=== PATIENT | male | born 1935 | race Caucasian/White ===

== ENCOUNTER 2022-11-27 19:45 | Emergency (ER) | payer OTHER ==
--- OUTSIDE RECORDS SUMMARY | 2022-11-27 20:04 | XMS REPORT | Continuity of Care Document ---
:1935 Author Organization [facility] t Address [address] [place] [address] Care Team Providers Name Role Phone Eduardo Hall Attending Clinician Unavailable Rosario Granados Attending Clinician Unavailable Julio Tejada Attending Clinician Unavailable JENISE Attending Clinician Unavailable Rhonda Leblanc Attending Clinician [phone] Jorge Alberto Ramires Attending Clinician Unavailable Jorge Alberto Ramires Attending Clinician Unavailable A_Madhu Attending Clinician Unavailable PURA Attending Clinician Unavailable Angelica Carlos Attending Clinician Unavailable MIRNA JNAE Attending Clinician Unavailable JHOAN CORNEJO Attending Clinician Unavailable Eduardo Hall Admitting Clinician Unavailable Julio Tejada Admitting Clinician Unavailable JENISE Admitting Clinician Unavailable Physician, No Primary or Family Admitting Clinician Unavailjose buitrago A_Madhu Admitting Clinician Unavailable PURA Admitting Clinician Unavailable Payers Payer Name Policy Type Policy Number Effective Date Expiration Date S melly [facility] - [id number] 2021 [employer] 00:00:00 (MEDICARE REPLACEMENT/ADVANTAG E - PPO) [facility] [id number] (PPO) [employer] - MEDICARE [id number] COMPLETE (MEDICARE REPLACEMENT HMO) Problems Condition Condition Condition Status Onset Resolution Last Treating Co mments Source Name Details Category Date Date Treatment Clinician Date Fall Fall Problem Active 2021-11 [place] 1-09 [facility] 00:[facility]: ty [facility] Acute Acute Problem Active [place] bronchitis Bronchitis 6-15 Co m[facility]i 00:00: ty 00 [facility] Screening Screening Problem Active Swe ramirez for for 3-15 [facility] malignant Malignant 00:00: ty neoplasm Neoplasm 00 [facility] prostate Prostate Clinic s Pain of Pain of Problem Active [facility] left knee Left Knee 3-15 Comm uni joint Joint 00:00: ty 00 [facility] Pain in Pain in Problem Active [place] right hip Right Hip 3-15 Comm uni joint Joint 00:00: ty 00 [facility] Pain in Pain in Problem Active [place] right Right 2-07 [facility] lower limb Lower Limb 00:00: ty 00 [facility] 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 8-24 [facility] i rhinitis Rhinitis 00:00: ty 00 [facility] Persistent Persistent Problem Active S [facility] insomnia Insomnia 6 Commun i 00:00: ty 00 [facility] Insomnia Insomnia Problem Active [facility] 04-03 [facility] 00:00: ty 00 [facility] Atrial Atrial Problem Active [facility] fibrillati Fibrillati 6 Co mmuni on on 00:00: ty 00 [facility] 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[facility]y n of colon n of Colon 6 Co mmuni 00:00: ty 00 [facility] Muscle Muscle Problem Active [facility] weakness Weakness 6 Commun i 00:00: ty 00 [facility] Poor Poor Problem Active [facility] short-term Short-term 6 Co m[facility]i memory Memory 00:00: ty 00 [facility] Diarrhea Diarrhea Problem Active [facility] 6 [facility] 00:00: ty 00 [facility] History of History of Problem Active S [facility] mitral Mitral 6 [facility] valve Valve 00:00: ty replacemen Replacemen 00 [facility] spita [facility] t l Clinics Anticoagul Anticoagul Problem Active S sandray ant ant 04-03 [facility] therapy Therapy 00:00: ty 00 [facility] Long-term Long-term Problem Active [facility] ramirez drug Drug 04-03 [facility] therapy Therapy 00:00: ty 00 [facility] Open heart Open Heart Problem Active S [facility] surgery Surgery 3-15 [facility]i 00:00: ty 00 [facility] Coronary Coronary Problem Active [facility] arterioscl Arterioscl 1-05 da erosis erosis 00:00: Medical 00 Group 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-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 Premature 00:00: Medi adán beats Beats 00 Group Coronary Coronary Problem Active 2019-11 [place] arterioscl Arterioscl 2-27 da erosis [facility] Pruritus Pruritus Problem Active [place] of skin of Skin 1-22 da 00:00: Medical 00 Group Unintentio Unintentio Problem Active [facility] nal weight nal Weight 1-22 da loss Loss 00:00: Medical 00 Group Allergic Allergic Problem Active [place] conjunctiv Conjunctiv - da itis of itis of 00:00: Medical right eye Right Eye 00 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 Disease 00:00: Medical 00 Group Adult Adult Problem Active [facility] C[facility]uan Group 1-10 da examinatio Examinatio 00:00: Me dical n n 00 Group Herpes Herpes Problem Active [place] zoster Zoster 07-30 da 00:00: Medical 00 Group Shoulder Shoulder Problem Active [place] joint pain Joint Pain 623 da 00:00: Medical 00 Group 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 [facility] Upper Upper Problem Active [place] respirator Respirator da y y Medical infection Infection Grou p Allergic Allergic Problem Active [place] [facility] rhinitis Rhinitis [facility] Constipati Constipati Problem Active [facility] on on [facility] 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 Me dical a a Group Cellulitis Cellulitis Problem Active M at[facility] of lower of Lower da limb [facility] Memory Memory Problem Active [facility] impairment Impairment [facility] Eruption Eruption Problem Active [facility] Persistent Persistent Problem Active [facility] cough Cough [facility] Nocturia Nocturia Problem Active [facility] Allergies, Adverse Reactions, Alerts Allergy Allergy Status Severity Reaction(s) Onset Inactive Treating Comm ents Source Name Type Date Date Clinician No Known DA Active U 2020-11 [facility] Allergie 1 Clear s 00:00: Figueredo 00 [facility] No Known DA Active U [facility] Allergie 3 Clear s 00:00: Figueredo 00 [facility] No Known DA Active U [facility] Allergie 3- Clear s 00:00: Figueredo 00 [facility] Social History Smoking Status Start Date Stop Date Source Never Smoker [facility] Medications Ordered Filled Start Stop Current Ordering Indication Dosage Frequency Signature Comments Components Source Medication Medication Date Date Medication? Clinician (SIG) Name Name Santos 40 Rojasalog 40 No Kenalog 40 [place] mg/mL mg/mL 6-15 mg/mL [facility]i suspension suspension 14:15: suspension ty for for 30 for Hospita injectionTa injectionTa injectionT l ke 2 mL by 2 mL by [facility] 2 mL [facility] injection injection by route. route. injection route. Kenalog 40 Kenalog 40 No Kenalog 40 [place] mg/mL mg/mL 1-05 mg/mL Communi suspension suspension 17:49: suspension ty for for 56 for Hospita injectionTa injectionTa injectionT l ke 2 mL by 2 mL by [facility] 2 mL [facility] injection injection by route. route. injection route. Kenalog 40 Kenalog 40 No Kenalog 40 [place] mg/mL mg/mL 1-05 mg/mL Communi suspension suspension 17:49: suspension ty for for 56 for Hospita injectionTa injectionTa injectionT l ke 2 mL by 2 mL by [facility] 2 mL [facility] injection injection by route. route. injection route. Kenalog 40 Kenalog 40 No Kenalog 40 [place] mg/mL mg/mL 1-05 mg/mL Communi suspension suspension 17:49: suspension ty for for 56 for Hospita injectionTa injectionTa injectionT l ke 2 mL by 2 mL by dannielle 2 mL [facility] injection injection by route. route. injection route. Kenalog 40 Kenalog 40 No Kenalog 40 [place] mg/mL mg/mL 1-05 mg/mL Communi suspension suspension 17:49: suspension ty for for 56 for Hospita injectionTa injectionTa injectionT l ke 2 mL by ke 2 mL by dannielle 2 mL [facility] injection injection by route. route. injection route. Kenalog 40 Kenalog 40 No Kenalog 40 [place] mg/mL mg/mL 1-05 mg/mL Communi suspension suspension 17:49: suspension ty for for 56 for Hospita injectionTa injectionTa injectionT l ke 2 mL by ke 2 mL by dannielle 2 mL [facility] injection injection by route. route. injection route. amiodarone amiodarone No amiodarone [place] 200 mg 200 mg 200 mg Communi tablet TAKE tablet TAKE tablet ty ONE TABLET ONE TABLET TAKE ONE Hospita BY MOUTH BY MOUTH TABLET BY l TWICE DAILY TWICE DAILY MOUTH Clinics TWICE DAILY Cerebrum Cerebrum No Cerebrum Swe ramirez Compositum Compositum Compositum Communi ty [facility] Eliquis 5 Eliquis 5 No Eliquis 5 [place] mg tablet mg tablet mg tablet Communi TAKE 1 TAKE 1 TAKE 1 ty TABLET BY TABLET BY TABLET BY Hospita MOUTH TWICE MOUTH TWICE MOUTH l DAILY DAILY TWICE Clinics DAILY FeroSul 325 FeroSul 325 No FeroSul [place] mg (65 mg mg (65 mg 325 mg (65 Communi iron) iron) mg iron) ty tablet TAKE tablet TAKE tablet Hospita 1 TABLET BY 1 TABLET BY TAKE 1 l MOUTH TWICE MOUTH TWICE TABLET BY Clinics DAILY DAILY MOUTH TWICE DAILY Arabic Arabic No Arabic [place] Ginseng Ginseng Ginseng Commun i ty [facility] Macular Macular No Macular [place] [employer] [facility] Communi Formula Formula Formula ty [facility] Men's 50 Men's 50 No Men's 50 Swe ramirez Plus Plus Plus Communi Multivitami Multivitami Multivitam ty n n in [facility] Metamucil Metamucil No Metamucil [place] (sugar) (sugar) (sugar) Commun i oral powder oral powder oral t y Take by Take by powder Hospita oral route. oral route. Take by l oral Clinics route. mirtazapine mirtazapine No mirtazapin [facility] 15 mg 15 mg e 15 mg Communi tablet TAKE tablet TAKE tablet ty 1 TABLET BY 1 TABLET BY TAKE 1 Hospita MOUTH AT MOUTH AT TABLET BY l BEDTIME BEDTIME MOUTH AT Clini cs BEDTIME [place] 3 [place] 3 No [place] 3 [place] Communi ty [facility] Probiotic Probiotic No Probiotic [place] Communi ty [facility] Super B Super B No Super B [place] Complex Complex Complex Commun i ty [facility] Vitamin C Vitamin C No Vitamin C [place] 500mg 500mg 500mg Communi ty [facility] amiodarone amiodarone No amiodarone [place] 200 mg 200 mg 200 mg Communi tablet TAKE tablet TAKE tablet ty ONE TABLET ONE TABLET TAKE ONE Hospita BY MOUTH BY MOUTH TABLET BY l TWICE DAILY TWICE DAILY MOUTH Clinics TWICE DAILY Cerebrum Cerebrum No Cerebrum Swe ramirez Compositum Compositum Compositum Communi ty [facility] donepezil 5 donepezil 5 No donepezil [place] mg tablet mg tablet 5 mg Commu ni TAKE 1 TAKE 1 tablet ty TABLET BY TABLET BY TAKE 1 Hos татьяна MOUTH EVERY MOUTH EVERY TABLET BY l MORNING MORNING MOUTH Clinics EVERY MORNING Eliquis 5 Eliquis 5 No Eliquis 5 [facility] mg tablet mg tablet mg tablet Communi TAKE 1 TAKE 1 TAKE 1 ty TABLET BY TABLET BY TABLET BY Hospita MOUTH TWICE MOUTH TWICE MOUTH l DAILY DAILY TWICE Clinics DAILY FeroSul 325 FeroSul 325 No FeroSul [place] mg (65 mg mg (65 mg 325 mg (65 Communi iron) iron) mg iron) ty tablet TAKE tablet TAKE tablet Hospita 1 TABLET BY 1 TABLET BY TAKE 1 l MOUTH TWICE MOUTH TWICE TABLET BY Clinics DAILY DAILY MOUTH TWICE DAILY Arabic Arabic No Arabic [place] Ginseng Ginseng Ginseng Commun i ty [facility] Clinics Macular Macular No Macular [facility] Communi Formula Formula Formula ty [facility] Clinics Men's 50 Men's 50 No Men's 50 Swe ramirez Plus Plus Plus Communi Multivitami Multivitami Multivitam ty n n in [facility] Clinics Metamucil Metamucil No Metamucil [place] (sugar) (sugar) (sugar) Commun i oral powder oral powder oral t y Take by Take by powder Hospita oral route. oral route. Take by l oral Clinics route. mirtazapine mirtazapine No mirtazapin [place] 15 mg 15 mg e 15 mg Communi tablet TAKE tablet TAKE tablet ty 1 TABLET BY 1 TABLET BY TAKE 1 Hospita MOUTH AT MOUTH AT TABLET BY l BEDTIME BEDTIME MOUTH AT Clini cs BEDTIME [place] 3 [place] 3 No [place] 3 [place] Communi ty [facility] Clinics Probiotic Probiotic No Probiotic [place] [facility]i [facility] Super B Super B No Super B [place] Complex Complex Complex Commun i ty [facility] Vitamin C Vitamin C No Vitamin C [place] 500mg 500mg 500mg Communi ty [facility] amiodarone amiodarone No amiodarone [place] 200 mg 200 mg 200 mg Communi tablet TAKE tablet TAKE tablet ty ONE TABLET ONE TABLET TAKE ONE Hospita BY MOUTH BY MOUTH TABLET BY l TWICE DAILY TWICE DAILY MOUTH Clinics TWICE DAILY Cerebrum Cerebrum No Cerebrum Swe ramirez Compositum Compositum Compositum Communi ty [facility] Clinics donepezil donepezil No donepezil [place] 10 mg 10 mg 10 mg Communi tablet TAKE tablet TAKE tablet ty 1 TABLET BY 1 TABLET BY TAKE 1 Hospita MOUTH EVERY MOUTH EVERY TABLET BY l DAY DAY MOUTH Clinics EVERY DAY donepezil 5 donepezil 5 No donepezil [place] mg tablet mg tablet 5 mg Commu ni TAKE 1 TAKE 1 tablet ty TABLET BY TABLET BY TAKE 1 Hos татьяна MOUTH EVERY MOUTH EVERY TABLET BY l MORNING MORNING MOUTH Clinics EVERY MORNING Eliquis 5 Eliquis 5 No Eliquis 5 [place] mg tablet mg tablet mg tablet Communi TAKE 1 TAKE 1 TAKE 1 ty TABLET BY TABLET BY TABLET BY Hospita MOUTH TWICE MOUTH TWICE MOUTH l DAILY DAILY TWICE Clinics DAILY FeroSul 325 FeroSul 325 No FeroSul [place] mg (65 mg mg (65 mg 325 mg (65 Communi iron) iron) mg iron) ty tablet TAKE tablet TAKE tablet Hospita 1 TABLET BY 1 TABLET BY TAKE 1 l MOUTH TWICE MOUTH TWICE TABLET BY Clinics DAILY DAILY MOUTH TWICE DAILY Arabic Arabic No Arabic [place] Ginseng Ginseng Ginseng Commun i [facility] Macular Macular No Macular [place] [employer] [facility] Communi Formula Formula Formula ty [facility]ics Men's 50 Men's 50 No Men's 50 Swe ramirez Plus Plus Plus Communi Multivitami Multivitami Multivitam ty n n in [facility] Metamucil Metamucil No Metamucil [place] (sugar) (sugar) (sugar) Commun i oral powder oral powder oral t y Take by Take by powder Hospita oral route. oral route. Take by l oral Clinics route. mirtazapine mirtazapine No mirtazapin [place] 15 mg 15 mg e 15 mg Communi tablet TAKE tablet TAKE tablet ty 1 TABLET BY 1 TABLET BY TAKE 1 Hospita MOUTH AT MOUTH AT TABLET BY l BEDTIME BEDTIME MOUTH AT Clini cs BEDTIME [place] 3 [place] 3 No [place] 3 [place] Communi ty [facility] Clinics Probiotic Probiotic No Probiotic [place] Communi ty [facility] Clinics Super B Super B No Super B [place] Complex Complex Complex Commun i ty [facility] Vitamin C Vitamin C No Vitamin C [place] 500mg 500mg 500mg Communi ty [facility] Clinics amiodarone amiodarone No amiodarone [place] 200 mg 200 mg 200 mg Communi tablet TAKE tablet TAKE tablet ty 1 TABLET BY 1 TABLET BY TAKE 1 Hospita MOUTH TWICE MOUTH TWICE TABLET BY l DAILY DAILY MOUTH Clinics TWICE DAILY Cerebrum Cerebrum No Cerebrum Swe ramirez Compositum Compositum Compositum Communi ty [facility] Clinics donepezil donepezil No donepezil [place] 10 mg 10 mg 10 mg Communi tablet TAKE tablet TAKE tablet ty 1 TABLET BY 1 TABLET BY TAKE 1 Hospita MOUTH EVERY MOUTH EVERY TABLET BY l DAY DAY MOUTH Clinics EVERY DAY FeroSul 325 FeroSul 325 No FeroSul [place] mg (65 mg mg (65 mg 325 mg (65 Communi iron) iron) mg iron) ty tablet TAKE tablet TAKE tablet Hospita 1 TABLET BY 1 TABLET BY TAKE 1 l MOUTH TWICE MOUTH TWICE TABLET BY Clinics DAILY DAILY MOUTH TWICE DAILY Kenalog 40 Kenalog 40 No 2mL Kenalog 40 [place] mg/mL mg/mL mg/mL Communi suspension suspension suspension ty for for for Hospita injection injection injection l Take 2 mL Take 2 mL Take 2 mL Clinics by by by injection injection injection route. route. route. Arabic Arabic No Arabic [place] Ginseng Ginseng Ginseng Commun i ty [facility] Clinics Macular Macular No Macular [place] [employer] [facility] Communi Formula Formula Formula ty [facility] Clinics Men's 50 Men's 50 No Men's 50 Swe ramirez Plus Plus Plus Communi Multivitami Multivitami [facility]iv[facility]am [facility] Metamucil Metamucil No Metamucil [place] (sugar) (sugar) (sugar) Commun i oral powder oral powder oral t y Take by Take by powder Hospita oral route. oral route. Take by l oral Clinics route. mirtazapine mirtazapine No mirtazapin [place] 15 mg 15 mg e 15 mg Communi tablet TAKE tablet TAKE tablet ty 1 TABLET BY 1 TABLET BY TAKE 1 Hospita MOUTH AT MOUTH AT TABLET BY l BEDTIME BEDTIME MOUTH AT Clini cs BEDTIME [place] 3 [place] 3 No [place] 3 [place] Communi ty [facility] Clinics Probiotic Probiotic No Probiotic [place] Communi ty [facility] Clinics Super B Super B No Super B [place] Complex Complex Complex Commun i ty [facility] Clinics Vitamin C Vitamin C No Vitamin C [place] 500mg 500mg 500mg Communi ty [facility] Clinics amiodarone amiodarone No amiodarone [place] 200 mg 200 mg 200 mg Communi tablet TAKE tablet TAKE tablet ty 1 TABLET BY 1 TABLET BY TAKE 1 Hospita MOUTH TWICE MOUTH TWICE TABLET BY l DAILY DAILY MOUTH Clinics TWICE DAILY Cerebrum Cerebrum No Cerebrum Swe ramirez Compositum Compositum Compositum Communi ty [facility] Clinics donepezil donepezil No donepezil [place] 10 mg 10 mg 10 mg Communi tablet TAKE tablet TAKE tablet ty 1 TABLET BY 1 TABLET BY TAKE 1 Hospita MOUTH EVERY MOUTH EVERY TABLET BY l DAY DAY MOUTH Clinics EVERY DAY FeroSul 325 FeroSul 325 No FeroSul [place] mg (65 mg mg (65 mg 325 mg (65 Communi iron) iron) mg iron) ty tablet TAKE tablet TAKE tablet Hospita 1 TABLET BY 1 TABLET BY TAKE 1 l MOUTH TWICE MOUTH TWICE TABLET BY Clinics DAILY DAILY MOUTH TWICE DAILY Kenalog 40 Kenalog 40 No 2mL Kenalog 40 [place] mg/mL mg/mL mg/mL Communi suspension suspension suspension ty for for for Hospita injection injection injection l Take 2 mL Take 2 mL Take 2 mL Clinics by by by injection injection injection route. route. route. Arabic Arabic No Arabic [place] Ginseng Ginseng Ginseng Commun i ty [facility] Clinics Macular Macular No Macular [place] [employer] [facility] Communi Formula Formula Formula ty [facility] Men's 50 Men's 50 No Men's 50 Swe ramirez Plus Plus Plus Communi Multivitami Multivitami Multivitam ty n n in [facility] Metamucil Metamucil No Metamucil [place] (sugar) (sugar) (sugar) Commun i oral powder oral powder oral t y Take by Take by powder Hospita oral route. oral route. Take by l oral Clinics route. mirtazapine mirtazapine No mirtazapin [place] 15 mg 15 mg e 15 mg Communi tablet TAKE tablet TAKE tablet ty 1 TABLET BY 1 TABLET BY TAKE 1 Hospita MOUTH AT MOUTH AT TABLET BY l BEDTIME BEDTIME MOUTH AT Clini cs BEDTIME [place] 3 [place] 3 No [place] 3 [place] Communi ty [facility] Clinics Probiotic Probiotic No Probiotic [place] Communi ty [facility] Clinics Super B Super B No Super B [place] Complex Complex Complex Commun i ty [facility] Clinics Vitamin C Vitamin C No Vitamin C [place] 500mg 500mg 500mg Communi ty [facility] Clinics amiodarone amiodarone No amiodarone [place] 200 mg 200 mg 200 mg Communi tablet TAKE tablet TAKE tablet ty 1 TABLET BY 1 TABLET BY TAKE 1 Hospita MOUTH TWICE MOUTH TWICE TABLET BY l DAILY DAILY MOUTH Clinics TWICE DAILY Cerebrum Cerebrum No Cerebrum Swe ramirez Compositum Compositum Compositum Communi ty [facility] Clinics donepezil donepezil No donepezil [place] 10 mg 10 mg 10 mg Communi tablet TAKE tablet TAKE tablet ty 1 TABLET BY 1 TABLET BY TAKE 1 Hospita MOUTH EVERY MOUTH EVERY TABLET BY l DAY DAY MOUTH Clinics EVERY DAY FeroSul 325 FeroSul 325 No FeroSul [place] mg (65 mg mg (65 mg 325 mg (65 Communi iron) iron) mg iron) ty tablet TAKE tablet TAKE tablet Hospita 1 TABLET BY 1 TABLET BY TAKE 1 l MOUTH TWICE MOUTH TWICE TABLET BY Clinics DAILY DAILY MOUTH TWICE DAILY Kenalog 40 Kenalog 40 No 2mL Kenalog 40 [place] mg/mL mg/mL mg/mL Communi suspension suspension suspension ty for for for Hospita injection injection injection l Take 2 mL Take 2 mL Take 2 mL Clinics by by by injection injection injection route. route. route. Arabic Arabic No Arabic [place] Ginseng Ginseng Ginseng Commun i ty [facility] Macular Macular No Macular [place] [employer] [facility] Communi Formula Formula Formula ty [facility] Men's 50 Men's 50 No Men's 50 Swe ramirez Plus Plus Plus Communi Multivitami Multivitami Multivitam ty n n in [facility] Metamucil Metamucil No Metamucil [place] (sugar) (sugar) (sugar) Commun i oral powder oral powder oral t y Take by Take by powder Hospita oral route. oral route. Take by l oral Clinics route. mirtazapine mirtazapine No mirtazapin [place] 15 mg 15 mg e 15 mg Communi tablet TAKE tablet TAKE tablet ty 1 TABLET BY 1 TABLET BY TAKE 1 Hospita MOUTH AT MOUTH AT TABLET BY l BEDTIME BEDTIME MOUTH AT Clini cs BEDTIME [place] 3 [place] 3 No [place] 3 [place] Communi ty [facility] Probiotic Probiotic No Probiotic [place] Communi ty [facility] Super B Super B No Super B [place] Complex Complex Complex Commun i ty [facility] Vitamin C Vitamin C No Vitamin C [place] 500mg 500mg 500mg Communi ty [facility] amiodarone amiodarone No amiodarone [place] 200 mg 200 mg 200 mg Communi tablet TAKE tablet TAKE tablet ty 1 TABLET BY 1 TABLET BY TAKE 1 Hospita MOUTH TWICE MOUTH TWICE TABLET BY l DAILY DAILY MOUTH Clinics TWICE DAILY Cerebrum Cerebrum No Cerebrum Swe ramirez Compositum Compositum Compositum Communi ty [facility] donepezil donepezil No donepezil [place] 10 mg 10 mg 10 mg Communi tablet TAKE tablet TAKE tablet ty 1 TABLET BY 1 TABLET BY TAKE 1 Hospita MOUTH EVERY MOUTH EVERY TABLET BY l DAY DAY MOUTH Clinics EVERY DAY FeroSul 325 FeroSul 325 No FeroSul [place] mg (65 mg mg (65 mg 325 mg (65 Communi iron) iron) mg iron) ty tablet TAKE tablet TAKE tablet Hospita 1 TABLET BY 1 TABLET BY TAKE 1 l MOUTH TWICE MOUTH TWICE TABLET BY Clinics DAILY DAILY MOUTH TWICE DAILY Kenalog 40 Kenalog 40 No 2mL Kenalog 40 [place] mg/mL mg/mL mg/mL Communi suspension suspension suspension ty for for for Hospita injection injection injection l Take 2 mL Take 2 mL Take 2 mL Clinics by by by injection injection injection route. route. route. Arabic Arabic No Arabic [place] Ginseng Ginseng Ginseng Commun i ty [facility] Macular Macular No [facility] Formula ty [facility] Men's 50 Men's 50 No Men's 50 Swe ramirez Plus Plus Plus Communi Multivitami Multivitami Multivitam ty n n in [facility] Metamucil Metamucil No Metamucil [place] (sugar) (sugar) (sugar) Commun i oral powder oral powder oral t y Take by Take [facility] oral [facility] oral route. Take by l oral Clinics route. mirtazapine mirtazapine No mirtazapin [place] 15 mg 15 mg e 15 mg Communi tablet TAKE tablet TAKE tablet ty 1 TABLET BY 1 TABLET BY TAKE 1 Hospita MOUTH AT MOUTH AT TABLET BY l BEDTIME BEDTIME MOUTH AT Clini cs BEDTIME [place] 3 [place] 3 No [place] 3 [place] Communi ty [facility] Probiotic Probiotic No Probiotic [place] [facility] Super B Super B No Super B [place] [facility] Commun i ty [facility] Vitamin C Vitamin C No Vitamin C [place] 500mg 500mg 500mg Communi ty [facility] amiodarone amiodarone No amiodarone [place] 200 mg 200 mg 200 mg Communi tablet TAKE tablet TAKE tablet ty 1 TABLET BY 1 TABLET BY TAKE 1 Hospita MOUTH TWICE MOUTH TWICE TABLET BY l DAILY DAILY MOUTH Clinics TWICE DAILY Cerebrum Cerebrum No Cerebrum Swe ramirez Compositum Compositum Compositum Communi ty [facility] donepezil donepezil No donepezil [place] 10 mg 10 mg 10 mg Communi tablet TAKE tablet TAKE tablet ty 1 TABLET BY 1 TABLET BY TAKE 1 Hospita MOUTH EVERY MOUTH EVERY TABLET BY l DAY DAY MOUTH Clinics EVERY DAY clobetasol clobetasol No clobetasol [place] 0.05 % 0.05 % 0.05 % da topical topical topical Episco p cream APR cream APR cream APR al BID UP TO 2 BID UP TO 2 BID UP TO Health WKS PER WKS PER 2 WKS PER Outr eac MONTH PRN MONTH PRN MONTH PRN h Program FeroSul 325 FeroSul 325 No FeroSul [place] mg (65 mg mg (65 mg 325 mg (65 Communi iron) iron) mg iron) ty tablet TAKE tablet TAKE tablet Hospita 1 TABLET BY 1 TABLET BY TAKE 1 l MOUTH TWICE MOUTH TWICE TABLET BY Clinics DAILY DAILY MOUTH TWICE DAILY Kenalog 40 Kenalog 40 No 2mL Kenalog 40 [place] mg/mL mg/mL mg/mL Communi suspension suspension suspension ty for for for Hospita injection injection injection l Take 2 mL Take 2 mL Take 2 mL Clinics by by by injection injection injection route. route. route. Arabic Arabic No Arabic [place] Ginseng Ginseng Ginseng Commun i ty [facility] Macular Macular No Macular [facility] Communi Formula Formula Formula ty [facility] Men's 50 Men's 50 No Men's 50 Swe ramirez Plus Plus Plus Communi Multivitami Multivitami Multivitam ty n n in [facility] Clinics Metamucil Metamucil No Metamucil [place] (sugar) (sugar) (sugar) Commun i oral powder oral powder oral t y Take by Take by powder Hospita oral route. oral route. Take by l oral Clinics route. mirtazapine mirtazapine No mirtazapin [place] 15 mg 15 mg e 15 mg Communi tablet TAKE tablet TAKE tablet ty 1 TABLET BY 1 TABLET BY TAKE 1 Hospita MOUTH AT MOUTH AT TABLET BY l BEDTIME BEDTIME MOUTH AT Clini cs BEDTIME [place] 3 No [place] 3 [place] Communi ty [facility] Probiotic Probiotic No Probiotic [place] Communi ty [facility] Super B Super B No Super B [place] [facility] Commun i ty [facility] Clinics Vitamin C Vitamin C No Vitamin C [place] 500mg 500mg 500mg Communi ty [facility] amiodarone amiodarone No amiodarone [place] 200 mg 200 mg 200 mg Communi tablet TAKE tablet TAKE tablet ty 1 TABLET BY 1 TABLET BY TAKE 1 Hospita MOUTH TWICE MOUTH TWICE TABLET BY l DAILY DAILY MOUTH Clinics TWICE DAILY Cerebrum Cerebrum No Cerebrum Swe ramirez Compositum Compositum Compositum Communi ty [facility] donepezil donepezil No donepezil [place] 10 mg 10 mg 10 mg Communi tablet TAKE tablet TAKE tablet ty 1 TABLET BY 1 TABLET BY TAKE 1 Hospita MOUTH EVERY MOUTH EVERY TABLET BY l DAY DAY MOUTH Clinics EVERY DAY FeroSul 325 FeroSul 325 No FeroSul [place] mg (65 mg mg (65 mg 325 mg (65 Communi iron) iron) mg iron) ty tablet TAKE tablet TAKE tablet Hospita 1 TABLET BY 1 TABLET BY TAKE 1 l MOUTH TWICE MOUTH TWICE TABLET BY Clinics DAILY DAILY MOUTH DIRECTED DIRECTED TWICE DAILY DIRECTED Arabic Arabic No Arabic [place] Ginseng Ginseng Ginseng [facility] Mac[facility] No [facility] Men's 50 Men's 50 No Men's 50 Swe ramirez Plus Plus Plus Communi Multivitami Multivitami Multivitam ty n n [facility] Clin[facility] Metamucil Metamucil No Metamucil [place] (sugar) (sugar) (sugar) Commun i oral powder oral powder oral t y Take by Take by powder Hospita oral route. oral route. Take by l oral Clinics route. mirtazapine mirtazapine No mirtazapin [place] 15 mg 15 mg e 15 mg Communi tablet TAKE tablet TAKE tablet ty 1 TABLET BY 1 TABLET BY TAKE 1 Hospita MOUTH AT MOUTH AT TABLET BY l BEDTIME BEDTIME MOUTH AT Clini cs BEDTIME [place] 3 [place] 3 No [place] 3 [place] Communi ty [facility] Probiotic Probiotic No Probiotic [place] Communi ty [facility] Super B Super B No Super B [place] Complex Complex Complex Commun i ty [facility] Vitamin C Vitamin C No Vitamin C [place] 500mg 500mg 500mg Communi ty [facility] amiodarone amiodarone No amiodarone [place] 200 mg 200 mg 200 mg Communi tablet TAKE tablet TAKE tablet ty 1 TABLET BY 1 TABLET BY TAKE 1 Hospita MOUTH TWICE MOUTH TWICE TABLET BY l DAILY DAILY MOUTH Clinics TWICE DAILY Cerebrum Cerebrum No Cerebrum Swe ramirez Compositum Compositum Compositum Communi ty [facility] donepezil donepezil No donepezil [place] 10 mg 10 mg 10 mg Communi tablet TAKE tablet TAKE tablet ty 1 TABLET BY 1 TABLET BY TAKE 1 Hospita MOUTH EVERY MOUTH EVERY TABLET BY l DAY DAY MOUTH Clinics EVERY DAY FeroSul 325 FeroSul 325 No FeroSul [place] mg (65 mg mg (65 mg 325 mg (65 Communi iron) iron) mg iron) ty tablet TAKE tablet TAKE tablet Hospita 1 TABLET BY 1 TABLET BY TAKE 1 l MOUTH TWICE MOUTH TWICE TABLET BY Clinics DAILY DAILY MOUTH DIRECTED DIRECTED TWICE DAILY DIRECTED Arabic Arabic No Arabic [place] Ginseng Ginseng Ginseng Commun i ty Hospita l Clinics Macular Macular No Macular [facility] Communi Formula Formula Formula ty [facility] Fluad Quad Fluad Quad No Fluad Quad [place] (6 [phone]( da 5yr up)(PF) 5yr up)(PF) 67yr E piscop 60 mcg (15 60 mcg (15 up)(PF) 60 al mcg x mcg x mcg (15 Health 4)/0.5mL IM 4)/0.5mL IM mcg x Outreac syringe ADM syringe ADM 4)/0.5mL h 0.5ML IM 0.5ML IM IM syringe P rogram UTD UTD ADM 0.5ML IM UTD Men's 50 Men's 50 No Men's 50 Swe ramirez Plus Plus Plus Communi Multivitami Multivitami [facility] Metamucil Metamucil No Metamucil [place] (sugar) (sugar) (sugar) Commun i oral powder oral powder oral t y Take by Take by powder Hospita oral route. oral route. Take by l oral Clinics route. mirtazapine mirtazapine No mirtazapin [place] 15 mg 15 mg e 15 mg Communi tablet TAKE tablet TAKE tablet ty 1 TABLET BY 1 TABLET BY TAKE 1 Hospita MOUTH AT MOUTH AT TABLET BY l BEDTIME BEDTIME MOUTH AT Clini cs BEDTIME [place] 3 [place] 3 No [place] 3 [place] Communi ty [facility] Probiotic Probiotic No Probiotic [place] Communi ty [facility] Super B Super B No Super B [place] [facility] Complex Commun i ty [facility] Vitamin C Vitamin C No Vitamin C [place] 500mg 500mg 500mg Communi ty [facility] amiodarone amiodarone No amiodarone [place] 200 mg 200 mg 200 mg Communi tablet TAKE tablet TAKE tablet ty 1 TABLET BY 1 TABLET BY TAKE 1 Hospita MOUTH TWICE MOUTH TWICE TABLET BY l DAILY DAILY MOUTH Clinics TWICE DAILY amoxicillin amoxicillin No 1 Q12H amoxicilli [place] [id number] 875 Communi mg-potassiu mg-potassiu mg-potassi ty m m [facility] clavulanate clavulanate clavulanat l 125 mg 125 mg e 125 mg Clinics tablet Take tablet Take tablet 1 tablet 1 tablet Take 1 every 12 every 12 tablet hours by hours by every 12 oral route oral route hours by for 10 for 10 oral route days. days. for 10 days. Cerebrum Cerebrum No Cerebrum Swe ramirez Compositum Compositum Compositum Communi ty [facility] donepezil donepezil No donepezil [place] 10 mg 10 mg 10 mg Communi tablet TAKE tablet TAKE tablet ty 1 TABLET BY 1 TABLET BY TAKE 1 Hospita MOUTH EVERY MOUTH EVERY TABLET BY l DAY DAY MOUTH Clinics EVERY DAY FeroSul 325 FeroSul 325 No FeroSul [place] mg (65 mg mg (65 mg 325 mg (65 Communi iron) iron) mg iron) ty tablet TAKE tablet TAKE tablet Hospita 1 TABLET BY 1 TABLET BY TAKE 1 l MOUTH TWICE MOUTH TWICE TABLET BY Clinics DAILY DAILY MOUTH DIRECTED DIRECTED TWICE DAILY DIRECTED Arabic Arabic No Arabic [place] Ginseng Ginseng Ginseng Commun i [facility] Macular Macular No Macular [facility] Communi Formula Formula Formula ty [facility] Men's 50 Men's 50 No Men's 50 Swe ramirez Plus Plus Plus Communi Multivitami Multivitami Multivitam ty n n in [facility] Metamucil Metamucil No Metamucil [place] (sugar) (sugar) (sugar) Commun i oral powder oral powder oral t y Take by Take by powder Hospita oral route. oral route. Take by l oral Clinics route. mirtazapine mirtazapine No mirtazapin [place] 15 mg 15 mg e 15 mg Communi tablet TAKE tablet TAKE tablet ty 1 TABLET BY 1 TABLET BY TAKE 1 Hospita MOUTH AT MOUTH AT TABLET BY l BEDTIME BEDTIME MOUTH AT Clini cs BEDTIME [place] 3 [place] 3 No [place] 3 [place] Communi ty [facility] Probiotic Probiotic No Probiotic [place] Communi ty [facility] Super B Super B No Super B [place] [facility] Commun i [facility] triamcinolo triamcinolo No triamcinol [place] ne ne one Communi acetonide acetonide acetonide ty 0.1 % 0.1 % 0.1 % [facility] topical topical topical l cream APPLY cream APPLY cream Clinics TO RASH ON TO RASH ON APPLY TO FOREARMS FOREARMS RASH ON TWICE DAILY TWICE DAILY FOREARMS DIRECTED DIRECTED TWICE DAILY DIRECTED Vitamin C Vitamin C No Vitamin C [place] 500mg 500mg 500mg Communi ty [facility] Clinics amiodarone amiodarone No amiodarone [place] 200 mg 200 mg 200 mg Communi tablet TAKE tablet TAKE tablet ty 1 TABLET BY 1 TABLET BY TAKE 1 Hospita MOUTH TWICE MOUTH TWICE TABLET BY l DAILY DAILY MOUTH Clinics TWICE DAILY amoxicillin amoxicillin No 1 Q12H amoxicilli [place] [id number] n 875 Communi mg-potassiu mg-potassiu mg-potassi ty m m um Hospita clavulanate clavulanate clavulanat l 125 mg 125 mg e 125 mg Clinics tablet Take tablet Take tablet 1 tablet 1 tablet Take 1 every 12 every 12 tablet hours by hours by every 12 oral route oral route hours by for 10 for 10 oral route days. days. for 10 days. Cerebrum Cerebrum No Cerebrum Swe ramirez Compositum Compositum Compositum Communi ty [facility] Clinics donepezil donepezil No donepezil [place] 10 mg 10 mg 10 mg Communi tablet TAKE tablet TAKE tablet ty 1 TABLET BY 1 TABLET BY TAKE 1 Hospita MOUTH EVERY MOUTH EVERY TABLET BY l DAY DAY MOUTH Clinics EVERY DAY FeroSul 325 FeroSul 325 No FeroSul [place] mg (65 mg mg (65 mg 325 mg (65 Communi iron) iron) mg iron) ty tablet TAKE tablet TAKE tablet Hospita 1 TABLET BY 1 TABLET BY TAKE 1 l MOUTH TWICE MOUTH TWICE TABLET BY Clinics DAILY DAILY MOUTH DIRECTED DIRECTED TWICE DAILY DIRECTED Kenalog 40 Kenalog 40 No 2mL Kenalog 40 [place] mg/mL mg/mL mg/mL Communi suspension suspension suspension ty for for for Hospita injection injection injection l Take 2 mL Take 2 mL Take 2 mL Clinics by by by injection injection injection route. route. route. Arabic Arabic No Arabic [place] Ginseng Ginseng Ginseng Commun i ty [facility] Macular Macular No Macular [facility] Formula Formula Formula [facility] olopatadine olopatadine No olopatadin [place] 0.2 % eye 0.2 % eye e 0.2 % da drops drops eye [facility] Men's 50 Men's 50 No Men's 50 Swe ramirez Plus Plus Plus Communi Multivitami Multivitami Multivitam ty n n in [facility] Metamucil Metamucil No Metamucil [place] (sugar) (sugar) (sugar) Commun i oral powder oral powder oral t y Take by Take by powder [facility] oral route. oral route. Take by l oral Clinics route. mirtazapine mirtazapine No mirtazapin [place] 15 mg 15 mg e 15 mg Communi tablet TAKE tablet TAKE tablet ty 1 TABLET BY [facility] MOUTH AT TABLET BY l BEDTIME BEDTIME MOUTH AT Clini cs BEDTIME [place] 3 [place] 3 No [place] 3 [place] Communi [facility] Probiotic Probiotic No Probiotic [place] Communi [facility] Super B Super B No Super B [place] [facility] Complex Commun i [facility] triamcinolo triamcinolo No triamcinol [place] ne ne one [facility] aceton[facility] acetonide acetonide ty 0.1 % 0.1 % 0.1 % [facility] topical topical topical l cream APPLY cream APPLY cream Clinics TO RASH ON TO RASH ON APPLY TO FOREARMS FOREARMS RASH ON TWICE DAILY TWICE DAILY FOREARMS DIRECTED DIRECTED TWICE DAILY DIRECTED Vitamin C Vitamin C No Vitamin C [place] 500mg 500mg 500mg [facility] amiodarone amiodarone No amiodarone [place] 200 mg 200 mg 200 mg Communi tablet TAKE tablet TAKE tablet ty 1 TABLET BY 1 TABLET BY TAKE 1 Hospita MOUTH TWICE MOUTH TWICE TABLET BY l DAILY DAILY MOUTH Clinics TWICE DAILY aspirin 81 aspirin 81 No 1 Q1D aspirin 81 [place] mg mg mg Commun tablet,roberto tablet,roberto tablet,del ty yed release yed release ayed H ospita Take 1 Take 1 release l tablet tablet Take 1 Clinics every day every day tablet by oral by oral every day route. route. by oral route. Cerebrum Cerebrum No Cerebrum Swe ramirez Compositum Compositum Compositum [facility] donepezil donepezil No donepezil [place] 10 mg 10 mg 10 mg Communi tablet TAKE tablet TAKE tablet ty 1 TABLET BY 1 TABLET BY [facility]KE [facility]TH EVERY MOUTH EVERY TABLET BY l DAY DAY MOUTH Clinics EVERY DAY FeroSul 325 FeroSul 325 No FeroSul [place] mg (65 mg mg (65 mg 325 mg (65 Communi iron) iron) mg iron) ty tablet TAKE tablet TAKE tablet Hospita 1 TABLET BY 1 TABLET BY TAKE 1 l MOUTH TWICE MOUTH TWICE TABLET BY Clinics DAILY DAILY MOUTH DIRECTED DIRECTED TWICE DAILY DIRECTED Arabic Arabic No Arabic [place] Ginseng Ginseng Ginseng Commun i ty [facility] Macular Macular No Macular [facility] Communi Formula Formula Formula ty [facility] Men's 50 Men's 50 No Men's 50 Swe ramirez Plus Plus Plus Communi Multivitami Multivitami Multivitam ty n n in [facility] Metamucil Metamucil No Metamucil [place] (sugar) (sugar) (sugar) Commun i oral powder oral powder oral t y Take by Take by powder Hospita oral route. oral route. Take by l oral Clinics route. mirtazapine mirtazapine No mirtazapin [place] 15 mg 15 mg e 15 mg Communi tablet TAKE tablet TAKE tablet ty 1 TABLET BY 1 TABLET BY TAKE 1 Hospita MOUTH AT MOUTH AT TABLET BY l BEDTIME BEDTIME MOUTH AT Clini cs BEDTIME montelukast montelukast No 1 Q1D montelukas [place] 10 mg 10 mg t 10 mg Communi tablet Take tablet Take tablet ty 1 tablet 1 tablet Take 1 Hospi ta every day every day tablet l by oral by oral every day Clin ics route. route. by oral route. [place] 3 [place] 3 No [place] 3 [place] Communi ty [facility] Probiotic Probiotic No Probiotic [place] Communi ty [facility] Super B Super B No Super B [place] Complex Complex Complex Commun i ty [facility] triamcinolo triamcinolo No triamcinol [place] ne ne one Communi acetonide acetonide acetonide ty 0.1 % 0.1 % 0.1 % [facility] topical topical topical l cream APPLY cream APPLY cream Clinics TO RASH ON TO RASH ON APPLY TO FOREARMS FOREARMS RASH ON TWICE DAILY TWICE DAILY FOREARMS DIRECTED DIRECTED TWICE DAILY DIRECTED Vitamin C Vitamin C No Vitamin C [place] 500mg 500mg 500mg Communi ty [facility] amiodarone amiodarone No amiodarone [place] 200 mg 200 mg 200 mg Communi tablet TAKE tablet TAKE tablet ty 1 TABLET BY 1 TABLET BY TAKE 1 Hospita MOUTH TWICE MOUTH TWICE TABLET BY l DAILY DAILY MOUTH Clinics TWICE DAILY aspirin 81 aspirin 81 No 1 Q1D aspirin 81 [place] mg mg mg Communi tablet,roberto tablet,roberto tablet,del ty yed release yed release ayed H ospita Take 1 Take 1 release l tablet tablet Take 1 Clinics every day every day tablet by oral by oral every day route. route. by oral route. Cerebrum Cerebrum No Cerebrum Swe ramirez Compositum Compositum Compositum Communi ty [facility] donepezil donepezil No donepezil [place] 10 mg 10 mg 10 mg Communi tablet TAKE tablet TAKE tablet ty 1 TABLET BY 1 TABLET BY TAKE 1 Hospita MOUTH EVERY MOUTH EVERY TABLET BY l DAY DAY MOUTH Clinics EVERY DAY Macular Macular No Macular [facility] Formula Formula Formula ty [facility] Men's 50 Men's 50 No Men's 50 Swe ramirez Plus Plus Plus Communi Multivitami Multivitami Multivitam ty n n in [facility] Metamucil Metamucil No Metamucil [place] (sugar) (sugar) (sugar) Commun i oral powder oral powder oral t y Take by Take by powder Hospita oral route. oral route. Take by l oral Clinics route. mirtazapine mirtazapine No mirtazapin [place] 15 mg 15 mg e 15 mg Communi tablet TAKE tablet TAKE tablet ty 1 TABLET BY 1 TABLET BY TAKE 1 Hospita MOUTH AT MOUTH AT TABLET BY l BEDTIME BEDTIME MOUTH AT Clini cs BEDTIME montelukast montelukast No montelukas [place] 10 mg 10 mg t 10 mg Communi tablet TAKE tablet TAKE tablet ty 1 TABLET BY 1 TABLET BY TAKE 1 Hospita MOUTH EVERY MOUTH EVERY TABLET BY l DAY DAY MOUTH Clinics EVERY DAY [place] 3 [place] 3 No [place] 3 [place] Communi ty [facility] Probiotic Probiotic No Probiotic [place] Communi ty [facility] Super B Super B No Super B [place] Complex Complex Complex Commun i [facility] Vitamin C Vitamin C No Vitamin C [place] 500mg 500mg 500mg Communi ty [facility] amiodarone amiodarone No amiodarone [place] 200 mg 200 mg 200 mg Communi tablet TAKE tablet TAKE tablet ty 1 TABLET BY 1 TABLET BY TAKE 1 Hospita MOUTH TWICE MOUTH TWICE TABLET BY l DAILY DAILY MOUTH Clinics TWICE DAILY aspirin 81 aspirin 81 No 1 Q1D aspirin 81 [place] mg mg mg Communi tablet,roberto tablet,roberto tablet,del ty yed release yed release ayed H ospita Take 1 Take 1 release l tablet tablet Take 1 Clinics every day every day tablet by oral by oral every day route. route. by oral route. Cerebrum Cerebrum No Cerebrum Swe ramirez Compositum Compositum Compositum Communi ty [facility] donepezil donepezil No donepezil [place] 10 mg 10 mg 10 mg Communi tablet TAKE tablet TAKE tablet ty 1 TABLET BY 1 TABLET BY TAKE 1 Hospita MOUTH EVERY MOUTH EVERY TABLET BY l DAY DAY MOUTH Clinics EVERY DAY Macular Macular No Macular [facility] Formula Formula Formula ty [facility] Men's 50 Men's 50 No Men's 50 Swe ramirez Plus Plus Plus Communi Multivitami Multivitami Multivitam ty n n in [facility] Metamucil Metamucil No Metamucil [place] (sugar) (sugar) (sugar) Commun i oral powder oral powder oral t y Take by Take by powder Hospita oral route. oral route. Take by l oral Clinics route. mirtazapine mirtazapine No mirtazapin [place] 15 mg 15 mg e 15 mg Communi tablet TAKE tablet TAKE tablet ty 1 TABLET BY 1 TABLET BY TAKE 1 Hospita MOUTH AT MOUTH AT TABLET BY l BEDTIME BEDTIME MOUTH AT Clini cs BEDTIME montelukast montelukast No montelukas [place] 10 mg 10 mg t 10 mg Communi tablet TAKE tablet TAKE tablet ty 1 TABLET BY 1 TABLET BY TAKE 1 Hospita MOUTH EVERY MOUTH EVERY TABLET BY l DAY DAY MOUTH Clinics EVERY DAY [place] 3 [place] 3 No [place] 3 [place] Communi ty [facility] Probiotic Probiotic No Probiotic [place] Communi [facility] Super B Super B No Super B [place] Complex Complex Complex Commun i [facility] Vitamin C Vitamin C No Vitamin C [place] 500mg 500mg 500mg Communi ty [facility] amiodarone amiodarone No amiodarone [place] 200 mg 200 mg 200 mg Communi tablet TAKE tablet TAKE tablet ty ONE TABLET ONE TABLET TAKE ONE Hospita BY MOUTH BY MOUTH TABLET BY l TWICE DAILY TWICE DAILY MOUTH Clinics TWICE DAILY Cerebrum Cerebrum No Cerebrum Swe ramirez Compositum Compositum Compositum Communi ty [facility] Eliquis 5 Eliquis 5 No Eliquis 5 [place] mg tablet mg tablet mg tablet Communi TAKE 1 TAKE 1 TAKE 1 ty TABLET BY [facility]T [facility]ICE MOUTH TWICE MOUTH l DAILY DAILY TWICE Clinics DAILY FeroSul 325 FeroSul 325 No FeroSul [place] mg (65 mg mg (65 mg 325 mg (65 Communi iron) iron) mg iron) ty tablet TAKE tablet TAKE tablet Hospita 1 TABLET BY 1 TABLET BY TAKE 1 l MOUTH TWICE MOUTH TWICE TABLET BY Clinics DAILY WITH DAILY WITH MOUTH MEALS MEALS TWICE DAILY WITH MEALS Arabic Arabic No Arabic [place] Ginseng Ginseng Ginseng Commun i ty [facility] Macular Macular No Macular [facility] Formula Formula Formula ty [facility] Men's 50 Men's 50 No Men's 50 Swe ramirez Plus Plus Plus Communi Multivitami Multivitami Multivitam ty n n in [facility] Metamucil Metamucil No Metamucil [place] (sugar) (sugar) (sugar) Commun i oral powder oral powder oral t y Take by Take by powder Hospita oral route. oral route. Take by l oral Clinics route. mirtazapine mirtazapine No mirtazapin [place] 15 mg 15 mg e 15 mg Communi tablet TAKE tablet TAKE tablet ty 1 TABLET BY 1 TABLET BY TAKE 1 Hospita MOUTH AT MOUTH AT TABLET BY l BEDTIME BEDTIME MOUTH AT Clini cs BEDTIME [place] 3 [place] 3 No [place] 3 [place] Communi ty [facility] Probiotic Probiotic No Probiotic [place] [facility] Super B Super B No Super B [place] Complex Complex Complex Commun i ty [facility] Vitamin C Vitamin C No Vitamin C [place] 500mg 500mg 500mg [facility] Immunizations Ordered Immunization Filled Immunization Date Status Commen ts Source Name Name influenza, influenza, 2022-09-11 Completed [facility] injectable, injectable, 17:09:04 [facility]ics quadrivalent, quadrivalent, preservative free preservative free COVID-19, mRNA, COVID-19, mRNA, 2021-10-29 Completed [facility] LNP-S, PF, 100 LNP-S, PF, 100 00:00:00 [facility] mcg/0.5 mL dose mcg/0.5 mL dose (Moderna) (Moderna) COVID-19, mRNA, COVID-19, mRNA, 2021-10-29 Completed [facility] LNP-S, PF, 100 LNP-S, PF, 100 00:00:00 [facility] Clin[facility] mcg/0.5 mL dose mcg/0.5 mL dose (Moderna) (Moderna) COVID-19, mRNA, COVID-19, mRNA, 2021-10-29 Completed [facility] LNP-S, PF, 100 LNP-S, PF, 100 00:00:00 Hospit [facility] Clinics mcg/0.5 mL dose mcg/0.5 mL dose (Moderna) (Moderna) COVID-19, mRNA, COVID-19, mRNA, 2021-10-29 Completed [facility] LNP-S, PF, 100 LNP-S, PF, 100 00:00:00 Hospit [facility] Clinics mcg/0.5 mL dose mcg/0.5 mL dose (Moderna) (Moderna) COVID-19, mRNA, COVID-19, mRNA, 2021-10-29 Completed [facility] LNP-S, PF, 100 LNP-S, PF, 100 00:00:00 Hospit [facility] Clinics mcg/0.5 mL dose mcg/0.5 mL dose (Moderna) (Moderna) COVID-19, mRNA, COVID-19, mRNA, 2021-10-29 Completed [facility] LNP-S, PF, 100 LNP-S, PF, 100 00:00:00 Hospit [facility] Clinics mcg/0.5 mL dose mcg/0.5 mL dose (Moderna) (Moderna) COVID-19, mRNA, COVID-19, mRNA, 2021-10-29 Completed [facility] LNP-S, PF, 100 LNP-S, PF, 100 00:00:00 Hospit [facility] Clinics mcg/0.5 mL dose mcg/0.5 mL dose (Moderna) (Moderna) COVID-19, mRNA, COVID-19, mRNA, 2021-10-29 Completed [facility] LNP-S, PF, 100 LNP-S, PF, 100 00:00:00 Hospit ia Clinics mcg/0.5 mL dose mcg/0.5 mL dose (Moderna) (Moderna) COVID-19, mRNA, COVID-19, mRNA, 2021-10-29 Completed [facility] LNP-S, PF, 100 LNP-S, PF, 100 00:00:[facility] mcg/0.5 mL dose mcg/0.5 mL dose (Moderna) (Moderna) COVID-19, mRNA, COVID-19, mRNA, 2021-10-29 Completed [facility] LNP-S, PF, 100 LNP-S, PF, 100 00:00:00 [facility] mcg/0.5 mL dose mcg/0.5 mL dose (Moderna) (Moderna) COVID-19, mRNA, COVID-19, mRNA, 2021-10-29 Completed [facility] LNP-S, PF, 100 LNP-S, PF, 100 00:00:00 [facility] mcg/0.5 mL dose mcg/0.5 mL dose (Moderna) (Moderna) COVID-19, mRNA, COVID-19, mRNA, 2021-10-29 Completed [facility] LNP-S, PF, 100 LNP-S, PF, 100 00:00:00 [facility] mcg/0.5 mL dose mcg/0.5 mL dose (Moderna) (Moderna) SARS-COV-2 SARS-COV-2 2021-04-14 Completed [facility] (COVID-19) vaccine, (COVID-19) vaccine, 00:00:00 [facility] Clin[facility] UNSPECIFIED UNSPECIFIED SARS-COV-2 SARS-COV-2 2021-04-14 Completed [facility] (COVID-19) vaccine, (COVID-19) vaccine, 00:00:00 [facility] UNSPECIFIED UNSPECIFIED SARS-COV-2 SARS-COV-2 2021-04-14 Completed [facility] (COVID-19) vaccine, (COVID-19) vaccine, 00:00:00 [facility] UNSPECIFIED UNSPECIFIED COVID-19 COVID-19 2021-04-14 Completed [facility] (SARS-COV-2) (SARS-COV-2) 00:00:00 [facility] vaccine, unspecified vaccine, unspecified COVID-19 COVID-19 2021-04-14 Completed [facility] (SARS-COV-2) (SARS-COV-2) 00:00:00 [facility] vaccine, unspecified vaccine, unspecified COVID-19 COVID-19 2021-04-14 Completed [facility] (SARS-COV-2) (SARS-COV-2) 00:00:00 [facility] vaccine, unspecified vaccine, unspecified COVID-19 COVID-19 2021-04-14 Completed [facility] (SARS-COV-2) (SARS-COV-2) 00:00:00 [facility] vaccine, unspecified vaccine, unspecified COVID-19 COVID-19 2021-04-14 Completed [facility] (SARS-COV-2) (SARS-COV-2) 00:00:00 [facility] vaccine, unspecified vaccine, unspecified COVID-19 COVID-19 2021-04-14 Completed [facility] (SARS-COV-2) (SARS-COV-2) 00:00:00 [facility] vaccine, unspecified vaccine, unspecified COVID-19 COVID-19 2021-04-14 Completed [facility] (SARS-COV-2) (SARS-COV-2) 00:00:00 [facility] vaccine, unspecified vaccine, unspecified COVID-19 COVID-19 2021-04-14 Completed [facility] (SARS-COV-2) (SARS-COV-2) 00:00:00 [facility] vaccine, unspecified vaccine, unspecified COVID-19 COVID-19 2021-04-14 Completed [facility] (SARS-COV-2) (SARS-COV-2) 00:00:00 [facility] vaccine, unspecified vaccine, unspecified COVID-19 COVID-19 2021-04-14 Completed [facility] (SARS-COV-2) (SARS-COV-2) 00:00:00 [facility] vaccine, unspecified vaccine, unspecified COVID-19 COVID-19 2021-04-14 Completed [facility] (SARS-COV-2) (SARS-COV-2) 00:00:00 [facility] vaccine, unspecified vaccine, unspecified COVID-19 COVID-19 2021-04-14 Completed [facility] (SARS-COV-2) (SARS-COV-2) 00:00:00 [facility] vaccine, unspecified vaccine, unspecified SARS-COV-2 SARS-COV-2 2021-03-17 Completed [facility] (COVID-19) vaccine, (COVID-19) vaccine, 00:00:00 Hospital Clin[facility] UNSPECIFIED UNSPECIFIED SARS-COV-2 SARS-COV-2 2021-03-17 Completed [facility] (COVID-19) vaccine, (COVID-19) vaccine, 00:00:00 [facility] UNSPECIFIED UNSPECIFIED SARS-COV-2 SARS-COV-2 2021-03-17 Completed [facility] (COVID-19) vaccine, (COVID-19) vaccine, 00:00:00 [facility] UNSPECIFIED UNSPECIFIED COVID-19 COVID-19 2021-03-17 Completed [facility] (SARS-COV-2) (SARS-COV-2) 00:00:00 [facility] vaccine, unspecified vaccine, unspecified COVID-19 COVID-19 2021-03-17 Completed [facility] (SARS-COV-2) (SARS-COV-2) 00:00:00 [facility] vaccine, unspecified vaccine, unspecified COVID-19 COVID-19 2021-03-17 Completed [facility] (SARS-COV-2) (SARS-COV-2) 00:00:00 [facility] vaccine, unspecified vaccine, unspecified COVID-19 COVID-19 2021-03-17 Completed [facility] (SARS-COV-2) (SARS-COV-2) 00:00:00 [facility] vaccine, unspecified vaccine, unspecified COVID-19 COVID-19 2021-03-17 Completed [facility] (SARS-COV-2) (SARS-COV-2) 00:00:00 [facility] vaccine, unspecified vaccine, unspecified COVID-19 COVID-19 2021-03-17 Completed [facility] (SARS-COV-2) (SARS-COV-2) 00:00:00 [facility] vaccine, unspecified vaccine, unspecified COVID-19 COVID-19 2021-03-17 Completed [facility] (SARS-COV-2) (SARS-COV-2) 00:00:00 [facility] vaccine, unspecified vaccine, unspecified COVID-19 COVID-19 2021-03-17 Completed [facility] (SARS-COV-2) (SARS-COV-2) 00:00:00 [facility] vaccine, unspecified vaccine, unspecified COVID-19 COVID-19 2021-03-17 Completed [facility] (SARS-COV-2) (SARS-COV-2) 00:00:00 [facility] vaccine, unspecified vaccine, unspecified COVID-19 COVID-19 2021-03-17 Completed [facility] (SARS-COV-2) (SARS-COV-2) 00:00:00 [facility] vaccine, unspecified vaccine, unspecified COVID-19 COVID-19 2021-03-17 Completed [facility] (SARS-COV-2) (SARS-COV-2) 00:00:00 [facility] vaccine, unspecified vaccine, unspecified COVID-19 COVID-19 2021-03-17 Completed [facility] (SARS-COV-2) (SARS-COV-2) 00:00:00 [facility] vaccine, unspecified vaccine, unspecified SARS-COV-2 SARS-COV-2 2021-03-17 Completed [facility] (COVID-19) vaccine, (COVID-19) vaccine, 00:00:00 [facility] UNSPECIFIED UNSPECIFIED Tdap Tdap 2017-12-25 Completed [place] 16:30:35 Medical Group influenza, high dose influenza, high 2015-08-03 Completed [place] seasonal dose seasonal 12:35:00 Medical Emiliano up Vital Signs Vital Name Observation Time Observation Value Comments Source BP Diastolic 2022-09-11 00:00:00 62 mm[Hg] [facility] BP Systolic 2022-09-11 00:00:00 110 mm[Hg] [facility] Body Weight 2022-09-11 00:00:00 3286.4 [oz_av] [facility] BP Diastolic 2022-05-20 00:00:00 80 mm[Hg] [facility] BP Systolic 2022-05-20 00:00:00 130 mm[Hg] [facility] Body Weight 2022-05-20 00:00:00 3488 [oz_av] [facility] BP Diastolic 2022-04-17 00:00:00 78 mm[Hg] [facility] BP Systolic 2022-04-17 00:00:00 114 mm[Hg] [facility] Body Weight 2022-04-17 00:00:00 3360 [oz_av] [facility] BP Diastolic 2022-01-15 00:00:00 80 mm[Hg] [facility] s BP Systolic 2022-01-15 00:00:00 128 mm[Hg] [facility] s Body Weight 2022-01-15 00:00:00 3568 [oz_av] [facility] BP Diastolic 2021-12-10 00:00:00 68 mm[Hg] [facility] BP Systolic 2021-12-10 00:00:00 116 mm[Hg] [facility] Body Weight 2021-12-10 00:00:00 3577.6 [oz_av] [facility] s BP Diastolic 2021-11-07 00:00:00 78 mm[Hg] [facility] BP Systolic 2021-11-07 00:00:00 142 mm[Hg] [facility] Body Weight 2021-11-07 00:00:00 3593.6 [oz_av] [facility] s BP Diastolic 2021-09-04 00:00:00 60 mm[Hg] [facility] BP Systolic 2021-09-04 00:00:00 110 mm[Hg] [facility] Body Weight 2021-09-04 00:00:00 3469.6 [oz_av] [facility] s BP Diastolic 2021-06-26 00:00:00 70 mm[Hg] [facility] BP Systolic 2021-06-26 00:00:00 98 mm[Hg] [facility] Body Weight 2021-06-26 00:00:00 3408 [oz_av] [facility] s BP Diastolic 2021-05-14 00:00:00 76 mm[Hg] [facility] BP Systolic 2021-05-14 00:00:00 136 mm[Hg] [facility] s Body Weight 2021-05-14 00:00:00 3424 [oz_av] [facility] BP Diastolic 2021-04-03 00:00:00 80 mm[Hg] [facility] s BP Systolic 2021-04-03 00:00:00 120 mm[Hg] [facility] Body Weight 2021-04-03 00:00:00 3350.4 [oz_av] [facility] s BP Diastolic 2020-11-07 00:00:00 80 mm[Hg] [facility] Height 2020-11-07 00:00:00 72 [in_i] [facility] BMI (Body Mass 2020-11-07 00:00:00 30.7 kg/m2 [facility] BP Systolic 2020-11-07 00:00:00 121 mm[Hg] [facility] Body Weight 2020-11-07 00:00:00 3616 [oz_av] [facility] BP Diastolic 2020-10-29 00:00:00 84 mm[Hg] [facility] Height 2020-10-29 00:00:00 72 [in_i] [facility] BMI (Body Mass 2020-10-29 00:00:00 30.8 kg/m2 [facility] BP Systolic 2020-10-29 00:00:00 142 mm[Hg] [facility] Body Weight 2020-10-29 00:00:00 3632 [oz_av] [facility] Height 2019-11-24 00:00:00 72 [in_i] [facility] BMI (Body Mass 2019-11-24 00:00:00 29.8 kg/m2 [facility] BP Systolic 2019-11-24 00:00:00 127 mm[Hg] [facility] Body Weight 2019-11-24 00:00:00 3520 [oz_av] [facility] BP Diastolic 2019-11-24 00:00:00 73 mm[Hg] [facility] BP Diastolic 2018-12-11 00:00:00 83 mm[Hg] [facility] Height 2018-12-11 00:00:00 72 [in_i] [facility] BMI (Body Mass 2018-12-11 00:00:00 30.8 kg/m2 [facility] BP Systolic 2018-12-11 00:00:00 138 mm[Hg] [facility] Body Weight 2018-12-11 00:00:00 3632 [oz_av] [facility] BP Diastolic 2018-11-25 00:00:00 78 mm[Hg] [facility] Height 2018-11-25 00:00:00 72 [in_i] [facility] BMI (Body Mass 2018-11-25 00:00:00 30.8 kg/m2 [facility] BP Systolic 2018-11-25 00:00:00 118 mm[Hg] [facility] Body Weight 2018-11-25 00:00:00 3632 [oz_av] [facility] BP Diastolic 2018-11-18 00:00:00 84 mm[Hg] [facility] Height 2018-11-18 00:00:00 72 [in_i] [facility] BMI (Body Mass 2018-11-18 00:00:00 30.4 kg/m2 [facility] Medical Index) Group BP Systolic 2018-11-18 00:00:00 131 mm[Hg] [facility] Body Weight 2018-11-18 00:00:00 3584 [oz_av] [facility] BP Diastolic 2018-11-12 00:00:00 80 mm[Hg] [facility] Height 2018-11-12 00:00:00 72 [in_i] [facility] BMI (Body Mass 2018-11-12 00:00:00 30.9 kg/m2 [facility] Medical Index) Group BP Systolic 2018-11-12 00:00:00 134 mm[Hg] [facility] Body Weight 2018-11-12 00:00:00 3648 [oz_av] [facility] Procedures Procedure Date / Time Performed Performing Clinician [facility] e XR, ribs, unilateral, 2022-09-11 00:00:00 [facility] XR, hip, unilateral, 2 2022-09-11 00:00:00 [facility] or 3 view Hospital Clinics XR, hip, unilateral, 2 2022-01-15 00:00:00 [facility] Clin[facility] XR, knee, 3 view 2022-01-15 00:00:00 [facility] [id number] 2021-02-19 00:00:00 PATMA.12 [facility] [id number] 2021-02-13 00:00:00 GIBJE.01 [facility] [id number] 2021-02-13 00:00:00 GIBJE.01 [facility] [id number] 2021-01-15 00:00:00 CHAAB.01 [facility] [id number] 2021-01-15 00:00:00 CHAAB.01 [facility] Open Heart Surgery 2021-01-15 00:00:00 [facility] Clinics Partial Repair of [facility] Rotator Cuff [facility] Tonsilectomy/adenoids [facility] Total Knee Replacement [facility] Plan of Care Planned Activity Planned Date Details Comments Source Diagnostic Test 2022-05-20 CBC w/ diff [code = [facility] Pending 00:00:00 CBC w/ diff] Hospital Clinic s Diagnostic Test 2022-05-20 iron panel, serum or [facility] Pending 00:00:00 plasma [code = iron Hospital Clinics panel, serum or plasma] Diagnostic Test 2020-10-29 COVID-19 RNA [place] Pending 00:00:00 (SARS-CoV-2), QL, [facility] 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 [facility] 00:00:00 [address], [address]; [facility] [address], [place] [address] Encounters Start End Encounter Admission Attending Care Care Encounter Source Date/Time Date/Time Type Type Clinicians Facility Department ID 2021-02-12 Inpatient UR Rafael, [facility] REHA [id number] [facility] 18:00:00 Eduardo 57 [facility] 2021-01-18 Inpatient Darwin, [facility] [id number] [facility] 09:52:16 Roderick 34 [facility] 2022-11-25 2022-11-27 [facility] [id number] [place] 12:59:00 18:54:00 Julio [id number] [facility] 2022-10-29 2022-10-29 Outpatient PAUL_A [facility] [id number] [facility] 00:00:00 00:00:00 [id number] [facility] 2022-09-11 2022-09-11 Outpatient PAUL_A [facility] [id number] [facility] 00:00:00 00:00:00 1109 [facility] 2022-09-11 2022-09-11 Rhonda Evans [facility] [place] [id number] [facility] 00:00:00 00:00:00 Torey Leblanc MD: [address] [facility] [address] [address], H[facility], [address] PAUL , Ph. 2022-05-20 2022-05-20 Outpatient PAUL_A [facility] 2021 [place] 01:11:00 01:11:00 0718 [facility] i ty H[facility] Clinics 2022-05-20 2022-05-20 Rhonda Evans [facility] [place] 718 [place] 00:00:00 00:00:00 Torey Leblanc MD: [address] [facility] SCOTT Mcmillan Hospit a [address], COMMUNITY [facility] [address], HOSP[facility], [address] PAUL , Ph. 2022-05-20 2022-05-20 Outpatient Rhonda Leblanc [facility] [id number] 00:00:00 00:00:00 Cristina [id number] 2022-04-18 2022-04-18 Outpatient PAUL_A [facility] 2021 [place] 08:31:00 08:31:00 0616 [facility] i ty [facility] Clinics 2022-04-17 2022-04-17 Outpatient PAUL_A [facility] 2021 [place] 03:47:00 03:47:00 0615 Commun i ty Hospita [facility] Clinics 2022-04-17 2022-04-17 Rhonda Evans [facility] [place] 615 [place] 00:00:00 00:00:00 Torey Leblanc MD: [address] [facility] [address], COMMUNITY l [address], [facility], [address] PAUL , Ph. 2022-04-17 2022-04-17 Outpatient Rhonda Leblanc [facility] [id number] 00:00:00 00:00:00 Cristina [id number] 2022-04-17 2022-04-17 Outpatient Rhonda Leblanc [facility] [id number] 00:00:00 00:00:00 Cristina [id number] 2022-03-22 2022-03-22 Outpatient KENNY Ramires [facility] [id number] [place] 13:10:00 13:10:00 Jorge Alberto -[id number] [facility] 2022-01-15 2022-01-15 Outpatient PAUL_Jose [facility] 2021 [place] 05:37:00 05:37:00 0315 Commun i ty Hospita [facility] 2022-01-15 2022-01-15 Rhonda Evans [facility] [place] 315 [place] 00:00:00 00:00:00 Torey Leblanc MD: [address] [facility] Hospit a [address], COMMUNITY l [address], HOSPITAL [place], [place] CLINIC, [address] PAUL , Ph. 2022-01-15 2022-01-15 Outpatient Paul Rhonda [facility] [id number] 00:00:00 00:00:00 Cristina [id number] 2021-12-10 2021-12-10 Outpatient PAUL_Jose [facility] 2021 [place] 05:57:00 05:57:00 0207 Commun i ty Hosp[facility] 2021-12-10 2021-12-10 Rhonda Evans [facility] [place] 207 [place] 00:00:00 00:00:00 Torey Leblanc MD: [address] [facility] Hospit a [address], COMMUNITY l [address], H[facility] [place], [place] CLINIC, [address] PAUL , Ph. 2021-12-10 2021-12-10 Outpatient Rhonda Leblanc [facility] [id number] 00:00:00 00:00:00 Cristina [id number] 2021-11-07 2021-11-07 Outpatient JENISE [facility] 2021 06:28:00 06:28:00 0105 [facility] 2021-11-07 2021-11-07 Rhonda Evans [facility] [place] 00:00:00 00:00:00 Torey Leblanc [facility] MD: [address] [facility] Hospit a [address], [facility] [address], [facility], [place] CLINIC, [address] PAUL , Ph. 2021-11-07 2021-11-07 Outpatient Rhonda Leblanc [facility] [id number] 00:00:00 00:00:00 Cristina [id number] 2021-11-07 2021-11-07 Outpatient Rhonda Leblanc [facility] [id number] 00:00:00 00:00:00 Cristina [id number] 2021-11-07 2021-11-07 Outpatient Rhonda Leblanc [facility] [id number] 00:00:00 00:00:00 Cristina [id number] 2021-11-07 2021-11-07 Outpatient Rhonda Leblanc [facility] [id number] 00:00:00 00:00:00 Cristina [id number] 2021-11-07 2021-11-07 Outpatient Rhonda Leblanc [facility] [id number] 00:00:00 00:00:00 Cristina [id number] 2021-09-11 2021-09-11 Inpatient DAVE Logan OUTD [id number] [facility] 05:17:00 05:17:00 Jorge Alberto 60 [facility] 2021-09-04 2021-09-04 Outpatient PAUL_A [facility] 2020 [place] 12:44:00 12:44:00 1102 Commun i ty Hospita l Clinics 2021-09-04 2021-09-04 Rhonda Evans [facility] [place] 102 [place] 00:00:00 00:00:00 Torey Leblanc MD: [address] [facility] Hospit a [address], COMMUNITY l [address], HOSPITAL [facility], [address] PAUL , Ph. 2021-09-04 2021-09-04 Outpatient Rhonda Leblanc [facility] [id number] 00:00:00 00:00:00 Cristina [id number] 2021-06-26 2021-06-26 Outpatient PAUL_A [facility] 2020 [place] 02:21:00 02:21:00 0824 Commun i ty Hospita [facility] 2021-06-26 2021-06-26 Rhonda Evans [facility] [place] [id number] [place] 00:00:00 00:00:00 Torey Leblanc MD: [address] [facility] Hospit a [address], COMMUNITY l [address], HOSPITAL [facility], [address] PAUL , Ph. 2021-06-26 2021-06-26 Outpatient Rhonda Leblanc [facility] [id number] 00:00:00 00:00:00 Cristina [id number] 2021-05-14 2021-05-14 Outpatient PAUL_A [facility] 2020 [place] 02:43:00 02:43:00 0712 Commun i ty Hospita [facility] Clinics 2021-05-14 2021-05-14 Outpatient Paul Rhonda [facility] [id number] 00:00:00 00:00:00 Cristina [id number] 2021-05-14 2021-05-14 Rhonda Lynchn [facility] [id number] [place] 00:00:00 00:00:00 Torey Leblanc MD: [address] [facility] a [address], [facility] l [address], H[facility], [address] PAUL , Ph. 2021-05-07 2021-05-07 Outpatient PAUL_Jose [facility] 2020 [place] 12:19:00 12:19:00 0705 Commun i ty Hospita [facility] Clinics 2021-04-03 2021-04-03 Outpatient PAUL_Jose [facility] 2020 [place] 11:36:00 11:36:00 0601 Commun i ty Hospita l Clinics 2021-04-03 2021-04-03 Outpatient Rhonda Leblanc [facility] [id number] 00:00:00 00:00:00 Cristina [id number] 2021-04-03 2021-04-03 Rhonda Evans [facility] [id number] [place] 00:00:00 00:00:00 Torey Leblanc MD: [address] [facility] Hospit a [address], [facility] l [address], [facility], [address] PAUL , Ph. 2021-03-19 2021-03-19 Outpatient PAUL_Jose [facility] 2020 [place] 02:01:00 02:01:00 0517 Commun i ty Hospita [facility] Clinics 2021-01-12 2021-01-12 Outpatient KENNY Ramires [facility] [id number] [place], [place] [id number] 08:52:00 08:52:00 Jorge Alberto -[id number] [facility] 2020-12-08 2020-12-08 Outpatient KENNY Ramires [facility] [id number] [place] 07:43:00 07:43:00 Jorge Alberto -[id number] [facility] 2020-11-27 2020-11-27 Outpatient KENNY Ramires [facility] [id number] [place] 08:13:00 08:13:00 Jorge Alberto -[id number] [facility] 2020-11-08 2020-11-08 Outpatient AManuel [facility] [id number] [place] 10:41:00 10:41:00 0106 [facility] 2020-11-07 2020-11-07 Angelica Solomon [facility] [place] - [id number] [place] 00:00:00 00:00:00 MD Madhu: [address] [facility] [address], [facility] [address] , Ph. 2020-10-30 2020-10-30 Outpatient AUGIE_DISHA CHERRY [facility] [id number] [place] 08:54:00 08:54:00 _ANN [id number] [facility] 2020-10-29 2020-10-29 Outpatient AUGIE_DISHA CHERRY [facility] [id number] [place] 01:23:00 01:23:00 _ANN [id number] [facility] 2020-10-29 2020-10-29 Disha Garcia [place] - [id number] [place] 00:00:00 00:00:00 Yumi Palacio da [employer] SPECIALIST: 17[address] [facility] [address], [facility] [address] h , Ph. Program 2020-09-01 2020-09-01 Outpatient Neha [facility] [id number] [place] 04:14:00 04:14:00 1030 Medical Group 2019-11-24 2019-11-24 Angelica Solomon [facility] [place] - [address] [place] 00:00:00 00:00:00 MD Madhu: [address] [place], [place] [address]rda - [address], [facility] [place] [address] , Ph. 2019-01-05 2019-01-05 [facility] [id number] [place] 12:13:00 12:13:00 0305 [facility] 2018-12-11 2018-12-11 Angelica Pisano [facility] [place] [place] - [address] [place] 00:00:00 00:00:00 MD Madhu: [address] [place] [address], [place] - [address], [facility] [address] , Ph. 2018-11-25 2018-11-25 [place] - [phone] [place] 00:00:00 00:00:00 Discovery Judd 0123 da [employer]: [address] [place] [address], [place] - [address], [facility], [place] [address] , Ph. 2018-11-18 2018-11-18 Angelica Pisano [facility] [place] - [phone] [place] 00:00:00 00:00:00 MD Madhu: [address] [place] [address], [place] - [address], [facility], [facility] [place] [address] , Ph. 2018-11-12 2018-11-12 Outpatient Angelica Thorne [facility] [id number] [place] 09:47:00 09:47:00 -[id number] [facility] 2018-11-12 2018-11-12 Angelica Pisano [facility] [place] [place] - [phone] [place] 00:00:00 00:00:00 MD Madhu: [address] [place] [address], [place] - [address], [facility], [place] [address] , Ph. 2016-08-22 2016-08-22 [facility] [id number] [place] 15:29:00 15:29:00 MIRNA -[id number] [facility] 2016-07-17 2016-07-17 Outpatient Angelica Thorne [facility] D000 [id number] [place] 10:06:00 10:06:00 -[id number] [facility] 2015-08-30 2015-08-30 Outpatient Angelica Thorne [facility] D000 [id number] [place] 11:19:00 11:19:00 -[id number] [facility] 2014-09-19 2014-09-19 Outpatient Angelica Thorne [facility] D000 [id number] [place] 11:34:00 11:34:00 -[id number] [facility] 2014-01-13 2014-01-13 Outpatient KENNY CORNEJO [facility] [id number] [place] 08:29:00 08:29:00 [id number] [facility] Results Test Description Test Time Test Comments Results Result Comments Source Novel Coronavirus 2018 Inhouse 2021-09-08 02:10:00 Test Item Value Reference Range Interpretation Comme nts Novel Coronavirus 2018 Negative Negative Posit shirley results are indicative of the Inhouse (test code = presenc e [id number] RNA, clinical COVNONPUI) correlation wit h patient historyand other diagnosti c information is necessary to de terminepatient infection status. Positiv e results do not rule outbacterial in fection or co-infection with other viru ses. Negative results do not preclude SA RS-CoV-2 infection andshould not b e used as the sole basis for patient man agementdecisions. Negative result s must be combined with otherclinical o bservations, patient history, and ep idemiologicalinformation. Detection of SA RS-CoV-2 RNA may be affected bysamp le collection methods, storage conditi ons, and/or stageof infection. Racheal l RNA mutations, vaccinations, a ntiviraltherapeutics, antibiotics, ch emotherapeutic orimmunosuppres rose drugs have not been evaluated for e ffectson detection. Results are for the identification of SARS-CoV-2 RNA usingthe [employer] System under th e FDA Emergency UseAuthorizatio n. The testing is performed by savanah marierained in the procedures for the [employer] SARS-CoV-2 assay in vitro. BASIC METABOLIC [id number] 12:32:00 Test Item Value Reference Range Interpretation Comments SODIUM (test code = NA) 143 mEq/L 134-147 N POTASSIUM (test code = 5.3 mEq/L 3.4-5.0 H K) CHLORIDE (test code = 109 mEq/L 100-108 H CL) CARBON DIOXIDE (test 28 mEq/l 21-33 N code = CO2) ANION GAP (test code = 11 0-20 N GAP) GLUCOSE (test code = 92 mg/dL 70-110 N GLU) BLOOD UREA NITROGEN 27 mg/dL 7-18 H (test code = BUN) GLOMERULAR FILTRATION 38.6 70-80 L Units of measure = RATE (test code = GFR) ml/mi n/1.73 m2 CREATININE (test code = 1.7 mg/dL 0.6-1.3 H CREAT) CALCIUM (test code = 9.4 mg/dL 8.0-10.5 N CA) [id number] 12:32:00 Test Item Value Reference Range Interpretation Comments PREALBUMIN (test code = PREALB) 26.9 mg/dL 16.0-40.0 N PROTHROMBIN [id number] 12:17:00 Test Item Value Reference Range Interpretation Comments PROTHROMBIN TIME 15.4 SECONDS 9.3-12.9 H PATIENT (test code = PTP) INTERNATIONAL NORMAL 1.4 0.8-1.2 H TARGE T INR BY RATIO (test code = INDICATIO N Indication INR) INR1. 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 Mec hanical prosthetic valv es (high risk), 2. 5 - 3.5 Presence of Lup us Anticoagulant o r Antiphospholipi d Antibodies, Pre vention of systemic emb olism - Acute Myocardia l Infarction (to prevent recurrent infar ct). CBC W/AUTO [id number] 12:09:00 Test Item Value Reference Range Interpretation Comments WHITE BLOOD CELL (test code = 7.6 x10 3/uL 4.5-11.0 N WBC) RED BLOOD CELL (test code = 4.38 x10 6/uL 4.00-5.60 N RBC) HEMOGLOBIN (test code = HGB) 14.0 g/dL 12.5-16.9 N HEMATOCRIT (test code = HCT) 42.7 % 37.5-50.7 N MEAN CELL VOLUME (test code = 97.5 fL 81.0-99.0 N MCV) MEAN CELL HGB (test code = MCH) 32.0 pg 27.0-33.0 N MEAN CELL HGB CONCETRATION 32.8 g/dL 33.0-37.0 L (test code = MCHC) RED CELL DISTRIBUTION WIDTH CV 13.9 % 11.5-14.5 N (test code = RDW) RED CELL DISTRIBUTION WIDTH SD 50.0 fL 37.0-54.0 N (test code = RDW-SD) PLATELET COUNT (test code = 214 x10 3/uL 150-400 N PLT) MEAN PLATELET VOLUME (test code 10.0 fL 7.0-9.0 H = MPV) NEUTROPHIL % (test code = NT%) 51.6 % 56.0-77.0 L IMMATURE GRANULOCYTE % (test 0.4 % 0.0-2.0 N code = IG%) LYMPHOCYTE % (test code = LY%) 37.3 % 14.0-32.0 H MONOCYTE % (test code = MO%) 8.4 % 4.8-9.0 N EOSINOPHIL % (test code = EO%) 1.8 % 0.3-3.7 N BASOPHIL % (test code = BA%) 0.5 % 0.0-2.0 N NUCLEATED RBC % (test code = 0.0 % 0-0 N NRBC%) NEUTROPHIL # (test code = NT#) 3.92 x10 3/uL 2.0-7.6 N IMMATURE GRANULOCYTE # (test 0.03 x10 3/uL 0.00-0.03 N code = IG#) LYMPHOCYTE # (test code = LY#) 2.84 x10 3/uL 1.0-3.8 N MONOCYTE # (test code = MO#) 0.64 x10 3/uL 0.1-0.8 N EOSINOPHIL # (test code = EO#) 0.14 x10 3/uL 0.0-0.2 N BASOPHIL # (test code = BA#) 0.04 x10 3/uL 0.0-0.2 N NUCLEATED RBC # (test code = 0.00 x10 3/uL 0.0-0.1 N NRBC#) MANUAL DIFF REQUIRED (test code NO = MDIFF) - XR CHEST 2 [id number] 00:00:00 [facility] 1935 Sex: M FAX: Jorge Alberto Jim MD [phone] [place]: St: PRE Name: COREYBERTIN [facility] : 1935 Age/S: 86/M [address] [place] [address] Unit #: [id number] Loc: [place]JELICA [place] [address] Phys: Jorge Alberto Ramires MD Acct: [id number] Dis Date: Status: PRE SDC PHONE #: [phone] Exam Date: 09/07/2021 1246 FAX #: [phone] Reason: PREOP EXAMS: CPT CODE: [id number] XR CHEST 2 V 34778 PROCEDURE INFORMATION: Exam: XR Chest Exam date and time: 09/07/2021 12:42 PM Age: 86 years old Clinical indication: Pre-operative exam; Cardiovascular screening and respiratory screening exam; Additional info: Preop TECHNIQUE: Imaging protocol: XR of the chest. Views: 2 views. PA and Lateral COMPARISON: DX XR CHEST 1V 02/19/2021 12:20 PM FINDINGS: Lungs: There are normal lung volumes without consolidation or interstitial oppacities. Pleural spaces: Unremarkable. No pleural effusion. No pneumothorax. Heart/Mediastinum: The heart size is normal. The pulmonary vasculature is normal. The mediastinal contour is normal. The trachea is midline. 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 Suture anchor in the left humeral head IMPRESSION: No acute cardiopulmonary abnormality, as detailed above. at 1324 Reported and signed by: Clement Katz M.D. 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 Granados on 02/26/2021 4:08 PM. at 1608 Reported and signed by: Bon Gomez D.O. Report EXAM: US BILATERAL LOWER EXTREMITY VENOUS DOPPLER : 1935; Age: 85 years y/o Male INDICATION: Bilateral lower extremity edema, r/o dvt COMPARISON: None. TECHNIQUE: Multiplanar grayscale, color Doppler and spectral Doppler ultrasound of the bilateral lower extremity veins. FINDINGS: Right lower extremity: The common femoral vein, femoral vein, popliteal vein and visualized ankle veins are patent. Thrombus is seen involving the right calf posterior tibial vein. Left lower extremity: The common femoral vein, superficial femoral vein, popliteal vein and visualized posterior tibial/calf veins are patent. There is no echogenic debris to suggest deep venous thrombosis. IMPRESSION: Thrombus involving the right calf posterior tibial vein. 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 CC: Dagoberto LEE; Eduardo Hall Technologist: Haylie Navarro RDMS(AB)(OB) Trnscb Date/Time: 02/26/2021 (8463) [email or web address] Orig Print D/T: S: 02/26/2021 (0717) Probe: PAGE 2 Signed Report- DUP VEIN DERRICK 2021-02-26 16:04:00 [facility] 1935 Sex: M Name: BERTIN NICOLE [facility] : 1935 Age/S: 85 / M [address] [place] [address] Unit #: [id number] Loc: [place] [address] Phys: Harrison Jones NP Acct: [id number] Dis Date: Status: ADM IN PHONE #: [phone] Exam Date: 02/26/2021 [facility] FAX #: [phone] Reason: r/o dvt EXAMS: CPT CODE: [id number] DUP VEIN DERRICK [id number] EXAM: US BILATERAL LOWER EXTREMITY VENOUS DOPPLER : 1935; Age: 85 years y/o Male INDICATION: Bilateral lower extremity edema, r/o dvt COMPARISON: None. TECHNIQUE: Multiplanar grayscale, color Doppler and spectral Doppler ultrasound of the bilateral lower extremity veins. FINDINGS: Right lower extremity: The common femoral vein, femoral vein, popliteal vein and visualized ankle veins are patent. Thrombus is seen involving the right calf posterior tibial vein. Left lower extremity: The common femoral vein, superficial femoral vein, popliteal vein and visualized posterior tibial/calf veins are patent. There is no echogenic debris to suggest deep venous thrombosis. IMPRESSION:Thrombus involving the right calf posterior tibial vein. at 1604 Reported and signed by: Bon Gomez D.O. 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 [facility] CBC W/AUTO [id number] 07:23:00 Test Item Value Reference Range Interpretation Comments WHITE BLOOD CELL (test code = 6.4 x10 3/uL 4.5-11.0 N WBC) RED BLOOD CELL (test code = 3.19 x10 6/uL 4.00-5.60 L RBC) HEMOGLOBIN (test code = HGB) 9.1 g/dL 12.5-16.9 L HEMATOCRIT (test code = HCT) 30.5 % 37.5-50.7 L MEAN CELL VOLUME (test code = 95.6 fL 81.0-99.0 N MCV) MEAN CELL HGB (test code = MCH) 28.5 pg 27.0-33.0 N MEAN CELL HGB CONCETRATION 29.8 g/dL 33.0-37.0 L (test code = MCHC) RED CELL DISTRIBUTION WIDTH CV 15.6 % 11.5-14.5 H (test code = RDW) RED CELL DISTRIBUTION WIDTH SD 54.5 fL 37.0-54.0 H (test code = RDW-SD) PLATELET COUNT (test code = 263 x10 3/uL 150-400 N PLT) MEAN PLATELET VOLUME (test code 9.6 fL 7.0-9.0 H = MPV) NEUTROPHIL % (test code = NT%) 42.1 % 56.0-77.0 L IMMATURE GRANULOCYTE % (test 0.6 % 0.0-2.0 N code = IG%) LYMPHOCYTE % (test code = LY%) 44.2 % 14.0-32.0 H MONOCYTE % (test code = MO%) 10.1 % 4.8-9.0 H EOSINOPHIL % (test code = EO%) 2.5 % 0.3-3.7 N BASOPHIL % (test code = BA%) 0.5 % 0.0-2.0 N NUCLEATED RBC % (test code = 0.0 % 0-0 N NRBC%) NEUTROPHIL # (test code = NT#) 2.70 x10 3/uL 2.0-7.6 N IMMATURE GRANULOCYTE # (test 0.04 x10 3/uL 0.00-0.03 H code = IG#) LYMPHOCYTE # (test code = LY#) 2.84 x10 3/uL 1.0-3.8 N MONOCYTE # (test code = MO#) 0.65 x10 3/uL 0.1-0.8 N EOSINOPHIL # (test code = EO#) 0.16 x10 3/uL 0.0-0.2 N BASOPHIL # (test code = BA#) 0.03 x10 3/uL 0.0-0.2 N NUCLEATED RBC # (test code = 0.00 x10 3/uL 0.0-0.1 N NRBC#) MANUAL DIFF REQUIRED (test code NO = MDIFF) BASIC METABOLIC [id number] 06:38:00 Test Item Value Reference Range Interpretation Comments SODIUM (test code = NA) 139 mEq/L 134-147 N POTASSIUM (test code = 4.0 mEq/L 3.4-5.0 N K) CHLORIDE (test code = 109 mEq/L 100-108 H CL) CARBON DIOXIDE (test 23 mEq/l 21-33 N code = CO2) ANION GAP (test code = 11 0-20 N GAP) GLUCOSE (test code = 93 mg/dL 70-110 N GLU) BLOOD UREA NITROGEN 14 mg/dL 7-18 N (test code = BUN) GLOMERULAR FILTRATION 71.4 70-80 N Units of measure = RATE (test code = GFR) ml/mi n/1.73 m2 CREATININE (test code = 1.0 mg/dL 0.6-1.3 N CREAT) CALCIUM (test code = 8.2 mg/dL 8.0-10.5 N CA) [id number] 06:38:00 Test Item Value Reference Range Interpretation Comments ALBUMIN (test code = ALB) 2.60 g/dL 3.4-5.0 L [id number] 06:38:00 Test Item Value Reference Range Interpretation Comments MAGNESIUM (test code = MAG) 1.82 mg/dL 1.80-2.40 N [id number] 06:38:00 Test Item Value Reference Range Interpretation Comments PREALBUMIN (test code = PREALB) 12.6 mg/dL 16.0-40.0 L BASIC METABOLIC [id number] 08:12:00 Test Item Value Reference Range Interpretation Comments SODIUM (test code = NA) 139 mEq/L 134-147 N POTASSIUM (test code = 4.3 mEq/L 3.4-5.0 N K) CHLORIDE (test code = 108 mEq/L 100-108 N CL) CARBON DIOXIDE (test 24 mEq/l 21-33 N code = CO2) ANION GAP (test code = 11 0-20 N GAP) GLUCOSE (test code = 88 mg/dL 70-110 N GLU) BLOOD UREA NITROGEN 14 mg/dL 7-18 N (test code = BUN) GLOMERULAR FILTRATION 71.4 70-80 N Units of measure = RATE (test code = GFR) ml/mi n/1.73 m2 CREATININE (test code = 1.0 mg/dL 0.6-1.3 N CREAT) CALCIUM (test code = 8.5 mg/dL 8.0-10.5 N CA) CBC W/AUTO [id number] 07:53:00 Test Item Value Reference Range Interpretation Comments WHITE BLOOD CELL (test code = 6.0 x10 3/uL 4.5-11.0 N WBC) RED BLOOD CELL (test code = 3.06 x10 6/uL 4.00-5.60 L RBC) HEMOGLOBIN (test code = HGB) 8.8 g/dL 12.5-16.9 L HEMATOCRIT (test code = HCT) 29.0 % 37.5-50.7 L MEAN CELL VOLUME (test code = 94.8 fL 81.0-99.0 N MCV) MEAN CELL HGB (test code = MCH) 28.8 pg 27.0-33.0 N MEAN CELL HGB CONCETRATION 30.3 g/dL 33.0-37.0 L (test code = MCHC) RED CELL DISTRIBUTION WIDTH CV 15.5 % 11.5-14.5 H (test code = RDW) RED CELL DISTRIBUTION WIDTH SD 53.6 fL 37.0-54.0 N (test code = RDW-SD) PLATELET COUNT (test code = 255 x10 3/uL 150-400 N PLT) MEAN PLATELET VOLUME (test code 9.7 fL 7.0-9.0 H = MPV) NEUTROPHIL % (test code = NT%) 44.1 % 56.0-77.0 L IMMATURE GRANULOCYTE % (test 0.7 % 0.0-2.0 N code = IG%) LYMPHOCYTE % (test code = LY%) 42.6 % 14.0-32.0 H MONOCYTE % (test code = MO%) 9.1 % 4.8-9.0 H EOSINOPHIL % (test code = EO%) 3.0 % 0.3-3.7 N BASOPHIL % (test code = BA%) 0.5 % 0.0-2.0 N NUCLEATED RBC % (test code = 0.0 % 0-0 N NRBC%) NEUTROPHIL # (test code = NT#) 2.63 x10 3/uL 2.0-7.6 N IMMATURE GRANULOCYTE # (test 0.04 x10 3/uL 0.00-0.03 H code = IG#) LYMPHOCYTE # (test code = LY#) 2.54 x10 3/uL 1.0-3.8 N MONOCYTE # (test code = MO#) 0.54 x10 3/uL 0.1-0.8 N EOSINOPHIL # (test code = EO#) 0.18 x10 3/uL 0.0-0.2 N BASOPHIL # (test code = BA#) 0.03 x10 3/uL 0.0-0.2 N NUCLEATED RBC # (test code = 0.00 x10 3/uL 0.0-0.1 N NRBC#) MANUAL DIFF REQUIRED (test code NO = MDIFF) COMPREHENSIVE METABOLIC [id number] 08:19:00 Test Item Value Reference Range Interpretation Comments SODIUM (test code = NA) 140 mEq/L 134-147 N POTASSIUM (test code = 3.9 mEq/L 3.4-5.0 N K) CHLORIDE (test code = 107 mEq/L 100-108 N CL) CARBON DIOXIDE (test 27 mEq/l 21-33 N code = CO2) ANION GAP (test code = 10 0-20 N GAP) GLUCOSE (test code = 92 mg/dL 70-110 N GLU) BLOOD UREA NITROGEN 17 mg/dL 7-18 N (test code = BUN) GLOMERULAR FILTRATION 71.4 70-80 N Units of measure = RATE (test code = GFR) ml/mi n/1.73 m2 CREATININE (test code = 1.0 mg/dL 0.6-1.3 N CREAT) TOTAL PROTEIN (test 5.7 g/dL 6.4-8.2 L code = PROT) ALBUMIN (test code = 2.50 g/dL 3.4-5.0 L ALB) CALCIUM (test code = 8.1 mg/dL 8.0-10.5 N CA) BILIRUBIN TOTAL (test 0.50 mg/dL 0.0-1.0 N code = BILT) SGOT/AST (test code = 23 IUnit/L 15-37 N AST) SGPT/ALT (test code = 22 IUnit/L 30-65 L ALT) ALKALINE PHOSPHATASE 72 IUnit/L 20-125 N TOTAL (test code = ALKP) [id number] 08:19:00 Test Item Value Reference Range Interpretation Comments MAGNESIUM (test code = MAG) 1.93 mg/dL 1.80-2.40 N CBC W/AUTO [id number] 07:01:00 Test Item Value Reference Range Interpretation Comments WHITE BLOOD CELL (test code = 6.3 x10 3/uL 4.5-11.0 N WBC) RED BLOOD CELL (test code = 3.11 x10 6/uL 4.00-5.60 L RBC) HEMOGLOBIN (test code = HGB) 8.8 g/dL 12.5-16.9 L HEMATOCRIT (test code = HCT) 29.4 % 37.5-50.7 L MEAN CELL VOLUME (test code = 94.5 fL 81.0-99.0 N MCV) MEAN CELL HGB (test code = MCH) 28.3 pg 27.0-33.0 N MEAN CELL HGB CONCETRATION 29.9 g/dL 33.0-37.0 L (test code = MCHC) RED CELL DISTRIBUTION WIDTH CV 15.5 % 11.5-14.5 H (test code = RDW) RED CELL DISTRIBUTION WIDTH SD 53.2 fL 37.0-54.0 N (test code = RDW-SD) PLATELET COUNT (test code = 254 x10 3/uL 150-400 N PLT) MEAN PLATELET VOLUME (test code 9.6 fL 7.0-9.0 H = MPV) NEUTROPHIL % (test code = NT%) 46.6 % 56.0-77.0 L IMMATURE GRANULOCYTE % (test 0.8 % 0.0-2.0 N code = IG%) LYMPHOCYTE % (test code = LY%) 38.9 % 14.0-32.0 H MONOCYTE % (test code = MO%) 9.6 % 4.8-9.0 H EOSINOPHIL % (test code = EO%) 3.5 % 0.3-3.7 N BASOPHIL % (test code = BA%) 0.6 % 0.0-2.0 N NUCLEATED RBC % (test code = 0.0 % 0-0 N NRBC%) NEUTROPHIL # (test code = NT#) 2.91 x10 3/uL 2.0-7.6 N IMMATURE GRANULOCYTE # (test 0.05 x10 3/uL 0.00-0.03 H code = IG#) LYMPHOCYTE # (test code = LY#) 2.43 x10 3/uL 1.0-3.8 N MONOCYTE # (test code = MO#) 0.60 x10 3/uL 0.1-0.8 N EOSINOPHIL # (test code = EO#) 0.22 x10 3/uL 0.0-0.2 H BASOPHIL # (test code = BA#) 0.04 x10 3/uL 0.0-0.2 N NUCLEATED RBC # (test code = 0.00 x10 3/uL 0.0-0.1 N NRBC#) MANUAL DIFF REQUIRED (test code NO = MDIFF) CBC W/AUTO [id number] 06:52:00 Test Item Value Reference Range Interpretation Comments WHITE BLOOD CELL (test code = x10 3/uL 4.5-11.0 WBC) RED BLOOD CELL (test code = RBC) x10 6/uL 4.00-5.60 HEMOGLOBIN (test code = HGB) g/dL 12.5-16.9 HEMATOCRIT (test code = HCT) % 37.5-50.7 MEAN CELL VOLUME (test code = fL 81.0-99.0 MCV) MEAN CELL HGB (test code = MCH) pg 27.0-33.0 MEAN CELL HGB CONCETRATION (test g/dL 33.0-37.0 code = MCHC) RED CELL DISTRIBUTION WIDTH CV % 11.5-14.5 (test code = RDW) PLATELET COUNT (test code = PLT) 254 x10 3/uL 150-400 N NEUTROPHIL % (test code = NT%) % 56.0-77.0 LYMPHOCYTE % (test code = LY%) % 14.0-32.0 NEUTROPHIL # (test code = NT#) x10 3/uL 2.0-7.6 LYMPHOCYTE # (test code = LY#) x10 3/uL 1.0-3.8 MANUAL DIFF REQUIRED (test code = MDIFF) CBC W/AUTO [id number] 07:57:00 Test Item Value Reference Range Interpretation Comments WHITE BLOOD CELL (test code = 6.5 x10 3/uL 4.5-11.0 N WBC) RED BLOOD CELL (test code = 3.08 x10 6/uL 4.00-5.60 L RBC) HEMOGLOBIN (test code = HGB) 8.9 g/dL 12.5-16.9 L HEMATOCRIT (test code = HCT) 29.7 % 37.5-50.7 L MEAN CELL VOLUME (test code = 96.4 fL 81.0-99.0 N MCV) MEAN CELL HGB (test code = MCH) 28.9 pg 27.0-33.0 N MEAN CELL HGB CONCETRATION 30.0 g/dL 33.0-37.0 L (test code = MCHC) RED CELL DISTRIBUTION WIDTH CV 15.1 % 11.5-14.5 H (test code = RDW) RED CELL DISTRIBUTION WIDTH SD 51.8 fL 37.0-54.0 N (test code = RDW-SD) PLATELET COUNT (test code = 265 x10 3/uL 150-400 N PLT) MEAN PLATELET VOLUME (test code 9.8 fL 7.0-9.0 H = MPV) NEUTROPHIL % (test code = NT%) 46.9 % 56.0-77.0 L IMMATURE GRANULOCYTE % (test 0.8 % 0.0-2.0 N code = IG%) LYMPHOCYTE % (test code = LY%) 39.3 % 14.0-32.0 H MONOCYTE % (test code = MO%) 10.0 % 4.8-9.0 H EOSINOPHIL % (test code = EO%) 2.2 % 0.3-3.7 N BASOPHIL % (test code = BA%) 0.8 % 0.0-2.0 N NUCLEATED RBC % (test code = 0.0 % 0-0 N NRBC%) NEUTROPHIL # (test code = NT#) 3.06 x10 3/uL 2.0-7.6 N IMMATURE GRANULOCYTE # (test 0.05 x10 3/uL 0.00-0.03 H code = IG#) LYMPHOCYTE # (test code = LY#) 2.56 x10 3/uL 1.0-3.8 N MONOCYTE # (test code = MO#) 0.65 x10 3/uL 0.1-0.8 N EOSINOPHIL # (test code = EO#) 0.14 x10 3/uL 0.0-0.2 N BASOPHIL # (test code = BA#) 0.05 x10 3/uL 0.0-0.2 N NUCLEATED RBC # (test code = 0.00 x10 3/uL 0.0-0.1 N NRBC#) MANUAL DIFF REQUIRED (test code NO = MDIFF) BASIC METABOLIC [id number] 07:44:00 Test Item Value Reference Range Interpretation Comments SODIUM (test code = NA) 139 mEq/L 134-147 N POTASSIUM (test code = 4.1 mEq/L 3.4-5.0 N K) CHLORIDE (test code = 107 mEq/L 100-108 N CL) CARBON DIOXIDE (test 24 mEq/l 21-33 N code = CO2) ANION GAP (test code = 12 0-20 N GAP) GLUCOSE (test code = 91 mg/dL 70-110 N GLU) BLOOD UREA NITROGEN 14 mg/dL 7-18 N (test code = BUN) GLOMERULAR FILTRATION 71.4 70-80 N Units of measure = RATE (test code = GFR) ml/mi n/1.73 m2 CREATININE (test code = 1.0 mg/dL 0.6-1.3 N CREAT) CALCIUM (test code = 8.1 mg/dL 8.0-10.5 N CA) CBC W/AUTO [id number] 07:35:00 Test Item Value Reference Range Interpretation Comments WHITE BLOOD CELL (test code = x10 3/uL 4.5-11.0 WBC) RED BLOOD CELL (test code = RBC) x10 6/uL 4.00-5.60 HEMOGLOBIN (test code = HGB) g/dL 12.5-16.9 HEMATOCRIT (test code = HCT) % 37.5-50.7 MEAN CELL VOLUME (test code = fL 81.0-99.0 MCV) MEAN CELL HGB (test code = MCH) pg 27.0-33.0 MEAN CELL HGB CONCETRATION (test g/dL 33.0-37.0 code = MCHC) RED CELL DISTRIBUTION WIDTH CV % 11.5-14.5 (test code = RDW) PLATELET COUNT (test code = PLT) 265 x10 3/uL 150-400 N NEUTROPHIL % (test code = NT%) % 56.0-77.0 LYMPHOCYTE % (test code = LY%) % 14.0-32.0 NEUTROPHIL # (test code = NT#) x10 3/uL 2.0-7.6 LYMPHOCYTE # (test code = LY#) x10 3/uL 1.0-3.8 MANUAL DIFF REQUIRED (test code = MDIFF) SURGICAL PATH [id number] 14:47:00 Test Item Value Reference Range Interpretation Comments SURGICAL PATH SPECIMENS (test code = SURG) RUN DATE: 02/21/21 [place] - LAB PAGE 1 RUN TIME: 1448 Specimen Inquiry RUN USER: INTERFACE SAMANTHA ENT: BERTIN NICOLE LOC: [facility] U #: [id number] AGE/SX: 85/M ROOM: [facility] [place] RE02/12/21REG DR: Eduardo Hall MD : 37 BED: 1 DIS: STATUS: ADM IN TLOC: SPEC #: [id number] RECD: 02/19/21 STATUS: AUNDREA REQ #: [id number] ART: 02/19/[address]: Eduardo Hall MD ENTERED: 02/20/21 SP TYPE: SURG SPEC OTHR DR: No Primary or Family Physician Self Referred Davide Berumen MD, James Allen PA-C Chaugle, Abdul Hannan MD Khan, Junaid Ahmad MD Rungta, Manish MDORDERED: GROSS AND MICRO CODES: [id number] - PLEURAL FLUID COPIES TO: No Primary or Family Physician Self Referred Davide Berumen MD [address] [phone] Jonas Vital PA-C [address] [facility] [address] [place] [address] Rosario Granados MD [address] [place] [address]. [address] [place] [address] Eduardo Hall MD [address] [place] [address] Marquez Rodriguez MD [address] [place] [address] CONTINUED ON NEXT PAGE RUN DATE: 02/21/21 [place] - LAB PAGE 2 RUN TIME: 1448 Specimen Inquiry RUN USER: INTERFACE SPEC #: [id number] PATIENT: BERTIN NICOLE #[id number] (Continued) ------- COPIES TO: (Continued) Michael Stallings MD [address] [place] [address] [id number] [place] [address] PROCEDURES: GROSS AND MICRO (Incomplete) TISSUES: 1. PLEURAL FLUID, NOS - Pleural fluid, right, cytology FINAL DIAGNOSIS Pleural fluid, right, cytology: No malignant cells identified. GROSS AND MICROSCOPIC GROSS DESCRIPTION: Received are 40 cc of reddish orange right pleural fluid, processed for cytospin and cell block, for cytologic evaluation. MICROSCOPIC EXAMINATION: A microscopic examination was performed to arrive at the diagnostic conclusion reported. 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 [facility] [id number] 11:44:00 Test Item Value Reference Range Interpretation Comments GLUBED (test code = 97 MG/DL 70-110 N Performe d by certified GLUBED) 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 [facility] [id number] 08:11:00 Test Item Value Reference Range Interpretation Comments GLUBED (test code = 103 MG/DL 70-110 N Performe d by certified GLUBED) 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 [facility] [id number] 05:49:00 Test Item Value Reference Range Interpretation Comments GLUBED (test code = 98 MG/DL 70-110 N Performe d by certified GLUBED) 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 [facility] [id number] 20:24:00 Test Item Value Reference Range Interpretation Comments GLUBED (test code = 132 MG/DL 70-110 H Performe d by certified GLUBED) 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 [facility] [id number] 16:57:00 Test Item Value Reference Range Interpretation Comments GLUBED (test code = 99 MG/DL 70-110 N Performe d by certified GLUBED) 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 INDICATION: Right pleural effusion. COMPARISON: None. TECHNIQUE: The procedure, risks, benefits and alternatives were discussed. Informed consent was obtained. Timeout was performed prior to the procedure. Ultrasoundwas used to evaluate potential access sites. Preliminary ultrasound demonstrates moderate right effus ion. The posterior lower chest was sterilely prepped and draped. 1% lidocaine was used for local anesthesia. Using ultrasound guidance, 5-Albanian sheath needle was advanced into the pleural space using trocar technique. Pleural fluid was aspirated after removal of the needle. The sheath was removed, and pressure was applied at the puncture site with adequate hemostasis. Sterile dressing was applied. There were no evident complications and the patient tolerated procedure well. Performed by: COREEN Zamora Supervised and Electronically signed by: Bon Gomez DO Findings: Total volume of 1.5 L of clear rigo pleural fluid was removed. IMPRESSION: 1. Technically successful ultrasound-guided tho racentesis. at 1255 Reportedand signed by: Bon Gomez D.O. CC: Harrison Jones NP; Eduardo Hall Technologist: Racquel Farah Trnscb Date/Time: 02/19/2021 (1307) [id number] Orig Print D/T: S: 02/19/2021 (5700) Probe: PAGE 1Signed Report- XR CHEST 1 [id number] 12:42:00 [facility] 1935 Sex: M FAX: Eduardo Malik [phone] [place]: St: ADM FAX: Dayne Mendoza PA-C [phone] [facility] 1935 Age/S: 85/M [address] [place], [place] [address] Unit #: [id number] Loc: [address] [address] Phys: Dayne Mendoza PA-C Acct: [id number] Dis Date: Status: ADM IN PHONE #: [phone] Exam Date:02/19/2021 1239 FAX #: [phone] Reason: S/P RT THORA EXAMS: CPT CODE: [id number] XR CHEST 1 V 59308 Clinical Indication: Right pleural effusion post thoracentesis. Comparison: 02/19/2021. Impression: Chest, single view. Reduction in volume of right pleural fluid, now moderate. No pneumothorax. Remainder of chest is unchanged from prior. SL: [id number] at 1242 Reported and signed by: Bhargavi Meier M.D. 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 Comparison: 02/17/2021. Impression: Chest, single view. Prior median sternotomy and cardiac valve replacement. Cardiomegaly with perihilar edema and large right pleural effusion. No pneumothorax. No acute osseous abnormality. SL: [id number] at 1006 Reported and signed by: Bhargavi Meier M.D. CC: Eduardo Hall Technologist: RT Dennise(Naomi) Trnreuben Date/Time/By: 02/19/2021 (1006) : By: [email or web address] Orig Print D/T: S: 02/19/2021 (3107) PAGE 1 Signed [id number] 09:19:00 Test Item Value Reference Range Interpretation Comments TROPONIN-I 0.012 ng/mL 0.000-0.045 N Negative: <= 0. 045 Positive: (test code = >= 0.046 Correl ation with TROPI) serial results, other cardiac markers andclin ical findings is necessary to determine the clinicalsignifi cance of this result. Results using different metho dologies should not be c omparedto one another as carmen titative results may kelvin y by method. CBC W/AUTO [id number] 07:17:00 Test Item Value Reference Range Interpretation Comments WHITE BLOOD CELL (test code = 6.2 x10 3/uL 4.5-11.0 N WBC) RED BLOOD CELL (test code = 3.16 x10 6/uL 4.00-5.60 L RBC) HEMOGLOBIN (test code = HGB) 9.0 g/dL 12.5-16.9 L HEMATOCRIT (test code = HCT) 30.6 % 37.5-50.7 L MEAN CELL VOLUME (test code = 96.8 fL 81.0-99.0 N MCV) MEAN CELL HGB (test code = MCH) 28.5 pg 27.0-33.0 N MEAN CELL HGB CONCETRATION 29.4 g/dL 33.0-37.0 L (test code = MCHC) RED CELL DISTRIBUTION WIDTH CV 14.5 % 11.5-14.5 N (test code = RDW) RED CELL DISTRIBUTION WIDTH SD 51.1 fL 37.0-54.0 N (test code = RDW-SD) PLATELET COUNT (test code = 295 x10 3/uL 150-400 N PLT) MEAN PLATELET VOLUME (test code 9.5 fL 7.0-9.0 H = MPV) NEUTROPHIL % (test code = NT%) 50.5 % 56.0-77.0 L IMMATURE GRANULOCYTE % (test 0.8 % 0.0-2.0 N code = IG%) LYMPHOCYTE % (test code = LY%) 35.7 % 14.0-32.0 H MONOCYTE % (test code = MO%) 10.6 % 4.8-9.0 H EOSINOPHIL % (test code = EO%) 1.6 % 0.3-3.7 N BASOPHIL % (test code = BA%) 0.8 % 0.0-2.0 N NUCLEATED RBC % (test code = 0.0 % 0-0 N NRBC%) NEUTROPHIL # (test code = NT#) 3.14 x10 3/uL 2.0-7.6 N IMMATURE GRANULOCYTE # (test 0.05 x10 3/uL 0.00-0.03 H code = IG#) LYMPHOCYTE # (test code = LY#) 2.22 x10 3/uL 1.0-3.8 N MONOCYTE # (test code = MO#) 0.66 x10 3/uL 0.1-0.8 N EOSINOPHIL # (test code = EO#) 0.10 x10 3/uL 0.0-0.2 N BASOPHIL # (test code = BA#) 0.05 x10 3/uL 0.0-0.2 N NUCLEATED RBC # (test code = 0.00 x10 3/uL 0.0-0.1 N NRBC#) MANUAL DIFF REQUIRED (test code NO = MDIFF) CBC W/AUTO [id number] 07:06:00 Test Item Value Reference Range Interpretation Comments WHITE BLOOD CELL (test code = x10 3/uL 4.5-11.0 WBC) RED BLOOD CELL (test code = RBC) x10 6/uL 4.00-5.60 HEMOGLOBIN (test code = HGB) g/dL 12.5-16.9 HEMATOCRIT (test code = HCT) % 37.5-50.7 MEAN CELL VOLUME (test code = fL 81.0-99.0 MCV) MEAN CELL HGB (test code = MCH) pg 27.0-33.0 MEAN CELL HGB CONCETRATION (test g/dL 33.0-37.0 code = MCHC) RED CELL DISTRIBUTION WIDTH CV % 11.5-14.5 (test code = RDW) PLATELET COUNT (test code = PLT) 295 x10 3/uL 150-400 N NEUTROPHIL % (test code = NT%) % 56.0-77.0 LYMPHOCYTE % (test code = LY%) % 14.0-32.0 NEUTROPHIL # (test code = NT#) x10 3/uL 2.0-7.6 LYMPHOCYTE # (test code = LY#) x10 3/uL 1.0-3.8 MANUAL DIFF REQUIRED (test code = MDIFF) BASIC METABOLIC [id number] 06:49:00 Test Item Value Reference Range Interpretation Comments SODIUM (test code = NA) 138 mEq/L 134-147 N POTASSIUM (test code = 3.9 mEq/L 3.4-5.0 N K) CHLORIDE (test code = 106 mEq/L 100-108 N CL) CARBON DIOXIDE (test 28 mEq/l 21-33 N code = CO2) ANION GAP (test code = 8 0-20 N GAP) GLUCOSE (test code = 100 mg/dL 70-110 N GLU) BLOOD UREA NITROGEN 13 mg/dL 7-18 N (test code = BUN) GLOMERULAR FILTRATION 71.4 70-80 N Units of measure = RATE (test code = GFR) ml/mi n/1.73 m2 CREATININE (test code = 1.0 mg/dL 0.6-1.3 N CREAT) CALCIUM (test code = 7.8 mg/dL 8.0-10.5 L CA) HEPATIC FUNCTION [id number] 06:49:00 Test Item Value Reference Range Interpretation Comments TOTAL PROTEIN (test code = PROT) 5.7 g/dL 6.4-8.2 L ALBUMIN (test code = ALB) 2.50 g/dL 3.4-5.0 L BILIRUBIN TOTAL (test code = BILT) 0.50 mg/dL 0.0-1.0 N BILIRUBIN DIRECT (test code = 0.30 MG/DL 0.0-0.30 N BILD) BILIRUBIN INDIRECT (test code = 0.20 MG/DL BILIND) SGOT/AST (test code = AST) 28 IUnit/L 15-37 N SGPT/ALT (test code = ALT) 32 IUnit/L 30-65 N ALKALINE PHOSPHATASE TOTAL (test 75 IUnit/L 20-125 N code = ALKP) [id number] 06:49:00 Test Item Value Reference Range Interpretation Comments PREALBUMIN (test code = PREALB) 8.2 mg/dL 16.0-40.0 L [id number] 06:31:00 Test Item Value Reference Range Interpretation Comments GLUBED (test code = 98 MG/DL 70-110 N Performe d by certified GLUBED) 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 [facility] [id number] 23:13:00 Test Item Value Reference Range Interpretation Comments GLUBED (test code = 132 MG/DL 70-110 H Performe d by certified GLUBED) 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4-8.2 L ALBUMIN (test code = ALB) 2.40 g/dL 3.4-5.0 L BILIRUBIN TOTAL (test code = BILT) 0.50 mg/dL 0.0-1.0 N BILIRUBIN DIRECT (test code = 0.30 MG/DL 0.0-0.30 N BILD) BILIRUBIN INDIRECT (test code = 0.20 MG/DL BILIND) SGOT/AST (test code = AST) 31 IUnit/L 15-37 N SGPT/ALT (test code = ALT) 36 IUnit/L 30-65 N ALKALINE PHOSPHATASE TOTAL (test 70 IUnit/L 20-125 N code = ALKP) PROTHROMBIN [id number] 06:55:00 Test Item Value Reference Range Interpretation Comments PROTHROMBIN TIME 17.1 SECONDS 9.3-12.9 H PATIENT (test code = PTP) INTERNATIONAL NORMAL 1.6 0.8-1.2 H TARGE T INR BY RATIO (test code = INDICATIO N Indication INR) INR1. 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 Mec hanical prosthetic valv es (high risk), 2. 5 - 3.5 Presence of Lup us Anticoagulant o r Antiphospholipi d Antibodies, Pre vention of systemic emb olism - Acute Myocardia l Infarction (to prevent recurrent infar ct). [id number] 05:55:00 Test Item Value Reference Range Interpretation Comments GLUBED (test code = 102 MG/DL 70-110 N Performe d by certified GLUBED) 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 [facility] [id number] 20:17:00 Test Item Value Reference Range Interpretation Comments GLUBED (test code = 118 MG/DL 70-110 H Performe d by certified GLUBED) 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 [facility] [id number] 16:06:00 Test Item Value Reference Range Interpretation Comments GLUBED (test code = 123 MG/DL 70-110 H Performe d by certified GLUBED) 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 [facility] - XR CHEST 2 [id number] 14:20:00 [facility] 1935 Sex: M FAX: Jonas Ly [phone] [place]: St: ADM FAX: Eduardo Malik [phone] --------- Name: BERTIN NICOLE [facility] : 1935 Age/S: 85/M [address] [place] [address] Unit #: [id number] Loc: [address] [address] Phys: Jonas Vital PA-C Acct: [id number] Dis Date: Status: ADM IN PHONE #: [phone] Exam Date: 02/17/20211416 FAX #: [phone] Reason: pleural effusion and SOB EXAMS: CPT CODE: [id number] XR CHEST 2 V 64155 PROCEDURE: Chest Radiograph. Clinical Indication: Pleural effusion, shortness of breath, myopathy. Comparison: Chest radiograph 02/15/2021. FINDINGS: The chest shows opacity at the right lung base. There is a small right pleural effusion, slightly decreased. The cardiac silhou ette is enlarged. Previous midline sternotomy and cardiac valve replacement. IMPRESSION: 1. Cardiomegaly with opacity at the right lung base and a small right pleural effusion. SL: OCO-H at 1420 Reported and signed by: Mervin Nascimento M.D. CC: Jonas Vital; Eduardo Hall Technologist: RT Henri(Naomi) Trnscrd Date/Time/By: 02/17/2021 (9872) : By: Smita Orig Print D/T: S: 02/17/2021 (7258) PAGE 1 Signed [id number] 11:40:00 Test Item Value Reference Range Interpretation Comments GLUBED (test code = 113 MG/DL 70-110 H Performe d by certified GLUBED) 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 [facility] [id number] 08:29:00 Test Item Value Reference Range Interpretation Comments GLUBED (test code = 99 MG/DL 70-110 N Performe d by certified GLUBED) 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 [facility] HEPATIC FUNCTION [id number] 07:17:00 Test Item Value Reference Range Interpretation Comments TOTAL PROTEIN (test code = PROT) 5.9 g/dL 6.4-8.2 L ALBUMIN (test code = ALB) 2.50 g/dL 3.4-5.0 L BILIRUBIN TOTAL (test code = BILT) 0.60 mg/dL 0.0-1.0 N BILIRUBIN DIRECT (test code = 0.30 MG/DL 0.0-0.30 N BILD) BILIRUBIN INDIRECT (test code = 0.30 MG/DL BILIND) SGOT/AST (test code = AST) 27 IUnit/L 15-37 N SGPT/ALT (test code = ALT) 41 IUnit/L 30-65 N ALKALINE PHOSPHATASE TOTAL (test 79 IUnit/L 20-125 N code = ALKP) PROTHROMBIN [id number] 07:00:00 Test Item Value Reference Range Interpretation Comments PROTHROMBIN TIME 20.9 SECONDS 9.3-12.9 H PATIENT (test code = PTP) INTERNATIONAL NORMAL 1.9 0.8-1.2 H TARGET INR BY RATIO (test code = INDICATIO N Indication INR) INR1. 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 Mec hanical prosthetic valv es (high risk), 2. 5 - 3.5 Presence of Lup us Anticoagulant o r Antiphospholipi d Antibodies, Pre vention of systemic emb olism - Acute Myocardia l Infarction (to prevent recurrent infar ct). [id number] 21:12:00 Test Item Value Reference Range Interpretation Comments GLUBED (test code = 146 MG/DL 70-110 H Performe d by certified GLUBED) 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 [facility] [id number] 16:33:00 Test Item Value Reference Range Interpretation Comments GLUBED (test code = 93 MG/DL 70-110 N Performe d by certified GLUBED) 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 [facility] - US SOFT TISSUE [id number] 13:26:00 [facility] 1935 Sex: M Name: BERTIN NICOLE [facility] : 1935 Age/S: 85 / M [address] [place] [address] Unit #: [id number] Loc: [place] [address] Phys: Dayne Mendoza PA-C Acct: [id number] Dis Date: Status: ADM IN PHONE #: [phone] Exam Date: 02/16/20211226 FAX #: [phone] Reason: Right pleural effusion EXAMS: CPT CODE: [id number] US SOFT TISSUE TORSO [address]84[address] Clinical Indication: Right pleural effusion; Comparison: None : 1935; Age: 85 years y/o Male TECHNIQUE: Sonographic evaluation of the bilateral posterior thorax is performed IMPRESSION: Moderate to large right and minimal left pleural effusions is seen. at 1326 Reported and signed by: Bon Gomez D.O. CC: Eduardo Hall; Dayne Mendoza Technologist: Racquel Farah Trnnhb Date/Time: 02/16/2021 (1326) t.[email or web address] Orig Print D/T: S: 02/16/2021 (3679) Probe: PAGE 1 Signed [id number] 12:26:00 Test Item Value Reference Range Interpretation Comments GLUBED (test code = 129 MG/DL 70-110 H Performe d by certified GLUBED) 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 [facility] CBC W/AUTO [id number] 07:23:00 Test Item Value Reference Range Interpretation Comments WHITE BLOOD CELL (test code = 5.7 x10 3/uL 4.5-11.0 N WBC) RED BLOOD CELL (test code = 3.09 x10 6/uL 4.00-5.60 L RBC) HEMOGLOBIN (test code = HGB) 9.0 g/dL 12.5-16.9 L HEMATOCRIT (test code = HCT) 29.8 % 37.5-50.7 L MEAN CELL VOLUME (test code = 96.4 fL 81.0-99.0 N MCV) MEAN CELL HGB (test code = MCH) 29.1 pg 27.0-33.0 N MEAN CELL HGB CONCETRATION 30.2 g/dL 33.0-37.0 L (test code = MCHC) RED CELL DISTRIBUTION WIDTH CV 14.3 % 11.5-14.5 N (test code = RDW) RED CELL DISTRIBUTION WIDTH SD 50.4 fL 37.0-54.0 N (test code = RDW-SD) PLATELET COUNT (test code = 315 x10 3/uL 150-400 N PLT) MEAN PLATELET VOLUME (test code 9.5 fL 7.0-9.0 H = MPV) NEUTROPHIL % (test code = NT%) 52.9 % 56.0-77.0 L IMMATURE GRANULOCYTE % (test 1.2 % 0.0-2.0 N code = IG%) LYMPHOCYTE % (test code = LY%) 32.7 % 14.0-32.0 H MONOCYTE % (test code = MO%) 10.9 % 4.8-9.0 H EOSINOPHIL % (test code = EO%) 1.4 % 0.3-3.7 N BASOPHIL % (test code = BA%) 0.9 % 0.0-2.0 N NUCLEATED RBC % (test code = 0.0 % 0-0 N NRBC%) NEUTROPHIL # (test code = NT#) 3.02 x10 3/uL 2.0-7.6 N IMMATURE GRANULOCYTE # (test 0.07 x10 3/uL 0.00-0.03 H code = IG#) LYMPHOCYTE # (test code = LY#) 1.87 x10 3/uL 1.0-3.8 N MONOCYTE # (test code = MO#) 0.62 x10 3/uL 0.1-0.8 N EOSINOPHIL # (test code = EO#) 0.08 x10 3/uL 0.0-0.2 N BASOPHIL # (test code = BA#) 0.05 x10 3/uL 0.0-0.2 N NUCLEATED RBC # (test code = 0.00 x10 3/uL 0.0-0.1 N NRBC#) MANUAL DIFF REQUIRED (test code NO = MDIFF) [id number] 06:49:00 Test Item Value Reference Range Interpretation Comments GLUBED (test code = 94 MG/DL 70-110 N Performe d by certified GLUBED) 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 [facility] CBC W/AUTO [id number] 06:48:00 Test Item Value Reference Range Interpretation Comments WHITE BLOOD CELL (test code = x10 3/uL 4.5-11.0 WBC) RED BLOOD CELL (test code = RBC) x10 6/uL 4.00-5.60 HEMOGLOBIN (test code = HGB) g/dL 12.5-16.9 HEMATOCRIT (test code = HCT) % 37.5-50.7 MEAN CELL VOLUME (test code = fL 81.0-99.0 MCV) MEAN CELL HGB (test code = MCH) pg 27.0-33.0 MEAN CELL HGB CONCETRATION (test g/dL 33.0-37.0 code = MCHC) RED CELL DISTRIBUTION WIDTH CV % 11.5-14.5 (test code = RDW) PLATELET COUNT (test code = PLT) 315 x10 3/uL 150-400 N NEUTROPHIL % (test code = NT%) % 56.0-77.0 LYMPHOCYTE % (test code = LY%) % 14.0-32.0 NEUTROPHIL # (test code = NT#) x10 3/uL 2.0-7.6 LYMPHOCYTE # (test code = LY#) x10 3/uL 1.0-3.8 MANUAL DIFF REQUIRED (test code = MDIFF) BASIC METABOLIC [id number] 06:21:00 Test Item Value Reference Range Interpretation Comments SODIUM (test code = NA) 137 mEq/L 134-147 N POTASSIUM (test code = 3.3 mEq/L 3.4-5.0 L K) CHLORIDE (test code = 105 mEq/L 100-108 N CL) CARBON DIOXIDE (test 27 mEq/l 21-33 N code = CO2) ANION GAP (test code = 8 0-20 N GAP) GLUCOSE (test code = 108 mg/dL 70-110 N GLU) BLOOD UREA NITROGEN 16 mg/dL 7-18 N (test code = BUN) GLOMERULAR FILTRATION 71.4 70-80 N Units of measure = RATE (test code = GFR) ml/mi n/1.73 m2 CREATININE (test code = 1.0 mg/dL 0.6-1.3 N CREAT) CALCIUM (test code = 8.2 mg/dL 8.0-10.5 N CA) HEPATIC FUNCTION [id number] 06:21:00 Test Item Value Reference Range Interpretation Comments TOTAL PROTEIN (test code = PROT) 5.8 g/dL 6.4-8.2 L ALBUMIN (test code = ALB) 2.30 g/dL 3.4-5.0 L BILIRUBIN TOTAL (test code = BILT) 0.60 mg/dL 0.0-1.0 N BILIRUBIN DIRECT (test code = 0.30 MG/DL 0.0-0.30 N BILD) BILIRUBIN INDIRECT (test code = 0.30 MG/DL BILIND) SGOT/AST (test code = AST) 35 IUnit/L 15-37 N SGPT/ALT (test code = ALT) 51 IUnit/L 30-65 N ALKALINE PHOSPHATASE TOTAL (test 78 IUnit/L 20-125 N code = ALKP) [id number] 06:21:00 Test Item Value Reference Range Interpretation Comments MAGNESIUM (test code = MAG) 1.76 mg/dL 1.80-2.40 L PROTHROMBIN [id number] 06:13:00 Test Item Value Reference Range Interpretation Comments PROTHROMBIN TIME 25.6 SECONDS 9.3-12.9 H PATIENT (test code = PTP) INTERNATIONAL NORMAL 2.3 0.8-1.2 H TARGET INR BY RATIO (test code = INDICATIO N Indication INR) INR1. 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 Mec hanical prosthetic valv es (high risk), 2. 5 - 3.5 Presence of Lup us Anticoagulant o r Antiphospholipi d Antibodies, Pre vention of systemic emb olism - Acute Myocardia l Infarction (to prevent recurrent infar ct). [id number] 21:07:00 Test Item Value Reference Range Interpretation Comments GLUBED (test code = 124 MG/DL 70-110 H Performe d by certified GLUBED) 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 [facility] - XR CHEST 1 [id number] 17:23:00 [facility] 1935 Sex: M FAX: Eduardo Malik [phone] [place]: St: ADM FAX: Lawanda Grimes NP [phone] Name: BERTIN INCOLE [facility] [place] : 1935 Age/S: 85/M [address] [place] [address] Unit #: [id number] Loc: [address] [address] Phys: Lawanda Grimes NP Acct: [id number] Dis Date: Status: ADM IN PHONE #: [phone] Exam Date: 02/15/20211710 FAX #: [phone] Reason: shortness of breath with therapy EXAMS: CPT CODE: [id number] XR CHEST 1 V 07436 Clinical Indication: Shortness of breath with therapy. Comparison: 02/04/2021. Impression: Chest, single view. Prior median sternotomy and cardiac valve replacement. Cardiomegaly. Moderate right pleural effusion with perihilar atelectasis or edema. No pneumothorax. No acute osseous abnormal ity. SL: [id number] at 1723 Reported and signed by: Bhargavi Meier M.D. CC: Eduardo Hall; Lawanda Grimes NP Technologist: Stephany Martínez RT(R) Trnscrd Date/Time/By: 02/15/2021 ([id number]) : By: [email or web address] Orig Print D/T: S: 02/15/2021 ([id number]) PAGE 1 Signed [id number] 16:46:00 Test Item Value Reference Range Interpretation Comments GLUBED (test code = 126 MG/DL 70-110 H Performe d by certified GLUBED) 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 [facility] [id number] 11:46:00 Test Item Value Reference Range Interpretation Comments GLUBED (test code = 105 MG/DL 70-110 N Performe d by certified GLUBED) 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 [facility] COMPREHENSIVE METABOLIC [id number] 06:49:00 Test Item Value Reference Range Interpretation Comments SODIUM (test code = NA) 138 mEq/L 134-147 N POTASSIUM (test code = 3.7 mEq/L 3.4-5.0 N K) CHLORIDE (test code = 107 mEq/L 100-108 N CL) CARBON DIOXIDE (test 26 mEq/l 21-33 N code = CO2) ANION GAP (test code = 9 0-20 N GAP) GLUCOSE (test code = 101 mg/dL 70-110 N GLU) BLOOD UREA NITROGEN 15 mg/dL 7-18 N (test code = BUN) GLOMERULAR FILTRATION 71.4 70-80 N Units of measure = RATE (test code = GFR) ml/mi n/1.73 m2 CREATININE (test code = 1.0 mg/dL 0.6-1.3 N CREAT) TOTAL PROTEIN (test 5.8 g/dL 6.4-8.2 L code = PROT) ALBUMIN (test code = 2.40 g/dL 3.4-5.0 L ALB) CALCIUM (test code = 7.9 mg/dL 8.0-10.5 L CA) BILIRUBIN TOTAL (test 0.50 mg/dL 0.0-1.0 N code = BILT) SGOT/AST (test code = 49 IUnit/L 15-37 H AST) SGPT/ALT (test code = 62 IUnit/L 30-65 N ALT) ALKALINE PHOSPHATASE 79 IUnit/L 20-125 N TOTAL (test code = ALKP) BILIRUBIN [id number] 06:49:00 Test Item Value Reference Range Interpretation Comments BILIRUBIN DIRECT (test code = 0.30 MG/DL 0.0-0.30 BILD) [id number] 06:49:00 Test Item Value Reference Range Interpretation Comments MAGNESIUM (test code = MAG) 1.91 mg/dL 1.80-2.40 N CBC W/AUTO [id number] 06:35:00 Test Item Value Reference Range Interpretation Comments WHITE BLOOD CELL (test code = 5.6 x10 3/uL 4.5-11.0 N WBC) RED BLOOD CELL (test code = 3.11 x10 6/uL 4.00-5.60 L RBC) HEMOGLOBIN (test code = HGB) 9.0 g/dL 12.5-16.9 L HEMATOCRIT (test code = HCT) 30.1 % 37.5-50.7 L MEAN CELL VOLUME (test code = 96.8 fL 81.0-99.0 N MCV) MEAN CELL HGB (test code = MCH) 28.9 pg 27.0-33.0 N MEAN CELL HGB CONCETRATION 29.9 g/dL 33.0-37.0 L (test code = MCHC) RED CELL DISTRIBUTION WIDTH CV 14.3 % 11.5-14.5 N (test code = RDW) RED CELL DISTRIBUTION WIDTH SD 50.5 fL 37.0-54.0 N (test code = RDW-SD) PLATELET COUNT (test code = 318 x10 3/uL 150-400 N PLT) MEAN PLATELET VOLUME (test code 9.3 fL 7.0-9.0 H = MPV) NEUTROPHIL % (test code = NT%) 55.2 % 56.0-77.0 L IMMATURE GRANULOCYTE % (test 1.3 % 0.0-2.0 N code = IG%) LYMPHOCYTE % (test code = LY%) 29.3 % 14.0-32.0 N MONOCYTE % (test code = MO%) 11.7 % 4.8-9.0 H EOSINOPHIL % (test code = EO%) 1.6 % 0.3-3.7 N BASOPHIL % (test code = BA%) 0.9 % 0.0-2.0 N NUCLEATED RBC % (test code = 0.0 % 0-0 N NRBC%) NEUTROPHIL # (test code = NT#) 3.07 x10 3/uL 2.0-7.6 N IMMATURE GRANULOCYTE # (test 0.07 x10 3/uL 0.00-0.03 H code = IG#) LYMPHOCYTE # (test code = LY#) 1.63 x10 3/uL 1.0-3.8 N MONOCYTE # (test code = MO#) 0.65 x10 3/uL 0.1-0.8 N EOSINOPHIL # (test code = EO#) 0.09 x10 3/uL 0.0-0.2 N BASOPHIL # (test code = BA#) 0.05 x10 3/uL 0.0-0.2 N NUCLEATED RBC # (test code = 0.00 x10 3/uL 0.0-0.1 N NRBC#) MANUAL DIFF REQUIRED (test code NO = MDIFF) PROTHROMBIN [id number] 06:34:00 Test Item Value Reference Range Interpretation Comments PROTHROMBIN TIME 22.3 SECONDS 9.3-12.9 H PATIENT (test code = PTP) INTERNATIONAL NORMAL 2.0 0.8-1.2 H TARGE T INR BY RATIO (test code = INDICATIO N Indication INR) INR1. 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 Mec hanical prosthetic valv es (high risk), 2. 5 - 3.5 Presence of Lup us Anticoagulant o r Antiphospholipi d Antibodies, Pre vention of systemic emb olism - Acute Myocardia l Infarction (to prevent recurrent infar ct). CBC W/AUTO [id number] 06:29:00 Test Item Value Reference Range Interpretation Comments WHITE BLOOD CELL (test code = x10 3/uL 4.5-11.0 WBC) RED BLOOD CELL (test code = RBC) x10 6/uL 4.00-5.60 HEMOGLOBIN (test code = HGB) g/dL 12.5-16.9 HEMATOCRIT (test code = HCT) % 37.5-50.7 MEAN CELL VOLUME (test code = fL 81.0-99.0 MCV) MEAN CELL HGB (test code = MCH) pg 27.0-33.0 MEAN CELL HGB CONCETRATION (test g/dL 33.0-37.0 code = MCHC) RED CELL DISTRIBUTION WIDTH CV % 11.5-14.5 (test code = RDW) PLATELET COUNT (test code = PLT) 318 x10 3/uL 150-400 N NEUTROPHIL % (test code = NT%) % 56.0-77.0 LYMPHOCYTE % (test code = LY%) % 14.0-32.0 NEUTROPHIL # (test code = NT#) x10 3/uL 2.0-7.6 LYMPHOCYTE # (test code = LY#) x10 3/uL 1.0-3.8 MANUAL DIFF REQUIRED (test code = MDIFF) [id number] 06:00:00 Test Item Value Reference Range Interpretation Comments GLUBED (test code = 105 MG/DL 70-110 N Performe d by certified GLUBED) 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 [facility] [id number] 21:28:00 Test Item Value Reference Range Interpretation Comments GLUBED (test code = 113 MG/DL 70-110 H Performe d by certified GLUBED) 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 [facility] [id number] 11:13:00 Test Item Value Reference Range Interpretation Comments GLUBED (test code = 103 MG/DL 70-110 N Performe d by certified GLUBED) 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 [facility] [id number] 06:36:00 Test Item Value Reference Range Interpretation Comments GLUBED (test code = 98 MG/DL 70-110 N Performe d by certified GLUBED) 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 [facility] PROTHROMBIN [id number] 04:12:00 Test Item Value Reference Range Interpretation Comments PROTHROMBIN TIME 24.0 SECONDS 9.3-12.9 H PATIENT (test code = PTP) INTERNATIONAL NORMAL 2.2 0.8-1.2 H TARGET INR BY RATIO (test code = INDICATIO N Indication INR) INR1. 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 Mec hanical prosthetic valv es (high risk), 2. 5 - 3.5 Presence of Lup us Anticoagulant o r Antiphospholipi d Antibodies, Pre vention of systemic emb olism - Acute Myocardia l Infarction (to prevent recurrent infar ct). [id number] 19:49:00 Test Item Value Reference Range Interpretation Comments GLUBED (test code = 116 MG/DL 70-110 H Performe d by certified GLUBED) 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 [facility] [id number] 16:16:00 Test Item Value Reference Range Interpretation Comments GLUBED (test code = 104 MG/DL 70-110 N Performe d by certified GLUBED) 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 [facility] [id number] 11:55:00 Test Item Value Reference Range Interpretation Comments GLUBED (test code = 112 MG/DL 70-110 H Performe d by certified GLUBED) 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 [facility] COMPREHENSIVE METABOLIC [id number] 05:01:00 Test Item Value Reference Range Interpretation Comments SODIUM (test code = NA) 134 mEq/L 134-147 N POTASSIUM (test code = 4.0 mEq/L 3.4-5.0 K) CHLORIDE (test code = 108 mEq/L 100-108 N CL) CARBON DIOXIDE (test 25 mEq/l 21-33 N code = CO2) ANION GAP (test code = 5 0-20 N GAP) GLUCOSE (test code = 106 mg/dL 70-110 N GLU) BLOOD UREA NITROGEN 16 mg/dL 7-18 N (test code = BUN) GLOMERULAR FILTRATION 71.4 70-80 N Units of measure = RATE (test code = GFR) ml/mi n/1.73 m2 CREATININE (test code = 1.0 mg/dL 0.6-1.3 N CREAT) TOTAL PROTEIN (test 6.0 g/dL 6.4-8.2 L code = PROT) ALBUMIN (test code = 2.40 g/dL 3.4-5.0 L ALB) CALCIUM (test code = 8.3 mg/dL 8.0-10.5 N CA) BILIRUBIN TOTAL (test 0.60 mg/dL 0.0-1.0 N code = BILT) SGOT/AST (test code = 56 IUnit/L 15-37 H AST) SGPT/ALT (test code = 81 IUnit/L 30-65 H ALT) ALKALINE PHOSPHATASE 83 IUnit/L 20-125 N TOTAL (test code = ALKP) [id number] 05:01:00 Test Item Value Reference Range Interpretation Comments MAGNESIUM (test code = MAG) 2.08 mg/dL 1.80-2.40 N [id number] 05:01:00 Test Item Value Reference Range Interpretation Comments PREALBUMIN (test code = PREALB) 5.4 mg/dL 16.0-40.0 L CBC W/AUTO [id number] 04:49:00 Test Item Value Reference Range Interpretation Comments WHITE BLOOD CELL (test code = 6.3 x10 3/uL 4.5-11.0 N WBC) RED BLOOD CELL (test code = 3.11 x10 6/uL 4.00-5.60 L RBC) HEMOGLOBIN (test code = HGB) 9.3 g/dL 12.5-16.9 L HEMATOCRIT (test code = HCT) 29.2 % 37.5-50.7 L MEAN CELL VOLUME (test code = 93.9 fL 81.0-99.0 N MCV) MEAN CELL HGB (test code = MCH) 29.9 pg 27.0-33.0 N MEAN CELL HGB CONCETRATION 31.8 g/dL 33.0-37.0 L (test code = MCHC) RED CELL DISTRIBUTION WIDTH CV 14.2 % 11.5-14.5 N (test code = RDW) RED CELL DISTRIBUTION WIDTH SD 48.6 fL 37.0-54.0 N (test code = RDW-SD) PLATELET COUNT (test code = 324 x10 3/uL 150-400 N PLT) MEAN PLATELET VOLUME (test code 9.0 fL 7.0-9.0 N = MPV) NEUTROPHIL % (test code = NT%) 59.7 % 56.0-77.0 N IMMATURE GRANULOCYTE % (test 1.4 % 0.0-2.0 N code = IG%) LYMPHOCYTE % (test code = LY%) 24.2 % 14.0-32.0 N MONOCYTE % (test code = MO%) 12.8 % 4.8-9.0 H EOSINOPHIL % (test code = EO%) 1.4 % 0.3-3.7 N BASOPHIL % (test code = BA%) 0.5 % 0.0-2.0 N NUCLEATED RBC % (test code = 0.0 % 0-0 N NRBC%) NEUTROPHIL # (test code = NT#) 3.78 x10 3/uL 2.0-7.6 N IMMATURE GRANULOCYTE # (test 0.09 x10 3/uL 0.00-0.03 H code = IG#) LYMPHOCYTE # (test code = LY#) 1.53 x10 3/uL 1.0-3.8 N MONOCYTE # (test code = MO#) 0.81 x10 3/uL 0.1-0.8 H EOSINOPHIL # (test code = EO#) 0.09 x10 3/uL 0.0-0.2 N BASOPHIL # (test code = BA#) 0.03 x10 3/uL 0.0-0.2 N NUCLEATED RBC # (test code = 0.00 x10 3/uL 0.0-0.1 N NRBC#) MANUAL DIFF REQUIRED (test code NO = MDIFF) COVID 19 Asymptomatic IH [id number] 14:14:00 Test Item Value Reference Range Interpretation Comments COVID 19 Asymptomatic Negative Negative A nega tive result is IH AG (test code = presumpti ve and should COVNONPUIAG) be confirmedwit h an FDA authorized mole cular assay, if neces jessee forpatient kvng gement.A positive result does not rule out co-inf ections withother patho gens.This test detects kimberly th viable (live) and non-viable,SARS -CoV, and SARS-CoV-2. Juan t performance dep ends on theamount of vi odalis (antigen) in th e sample.This juan t has not been FDA cleare d or approved; the t est hasbeen authori zed by FDA under an Em ergency Use Authorizati on(EUA) for use by labo ratories certified under the CLIA thatmeet the requirements to perform moderate, high or waivedcomplexit y tests. 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 [facility] COMPREHENSIVE METABOLIC [id number] 04:04:00 Test Item Value Reference Range Interpretation Comments SODIUM (test code = NA) 135 mEq/L 134-147 N POTASSIUM (test code = 3.0 mEq/L 3.4-5.0 L K) CHLORIDE (test code = 106 mEq/L 100-108 N CL) CARBON DIOXIDE (test 24 mEq/l 21-33 N code = CO2) ANION GAP (test code = 8 0-20 N GAP) GLUCOSE (test code = 124 mg/dL 70-110 H GLU) BLOOD UREA NITROGEN 15 mg/dL 7-18 N (test code = BUN) GLOMERULAR FILTRATION 71.4 70-80 N Units of measure = RATE (test code = GFR) ml/mi n/1.73 m2 CREATININE (test code = 1.0 mg/dL 0.6-1.3 N CREAT) TOTAL PROTEIN (test 5.7 g/dL 6.4-8.2 L code = PROT) ALBUMIN (test code = 2.30 g/dL 3.4-5.0 L ALB) CALCIUM (test code = 8.0 mg/dL 8.0-10.5 N CA) BILIRUBIN TOTAL (test 0.60 mg/dL 0.0-1.0 N code = BILT) SGOT/AST (test code = 60 IUnit/L 15-37 H AST) SGPT/ALT (test code = 82 IUnit/L 30-65 H ALT) ALKALINE PHOSPHATASE 80 IUnit/L 20-125 N TOTAL (test code = ALKP) [id number] 04:04:00 Test Item Value Reference Range Interpretation Comments PHOSPHOROUS (test code = PHOS) 3.7 MG/DL 2.5-4.9 N [id number] 04:04:00 Test Item Value Reference Range Interpretation Comments TRIGLYCERIDES (test code = TRIG) 41 mg/dL 40-150 N [id number] 04:04:00 Test Item Value Reference Range Interpretation Comments MAGNESIUM (test code = MAG) 1.98 mg/dL 1.80-2.40 N [id number] 04:04:00 Test Item Value Reference Range Interpretation Comments PREALBUMIN (test code = PREALB) < 5.0 mg/dL 16.0-40.0 L PROTHROMBIN [id number] 03:56:00 Test Item Value Reference Range Interpretation Comments PROTHROMBIN TIME 23.1 SECONDS 9.3-12.9 H PATIENT (test code = PTP) INTERNATIONAL NORMAL 2.1 0.8-1.2 H TARGET INR BY RATIO (test code = INDICATIO N Indication INR) INR1. 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 Mec hanical prosthetic valv es (high risk), 2. 5 - 3.5 Presence of Lup us Anticoagulant o r Antiphospholipi d Antibodies, Pre vention of systemic emb olism - Acute Myocardia l Infarction (to prevent recurrent infar ct). THROMBOPLASTIN TIME [id number] 03:56:00 Test Item Value Reference Range Interpretation Comments THROMBOPLASTIN TIME 36.9 Seconds 25.0-39.5 N Therape utic Range: PARTIAL (test code = 50.4 - 88.3 Seconds PTT) Effective 02/16/2019 CBC W/AUTO [id number] 03:47:00 Test Item Value Reference Range Interpretation Comments WHITE BLOOD CELL (test code = 6.7 x10 3/uL 4.5-11.0 N WBC) RED BLOOD CELL (test code = 2.76 x10 6/uL 4.00-5.60 L RBC) HEMOGLOBIN (test code = HGB) 8.1 g/dL 12.5-16.9 L HEMATOCRIT (test code = HCT) 26.7 % 37.5-50.7 L MEAN CELL VOLUME (test code = 96.7 fL 81.0-99.0 N MCV) MEAN CELL HGB (test code = MCH) 29.3 pg 27.0-33.0 N MEAN CELL HGB CONCETRATION 30.3 g/dL 33.0-37.0 L (test code = MCHC) RED CELL DISTRIBUTION WIDTH CV 14.3 % 11.5-14.5 N (test code = RDW) RED CELL DISTRIBUTION WIDTH SD 50.5 fL 37.0-54.0 N (test code = RDW-SD) PLATELET COUNT (test code = 323 x10 3/uL 150-400 N PLT) MEAN PLATELET VOLUME (test code 9.0 fL 7.0-9.0 N = MPV) NEUTROPHIL % (test code = NT%) 64.6 % 56.0-77.0 N IMMATURE GRANULOCYTE % (test 1.0 % 0.0-2.0 N code = IG%) LYMPHOCYTE % (test code = LY%) 19.7 % 14.0-32.0 N MONOCYTE % (test code = MO%) 12.8 % 4.8-9.0 H EOSINOPHIL % (test code = EO%) 1.2 % 0.3-3.7 N BASOPHIL % (test code = BA%) 0.7 % 0.0-2.0 N NUCLEATED RBC % (test code = 0.0 % 0-0 N NRBC%) NEUTROPHIL # (test code = NT#) 4.35 x10 3/uL 2.0-7.6 N IMMATURE GRANULOCYTE # (test 0.07 x10 3/uL 0.00-0.03 H code = IG#) LYMPHOCYTE # (test code = LY#) 1.33 x10 3/uL 1.0-3.8 N MONOCYTE # (test code = MO#) 0.86 x10 3/uL 0.1-0.8 H EOSINOPHIL # (test code = EO#) 0.08 x10 3/uL 0.0-0.2 N BASOPHIL # (test code = BA#) 0.05 x10 3/uL 0.0-0.2 N NUCLEATED RBC # (test code = 0.00 x10 3/uL 0.0-0.1 N NRBC#) MANUAL DIFF REQUIRED (test code NO = MDIFF) CBC W/AUTO [id number] 03:46:00 Test Item Value Reference Range Interpretation Comments WHITE BLOOD CELL (test code = x10 3/uL 4.5-11.0 WBC) RED BLOOD CELL (test code = RBC) x10 6/uL 4.00-5.60 HEMOGLOBIN (test code = HGB) g/dL 12.5-16.9 HEMATOCRIT (test code = HCT) % 37.5-50.7 MEAN CELL VOLUME (test code = fL 81.0-99.0 MCV) MEAN CELL HGB (test code = MCH) pg 27.0-33.0 MEAN CELL HGB CONCETRATION (test g/dL 33.0-37.0 code = MCHC) RED CELL DISTRIBUTION WIDTH CV % 11.5-14.5 (test code = RDW) PLATELET COUNT (test code = PLT) 323 x10 3/uL 150-400 N NEUTROPHIL % (test code = NT%) % 56.0-77.0 LYMPHOCYTE % (test code = LY%) % 14.0-32.0 NEUTROPHIL # (test code = NT#) x10 3/uL 2.0-7.6 LYMPHOCYTE # (test code = LY#) x10 3/uL 1.0-3.8 MANUAL DIFF REQUIRED (test code = MDIFF) [id number] 00:53:00 Test Item Value Reference Range Interpretation Comments GLUBED (test code = 104 MG/DL 70-110 N Performe d by certified GLUBED) 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 [facility] [id number] 18:21:00 Test Item Value Reference Range Interpretation Comments GLUBED (test code = 120 MG/DL 70-110 H Performe d by certified GLUBED) 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 [facility] [id number] 12:34:00 Test Item Value Reference Range Interpretation Comments GLUBED (test code = 146 MG/DL 70-110 H Performe d by certified GLUBED) 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 [facility] [id number] 08:29:00 Test Item Value Reference Range Interpretation Comments MAGNESIUM (test code = MAG) 2.03 mg/dL 1.80-2.40 N [id number] 05:30:00 Test Item Value Reference Range Interpretation Comments GLUBED (test code = 114 MG/DL 70-110 H Performe d by certified GLUBED) 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 [facility] BASIC METABOLIC [id number] 05:15:00 Test Item Value Reference Range Interpretation Comments SODIUM (test code = NA) 134 mEq/L 134-147 N POTASSIUM (test code = 3.0 mEq/L 3.4-5.0 L K) CHLORIDE (test code = 104 mEq/L 100-108 N CL) CARBON DIOXIDE (test 25 mEq/l 21-33 N code = CO2) ANION GAP (test code = 8 0-20 N GAP) GLUCOSE (test code = 108 mg/dL 70-110 N GLU) BLOOD UREA NITROGEN 17 mg/dL 7-18 N (test code = BUN) GLOMERULAR FILTRATION 71.4 70-80 N Units of measure = RATE (test code = GFR) ml/mi n/1.73 m2 CREATININE (test code = 1.0 mg/dL 0.6-1.3 N CREAT) CALCIUM (test code = 7.7 mg/dL 8.0-10.5 L CA) THROMBOPLASTIN TIME [id number] 05:11:00 Test Item Value Reference Range Interpretation Comments THROMBOPLASTIN TIME 35.9 Seconds 25.0-39.5 N Therape utic Range: PARTIAL (test code = 50.4 - 88.3 Seconds PTT) Effective 02/16/2019 CBC W/AUTO [id number] 05:07:00 Test Item Value Reference Range Interpretation Comments WHITE BLOOD CELL (test code = 8.2 x10 3/uL 4.5-11.0 N WBC) RED BLOOD CELL (test code = 2.85 x10 6/uL 4.00-5.60 L RBC) HEMOGLOBIN (test code = HGB) 8.5 g/dL 12.5-16.9 L HEMATOCRIT (test code = HCT) 26.9 % 37.5-50.7 L MEAN CELL VOLUME (test code = 94.4 fL 81.0-99.0 N MCV) MEAN CELL HGB (test code = MCH) 29.8 pg 27.0-33.0 N MEAN CELL HGB CONCETRATION 31.6 g/dL 33.0-37.0 L (test code = MCHC) RED CELL DISTRIBUTION WIDTH CV 14.2 % 11.5-14.5 N (test code = RDW) RED CELL DISTRIBUTION WIDTH SD 48.6 fL 37.0-54.0 N (test code = RDW-SD) PLATELET COUNT (test code = 359 x10 3/uL 150-400 N PLT) MEAN PLATELET VOLUME (test code 9.8 fL 7.0-9.0 H = MPV) NEUTROPHIL % (test code = NT%) 60.3 % 56.0-77.0 N IMMATURE GRANULOCYTE % (test 1.1 % 0.0-2.0 N code = IG%) LYMPHOCYTE % (test code = LY%) 22.2 % 14.0-32.0 N MONOCYTE % (test code = MO%) 14.4 % 4.8-9.0 H EOSINOPHIL % (test code = EO%) 1.5 % 0.3-3.7 N BASOPHIL % (test code = BA%) 0.5 % 0.0-2.0 N NUCLEATED RBC % (test code = 0.0 % 0-0 N NRBC%) NEUTROPHIL # (test code = NT#) 4.96 x10 3/uL 2.0-7.6 N IMMATURE GRANULOCYTE # (test 0.09 x10 3/uL 0.00-0.03 H code = IG#) LYMPHOCYTE # (test code = LY#) 1.82 x10 3/uL 1.0-3.8 N MONOCYTE # (test code = MO#) 1.18 x10 3/uL 0.1-0.8 H EOSINOPHIL # (test code = EO#) 0.12 x10 3/uL 0.0-0.2 N BASOPHIL # (test code = BA#) 0.04 x10 3/uL 0.0-0.2 N NUCLEATED RBC # (test code = 0.00 x10 3/uL 0.0-0.1 N NRBC#) MANUAL DIFF REQUIRED (test code NO = MDIFF) CBC W/AUTO [id number] 05:05:00 Test Item Value Reference Range Interpretation Comments WHITE BLOOD CELL (test code = x10 3/uL 4.5-11.0 WBC) RED BLOOD CELL (test code = RBC) x10 6/uL 4.00-5.60 HEMOGLOBIN (test code = HGB) g/dL 12.5-16.9 HEMATOCRIT (test code = HCT) % 37.5-50.7 MEAN CELL VOLUME (test code = fL 81.0-99.0 MCV) MEAN CELL HGB (test code = MCH) pg 27.0-33.0 MEAN CELL HGB CONCETRATION (test g/dL 33.0-37.0 code = MCHC) RED CELL DISTRIBUTION WIDTH CV % 11.5-14.5 (test code = RDW) PLATELET COUNT (test code = PLT) 359 x10 3/uL 150-400 N NEUTROPHIL % (test code = NT%) % 56.0-77.0 LYMPHOCYTE % (test code = LY%) % 14.0-32.0 NEUTROPHIL # (test code = NT#) x10 3/uL 2.0-7.6 LYMPHOCYTE # (test code = LY#) x10 3/uL 1.0-3.8 MANUAL DIFF REQUIRED (test code = MDIFF) [id number] 00:28:00 Test Item Value Reference Range Interpretation Comments GLUBED (test code = 124 MG/DL 70-110 H Performe d by certified GLUBED) 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 [facility] [id number] 18:06:00 Test Item Value Reference Range Interpretation Comments GLUBED (test code = 116 MG/DL 70-110 H Performe d by certified GLUBED) 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 [facility] [id number] 12:13:00 Test Item Value Reference Range Interpretation Comments GLUBED (test code = 145 MG/DL 70-110 H Performe d by certified GLUBED) 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 [facility] [id number] 11:29:00 Test Item Value Reference Range Interpretation Comments GLUBED (test code = 112 MG/DL 70-110 H Performe d by certified GLUBED) 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 [facility] - XR ABDOMEN 1V (KUB)2021-02-10 07:41:00 [facility] [place]: BERTIN NICOLE : 1935 Sex: M FAX: Rosario Silva [phone] [place]: St: ADM FAX: Harrison Jones [employer] Name: BERTIN NICOLE [facility] [place] : 1935 Age/S: 85/M [address] [place] [address] Unit #: [id number] Loc: [id number] [place] [address] Phys: Harrison Jones NP Acct: [id number] Dis Date: Status: ADM IN PHONE #: [phone] Exam Date: 02/10/2021 0737 FAX #: [phone] Reason: ileus EXAMS: CPT CODE: [id number] XR ABDOMEN 1V (KUB) [id number] ABDOMEN RADIOGRAPH ONE VIEW 02/10/2021 AT 0638 HOURS. CLINICAL HISTORY: Ileus. COMPARISON STUDIES: Abdomen one view 02/09/[address] 02/05/2021. FINDINGS: An AP view of the abdomen was obtained. Persistent diffuse air distention of the colon and small bowel loops to maximum estimated transverse small bowel diameter of approximately 7.7 cm (previously 7.5 cm). No pneumatosis or portal venous air. Maximum estimated transverse cecal diameter is approximately 7.8 cm (previously 8 cm). Limited study for free air in a supine film. A moderate right subpulmonic and inferolateral pleural effusion is noted with compressive atelectasis. Enlarged cardiac silhouette with prior median sternotomy. 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 IMPRESSION: 1. Persistent adynamic ileus with grossly stable bowel caliber. 2. Right pleural effusion. SL: [id number] at 0741 Reported and signed by: Adalid Figueroa M.D. CC: Rosario Granados MD; Harrison Jones NP Technologist: Aida Hernandez, RT(R); Ana Bright RT(R) Trnscrd Date/Time/By: 02/10/2021 (0741) : By: [email or web address] [facility]icsPrint [facility]/T: S: 02/10/2021 (0745) PAGE 1 Signed [id number] 05:42:00 Test Item Value Reference Range Interpretation Comments MAGNESIUM (test code = MAG) 1.79 mg/dL 1.80-2.40 L BASIC METABOLIC [id number] 05:16:00 Test Item Value Reference Range Interpretation Comments SODIUM (test code = NA) 133 mEq/L 134-147 L POTASSIUM (test code = 3.0 mEq/L 3.4-5.0 L K) CHLORIDE (test code = 102 mEq/L 100-108 N CL) CARBON DIOXIDE (test 24 mEq/l 21-33 N code = CO2) ANION GAP (test code = 10 0-20 N GAP) GLUCOSE (test code = 119 mg/dL 70-110 H GLU) BLOOD UREA NITROGEN 14 mg/dL 7-18 (test code = BUN) GLOMERULAR FILTRATION 71.4 70-80 N Units of measure = RATE (test code = GFR) ml/mi n/1.73 m2 CREATININE (test code = 1.0 mg/dL 0.6-1.3 N CREAT) CALCIUM (test code = 7.9 mg/dL 8.0-10.5 L CA) [id number] 02:22:00 Test Item Value Reference Range Interpretation Comments GLUBED (test code = 104 MG/DL 70-110 N Performe d by certified GLUBED) 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 [facility] [id number] 17:59:00 Test Item Value Reference Range Interpretation Comments GLUBED (test code = 108 MG/DL 70-110 N Performe d by certified GLUBED) 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 [facility] [id number] 16:50:00 Test Item Value Reference Range Interpretation Comments GLUBED (test code = 114 MG/DL 70-110 H Performe d by certified GLUBED) 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 [facility] - XR ABDOMEN 1V (KUB)2021-02-09 10:39:00 [facility] 1935 Sex: M FAX: Rosario Silva [phone] [place]: St: ADM FAX: Harrison Jones NP Name: BERTIN NICOLE [facility] : 1935 Age/S: 85/M [address] [place] [address] Unit #: [id number] Loc: [id number] [place] [address] Phys: Harrison Jones NP Acct: [id number] Dis Date: Status: ADM IN PHONE #: [phone] Exam Date: 02/09/2021 0550 FAX #: [phone] Reason: ileus EXAMS: CPT CODE: [id number] XR ABDOMEN 1V (KUB) [id number] Clinical Indication: Ileus. Comparison: 02/08/2021. Impression: Abdomen, single view submitted on 2 images. Persistent gaseous dilation of small bowel and colon loops, similar to prior. Degenerative changes of the lumbosacral spine. Prior median sternotomy. Partially imaged right pleural effusion. SL: [id number] at 1039 Reported and signed by: Bhargavi Meier M.D. CC: Rosario Granados MD; Harrison Jones NP Technologist: Vicente Wilcox, RT(R); Ilene Cowan RT(R) Trnscrd Date/Time/By: 02/09/2021 (1039) : By: [email or web address] Orig Print D/T: S:02/09/2021 (8072) PAGE 1 Signed ReportGLUBED 2021-02-09 06:15:00 Test Item Value Reference Range Interpretation Comments GLUBED (test code = 104 MG/DL 70-110 N Performe d by certified GLUBED) 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 [facility] BASIC METABOLIC [id number] 03:55:00 Test Item Value Reference Range Interpretation Comments SODIUM (test code = NA) 133 mEq/L 134-147 L POTASSIUM (test code = 3.2 mEq/L 3.4-5.0 L K) CHLORIDE (test code = 102 mEq/L 100-108 N CL) CARBON DIOXIDE (test 24 mEq/l 21-33 N code = CO2) ANION GAP (test code = 10 0-20 N GAP) GLUCOSE (test code = 112 mg/dL 70-110 H GLU) BLOOD UREA NITROGEN 22 mg/dL 7-18 H (test code = BUN) GLOMERULAR FILTRATION 63.9 70-80 L Units of measure = RATE (test code = GFR) ml/mi n/1.73 m2 CREATININE (test code = 1.1 mg/dL 0.6-1.3 N CREAT) CALCIUM (test code = 7.7 mg/dL 8.0-10.5 L CA) THROMBOPLASTIN TIME [id number] 03:51:00 Test Item Value Reference Range Interpretation Comments THROMBOPLASTIN TIME 69.4 Seconds 25.0-39.5 H Therape utic Range: PARTIAL (test code = 50.4 - 88.3 Seconds PTT) Effective 02/16/2019 CBC W/AUTO [id number] 03:38:00 Test Item Value Reference Range Interpretation Comments WHITE BLOOD CELL (test code = 9.2 x10 3/uL 4.5-11.0 N WBC) RED BLOOD CELL (test code = 2.73 x10 6/uL 4.00-5.60 L RBC) HEMOGLOBIN (test code = HGB) 8.2 g/dL 12.5-16.9 L HEMATOCRIT (test code = HCT) 26.1 % 37.5-50.7 L MEAN CELL VOLUME (test code = 95.6 fL 81.0-99.0 N MCV) MEAN CELL HGB (test code = MCH) 30.0 pg 27.0-33.0 N MEAN CELL HGB CONCETRATION 31.4 g/dL 33.0-37.0 L (test code = MCHC) RED CELL DISTRIBUTION WIDTH CV 14.3 % 11.5-14.5 N (test code = RDW) RED CELL DISTRIBUTION WIDTH SD 49.7 fL 37.0-54.0 N (test code = RDW-SD) PLATELET COUNT (test code = 339 x10 3/uL 150-400 N PLT) MEAN PLATELET VOLUME (test code 9.3 fL 7.0-9.0 H = MPV) NEUTROPHIL % (test code = NT%) 60.9 % 56.0-77.0 N IMMATURE GRANULOCYTE % (test 1.2 % 0.0-2.0 N code = IG%) LYMPHOCYTE % (test code = LY%) 21.7 % 14.0-32.0 N MONOCYTE % (test code = MO%) 15.5 % 4.8-9.0 H EOSINOPHIL % (test code = EO%) 0.4 % 0.3-3.7 N BASOPHIL % (test code = BA%) 0.3 % 0.0-2.0 N NUCLEATED RBC % (test code = 0.0 % 0-0 N NRBC%) NEUTROPHIL # (test code = NT#) 5.59 x10 3/uL 2.0-7.6 N IMMATURE GRANULOCYTE # (test 0.11 x10 3/uL 0.00-0.03 H code = IG#) LYMPHOCYTE # (test code = LY#) 2.00 x10 3/uL 1.0-3.8 N MONOCYTE # (test code = MO#) 1.43 x10 3/uL 0.1-0.8 H EOSINOPHIL # (test code = EO#) 0.04 x10 3/uL 0.0-0.2 N BASOPHIL # (test code = BA#) 0.03 x10 3/uL 0.0-0.2 N NUCLEATED RBC # (test code = 0.00 x10 3/uL 0.0-0.1 N NRBC#) MANUAL DIFF REQUIRED (test code NO = MDIFF) [id number] 01:53:00 Test Item Value Reference Range Interpretation Comments GLUBED (test code = 114 MG/DL 70-110 H Performe d by certified GLUBED) 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 [facility] [id number] 18:46:00 Test Item Value Reference Range Interpretation Comments GLUBED (test code = 179 MG/DL 70-110 H Performe d by certified GLUBED) 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 [facility] [id number] 18:46:00 Test Item Value Reference Range Interpretation Comments GLUBED (test code = 139 MG/DL 70-110 H Performe d by certified GLUBED) 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 [facility] [id number] 16:21:00 Test Item Value Reference Range Interpretation Comments GLUBED (test code = 158 MG/DL 70-110 H Performe d by certified GLUBED) 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 [facility] [id number] 11:53:00 Test Item Value Reference Range Interpretation Comments GLUBED (test code = 141 MG/DL 70-110 H Performe d by certified GLUBED) 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 [facility] [id number] 07:28:00 Test Item Value Reference Range Interpretation Comments GLUBED (test code = 108 MG/DL 70-110 N Performe d by certified GLUBED) 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 [facility] - XR ABDOMEN 1V (KUB)2021-02-08 06:03:00 [facility] 1935 Sex: M FAX: Rosario Silva [phone] [place]: St: ADM 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 MVR. Comparison: 02/07/2021, 0508 hours. FINDINGS: The AP supine view of the abdomen shows gaseous distention of the bowel loops, not significantly changed since prior study. There is no pneumatosis or mass effect. There are no radiopaquedensities noted. Degenerative changes in thoracolumbar spine. If indicated, follow-up radiograph or CT scan can be obtained for complete assessment. IMPRESSION: 1. Gaseous distention of the bowel loops, similar to the prior study. No free air seen. SL: JSYED-H at 0603 Reported and signed by: Riley Vincent M.D. CC: Rosario Granados MD; Harrison Jones NP Technologist: Em Pruett, RT(R)(M); Vicente Wilcox RT(R) Trnscrd Date/Time/By: 02/08/2021 (602) : By: [email or web address] Orig Print D/T: S: 02/08/2021 (06) PAGE 1 Signed ReportBASIC METABOLIC [id number] 04:25:00 Test Item Value Reference Range Interpretation Comments SODIUM (test code = NA) 129 mEq/L 134-147 L POTASSIUM (test code = 3.7 mEq/L 3.4-5.0 N K) CHLORIDE (test code = 97 mEq/L 100-108 L CL) CARBON DIOXIDE (test 24 mEq/l 21-33 N code = CO2) ANION GAP (test code = 12 0-20 N GAP) GLUCOSE (test code = 245 mg/dL 70-110 H GLU) BLOOD UREA NITROGEN 19 mg/dL 7-18 H (test code = BUN) GLOMERULAR FILTRATION 71.4 70-80 N Units of measure = RATE (test code = GFR) ml/mi n/1.73 m2 CREATININE (test code = 1.0 mg/dL 0.6-1.3 N CREAT) CALCIUM (test code = 7.7 mg/dL 8.0-10.5 L CA) [id number] 04:25:00 Test Item Value Reference Range Interpretation Comments PHOSPHOROUS (test code = PHOS) 4.2 MG/DL 2.5-4.9 N [id number] 04:25:00 Test Item Value Reference Range Interpretation Comments MAGNESIUM (test code = MAG) 1.94 mg/dL 1.80-2.40 N THROMBOPLASTIN TIME [id number] 04:17:00 Test Item Value Reference Range Interpretation Comments THROMBOPLASTIN TIME 66.6 Seconds 25.0-39.5 H Therape utic Range: PARTIAL (test code = 50.4 - 88.3 Seconds PTT) Effective 02/16/2019 CBC W/AUTO [id number] 04:08:00 Test Item Value Reference Range Interpretation Comments WHITE BLOOD CELL (test code = 9.4 x10 3/uL 4.5-11.0 N WBC) RED BLOOD CELL (test code = 2.83 x10 6/uL 4.00-5.60 L RBC) HEMOGLOBIN (test code = HGB) 9.1 g/dL 12.5-16.9 L HEMATOCRIT (test code = HCT) 27.3 % 37.5-50.7 L MEAN CELL VOLUME (test code = 96.5 fL 81.0-99.0 MCV) MEAN CELL HGB (test code = MCH) 32.2 pg 27.0-33.0 N MEAN CELL HGB CONCETRATION 33.3 g/dL 33.0-37.0 N (test code = MCHC) RED CELL DISTRIBUTION WIDTH CV 14.2 % 11.5-14.5 N (test code = RDW) RED CELL DISTRIBUTION WIDTH SD 50.0 fL 37.0-54.0 N (test code = RDW-SD) PLATELET COUNT (test code = 350 x10 3/uL 150-400 N PLT) MEAN PLATELET VOLUME (test code 9.7 fL 7.0-9.0 H = MPV) NEUTROPHIL % (test code = NT%) 60.2 % 56.0-77.0 N IMMATURE GRANULOCYTE % (test 1.8 % 0.0-2.0 N code = IG%) LYMPHOCYTE % (test code = LY%) 19.9 % 14.0-32.0 N MONOCYTE % (test code = MO%) 16.4 % 4.8-9.0 H EOSINOPHIL % (test code = EO%) 1.2 % 0.3-3.7 N BASOPHIL % (test code = BA%) 0.5 % 0.0-2.0 N NUCLEATED RBC % (test code = 0.0 % 0-0 N NRBC%) NEUTROPHIL # (test code = NT#) 5.64 x10 3/uL 2.0-7.6 N IMMATURE GRANULOCYTE # (test 0.17 x10 3/uL 0.00-0.03 H code = IG#) LYMPHOCYTE # (test code = LY#) 1.87 x10 3/uL 1.0-3.8 N MONOCYTE # (test code = MO#) 1.54 x10 3/uL 0.1-0.8 H EOSINOPHIL # (test code = EO#) 0.11 x10 3/uL 0.0-0.2 N BASOPHIL # (test code = BA#) 0.05 x10 3/uL 0.0-0.2 N NUCLEATED RBC # (test code = 0.00 x10 3/uL 0.0-0.1 N NRBC#) MANUAL DIFF REQUIRED (test code NO = MDIFF) [id number] 23:36:00 Test Item Value Reference Range Interpretation Comments GLUBED (test code = 143 MG/DL 70-110 H Performe d by certified GLUBED) 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 [facility] THROMBOPLASTIN TIME [id number] 21:50:00 Test Item Value Reference Range Interpretation Comments THROMBOPLASTIN TIME 67.2 Seconds 25.0-39.5 H Therape utic Range: PARTIAL (test code = 50.4 - 88.3 Seconds PTT) Effective 02/16/2019 [id number] 17:54:00 Test Item Value Reference Range Interpretation Comments GLUBED (test code = 132 MG/DL 70-110 H Performe d by certified GLUBED) 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 [facility] THROMBOPLASTIN TIME [id number] 16:08:00 Test Item Value Reference Range Interpretation Comments THROMBOPLASTIN TIME 62.9 Seconds 25.0-39.5 H Therape utic Range: PARTIAL (test code = 50.4 - 88.3 Seconds PTT) Effective 02/16/2019 - XR ABDOMEN 1V (KUB)2021-02-07 14:16:00 [facility] : 1935 Sex: M FAX: Rosario Silva [phone] [place]: St: ADM FAX: Harrison Jones NP Name: BERTIN NICOLE [facility] : 1935 Age/S: 85/M [address] [place] [address] Blvd Unit #: [id number] Loc: G.3355 [place] [address] Phys: Harrison Jones NP Acct: [id number] Dis Date: Status: ADM IN PHONE #: [phone] Exam Date: 02/07/2021630 FAX #: [phone] Reason: ileus EXAMS: CPT CODE: [id number] XR ABDOMEN 1V (KUB) [id number] PROCEDURE: ABDOMEN SINGLE VIEW INDICATION: 85-year-old male with ileus COMPARISON: Abdominal radiograph 02/06/2021 FINDINGS: Persistent diffuse air distention of the small and large bowel loops is again noted, not s ignificantly changed compared to prior exam. No definite free air. Pelvic phleboliths. Degenerative changes in the spine. No acute osseous abnormality. Old healed rib fractures. IMPRESSION: 1. Stable gaseous distention of large and small bowel loops suggestive of ileus. SL: [id number] at 1416 Reported and signed by: Mahin Alford M.D. 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 [facility] THROMBOPLASTIN TIME [id number] 08:33:00 Test Item Value Reference Range Interpretation Comments THROMBOPLASTIN TIME 94.2 Seconds 25.0-39.5 H Therape utic Range: PARTIAL (test code = 50.4 - 88.3 Seconds PTT) Effective 02/16/2019 [id number] 06:26:00 Test Item Value Reference Range Interpretation Comments GLUBED (test code = 129 MG/DL 70-110 H Performe d by certified GLUBED) 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 [facility] BASIC METABOLIC [id number] 04:44:00 Test Item Value Reference Range Interpretation Comments SODIUM (test code = NA) 133 mEq/L 134-147 L POTASSIUM (test code = 3.8 mEq/L 3.4-5.0 N K) CHLORIDE (test code = 104 mEq/L 100-108 N CL) CARBON DIOXIDE (test 21 mEq/l 21-33 N code = CO2) ANION GAP (test code = 12 0-20 N GAP) GLUCOSE (test code = 135 mg/dL 70-110 H GLU) BLOOD UREA NITROGEN 11 mg/dL 7-18 N (test code = BUN) GLOMERULAR FILTRATION 80.6 70-80 H Units of measure = RATE (test code = GFR) ml/mi n/1.73 m2 CREATININE (test code = 0.9 mg/dL 0.6-1.3 N CREAT) CALCIUM (test code = 8.1 mg/dL 8.0-10.5 N CA) [id number] 04:44:00 Test Item Value Reference Range Interpretation Comments PHOSPHOROUS (test code = PHOS) 3.9 MG/DL 2.5-4.9 N [id number] 04:44:00 Test Item Value Reference Range Interpretation Comments MAGNESIUM (test code = MAG) 1.88 mg/dL 1.80-2.40 N CBC W/AUTO [id number] 04:17:00 Test Item Value Reference Range Interpretation Comments WHITE BLOOD CELL (test code = 8.2 x10 3/uL 4.5-11.0 N WBC) RED BLOOD CELL (test code = 2.87 x10 6/uL 4.00-5.60 L RBC) HEMOGLOBIN (test code = HGB) 8.6 g/dL 12.5-16.9 L HEMATOCRIT (test code = HCT) 28.7 % 37.5-50.7 L MEAN CELL VOLUME (test code = 100.0 fL 81.0-99.0 H MCV) MEAN CELL HGB (test code = MCH) 30.0 pg 27.0-33.0 N MEAN CELL HGB CONCETRATION 30.0 g/dL 33.0-37.0 L (test code = MCHC) RED CELL DISTRIBUTION WIDTH CV 14.3 % 11.5-14.5 N (test code = RDW) RED CELL DISTRIBUTION WIDTH SD 51.8 fL 37.0-54.0 N (test code = RDW-SD) PLATELET COUNT (test code = 296 x10 3/uL 150-400 N PLT) MEAN PLATELET VOLUME (test code 10.0 fL 7.0-9.0 H = MPV) NEUTROPHIL % (test code = NT%) 61.4 % 56.0-77.0 N IMMATURE GRANULOCYTE % (test 1.2 % 0.0-2.0 N code = IG%) LYMPHOCYTE % (test code = LY%) 19.6 % 14.0-32.0 N MONOCYTE % (test code = MO%) 15.7 % 4.8-9.0 H EOSINOPHIL % (test code = EO%) 1.6 % 0.3-3.7 N BASOPHIL % (test code = BA%) 0.5 % 0.0-2.0 N NUCLEATED RBC % (test code = 0.0 % 0-0 N NRBC%) NEUTROPHIL # (test code = NT#) 5.00 x10 3/uL 2.0-7.6 N IMMATURE GRANULOCYTE # (test 0.10 x10 3/uL 0.00-0.03 H code = IG#) LYMPHOCYTE # (test code = LY#) 1.60 x10 3/uL 1.0-3.8 N MONOCYTE # (test code = MO#) 1.28 x10 3/uL 0.1-0.8 H EOSINOPHIL # (test code = EO#) 0.13 x10 3/uL 0.0-0.2 N BASOPHIL # (test code = BA#) 0.04 x10 3/uL 0.0-0.2 N NUCLEATED RBC # (test code = 0.00 x10 3/uL 0.0-0.1 N NRBC#) MANUAL DIFF REQUIRED (test code NO = MDIFF) CBC W/AUTO [id number] 04:16:00 Test Item Value Reference Range Interpretation Comments WHITE BLOOD CELL (test code = x10 3/uL 4.5-11.0 WBC) RED BLOOD CELL (test code = RBC) x10 6/uL 4.00-5.60 HEMOGLOBIN (test code = HGB) g/dL 12.5-16.9 HEMATOCRIT (test code = HCT) % 37.5-50.7 MEAN CELL VOLUME (test code = fL 81.0-99.0 MCV) MEAN CELL HGB (test code = MCH) pg 27.0-33.0 MEAN CELL HGB CONCETRATION (test g/dL 33.0-37.0 code = MCHC) RED CELL DISTRIBUTION WIDTH CV % 11.5-14.5 (test code = RDW) PLATELET COUNT (test code = PLT) 296 x10 3/uL 150-400 N NEUTROPHIL % (test code = NT%) % 56.0-77.0 LYMPHOCYTE % (test code = LY%) % 14.0-32.0 NEUTROPHIL # (test code = NT#) x10 3/uL 2.0-7.6 LYMPHOCYTE # (test code = LY#) x10 3/uL 1.0-3.8 MANUAL DIFF REQUIRED (test code = MDIFF) THROMBOPLASTIN TIME [id number] 01:25:00 Test Item Value Reference Range Interpretation Comments THROMBOPLASTIN TIME 50.3 Seconds 25.0-39.5 H Therape utic Range: PARTIAL (test code = 50.4 - 88.3 Seconds PTT) Effective 02/16/2019 [id number] 23:50:00 Test Item Value Reference Range Interpretation Comments GLUBED (test code = 127 MG/DL 70-110 H Performe d by certified GLUBED) 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 [facility] [id number] 18:13:00 Test Item Value Reference Range Interpretation Comments GLUBED (test code = 142 MG/DL 70-110 H Performe d by certified GLUBED) 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 [facility] THROMBOPLASTIN TIME [id number] 17:19:00 Test Item Value Reference Range Interpretation Comments THROMBOPLASTIN TIME 122.5 Seconds 25.0-39.5 H Critica l result PARTIAL (test code = called to ROMERO PTT) Chuy AWAD [id number] at 171 6 02/06/21Nronit manning back result and tech confirmed it's correct? Y Therapeutic Ran ge: 50.4 - 88.3 Seconds Effective 02/16/2019 [id number] 13:14:00 Test Item Value Reference Range Interpretation Comments GLUBED (test code = 137 MG/DL 70-110 H Performe d by certified GLUBED) 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 [facility] THROMBOPLASTIN TIME [id number] 08:50:00 Test Item Value Reference Range Interpretation Comments THROMBOPLASTIN TIME 55.9 Seconds 25.0-39.5 H Therape utic Range: PARTIAL (test code = 50.4 - 88.3 Seconds PTT) Effective 02/16/2019 - XR ABDOMEN 1V (KUAsha)2021-02-06 08:43:00 [facility] : 1935 Sex: M FAX: Rosario Silva [phone] [place]: [place] [address]: ADM FAX: Harrison Jones NP Name: BERTIN NICOLE [facility] : 1935 Age/S: 85/M [address] [place] [address] Unit #: [id number] Loc: [id number] [place] [address] Phys: Harrison Jones NP Acct: [id number] Dis Date: Status: ADM IN PHONE #: [phone] Exam Date: 02/06/2021 0547 FAX #: [phone] Reason: ileus EXAMS: CPT CODE: [id number] XR ABDOMEN 1V (KUB) 93622 ABDOMEN RADIOGRAPH ONE VIEW 02/06/2021 AT 0458 HOURS. CLINICAL HISTORY: Ileus. COMPARISON STUDIES: Abdomen CT and abdomen one view, both dated 02/05/2021. FINDINGS: An AP view of the abdomen was obtained. Persistentdiffuse air distention of the colon and small bowel loops with improved air distention of the colon.Current estimated transverse cecal diameter is approximately 7.4 cm versus 11 cm in the previous study. No pneumatosis or portal venous air. Limited study for free air in a supine film. Severe lumbosacr al spondylosis without destructive bone lesions. IMPRESSION: 1. Resolving ileus. 2. Right pleural effusion. SL: [id number] at 0843 Reported and signed by: Adalid Figueroa M.D. CC: Rosario Granados MD; Harrison Jones NP Technologist: Vicente Wilcox RT(R); RT Fransisca(R) Trnscrd Date/Time/By: 02/06/2021 (43) : By: [email or web address] Orig Print D/T: S: 02/06/2021 (3547) PAGE 1 Signed [id number] 07:44:00 Test Item Value Reference Range Interpretation Comments GLUBED (test code = 132 MG/DL 70-110 H Performe d by certified GLUBED) 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 [facility] BASIC METABOLIC [id number] 04:53:00 Test Item Value Reference Range Interpretation Comments SODIUM (test code = NA) 135 mEq/L 134-147 N POTASSIUM (test code = 4.0 mEq/L 3.4-5.0 N K) CHLORIDE (test code = 104 mEq/L 100-108 N CL) CARBON DIOXIDE (test 26 mEq/l 21-33 N code = CO2) ANION GAP (test code = 9 0-20 N GAP) GLUCOSE (test code = 133 mg/dL 70-110 H GLU) BLOOD UREA NITROGEN 11 mg/dL 7-18 N (test code = BUN) GLOMERULAR FILTRATION 80.6 70-80 H Units of measure = RATE (test code = GFR) ml/mi n/1.73 m2 CREATININE (test code = 0.9 mg/dL 0.6-1.3 N CREAT) CALCIUM (test code = 8.4 mg/dL 8.0-10.5 N CA) [id number] 04:53:00 Test Item Value Reference Range Interpretation Comments PHOSPHOROUS (test code = PHOS) 4.2 MG/DL 2.5-4.9 N [id number] 04:53:00 Test Item Value Reference Range Interpretation Comments MAGNESIUM (test code = MAG) 1.94 mg/dL 1.80-2.40 N CBC W/AUTO [id number] 04:40:00 Test Item Value Reference Range Interpretation Comments WHITE BLOOD CELL (test code = 7.3 x10 3/uL 4.5-11.0 N WBC) RED BLOOD CELL (test code = 2.92 x10 6/uL 4.00-5.60 L RBC) HEMOGLOBIN (test code = HGB) 8.8 g/dL 12.5-16.9 L HEMATOCRIT (test code = HCT) 28.5 % 37.5-50.7 L MEAN CELL VOLUME (test code = 97.6 fL 81.0-99.0 N MCV) MEAN CELL HGB (test code = MCH) 30.1 pg 27.0-33.0 N MEAN CELL HGB CONCETRATION 30.9 g/dL 33.0-37.0 L (test code = MCHC) RED CELL DISTRIBUTION WIDTH CV 14.0 % 11.5-14.5 N (test code = RDW) RED CELL DISTRIBUTION WIDTH SD 49.8 fL 37.0-54.0 N (test code = RDW-SD) PLATELET COUNT (test code = 275 x10 3/uL 150-400 N PLT) MEAN PLATELET VOLUME (test code 10.2 fL 7.0-9.0 H = MPV) NEUTROPHIL % (test code = NT%) 61.0 % 56.0-77.0 N IMMATURE GRANULOCYTE % (test 1.2 % 0.0-2.0 N code = IG%) LYMPHOCYTE % (test code = LY%) 18.6 % 14.0-32.0 N MONOCYTE % (test code = MO%) 16.9 % 4.8-9.0 H EOSINOPHIL % (test code = EO%) 1.7 % 0.3-3.7 N BASOPHIL % (test code = BA%) 0.6 % 0.0-2.0 N NUCLEATED RBC % (test code = 0.0 % 0-0 N NRBC%) NEUTROPHIL # (test code = NT#) 4.43 x10 3/uL 2.0-7.6 N IMMATURE GRANULOCYTE # (test 0.09 x10 3/uL 0.00-0.03 H code = IG#) LYMPHOCYTE # (test code = LY#) 1.35 x10 3/uL 1.0-3.8 N MONOCYTE # (test code = MO#) 1.23 x10 3/uL 0.1-0.8 H EOSINOPHIL # (test code = EO#) 0.12 x10 3/uL 0.0-0.2 N BASOPHIL # (test code = BA#) 0.04 x10 3/uL 0.0-0.2 N NUCLEATED RBC # (test code = 0.00 x10 3/uL 0.0-0.1 N NRBC#) MANUAL DIFF REQUIRED (test code NO = MDIFF) COMMENTS: Daily while on HeparinCBC W/AUTO [id number] 04:37:00 Test Item Value Reference Range Interpretation Comments WHITE BLOOD CELL (test code = x10 3/uL 4.5-11.0 WBC) RED BLOOD CELL (test code = RBC) x10 6/uL 4.00-5.60 HEMOGLOBIN (test code = HGB) g/dL 12.5-16.9 HEMATOCRIT (test code = HCT) % 37.5-50.7 MEAN CELL VOLUME (test code = fL 81.0-99.0 MCV) MEAN CELL HGB (test code = MCH) pg 27.0-33.0 MEAN CELL HGB CONCETRATION (test g/dL 33.0-37.0 code = MCHC) RED CELL DISTRIBUTION WIDTH CV % 11.5-14.5 (test code = RDW) PLATELET COUNT (test code = PLT) 275 x10 3/uL 150-400 N NEUTROPHIL % (test code = NT%) % 56.0-77.0 LYMPHOCYTE % (test code = LY%) % 14.0-32.0 NEUTROPHIL # (test code = NT#) x10 3/uL 2.0-7.6 LYMPHOCYTE # (test code = LY#) x10 3/uL 1.0-3.8 MANUAL DIFF REQUIRED (test code = MDIFF) COMMENTS: Daily while on [id number] 01:47:00 Test Item Value Reference Range Interpretation Comments GLUBED (test code = 133 MG/DL 70-110 H Performe d by certified GLUBED) 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 [facility] THROMBOPLASTIN TIME [id number] 01:07:00 Test Item Value Reference Range Interpretation Comments THROMBOPLASTIN TIME 60.9 Seconds 25.0-39.5 H Therape utic Range: PARTIAL (test code = 50.4 - 88.3 Seconds PTT) Effective 02/16/2019 [id number] 19:43:00 Test Item Value Reference Range Interpretation Comments GLUBED (test code = 133 MG/DL 70-110 H Performe d by certified GLUBED) 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 [facility] THROMBOPLASTIN TIME [id number] 19:13:00 Test Item Value Reference Range Interpretation Comments THROMBOPLASTIN TIME 65.7 Seconds 25.0-39.5 H Therape utic Range: PARTIAL (test code = 50.4 - 88.3 Seconds PTT) Effective 02/16/2019 - CT ABD PELVIS W/O [id number] 14:48:00 [facility] 1935 Sex: M Name: BERTIN NICOLE : 1935 Age/S: 85 / M [address] [place] [address] Unit #: [id number] Loc: [facility]J[place] [place] [address] Phys: Harrison Jones [employer] SPECIALIST Acct: [id number] Dis Date: Status: ADM IN PHONE #: [phone] Exam Date: 02/05/2021 1359 FAX #: [phone] Reason: ileus EXAMS: CPT CODE: [id number] CTABD PELVIS W/O CONT 22266 CT ABDOMEN AND PELVIS WITHOUT CONTRAST Clinical Indication: ileus. Comparison: X-ray of abdomen on 02/04/2021. TECHNIQUE: Helical imaging was performed diaphragm through the symphysis with multiplanar reconstructions. Images reviewed in 3 planes. IV CONTRAST: None. GI CONTRAST:None. DLP: 964 mGy- cm FINDINGS: This examination is limited for the evaluation of solid organs and vascular structures due to lack of intravenous contrast. LOWER CHEST: Moderate right and small left pleural effusions with bibasilar compression atelectasis. 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 LIVER: Unremarkable. GALLBLADDER, BILIARY: Unremarkable (non calcified stones may not be visible on CT). SPLEEN: Unremarkable. PANCREAS: Unremarkable. ADRENALS: Unremarkable. KIDNEYS: Normal right kidney. Multiple cysts in the left kidney measuring up to 3 cm. No renal calculi. No difference. BOWEL, MESENTERY:There is air-fluid level in the rectum. There is a presacral stranding. The small bowel loops are unremarkable. There is gaseous distention of the large bowel. APPENDIX: Unremarkable. PERITONEUM: Unremarkable. RETROPERITONEUM: Unremarkable. VASCULAR: Mild atheromatous calcification. No aneurysm. PAGE 1 Signed Report (CONTINUED) Name: BERTIN NICOLE : 1935 Age/S: 85 / M [address] [place] [address] Unit #: [id number] Loc: [place] [address] Phys: Harrison Jones [employer] SPECIALIST Acct: [id number] Dis Date: Status: ADM IN PHONE #: [phone] Exam Date: 02/05/2021 1356 FAX #: [phone] Reason: ileus EXAMS: CPT CODE: [id number] CT ABD PELVIS W/O CONT 08764 (Continued) LYMPH NODES: No adenopathy. ABDOMINAL WALL: No significant abnormality. PELVIS: The prostate is enlarged. There is presacral stranding, nonspecific. MUSCULOSKELETAL: Other than degenerative changes, the bones are intact. IMPRESSION: Moderate gaseous distention of the colon. No bowel obstruction. Air-fluid level in the rectum, likely due to diarrhea. Moderate right and small left pleural effusions with bibasilar compression atelectasis. Multiple left renal cysts. Prostatomegaly. at 1448 Reported and signed by: Alon Davenport M.D. CC: Rosario Granados MD; Harrison Jones NP Technologist:Nehemiah Kerr, RT(R)(CT) CTDI: DLP: Trnscb Date/Time: 02/05/2021 (1448) [email or web address] Orig Print D/T: S: 02/05/2021 (0064) PAGE 2 Signed Report [id number] 12:48:00 Test Item Value Reference Range Interpretation Comments GLUBED (test code = 150 MG/DL 70-110 H Performe d by certified GLUBED) 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 [facility] - XR ABDOMEN 1V (KUB)2021-02-05 11:03:00 [facility] : 1935 Sex: M FAX: Rosario Martinez [phone] [place]: St: [facility] FAX: Harrison Jones NP Name: BERTIN NICOLE [facility] [place] : 1935 Age/S: 85/M [address] [place] [address] Unit #: [id number] Loc: G.[facility] [place] [address] Phys: Harrison Jones NP Acct: [id number] Dis Date: Status: ADM IN PHONE #: [phone] Exam Date: 02/05/2021 1047 FAX #: [phone] Reason: ileus EXAMS: CPT CODE: [id number] XR ABDOMEN 1V (KUB) 37777 CLINICAL HISTORY: Ileus. COMPARISON: February 04, 2021. Supine portable examination of the abdomen is available in 2 images. Monitor leads are present. There are several mildly dilated loops of small and large bowelare identified compatible with clinically suspected ileus. Distention of large bowel loops is slightly greater compared to previous examination. No evidence of obstruction is seen. Degenerative changesare present in lumbar spine with osteophytes present. IMPRESSION: Radiographic findings of ileus without evidence of obstruction. at 1103 Reported and signed by: Domingo Cha M.D. CC: Rosario Granados MD; Harrison Jones NP Technologist: RT Taisha(Naomi) Trnreuben Date/Time/By: 02/05/2021 (1103) : By: Jarde Orig Print D/T: S: 02/05/2021 (8294) PAGE 1 Signed ReportTHROMBOPLASTIN TIME [id number] 09:50:00 Test Item Value Reference Range Interpretation Comments THROMBOPLASTIN TIME 94.3 Seconds 25.0-39.5 H Therape utic Range: PARTIAL (test code = 50.4 - 88.3 Seconds PTT) Effective 02/16/2019 CBC W/AUTO [id number] 07:52:00 Test Item Value Reference Range Interpretation Comments WHITE BLOOD CELL (test code = 7.3 x10 3/uL 4.5-11.0 N WBC) RED BLOOD CELL (test code = 2.79 x10 6/uL 4.00-5.60 L RBC) HEMOGLOBIN (test code = HGB) 8.5 g/dL 12.5-16.9 L HEMATOCRIT (test code = HCT) 27.4 % 37.5-50.7 L MEAN CELL VOLUME (test code = 98.2 fL 81.0-99.0 N MCV) MEAN CELL HGB (test code = MCH) 30.5 pg 27.0-33.0 N MEAN CELL HGB CONCETRATION 31.0 g/dL 33.0-37.0 L (test code = MCHC) RED CELL DISTRIBUTION WIDTH CV 13.8 % 11.5-14.5 N (test code = RDW) RED CELL DISTRIBUTION WIDTH SD 49.7 fL 37.0-54.0 N (test code = RDW-SD) PLATELET COUNT (test code = 270 x10 3/uL 150-400 N PLT) MEAN PLATELET VOLUME (test code 10.3 fL 7.0-9.0 H = MPV) NEUTROPHIL % (test code = NT%) 60.7 % 56.0-77.0 N IMMATURE GRANULOCYTE % (test 1.2 % 0.0-2.0 N code = IG%) LYMPHOCYTE % (test code = LY%) 20.1 % 14.0-32.0 N MONOCYTE % (test code = MO%) 16.0 % 4.8-9.0 H EOSINOPHIL % (test code = EO%) 1.5 % 0.3-3.7 N BASOPHIL % (test code = BA%) 0.5 % 0.0-2.0 N NUCLEATED RBC % (test code = 0.0 % 0-0 N NRBC%) NEUTROPHIL # (test code = NT#) 4.43 x10 3/uL 2.0-7.6 N IMMATURE GRANULOCYTE # (test 0.09 x10 3/uL 0.00-0.03 H code = IG#) LYMPHOCYTE # (test code = LY#) 1.47 x10 3/uL 1.0-3.8 N MONOCYTE # (test code = MO#) 1.17 x10 3/uL 0.1-0.8 H EOSINOPHIL # (test code = EO#) 0.11 x10 3/uL 0.0-0.2 N BASOPHIL # (test code = BA#) 0.04 x10 3/uL 0.0-0.2 N NUCLEATED RBC # (test code = 0.00 x10 3/uL 0.0-0.1 N NRBC#) MANUAL DIFF REQUIRED (test code NO = MDIFF) COMPREHENSIVE METABOLIC [id number] 07:49:00 Test Item Value Reference Range Interpretation Comments SODIUM (test code = NA) 138 mEq/L 134-147 N POTASSIUM (test code = 3.5 mEq/L 3.4-5.0 N K) CHLORIDE (test code = 105 mEq/L 100-108 N CL) CARBON DIOXIDE (test 27 mEq/l 21-33 N code = CO2) ANION GAP (test code = 10 0-20 N GAP) GLUCOSE (test code = 131 mg/dL 70-110 H GLU) BLOOD UREA NITROGEN 13 mg/dL 7-18 N (test code = BUN) GLOMERULAR FILTRATION 80.6 70-80 H Units of measure = RATE (test code = GFR) ml/mi n/1.73 m2 CREATININE (test code = 0.9 mg/dL 0.6-1.3 N CREAT) TOTAL PROTEIN (test 5.6 g/dL 6.4-8.2 L code = PROT) ALBUMIN (test code = 2.50 g/dL 3.4-5.0 L ALB) CALCIUM (test code = 8.2 mg/dL 8.0-10.5 N CA) BILIRUBIN TOTAL (test 0.60 mg/dL 0.0-1.0 N code = BILT) SGOT/AST (test code = 53 IUnit/L 15-37 H AST) SGPT/ALT (test code = 52 IUnit/L 30-65 N ALT) ALKALINE PHOSPHATASE 69 IUnit/L 20-125 N TOTAL (test code = ALKP) [id number] 07:49:00 Test Item Value Reference Range Interpretation Comments PHOSPHOROUS (test code = PHOS) 3.7 MG/DL 2.5-4.9 N [id number] 07:49:00 Test Item Value Reference Range Interpretation Comments TRIGLYCERIDES (test code = TRIG) 63 mg/dL 40-150 N [id number] 07:49:00 Test Item Value Reference Range Interpretation Comments MAGNESIUM (test code = MAG) 1.97 mg/dL 1.80-2.40 N [id number] 07:49:00 Test Item Value Reference Range Interpretation Comments PREALBUMIN (test code = PREALB) 6.2 mg/dL 16.0-40.0 L CBC W/AUTO [id number] 07:20:00 Test Item Value Reference Range Interpretation Comments WHITE BLOOD CELL (test code = x10 3/uL 4.5-11.0 WBC) RED BLOOD CELL (test code = RBC) x10 6/uL 4.00-5.60 HEMOGLOBIN (test code = HGB) g/dL 12.5-16.9 HEMATOCRIT (test code = HCT) % 37.5-50.7 MEAN CELL VOLUME (test code = fL 81.0-99.0 MCV) MEAN CELL HGB (test code = MCH) pg 27.0-33.0 MEAN CELL HGB CONCETRATION (test g/dL 33.0-37.0 code = MCHC) RED CELL DISTRIBUTION WIDTH CV % 11.5-14.5 (test code = RDW) PLATELET COUNT (test code = PLT) 270 x10 3/uL 150-400 N NEUTROPHIL % (test code = NT%) % 56.0-77.0 LYMPHOCYTE % (test code = LY%) % 14.0-32.0 NEUTROPHIL # (test code = NT#) x10 3/uL 2.0-7.6 LYMPHOCYTE # (test code = LY#) x10 3/uL 1.0-3.8 MANUAL DIFF REQUIRED (test code = MDIFF) PROTHROMBIN [id number] 07:15:00 Test Item Value Reference Range Interpretation Comments PROTHROMBIN TIME 14.4 SECONDS 9.3-12.9 H PATIENT (test code = PTP) INTERNATIONAL NORMAL 1.3 0.8-1.2 H TARGET INR BY RATIO (test code = INDICATIO N Indication INR) INR1. 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 Mec hanical prosthetic valv es (high risk), 2. 5 - 3.5 Presence of Lup us Anticoagulant o r Antiphospholipi d Antibodies, Pre vention of systemic emb olism - Acute Myocardia l Infarction (to prevent recurrent infar ct). THROMBOPLASTIN TIME [id number] 07:15:00 Test Item Value Reference Range Interpretation Comments THROMBOPLASTIN TIME 124.8 Seconds 25.0-39.5 H Therap eutic PARTIAL (test code = Range: 50.4 - 88.3 PTT) Seconds Effective 02/16/2019 [id number] 07:08:00 Test Item Value Reference Range Interpretation Comments GLUBED (test code = 140 MG/DL 70-110 H Performe d by certified GLUBED) 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 [facility] [id number] 06:09:00 Test Item Value Reference Range Interpretation Comments GLUBED (test code = 137 MG/DL 70-110 H Performe d by certified GLUBED) 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 [facility] THROMBOPLASTIN TIME [id number] 02:46:00 Test Item Value Reference Range Interpretation Comments THROMBOPLASTIN TIME 54.4 Seconds 25.0-39.5 H Therape utic Range: PARTIAL (test code = 50.4 - 88.3 Seconds PTT) Effective 02/16/2019 THROMBOPLASTIN TIME [id number] 20:29:00 Test Item Value Reference Range Interpretation Comments THROMBOPLASTIN TIME 75.3 Seconds 25.0-39.5 H Therape utic Range: PARTIAL (test code = 50.4 - 88.3 Seconds PTT) Effective 02/16/2019 - XR CHEST 1 [id number] 19:29:00 [facility] 1935 Sex: M FAX: Rosario Silva [phone] [place]: St: ADM Name: BERTIN NICOLE [facility] [place] : 1935 Age/S: 85/M [address] [place] [address] Blvd Unit #: [id number] Loc: G.[address] [place] [address] Phys: Rosario Granados MD Acct:[id number] Dis Date: Status: ADM IN PHONE #: [phone] Exam Date: 02/04/20211907 FAX #: [phone] Reason: TACHYPNEA EXAMS: CPT CODE: [id number] XR CHEST 1 V 23695 Portable single view AP chest INDICATION: Tachypnea. Mitral valve regurg. Comparison: 01/24/2021 chest x- ray FINDINGS: The cardiomediastinal silhouette is enlarged. Cardiac valve replacement is seen. Pulmonary vascular congestion is seen with probable edema. Moderate right and mild left mid lower lung hazy attenuation with obscured costophrenic angles seen. Left arm PICC tip projects over the proximal third of superior vena cava shadow. Sternotomy wires are seen. IMPRESSION: Findings suggesting congestive heart failure with small right and probable minimal left pleural effusions. SL: SHI at 1929 Reported and signed by: Mirna Sutherland M.D. CC: Rosario Granados MD Technologist: Yas Mendoza, RT(R); Aida Hernandez RT(R) Trnscrd Date/Time/By: 02/04/2021 (1928) : By: [email or web address] Orig Print D/T: S: 02/04/2021 (1931) PAGE 1 Signed [id number] 17:58:00 Test Item Value Reference Range Interpretation Comments GLUBED (test code = 110 MG/DL 70-110 N Performe d by certified GLUBED) 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 [facility] [id number] 16:04:00 Test Item Value Reference Range Interpretation Comments GLUBED (test code = 151 MG/DL 70-110 H Performe d by certified GLUBED) 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 [facility] THROMBOPLASTIN TIME [id number] 13:12:00 Test Item Value Reference Range Interpretation Comments THROMBOPLASTIN TIME 93.6 Seconds 25.0-39.5 H Therape utic Range: PARTIAL (test code = 50.4 - 88.3 Seconds PTT) Effective 02/16/2019 - XR ABDOMEN 1V (KUB)2021-02-04 08:37:00 [facility] : 1935 Sex: M FAX: Rosario Silva [phone] [place]: St: ADM FAX: Harrison Jones AUTO CLUTCH SPECIALIST Name: BERTIN NICOLE [facility] : 1935 Age/S: 85/M [address] [place] [address] Unit #: [id number] [facility] [place] [address] Phys: Harrison Jones AUT[employer] CLUT[employer] SPECIALIST Acct: [id number] Dis Date: Status: ADM IN PHONE #: [phone] Exam Date: 02/04/2021721 FAX #: [phone] Reason: ileus EXAMS: CPT CODE: [id number] XR ABDOMEN 1V (KUB) 91483 Abdomen single view 02/04/2021 HISTORY: Ileus Comparison is made to 02/03/2021 FINDINGS: The amount of large bowel gas and small bowel gas is decreased from prior study. There are degenerative changes throughout the lumbar spine. Vascular calcifications are present. IMPRESSION: Decreasing small bowel and large bowel gas. SL: [id number] at 0837 Reported and signed by: Gm Mann M.D. 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 [facility] BASIC METABOLIC [id number] 07:42:00 Test Item Value Reference Range Interpretation Comments SODIUM (test code = NA) 139 mEq/L 134-147 N POTASSIUM (test code = 3.4 mEq/L 3.4-5.0 N K) CHLORIDE (test code = 107 mEq/L 100-108 N CL) CARBON DIOXIDE (test 28 mEq/l 21-33 N code = CO2) ANION GAP (test code = 8 0-20 N GAP) GLUCOSE (test code = 121 mg/dL 70-110 H GLU) BLOOD UREA NITROGEN 13 mg/dL 7-18 N (test code = BUN) GLOMERULAR FILTRATION 92.3 70-80 H Units of measure = RATE (test code = GFR) ml/mi n/1.73 m2 CREATININE (test code = 0.8 mg/dL 0.6-1.3 N CREAT) CALCIUM (test code = 8.1 mg/dL 8.0-10.5 N CA) [id number] 07:42:00 Test Item Value Reference Range Interpretation Comments PHOSPHOROUS (test code = PHOS) 3.6 MG/DL 2.5-4.9 N [id number] 07:42:00 Test Item Value Reference Range Interpretation Comments MAGNESIUM (test code = MAG) 2.04 mg/dL 1.80-2.40 N CBC W/AUTO [id number] 07:03:00 Test Item Value Reference Range Interpretation Comments WHITE BLOOD CELL (test code = 6.2 x10 3/uL 4.5-11.0 N WBC) RED BLOOD CELL (test code = 2.68 x10 6/uL 4.00-5.60 L RBC) HEMOGLOBIN (test code = HGB) 8.1 g/dL 12.5-16.9 L HEMATOCRIT (test code = HCT) 26.0 % 37.5-50.7 L MEAN CELL VOLUME (test code = 97.0 fL 81.0-99.0 N MCV) MEAN CELL HGB (test code = MCH) 30.2 pg 27.0-33.0 N MEAN CELL HGB CONCETRATION 31.2 g/dL 33.0-37.0 L (test code = MCHC) RED CELL DISTRIBUTION WIDTH CV 13.9 % 11.5-14.5 N (test code = RDW) RED CELL DISTRIBUTION WIDTH SD 49.1 fL 37.0-54.0 N (test code = RDW-SD) PLATELET COUNT (test code = 230 x10 3/uL 150-400 N PLT) MEAN PLATELET VOLUME (test code 10.2 fL 7.0-9.0 H = MPV) NEUTROPHIL % (test code = NT%) 61.9 % 56.0-77.0 N IMMATURE GRANULOCYTE % (test 1.0 % 0.0-2.0 N code = IG%) LYMPHOCYTE % (test code = LY%) 19.5 % 14.0-32.0 N MONOCYTE % (test code = MO%) 15.0 % 4.8-9.0 H EOSINOPHIL % (test code = EO%) 2.1 % 0.3-3.7 N BASOPHIL % (test code = BA%) 0.5 % 0.0-2.0 N NUCLEATED RBC % (test code = 0.0 % 0-0 N NRBC%) NEUTROPHIL # (test code = NT#) 3.83 x10 3/uL 2.0-7.6 N IMMATURE GRANULOCYTE # (test 0.06 x10 3/uL 0.00-0.03 H code = IG#) LYMPHOCYTE # (test code = LY#) 1.21 x10 3/uL 1.0-3.8 N MONOCYTE # (test code = MO#) 0.93 x10 3/uL 0.1-0.8 H EOSINOPHIL # (test code = EO#) 0.13 x10 3/uL 0.0-0.2 N BASOPHIL # (test code = BA#) 0.03 x10 3/uL 0.0-0.2 N NUCLEATED RBC # (test code = 0.00 x10 3/uL 0.0-0.1 N NRBC#) MANUAL DIFF REQUIRED (test code NO = MDIFF) COMMENTS: Daily while on HeparinCBC W/AUTO [id number] 06:57:00 Test Item Value Reference Range Interpretation Comments WHITE BLOOD CELL (test code = x10 3/uL 4.5-11.0 WBC) RED BLOOD CELL (test code = RBC) x10 6/uL 4.00-5.60 HEMOGLOBIN (test code = HGB) g/dL 12.5-16.9 HEMATOCRIT (test code = HCT) % 37.5-50.7 MEAN CELL VOLUME (test code = fL 81.0-99.0 MCV) MEAN CELL HGB (test code = MCH) pg 27.0-33.0 MEAN CELL HGB CONCETRATION (test g/dL 33.0-37.0 code = MCHC) RED CELL DISTRIBUTION WIDTH CV % 11.5-14.5 (test code = RDW) PLATELET COUNT (test code = PLT) 230 x10 3/uL 150-400 N NEUTROPHIL % (test code = NT%) % 56.0-77.0 LYMPHOCYTE % (test code = LY%) % 14.0-32.0 NEUTROPHIL # (test code = NT#) x10 3/uL 2.0-7.6 LYMPHOCYTE # (test code = LY#) x10 3/uL 1.0-3.8 MANUAL DIFF REQUIRED (test code = MDIFF) COMMENTS: Daily while on HeparinTHROMBOPLASTIN TIME [id number] 05:15:00 Test Item Value Reference Range Interpretation Comments THROMBOPLASTIN TIME 50.0 Seconds 25.0-39.5 H Therape utic Range: PARTIAL (test code = 50.4 - 88.3 Seconds PTT) Effective 02/16/2019 [id number] 01:08:00 Test Item Value Reference Range Interpretation Comments GLUBED (test code = 129 MG/DL 70-110 H Performe d by certified GLUBED) 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 [facility] [id number] 21:16:00 Test Item Value Reference Range Interpretation Comments GLUBED (test code = 138 MG/DL 70-110 H Performe d by certified GLUBED) 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 [facility] [id number] 16:26:00 Test Item Value Reference Range Interpretation Comments GLUBED (test code = 133 MG/DL 70-110 H Performe d by certified GLUBED) 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 [facility] [id number] 09:14:00 Test Item Value Reference Range Interpretation Comments GLUBED (test code = 135 MG/DL 70-110 H Performe d by certified GLUBED) 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 [facility] - XR ABDOMEN 1V (KUB)2021-02-03 08:50:00 [facility] 1935 Sex: M FAX: Rosario Silva [phone] [place]: St: ADM FAX: Harrison Jones [employer] SPECIALIST Name: BERTIN NICOLE [facility] : 1935 Age/S: 85/M [address] [place] [address] Unit #: [id number] Loc: G.[address] [place] [address] Phys: Harrison Jones NP Acct: [id number] Dis Date: Status: ADM IN PHONE #: [phone] Exam Date: 02/03/2021814 FAX #: [phone] Reason: ileus EXAMS: CPT CODE: [id number] XR ABDOMEN 1V (KUB) 13686 Abdomen single view 02/03/2021 HISTORY: Ileus Comparison is made to 02/02/2021 FINDINGS: Dilated loops of small bowel and large bowel have decreased from prior study. There are degenerative changes in the spine. No ac bryant bony abnormality is present. IMPRESSION: Decreased small bowel and large bowel gas. SL: [id number] at 0850 Reported and signed by: Gm Mann M.D. CC: Rosario Granados MD; Harrison Jones NP Technologist: Aida Hernandez, RT(R); Betty Kilgore RT(R) [facility] Date/Time/By: 02/03/2021 (0850) : By: [email or web address] Orig Print D/T: S: 02/03/2021 (6470) PAGE 1 Signed ReportBASIC METABOLIC [id number] 04:53:00 Test Item Value Reference Range Interpretation Comments SODIUM (test code = NA) 138 mEq/L 134-147 N POTASSIUM (test code = 3.4 mEq/L 3.4-5.0 N K) CHLORIDE (test code = 106 mEq/L 100-108 N CL) CARBON DIOXIDE (test 26 mEq/l 21-33 N code = CO2) ANION GAP (test code = 9 0-20 N GAP) GLUCOSE (test code = 113 mg/dL 70-110 H GLU) BLOOD UREA NITROGEN 11 mg/dL 7-18 (test code = BUN) GLOMERULAR FILTRATION 92.3 70-80 H Units of measure = RATE (test code = GFR) ml/mi n/1.73 m2 CREATININE (test code = 0.8 mg/dL 0.6-1.3 N CREAT) CALCIUM (test code = 7.9 mg/dL 8.0-10.5 L CA) [id number] 04:53:00 Test Item Value Reference Range Interpretation Comments PHOSPHOROUS (test code = PHOS) 3.6 MG/DL 2.5-4.9 N [id number] 04:53:00 Test Item Value Reference Range Interpretation Comments MAGNESIUM (test code = MAG) 2.01 mg/dL 1.80-2.40 THROMBOPLASTIN TIME [id number] 04:52:00 Test Item Value Reference Range Interpretation Comments THROMBOPLASTIN TIME 62.4 Seconds 25.0-39.5 H Therape utic Range: PARTIAL (test code = 50.4 - 88.3 Seconds PTT) Effective 02/16/2019 CBC W/AUTO [id number] 04:39:00 Test Item Value Reference Range Interpretation Comments WHITE BLOOD CELL (test code = x10 3/uL 4.5-11.0 WBC) RED BLOOD CELL (test code = RBC) x10 6/uL 4.00-5.60 HEMOGLOBIN (test code = HGB) g/dL 12.5-16.9 HEMATOCRIT (test code = HCT) % 37.5-50.7 MEAN CELL VOLUME (test code = fL 81.0-99.0 MCV) MEAN CELL HGB (test code = MCH) pg 27.0-33.0 MEAN CELL HGB CONCETRATION (test g/dL 33.0-37.0 code = MCHC) RED CELL DISTRIBUTION WIDTH CV % 11.5-14.5 (test code = RDW) PLATELET COUNT (test code = PLT) 208 x10 3/uL 150-400 N NEUTROPHIL % (test code = NT%) % 56.0-77.0 LYMPHOCYTE % (test code = LY%) % 14.0-32.0 NEUTROPHIL # (test code = NT#) x10 3/uL 2.0-7.6 LYMPHOCYTE # (test code = LY#) x10 3/uL 1.0-3.8 MANUAL DIFF REQUIRED (test code = MDIFF) COMMENTS: Daily while on HeparinCBC W/AUTO [id number] 04:39:00 Test Item Value Reference Range Interpretation Comments WHITE BLOOD CELL (test code = 6.0 x10 3/uL 4.5-11.0 N WBC) RED BLOOD CELL (test code = 2.74 x10 6/uL 4.00-5.60 L RBC) HEMOGLOBIN (test code = HGB) 8.4 g/dL 12.5-16.9 L HEMATOCRIT (test code = HCT) 26.2 % 37.5-50.7 L MEAN CELL VOLUME (test code = 95.6 fL 81.0-99.0 N MCV) MEAN CELL HGB (test code = MCH) 30.7 pg 27.0-33.0 N MEAN CELL HGB CONCETRATION 32.1 g/dL 33.0-37.0 L (test code = MCHC) RED CELL DISTRIBUTION WIDTH CV 13.8 % 11.5-14.5 N (test code = RDW) RED CELL DISTRIBUTION WIDTH SD 47.9 fL 37.0-54.0 N (test code = RDW-SD) PLATELET COUNT (test code = 208 x10 3/uL 150-400 N PLT) MEAN PLATELET VOLUME (test code 9.8 fL 7.0-9.0 H = MPV) NEUTROPHIL % (test code = NT%) 64.3 % 56.0-77.0 N IMMATURE GRANULOCYTE % (test 0.8 % 0.0-2.0 N code = IG%) LYMPHOCYTE % (test code = LY%) 21.4 % 14.0-32.0 N MONOCYTE % (test code = MO%) 11.4 % 4.8-9.0 H EOSINOPHIL % (test code = EO%) 1.8 % 0.3-3.7 N BASOPHIL % (test code = BA%) 0.3 % 0.0-2.0 N NUCLEATED RBC % (test code = 0.0 % 0-0 N NRBC%) NEUTROPHIL # (test code = NT#) 3.84 x10 3/uL 2.0-7.6 N IMMATURE GRANULOCYTE # (test 0.05 x10 3/uL 0.00-0.03 H code = IG#) LYMPHOCYTE # (test code = LY#) 1.28 x10 3/uL 1.0-3.8 N MONOCYTE # (test code = MO#) 0.68 x10 3/uL 0.1-0.8 N EOSINOPHIL # (test code = EO#) 0.11 x10 3/uL 0.0-0.2 N BASOPHIL # (test code = BA#) 0.02 x10 3/uL 0.0-0.2 N NUCLEATED RBC # (test code = 0.00 x10 3/uL 0.0-0.1 N NRBC#) MANUAL DIFF REQUIRED (test code NO = MDIFF) COMMENTS: Daily while on [id number] 00:51:00 Test Item Value Reference Range Interpretation Comments GLUBED (test code = 125 MG/DL 70-110 H Performe d by certified GLUBED) 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 [facility] [id number] 18:15:00 Test Item Value Reference Range Interpretation Comments GLUBED (test code = 127 MG/DL 70-110 H Performe d by certified GLUBED) 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 [facility] [id number] 18:00:00 Test Item Value Reference Range Interpretation Comments GLUBED (test code = 137 MG/DL 70-110 H Performe d by certified GLUBED) 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 [facility] [id number] 12:17:00 Test Item Value Reference Range Interpretation Comments GLUBED (test code = 131 MG/DL 70-110 H Performe d by certified GLUBED) 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 [facility] THROMBOPLASTIN TIME [id number] 08:54:00 Test Item Value Reference Range Interpretation Comments THROMBOPLASTIN TIME 68.6 Seconds 25.0-39.5 H Therape utic Range: PARTIAL (test code = 50.4 - 88.3 Seconds PTT) Effective 02/16/2019 - XR ABDOMEN 1V (KUB)2021-02-02 08:23:00 [facility] 1935 Sex: M FAX: Rosario Martinez [phone] [place]: St: ADM FAX: Harrison Jones NP Name: BERTIN NICOLE [facility] : 1935 Age/S: 85/M [address] [place] [address] Bl Unit #: [id number] Loc: G.3355 [place] [address] Phys: Harrison Jones NP Acct: [id number] Dis Date: Status: ADM IN PHONE #: [phone] Exam Date: 02/02/202152 FAX #: [phone] Reason: ileus EXAMS: CPT CODE: [id number] XR ABDOMEN 1V (KUB) [id number] PROCEDURE: ABDOMEN SINGLE VIEW INDICATION: ileus; MVR COMPARISON: Multiple priors, most recent 02/01/2021 TECHNIQUE: Supine view(s) of the abdomen and pelvis. FINDINGS: Examination is suboptimal secondary to technique and slight motion. Portions of the upper and lateral abdomen are beyond the [id number]. Gas within normal caliber small and large bowel. No pneumatosis or gross free intraperitoneal air. Central positioning of bowel within limitations noted. No gross soft tissue masses. Degenerative changes of the spine. IMPRESSION: 1. Technically suboptimal exam demonstrating gas within normal caliber small and large bowel in a nonobstructive pattern. 2. Central positioning of bowel suggestive of ascites. Further imaging options include ultrasound and CT. SL: [id number] at 0823 Reported and signed by: Clarke Joshi M.D. CC: Rosario Granados MD; Harrison Jones NP Technologist: Vicente Wilcox, RT(R); Ilene Cowan RT(R) TrnscrdDate/Time/By: 02/02/2021 (822) : By: Tyson Orig Print D/T: S: 02/02/2021 (0876) PAGE 1 Signed ReportGLUBED 2021-02-02 06:32:00 Test Item Value Reference Range Interpretation Comments GLUBED (test code = 132 MG/DL 70-110 H Performe d by certified GLUBED) 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 [facility] [id number] 06:32:00 Test Item Value Reference Range Interpretation Comments GLUBED (test code = 112 MG/DL 70-110 H Performe d by certified GLUBED) 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 [facility] THROMBOPLASTIN TIME [id number] 03:06:00 Test Item Value Reference Range Interpretation Comments THROMBOPLASTIN TIME 60.1 Seconds 25.0-39.5 H Therape utic Range: PARTIAL (test code = 50.4 - 88.3 Seconds PTT) Effective 02/16/2019 BASIC METABOLIC [id number] 03:05:00 Test Item Value Reference Range Interpretation Comments SODIUM (test code = NA) 138 mEq/L 134-147 N POTASSIUM (test code = 3.2 mEq/L 3.4-5.0 L K) CHLORIDE (test code = 107 mEq/L 100-108 N CL) CARBON DIOXIDE (test 26 mEq/l 21-33 N code = CO2) ANION GAP (test code = 8 0-20 N GAP) GLUCOSE (test code = 131 mg/dL 70-110 H GLU) BLOOD UREA NITROGEN 15 mg/dL 7-18 N (test code = BUN) GLOMERULAR FILTRATION 92.3 70-80 H Units of measure = RATE (test code = GFR) ml/mi n/1.73 m2 CREATININE (test code = 0.8 mg/dL 0.6-1.3 N CREAT) CALCIUM (test code = 7.7 mg/dL 8.0-10.5 L CA) [id number] 03:05:00 Test Item Value Reference Range Interpretation Comments PHOSPHOROUS (test code = PHOS) 3.3 MG/DL 2.5-4.9 N [id number] 03:05:00 Test Item Value Reference Range Interpretation Comments MAGNESIUM (test code = MAG) 1.72 mg/dL 1.80-2.40 L CBC W/AUTO [id number] 02:54:00 Test Item Value Reference Range Interpretation Comments WHITE BLOOD CELL (test code = 6.6 x10 3/uL 4.5-11.0 N WBC) RED BLOOD CELL (test code = 2.64 x10 6/uL 4.00-5.60 L RBC) HEMOGLOBIN (test code = HGB) 8.2 g/dL 12.5-16.9 L HEMATOCRIT (test code = HCT) 25.6 % 37.5-50.7 L MEAN CELL VOLUME (test code = 97.0 fL 81.0-99.0 N MCV) MEAN CELL HGB (test code = MCH) 31.1 pg 27.0-33.0 N MEAN CELL HGB CONCETRATION 32.0 g/dL 33.0-37.0 L (test code = MCHC) RED CELL DISTRIBUTION WIDTH CV 13.6 % 11.5-14.5 N (test code = RDW) RED CELL DISTRIBUTION WIDTH SD 48.1 fL 37.0-54.0 N (test code = RDW-SD) PLATELET COUNT (test code = 199 x10 3/uL 150-400 N PLT) MEAN PLATELET VOLUME (test code 10.0 fL 7.0-9.0 H = MPV) NEUTROPHIL % (test code = NT%) 64.8 % 56.0-77.0 N IMMATURE GRANULOCYTE % (test 0.9 % 0.0-2.0 N code = IG%) LYMPHOCYTE % (test code = LY%) 21.4 % 14.0-32.0 N MONOCYTE % (test code = MO%) 10.6 % 4.8-9.0 H EOSINOPHIL % (test code = EO%) 1.8 % 0.3-3.7 N BASOPHIL % (test code = BA%) 0.5 % 0.0-2.0 N NUCLEATED RBC % (test code = 0.0 % 0-0 N NRBC%) NEUTROPHIL # (test code = NT#) 4.30 x10 3/uL 2.0-7.6 N IMMATURE GRANULOCYTE # (test 0.06 x10 3/uL 0.00-0.03 H code = IG#) LYMPHOCYTE # (test code = LY#) 1.42 x10 3/uL 1.0-3.8 N MONOCYTE # (test code = MO#) 0.70 x10 3/uL 0.1-0.8 N EOSINOPHIL # (test code = EO#) 0.12 x10 3/uL 0.0-0.2 N BASOPHIL # (test code = BA#) 0.03 x10 3/uL 0.0-0.2 N NUCLEATED RBC # (test code = 0.00 x10 3/uL 0.0-0.1 N NRBC#) MANUAL DIFF REQUIRED (test code NO = MDIFF) COMMENTS: Daily while on HeparinCBC W/AUTO [id number] 02:52:00 Test Item Value Reference Range Interpretation Comments WHITE BLOOD CELL (test code = x10 3/uL 4.5-11.0 WBC) RED BLOOD CELL (test code = RBC) x10 6/uL 4.00-5.60 HEMOGLOBIN (test code = HGB) g/dL 12.5-16.9 HEMATOCRIT (test code = HCT) % 37.5-50.7 MEAN CELL VOLUME (test code = fL 81.0-99.0 MCV) MEAN CELL HGB (test code = MCH) pg 27.0-33.0 MEAN CELL HGB CONCETRATION (test g/dL 33.0-37.0 code = MCHC) RED CELL DISTRIBUTION WIDTH CV % 11.5-14.5 (test code = RDW) PLATELET COUNT (test code = PLT) 199 x10 3/uL 150-400 N NEUTROPHIL % (test code = NT%) % 56.0-77.0 LYMPHOCYTE % (test code = LY%) % 14.0-32.0 NEUTROPHIL # (test code = NT#) x10 3/uL 2.0-7.6 LYMPHOCYTE # (test code = LY#) x10 3/uL 1.0-3.8 MANUAL DIFF REQUIRED (test code = MDIFF) COMMENTS: Daily while on HeparinTHROMBOPLASTIN TIME [id number] 19:23:00 Test Item Value Reference Range Interpretation Comments THROMBOPLASTIN TIME 105.9 Seconds 25.0-39.5 H Critica l result PARTIAL (test code = called to PARBAT PTT) Chuy JACKMAN [id number] at 192 0 02/01/21Nurse r ead back result and tech confirmed it's correct? Y Therapeutic Ran ge: 50.4 - 88.3 Seconds Effective 02/16/2019 [id number] 18:08:00 Test Item Value Reference Range Interpretation Comments GLUBED (test code = 121 MG/DL 70-110 H Performe d by certified GLUBED) 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 [facility] [id number] 12:22:00 Test Item Value Reference Range Interpretation Comments GLUBED (test code = 136 MG/DL 70-110 H Performe d by certified GLUBED) 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 [facility] THROMBOPLASTIN TIME [id number] 10:28:00 Test Item Value Reference Range Interpretation Comments THROMBOPLASTIN TIME 53.9 Seconds 25.0-39.5 H Therape utic Range: PARTIAL (test code = 50.4 - 88.3 Seconds PTT) Effective 02/16/2019 - XR ABDOMEN 1V ([facility])2021-02-01 08:56:00 [facility] 1935 Sex: M FAX: Rosario Silva [phone] [place]: St: ADM FAX: Harrison Jones [employer] CLUT[employer] SPECIALIST Name: BERTIN NICOLE [facility] : 1935 Age/S: 85/M [address] [place] [address] Unit #: [id number] Loc: G.[address] [place] [address] Phys: Harrison Jones NP Acct: [id number] Dis Date: Status: ADM IN PHONE #: [phone] Exam Date: 02/01/2021 0551 FAX #: [phone] Reason: ileus EXAMS: CPT CODE: [id number] XR ABDOMEN 1V (KUB) 06781 PROCEDURE: ABDOMEN SINGLE VIEW INDICATION: ileus; MVR COMPARISON: Multiple priors, most recent 01/31/2021 TECHNIQUE: Supine view(s) of the abdomen and pelvis. FINDINGS: Gas throughout mildly dilated colon, decreased in caliber at one-day interval. Gas within a few scattered nondilated small bowel loops. Lower pelvis beyond the [id number]-dt-ifxz. No pneumatosis or gross free air. No soft tissue masses. Multilevel degenerative changes of the spine. Small right pleural effusion. The visualized cardiac silhouette is grossly stable. Mitral valve prosthesis appears stable. IMPRESSION: 1. Decreased colonic dilatation. 2.Small right pleural effusion. SL: [id number] at 0856 Reported and signed by: Clarke Joshi M.D. CC: Rosario Granados MD;Harrison Jones NP Technologist: Vicente Wilcox, RT(R); Ilene Cowan RT(R) Trnscrd Date/Time/By: 02/01/2021 (0856) : By: Tyson Orig Print D/T: S: 02/01/2021 (8095) PAGE 1 Signed [id number] 05:58:00 Test Item Value Reference Range Interpretation Comments GLUBED (test code = 128 MG/DL 70-110 H Performe d by certified GLUBED) 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 [facility] BASIC METABOLIC [id number] 04:57:00 Test Item Value Reference Range Interpretation Comments SODIUM (test code = NA) 141 mEq/L 134-147 N POTASSIUM (test code = 3.1 mEq/L 3.4-5.0 L K) CHLORIDE (test code = 110 mEq/L 100-108 H CL) CARBON DIOXIDE (test 25 mEq/l 21-33 N code = CO2) ANION GAP (test code = 9 0-20 N GAP) GLUCOSE (test code = 141 mg/dL 70-110 H GLU) BLOOD UREA NITROGEN 17 mg/dL 7-18 N (test code = BUN) GLOMERULAR FILTRATION 80.6 70-80 H Units of measure = RATE (test code = GFR) ml/mi n/1.73 m2 CREATININE (test code = 0.9 mg/dL 0.6-1.3 N CREAT) CALCIUM (test code = 7.6 mg/dL 8.0-10.5 L CA) [id number] 04:57:00 Test Item Value Reference Range Interpretation Comments PHOSPHOROUS (test code = PHOS) 3.1 MG/DL 2.5-4.9 N [id number] 04:57:00 Test Item Value Reference Range Interpretation Comments MAGNESIUM (test code = MAG) 1.87 mg/dL 1.80-2.40 N CBC W/AUTO [id number] 04:41:00 Test Item Value Reference Range Interpretation Comments WHITE BLOOD CELL (test code = 7.1 x10 3/uL 4.5-11.0 N WBC) RED BLOOD CELL (test code = 2.77 x10 6/uL 4.00-5.60 L RBC) HEMOGLOBIN (test code = HGB) 8.4 g/dL 12.5-16.9 L HEMATOCRIT (test code = HCT) 26.7 % 37.5-50.7 L MEAN CELL VOLUME (test code = 96.4 fL 81.0-99.0 N MCV) MEAN CELL HGB (test code = MCH) 30.3 pg 27.0-33.0 N MEAN CELL HGB CONCETRATION 31.5 g/dL 33.0-37.0 L (test code = MCHC) RED CELL DISTRIBUTION WIDTH CV 13.9 % 11.5-14.5 N (test code = RDW) RED CELL DISTRIBUTION WIDTH SD 49.0 fL 37.0-54.0 N (test code = RDW-SD) PLATELET COUNT (test code = 194 x10 3/uL 150-400 N PLT) MEAN PLATELET VOLUME (test code 10.0 fL 7.0-9.0 H = MPV) NEUTROPHIL % (test code = NT%) 68.6 % 56.0-77.0 N IMMATURE GRANULOCYTE % (test 1.0 % 0.0-2.0 N code = IG%) LYMPHOCYTE % (test code = LY%) 17.8 % 14.0-32.0 N MONOCYTE % (test code = MO%) 10.8 % 4.8-9.0 H EOSINOPHIL % (test code = EO%) 1.4 % 0.3-3.7 N BASOPHIL % (test code = BA%) 0.4 % 0.0-2.0 N NUCLEATED RBC % (test code = 0.0 % 0-0 N NRBC%) NEUTROPHIL # (test code = NT#) 4.89 x10 3/uL 2.0-7.6 N IMMATURE GRANULOCYTE # (test 0.07 x10 3/uL 0.00-0.03 H code = IG#) LYMPHOCYTE # (test code = LY#) 1.27 x10 3/uL 1.0-3.8 N MONOCYTE # (test code = MO#) 0.77 x10 3/uL 0.1-0.8 N EOSINOPHIL # (test code = EO#) 0.10 x10 3/uL 0.0-0.2 N BASOPHIL # (test code = BA#) 0.03 x10 3/uL 0.0-0.2 N NUCLEATED RBC # (test code = 0.00 x10 3/uL 0.0-0.1 N NRBC#) MANUAL DIFF REQUIRED (test code NO = MDIFF) COMMENTS: Daily while on HeparinCBC W/AUTO [id number] 04:39:00 Test Item Value Reference Range Interpretation Comments WHITE BLOOD CELL (test code = x10 3/uL 4.5-11.0 WBC) RED BLOOD CELL (test code = RBC) x10 6/uL 4.00-5.60 HEMOGLOBIN (test code = HGB) g/dL 12.5-16.9 HEMATOCRIT (test code = HCT) % 37.5-50.7 MEAN CELL VOLUME (test code = fL 81.0-99.0 MCV) MEAN CELL HGB (test code = MCH) pg 27.0-33.0 MEAN CELL HGB CONCETRATION (test g/dL 33.0-37.0 code = MCHC) RED CELL DISTRIBUTION WIDTH CV % 11.5-14.5 (test code = RDW) PLATELET COUNT (test code = PLT) 194 x10 3/uL 150-400 N NEUTROPHIL % (test code = NT%) % 56.0-77.0 LYMPHOCYTE % (test code = LY%) % 14.0-32.0 NEUTROPHIL # (test code = NT#) x10 3/uL 2.0-7.6 LYMPHOCYTE # (test code = LY#) x10 3/uL 1.0-3.8 MANUAL DIFF REQUIRED (test code = MDIFF) COMMENTS: Daily while on [id number] 04:13:00 Test Item Value Reference Range Interpretation Comments GLUBED (test code = 130 MG/DL 70-110 H Performe d by certified GLUBED) 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 [facility] THROMBOPLASTIN TIME [id number] 01:05:00 Test Item Value Reference Range Interpretation Comments THROMBOPLASTIN TIME 108.5 Seconds 25.0-39.5 H Therap eutic PARTIAL (test code = Range: 50.4 - 88.3 PTT) Seconds Effective 02/16/2019 BASIC METABOLIC [id number] 18:14:00 Test Item Value Reference Range Interpretation Comments SODIUM (test code = NA) 141 mEq/L 134-147 N POTASSIUM (test code = 3.1 mEq/L 3.4-5.0 L K) CHLORIDE (test code = 110 mEq/L 100-108 H CL) CARBON DIOXIDE (test 25 mEq/l 21-33 N code = CO2) ANION GAP (test code = 9 0-20 N GAP) GLUCOSE (test code = 128 mg/dL 70-110 H GLU) BLOOD UREA NITROGEN 18 mg/dL 7-18 N (test code = BUN) GLOMERULAR FILTRATION 80.6 70-80 H Units of measure = RATE (test code = GFR) ml/mi n/1.73 m2 CREATININE (test code = 0.9 mg/dL 0.6-1.3 N CREAT) CALCIUM (test code = 7.7 mg/dL 8.0-10.5 L CA) THROMBOPLASTIN TIME [id number] 18:08:00 Test Item Value Reference Range Interpretation Comments THROMBOPLASTIN TIME 70.7 Seconds 25.0-39.5 H Therape utic Range: PARTIAL (test code = 50.4 - 88.3 Seconds PTT) Effective 02/16/2019 CBC W/AUTO [id number] 18:03:00 Test Item Value Reference Range Interpretation Comments WHITE BLOOD CELL (test code = 8.4 x10 3/uL 4.5-11.0 N WBC) RED BLOOD CELL (test code = 2.81 x10 6/uL 4.00-5.60 L RBC) HEMOGLOBIN (test code = HGB) 8.6 g/dL 12.5-16.9 L HEMATOCRIT (test code = HCT) 26.9 % 37.5-50.7 L MEAN CELL VOLUME (test code = 95.7 fL 81.0-99.0 MCV) MEAN CELL HGB (test code = MCH) 30.6 pg 27.0-33.0 N MEAN CELL HGB CONCETRATION 32.0 g/dL 33.0-37.0 L (test code = MCHC) RED CELL DISTRIBUTION WIDTH CV 14.0 % 11.5-14.5 N (test code = RDW) RED CELL DISTRIBUTION WIDTH SD 49.0 fL 37.0-54.0 N (test code = RDW-SD) PLATELET COUNT (test code = 197 x10 3/uL 150-400 N PLT) MEAN PLATELET VOLUME (test code 9.8 fL 7.0-9.0 H = MPV) NEUTROPHIL % (test code = NT%) 70.6 % 56.0-77.0 N IMMATURE GRANULOCYTE % (test 1.2 % 0.0-2.0 N code = IG%) LYMPHOCYTE % (test code = LY%) 17.6 % 14.0-32.0 N MONOCYTE % (test code = MO%) 9.3 % 4.8-9.0 H EOSINOPHIL % (test code = EO%) 1.1 % 0.3-3.7 N BASOPHIL % (test code = BA%) 0.2 % 0.0-2.0 N NUCLEATED RBC % (test code = 0.0 % 0-0 N NRBC%) NEUTROPHIL # (test code = NT#) 5.91 x10 3/uL 2.0-7.6 N IMMATURE GRANULOCYTE # (test 0.10 x10 3/uL 0.00-0.03 H code = IG#) LYMPHOCYTE # (test code = LY#) 1.47 x10 3/uL 1.0-3.8 N MONOCYTE # (test code = MO#) 0.78 x10 3/uL 0.1-0.8 N EOSINOPHIL # (test code = EO#) 0.09 x10 3/uL 0.0-0.2 N BASOPHIL # (test code = BA#) 0.02 x10 3/uL 0.0-0.2 N NUCLEATED RBC # (test code = 0.00 x10 3/uL 0.0-0.1 N NRBC#) MANUAL DIFF REQUIRED (test code NO = MDIFF) [id number] 17:25:00 Test Item Value Reference Range Interpretation Comments GLUBED (test code = 142 MG/DL 70-110 H Performe d by certified GLUBED) 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5 H Therape utic Range: PARTIAL (test code = 50.4 - 88.3 Seconds PTT) Effective 02/16/2019 BASIC METABOLIC [id number] 07:46:00 Test Item Value Reference Range Interpretation Comments SODIUM (test code = NA) 142 mEq/L 134-147 N POTASSIUM (test code = 2.9 mEq/L 3.4-5.0 LL Criti adán result K) called to Chuy [facility] at 07 45 01/31/21Nurse naomi manning back resut and tech confirmed it's correct? Y CHLORIDE (test code = 110 mEq/L 100-108 H CL) CARBON DIOXIDE (test 24 mEq/l 21-33 N code = CO2) ANION GAP (test code = 11 0-20 N GAP) GLUCOSE (test code = 139 mg/dL 70-110 H GLU) BLOOD UREA NITROGEN 17 mg/dL 7-18 (test code = BUN) GLOMERULAR FILTRATION 80.6 70-80 H Units of measure = RATE (test code = GFR) ml/mi n/1.73 m2 CREATININE (test code = 0.9 mg/dL 0.6-1.3 N CREAT) CALCIUM (test code = 7.8 mg/dL 8.0-10.5 L CA) [id number] 07:46:00 Test Item Value Reference Range Interpretation Comments PHOSPHOROUS (test code = PHOS) 3.1 MG/DL 2.5-4.9 N [id number] 07:46:00 Test Item Value Reference Range Interpretation Comments MAGNESIUM (test code = MAG) 1.92 mg/dL 1.80-2.40 N - XR ABDOMEN 1V (KUB)2021-01-31 06:46:00 [facility] : 1935 Sex: M FAX: Leela Dorian Granadosnan [phone] [place]: St: ADM FAX: Harrison Jones [employer] SPECIALIST Name: BERTIN NICOLE [facility] : 1935 Age/S: 85/M [address] [place] [address] Unit #: [id number] Loc: G.[address] [place] [address] Phys: Harrison Jones NP Acct: [id number] Dis Date: Status: ADM IN PHONE #: [phone] Exam Date: 01/31/2021 0545 FAX #: [phone] Reason: ileus EXAMS: CPT CODE: [id number] XR ABDOMEN 1V (KUB) 96419 STUDY: - XR ABDOMEN 1V (KUB) 01/31/2021 4:00 AM Ordering Physician: Harrison Jones NP Patient Name: BERTIN NICOLE MR: [id number] : 1935; Age: 85 years y/o Male Clinical Indication: Follow-up ileus Comparison:Abdominal radiograph 01/30/2021 Bowel gas: Stable numerous tortuous and dilated gas-filled colon again suspicious for colonic ileus. Scattered mild small bowel gas is seen centrally in the abdomen. General: No organomegaly, mass lesions, or suspicious abnormal calcifications. Lung bases: Mild cardiomegaly status post median sternotomy associated with mild central pulmonary vascular congestion. Osseous structures: No fracture, dislocation, or suspicious focal osseous lesion. Stable mild to moderate lumbar spondylosis and facet arthrosis. IMPRESSION: Stable colonic ileus as above-described. Clinical correlation and follow-up are recommended. Mild cardiomegaly status post median sternotomy associatedwith mild central pulmonary vascular congestion. SL: TPAINTER-H PAGE 1 Signed Report (CONTINUED) FAX: Rosario Martinez [phone] [place]: St: ADM FAX: Harrison Jones [employer] CLUT[employer] SPECIALIST Name: BERTIN NICOLE [facility] : 1935 Age/S: 85/M [address] [place] [address] Unit #: [id number] Loc: [address] [address] Phys: Harrison Jones NP Acct: [id number] Dis Date: Status: ADM IN PHONE #: [phone] Exam Date: FAX #: [phone] Reason: ileus EXAMS: CPT CODE: [id number] XR ABDOMEN 1V (KUB) 84522 (Continued) at 0646 Reported and signed by: Elias Eduardo M.D. 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 [facility] CBC W/AUTO [id number] 04:33:00 Test Item Value Reference Range Interpretation Comments WHITE BLOOD CELL (test code = 8.0 x10 3/uL 4.5-11.0 N WBC) RED BLOOD CELL (test code = 2.51 x10 6/uL 4.00-5.60 L RBC) HEMOGLOBIN (test code = HGB) 7.8 g/dL 12.5-16.9 L HEMATOCRIT (test code = HCT) 27.3 % 37.5-50.7 L MEAN CELL VOLUME (test code = 108.8 fL 81.0-99.0 H MCV) MEAN CELL HGB (test code = MCH) 31.1 pg 27.0-33.0 N MEAN CELL HGB CONCETRATION 28.6 g/dL 33.0-37.0 L (test code = MCHC) RED CELL DISTRIBUTION WIDTH CV 14.5 % 11.5-14.5 N (test code = RDW) RED CELL DISTRIBUTION WIDTH SD 56.8 fL 37.0-54.0 H (test code = RDW-SD) PLATELET COUNT (test code = 170 x10 3/uL 150-400 N PLT) MEAN PLATELET VOLUME (test code 10.1 fL 7.0-9.0 H = MPV) NEUTROPHIL % (test code = NT%) 75.5 % 56.0-77.0 N IMMATURE GRANULOCYTE % (test 1.1 % 0.0-2.0 N code = IG%) LYMPHOCYTE % (test code = LY%) 13.6 % 14.0-32.0 L MONOCYTE % (test code = MO%) 9.0 % 4.8-9.0 N EOSINOPHIL % (test code = EO%) 0.4 % 0.3-3.7 N BASOPHIL % (test code = BA%) 0.4 % 0.0-2.0 N NUCLEATED RBC % (test code = 0.0 % 0-0 N NRBC%) NEUTROPHIL # (test code = NT#) 6.06 x10 3/uL 2.0-7.6 N IMMATURE GRANULOCYTE # (test 0.09 x10 3/uL 0.00-0.03 H code = IG#) LYMPHOCYTE # (test code = LY#) 1.09 x10 3/uL 1.0-3.8 N MONOCYTE # (test code = MO#) 0.72 x10 3/uL 0.1-0.8 N EOSINOPHIL # (test code = EO#) 0.03 x10 3/uL 0.0-0.2 N BASOPHIL # (test code = BA#) 0.03 x10 3/uL 0.0-0.2 N NUCLEATED RBC # (test code = 0.00 x10 3/uL 0.0-0.1 N NRBC#) MANUAL DIFF REQUIRED (test code NO = MDIFF) COMMENTS: Daily while on [id number] 00:35:00 Test Item Value Reference Range Interpretation Comments GLUBED (test code = 109 MG/DL 70-110 N Performe d by certified GLUBED) 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 [facility] THROMBOPLASTIN TIME [id number] 22:57:00 Test Item Value Reference Range Interpretation Comments THROMBOPLASTIN TIME 78.0 Seconds 25.0-39.5 H Therape utic Range: PARTIAL (test code = 50.4 - 88.3 Seconds PTT) Effective 02/16/2019 COMMENTS: DRAW PTT 6 HOURS AFTER INITIATION OF HEPARINBASIC METABOLIC PANEL 2021-01-30 19:23:00 Test Item Value Reference Range Interpretation Comments SODIUM (test code = NA) 140 mEq/L 134-147 N POTASSIUM (test code = 3.1 mEq/L 3.4-5.0 L K) CHLORIDE (test code = 110 mEq/L 100-108 H CL) CARBON DIOXIDE (test 25 mEq/l 21-33 N code = CO2) ANION GAP (test code = 9 0-20 N GAP) GLUCOSE (test code = 119 mg/dL 70-110 H GLU) BLOOD UREA NITROGEN 12 mg/dL 7-18 N (test code = BUN) GLOMERULAR FILTRATION 92.3 70-80 H Units of measure = RATE (test code = GFR) ml/mi n/1.73 m2 CREATININE (test code = 0.8 mg/dL 0.6-1.3 N CREAT) CALCIUM (test code = 8.1 mg/dL 8.0-10.5 N CA) PROTHROMBIN [id number] 19:13:00 Test Item Value Reference Range Interpretation Comments PROTHROMBIN TIME 14.0 SECONDS 9.3-12.9 H PATIENT (test code = PTP) INTERNATIONAL NORMAL 1.3 0.8-1.2 H TARGET INR BY RATIO (test code = INDICATIO N Indication INR) INR1. 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 Mec hanical prosthetic valv es (high risk), 2. 5 - 3.5 Presence of Lup us Anticoagulant o r Antiphospholipi d Antibodies, Pre vention of systemic emb olism - Acute Myocardia l Infarction (to prevent recurrent infar ct). COMMENTS: IF NOT ALREADY DONE WITHIN THE LAST 24 HOURSTHROMBOPLASTIN TIME [id number] 19:13:00 Test Item Value Reference Range Interpretation Comments THROMBOPLASTIN TIME 29.7 Seconds 25.0-39.5 N Therape utic Range: PARTIAL (test code = 50.4 - 88.3 Seconds PTT) Effective 02/16/2019 COMMENTS: IF NOT ALREADY DONE WITHIN THE LAST 24 HOURSCBC W/AUTO [id number] 19:02:00 Test Item Value Reference Range Interpretation Comments WHITE BLOOD CELL (test code = 11.0 x10 3/uL 4.5-11.0 N WBC) RED BLOOD CELL (test code = 3.16 x10 6/uL 4.00-5.60 L RBC) HEMOGLOBIN (test code = HGB) 9.6 g/dL 12.5-16.9 L HEMATOCRIT (test code = HCT) 30.1 % 37.5-50.7 L MEAN CELL VOLUME (test code = 95.3 fL 81.0-99.0 N MCV) MEAN CELL HGB (test code = MCH) 30.4 pg 27.0-33.0 N MEAN CELL HGB CONCETRATION 31.9 g/dL 33.0-37.0 L (test code = MCHC) RED CELL DISTRIBUTION WIDTH CV 13.6 % 11.5-14.5 N (test code = RDW) RED CELL DISTRIBUTION WIDTH SD 47.7 fL 37.0-54.0 N (test code = RDW-SD) PLATELET COUNT (test code = 195 x10 3/uL 150-400 N PLT) MEAN PLATELET VOLUME (test code 9.8 fL 7.0-9.0 H = MPV) NEUTROPHIL % (test code = NT%) 77.2 % 56.0-77.0 H IMMATURE GRANULOCYTE % (test 1.5 % 0.0-2.0 N code = IG%) LYMPHOCYTE % (test code = LY%) 12.5 % 14.0-32.0 L MONOCYTE % (test code = MO%) 8.2 % 4.8-9.0 N EOSINOPHIL % (test code = EO%) 0.3 % 0.3-3.7 N BASOPHIL % (test code = BA%) 0.3 % 0.0-2.0 N NUCLEATED RBC % (test code = 0.0 % 0-0 N NRBC%) NEUTROPHIL # (test code = NT#) 8.50 x10 3/uL 2.0-7.6 H IMMATURE GRANULOCYTE # (test 0.16 x10 3/uL 0.00-0.03 H code = IG#) LYMPHOCYTE # (test code = LY#) 1.37 x10 3/uL 1.0-3.8 N MONOCYTE # (test code = MO#) 0.90 x10 3/uL 0.1-0.8 H EOSINOPHIL # (test code = EO#) 0.03 x10 3/uL 0.0-0.2 N BASOPHIL # (test code = BA#) 0.03 x10 3/uL 0.0-0.2 N NUCLEATED RBC # (test code = 0.00 x10 3/uL 0.0-0.1 N NRBC#) MANUAL DIFF REQUIRED (test code NO = MDIFF) COMMENTS: IF NOT ALREADY D[facility] [id number] 19:00:00 Test Item Value Reference Range Interpretation Comments WHITE BLOOD CELL (test code = x10 3/uL 4.5-11.0 WBC) RED BLOOD CELL (test code = RBC) x10 6/uL 4.00-5.60 HEMOGLOBIN (test code = HGB) g/dL 12.5-16.9 HEMATOCRIT (test code = HCT) % 37.5-50.7 MEAN CELL VOLUME (test code = fL 81.0-99.0 MCV) MEAN CELL HGB (test code = MCH) pg 27.0-33.0 MEAN CELL HGB CONCETRATION (test g/dL 33.0-37.0 code = MCHC) RED CELL DISTRIBUTION WIDTH CV % 11.5-14.5 (test code = RDW) PLATELET COUNT (test code = PLT) 195 x10 3/uL 150-400 N NEUTROPHIL % (test code = NT%) % 56.0-77.0 LYMPHOCYTE % (test code = LY%) % 14.0-32.0 NEUTROPHIL # (test code = NT#) x10 3/uL 2.0-7.6 LYMPHOCYTE # (test code = LY#) x10 3/uL 1.0-3.8 MANUAL DIFF REQUIRED (test code = MDIFF) COMMENTS: IF NOT ALREADY DONE WITHIN THE LAST 24 [id number] 17:21:00 Test Item Value Reference Range Interpretation Comments GLUBED (test code = 107 MG/DL 70-110 N Performe d by certified GLUBED) 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 [facility] - DUP VEIN [id number] 14:42:00 [facility] 1935 Sex: M Name: BERTIN NICOLE [facility] : 1935 Age/S: 85 / M [address] [facility] Unit #: [id number] Loc: [place] [address] Phys: Lawanda Grimes [employer] SPECIALIST Acct: [id number] Dis Date: Status: ADM IN PHONE #: [phone] Exam Date: 01/30/2021 1400 FAX #: [phone] Reason: R/O DVT TO LOWER EXTREMITIES, CLOTS IN UPPER EX EXAMS: CPT CODE: [id number] DUP VEIN DERRICK [id number] PROCEDURE: BILATERAL LOWER EXTREMITY VENOUS ULTRASOUND INDICATION: R/O DVT TO LOWER EXTREMITIES, CLOTS IN UPPER EXTREMITIES; recent MVR. COMPARISON: There are no previous relevant studies available for correlation. TECHNIQUE: Sonographic evaluation of the bilateral lower extremity veins was performed using high resolution B-mode, pulse and color Doppler imaging. FINDINGS: RIGHT: The common femoral and femoral veins are patent. Normal venous waveforms. The popliteal vein is patent centrally, thrombosed peripherally and noncompressible. Smallfocus of trace peripheral flow. The paired posterior tibial veins are partially thrombosed at the level of the calf with trace venous flow demonstrated. The saphenofemoral junction is unremarkable. LEFT: The common femoral, femoral, popliteal and visualized calf veins are patent. Normal venous waveforms. The saphenofemoral junction is unremarkable. IMPRESSION: 1. Right lower extremity deep venous thrombosis involving right posterior tibial veins and peripheral popliteal vein. 2. Patent left lower extremity deep venous system. A verbal report was called to Lawanda Grimes NP on 01/30/2021 2:41 PM. FOR INTERNAL CODING PURPOSES ONLY RESULT CODE: [facility] SL: [id number] at [id number] Reported and signed by: Clarke Joshi M.D. PAGE 1 Signed Report (CONTINUED) Name: BERTIN NICOLE [facility] : 1935 Age/S: 85 / M [address] [place] [address] Unit #: [id number] Loc: [place] [address] Phys: Lawanda Grimes NP Acct: [id number] Dis Date: Status: ADM IN PHONE #: [phone] Exam Date: 01/30/2021 1400 FAX#: [phone] Reason: R/O DVT TO LOWER EXTREMITIES, CLOTS IN UPPER EX EXAMS: CPT CODE: [id number] DUP VEIN DERRICK 76520 (Continued) CC: Rosario Granados MD; Lawanda Grimes NP Technologist: Adrianna Jerez RDMS(AB)(RCT) Trnscb Date/Time: 01/30/2021 (0829) Tyson Orig Print D/T: S: 01/30/2021 (9376)Probe: PAGE 2 Signed [id number] 12:04:00 Test Item Value Reference Range Interpretation Comments GLUBED (test code = 110 MG/DL 70-110 N Performe d by certified GLUBED) 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 [facility] - XR SHOULDER 1 V [id number] 11:03:00 [facility] 1935 Sex: M FAX: Rosario Silva [phone] [place]: St: ADM FAX: Lawanda Grimes NP [phone] Name: BERTIN NICOLE [facility] : 1935 Age/S: 85/M [address] [place] [address] Unit #: [id number] Loc: G.[address] [place] [address] Phys: Lawanda Grimes NP Acct: [id number] Dis Date: Status: ADM IN PHONE #: [phone] Exam Date: 01/30/2021 1042 FAX #: [phone] Reason: PICC PLACEMENT EXAMS: CPT CODE: [id number] XR SHOULDER 1 [place] [address] PROCEDURE: Left shoulder single view INDICATION: PICC PLACEMENT; MVR COMPARISON: CXR 01/24/2021,CT chest 01/11/2021 FINDINGS: Left upper extremity PICC visualized through the brachiocephalic SVC junction, tip obscured by cardiac motion. EKG and epicardial pacer leads overlie the chest. Sternotomy wires are intact. Mitral valve prosthesis redemonstrated. Mild prominence of the cardiac silhouette is stable. Bilateral pulmonary opacities are redemonstrated. Increased opacification in the right mid and lower lung zone may be accentuated by technique. There is no pneumothorax. There are chronic degenerative changes of the left shoulder with narrowed humeral acromial distance compatible with chronicrotator cuff pathology. Evidence for previous rotator cuff surgery and distal clavicular resection. COMMENTS: If there is further concern, follow-up radiographs, CT or MRI may be obtained for complete assessment. IMPRESSION: 1. Left PICC visualized the brachiocephalic SVC junction, tip blurred by cardiac motion. 2. Bilateral pleural-parenchymal disease with possible progression of disease on the right. SL: [id number] at 1103 Reported and signed by: Clarke Joshi M.D. CC: Rosario Granados MD; Lawanda Grimes NP Technologist: RT Taisha(Naomi) Trnscrd Date/Time/By: 01/30/2021 (1103) : By: Tyson Orig Print D/T: S: 01/30/2021 (4096) PAGE 1 Signed Report- XR ABDOMEN 1V (KUB)2021-01-30 08:18:00 [facility] : 1935 Sex: M FAX: Rosario Silva [phone] [place]: St: ADM FAX: Harrison Jones NP Name: BERTIN NICOLE [facility] : 1935 Age/S: 85/M [address] [place] [address] Unit #: [id number] Loc: G.[address] [place] [address] Phys: Harrison Jones NP Acct: [id number] Dis Date: Status: ADM IN PHONE #: [phone] Exam Date: 01/30/2021 0548 FAX #: [phone] Reason: ileus EXAMS: CPT CODE: [id number] XR ABDOMEN 1V (KUB) [id number] PROCEDURE: ABDOMEN SINGLE VIEW INDICATION: ileus; MVR. COMPARISON: Multiple priors, most recent 01/29/2021 TECHNIQUE: Supine view(s) of the abdomen and pelvis. FINDINGS: EKG and epicardial pacer leads overlie the u pper abdomen. Portions of the upper abdomen are beyond the fdgkc-rx-qhhw. Gas within scattered normal caliber small bowel and throughout moderately dilated colon. Redundant sigmoid colon. No pneumatosis or gross free air. No soft tissue masses. Calcified plaque iliac vessels. Multilevel degenerative changes of the spine. IMPRESSION: Stable colonic dilatation. SL: [id number] Electronically Signedby Ramesh Joshi on 01/30/2021 at 0818 Reported and signed by: Clarke Joshi M.D. CC: Rosario Granados MD; Harrison Jones NP Technologist: Vicente Wilcox RT(R); Ilene Cowan RT(R) Trnscrd Date/Time/By: 01/30/2021 (817) : By: CathyKWL Orig Print D/T: S: 01/30/2021 (820) PAGE 1 Signed ReportBASIC METABOLIC [id number] 04:41:00 Test Item Value Reference Range Interpretation Comments SODIUM (test code = NA) 144 mEq/L 134-147 N POTASSIUM (test code = 2.9 mEq/L 3.4-5.0 LL Criti adán result K) called to Chuy CASTANEDA G.LAB .KM1 at 0441 1Nurse read back resut and tech confirmed it's correct? YES CHLORIDE (test code = 112 mEq/L 100-108 H CL) CARBON DIOXIDE (test 24 mEq/l 21-33 N code = CO2) ANION GAP (test code = 11 0-20 N GAP) GLUCOSE (test code = 121 mg/dL 70-110 H GLU) BLOOD UREA NITROGEN 13 mg/dL 7-18 N (test code = BUN) GLOMERULAR FILTRATION 92.3 70-80 H Units of measure = RATE (test code = GFR) ml/mi n/1.73 m2 CREATININE (test code = 0.8 mg/dL 0.6-1.3 N CREAT) CALCIUM (test code = 7.7 mg/dL 8.0-10.5 L CA) [id number] 04:41:00 Test Item Value Reference Range Interpretation Comments PHOSPHOROUS (test code = PHOS) 3.1 MG/DL 2.5-4.9 N [id number] 04:41:00 Test Item Value Reference Range Interpretation Comments MAGNESIUM (test code = MAG) 1.94 mg/dL 1.80-2.40 N THROMBOPLASTIN TIME [id number] 04:17:00 Test Item Value Reference Range Interpretation Comments THROMBOPLASTIN TIME 32.4 Seconds 25.0-39.5 N Therape utic Range: PARTIAL (test code = 50.4 - 88.3 Seconds PTT) Effective 02/16/2019 CBC W/AUTO [id number] 04:12:00 Test Item Value Reference Range Interpretation Comments WHITE BLOOD CELL (test code = 9.4 x10 3/uL 4.5-11.0 N WBC) RED BLOOD CELL (test code = 3.18 x10 6/uL 4.00-5.60 L RBC) HEMOGLOBIN (test code = HGB) 9.8 g/dL 12.5-16.9 L HEMATOCRIT (test code = HCT) 30.1 % 37.5-50.7 L MEAN CELL VOLUME (test code = 94.7 fL 81.0-99.0 N MCV) MEAN CELL HGB (test code = MCH) 30.8 pg 27.0-33.0 N MEAN CELL HGB CONCETRATION 32.6 g/dL 33.0-37.0 L (test code = MCHC) RED CELL DISTRIBUTION WIDTH CV 13.6 % 11.5-14.5 N (test code = RDW) RED CELL DISTRIBUTION WIDTH SD 46.7 fL 37.0-54.0 N (test code = RDW-SD) PLATELET COUNT (test code = 178 x10 3/uL 150-400 N PLT) MEAN PLATELET VOLUME (test code 10.2 fL 7.0-9.0 H = MPV) NEUTROPHIL % (test code = NT%) 75.3 % 56.0-77.0 N IMMATURE GRANULOCYTE % (test 1.8 % 0.0-2.0 N code = IG%) LYMPHOCYTE % (test code = LY%) 12.5 % 14.0-32.0 L MONOCYTE % (test code = MO%) 9.4 % 4.8-9.0 H EOSINOPHIL % (test code = EO%) 0.7 % 0.3-3.7 N BASOPHIL % (test code = BA%) 0.3 % 0.0-2.0 N NUCLEATED RBC % (test code = 0.0 % 0-0 N NRBC%) NEUTROPHIL # (test code = NT#) 7.09 x10 3/uL 2.0-7.6 N IMMATURE GRANULOCYTE # (test 0.17 x10 3/uL 0.00-0.03 H code = IG#) LYMPHOCYTE # (test code = LY#) 1.18 x10 3/uL 1.0-3.8 N MONOCYTE # (test code = MO#) 0.89 x10 3/uL 0.1-0.8 H EOSINOPHIL # (test code = EO#) 0.07 x10 3/uL 0.0-0.2 N BASOPHIL # (test code = BA#) 0.03 x10 3/uL 0.0-0.2 N NUCLEATED RBC # (test code = 0.00 x10 3/uL 0.0-0.1 N NRBC#) MANUAL DIFF REQUIRED (test code NO = MDIFF) CBC W/AUTO [id number] 04:08:00 Test Item Value Reference Range Interpretation Comments WHITE BLOOD CELL (test code = x10 3/uL 4.5-11.0 WBC) RED BLOOD CELL (test code = RBC) x10 6/uL 4.00-5.60 HEMOGLOBIN (test code = HGB) g/dL 12.5-16.9 HEMATOCRIT (test code = HCT) % 37.5-50.7 MEAN CELL VOLUME (test code = fL 81.0-99.0 MCV) MEAN CELL HGB (test code = MCH) pg 27.0-33.0 MEAN CELL HGB CONCETRATION (test g/dL 33.0-37.0 code = MCHC) RED CELL DISTRIBUTION WIDTH CV % 11.5-14.5 (test code = RDW) PLATELET COUNT (test code = PLT) 178 x10 3/uL 150-400 N NEUTROPHIL % (test code = NT%) % 56.0-77.0 LYMPHOCYTE % (test code = LY%) % 14.0-32.0 NEUTROPHIL # (test code = NT#) x10 3/uL 2.0-7.6 LYMPHOCYTE # (test code = LY#) x10 3/uL 1.0-3.8 MANUAL DIFF REQUIRED (test code = MDIFF) [id number] 23:56:00 Test Item Value Reference Range Interpretation Comments GLUBED (test code = 120 MG/DL 70-110 H Performe d by certified GLUBED) 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 [facility] [id number] 17:24:00 Test Item Value Reference Range Interpretation Comments GLUBED (test code = 108 MG/DL 70-110 N Performe d by certified GLUBED) 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 [facility] [id number] 12:34:00 Test Item Value Reference Range Interpretation Comments GLUBED (test code = 113 MG/DL 70-110 H Performe d by certified GLUBED) 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 [facility] COMPREHENSIVE METABOLIC [id number] 11:39:00 Test Item Value Reference Range Interpretation Comments SODIUM (test code = NA) 141 mEq/L 134-147 N POTASSIUM (test code = 3.2 mEq/L 3.4-5.0 L K) CHLORIDE (test code = 111 mEq/L 100-108 H CL) CARBON DIOXIDE (test 23 mEq/l 21-33 N code = CO2) ANION GAP (test code = 10 0-20 N GAP) GLUCOSE (test code = 140 mg/dL 70-110 H GLU) BLOOD UREA NITROGEN 11 mg/dL 7-18 N (test code = BUN) GLOMERULAR FILTRATION 80.6 70-80 H Units of measure = RATE (test code = GFR) ml/mi n/1.73 m2 CREATININE (test code = 0.9 mg/dL 0.6-1.3 N CREAT) TOTAL PROTEIN (test 5.5 g/dL 6.4-8.2 L code = PROT) ALBUMIN (test code = 2.50 g/dL 3.4-5.0 L ALB) CALCIUM (test code = 8.2 mg/dL 8.0-10.5 N CA) BILIRUBIN TOTAL (test 1.10 mg/dL 0.0-1.0 H code = BILT) SGOT/AST (test code = 42 IUnit/L 15-37 H AST) SGPT/ALT (test code = 44 IUnit/L 30-65 N ALT) ALKALINE PHOSPHATASE 55 IUnit/L 20-125 N TOTAL (test code = ALKP) [id number] 11:39:00 Test Item Value Reference Range Interpretation Comments PHOSPHOROUS (test code = PHOS) 3.0 MG/DL 2.5-4.9 N [id number] 11:39:00 Test Item Value Reference Range Interpretation Comments TRIGLYCERIDES (test code = TRIG) 77 mg/dL 40-150 N [id number] 11:39:00 Test Item Value Reference Range Interpretation Comments MAGNESIUM (test code = MAG) 1.92 mg/dL 1.80-2.40 N [id number] 11:39:00 Test Item Value Reference Range Interpretation Comments PREALBUMIN (test code = PREALB) < 5.0 mg/dL 16.0-40.0 L CBC W/AUTO [id number] 10:25:00 Test Item Value Reference Range Interpretation Comments WHITE BLOOD CELL (test code = 12.8 x10 3/uL 4.5-11.0 H WBC) RED BLOOD CELL (test code = 2.95 x10 6/uL 4.00-5.60 L RBC) HEMOGLOBIN (test code = HGB) 9.1 g/dL 12.5-16.9 L HEMATOCRIT (test code = HCT) 27.8 % 37.5-50.7 L MEAN CELL VOLUME (test code = 94.2 fL 81.0-99.0 MCV) MEAN CELL HGB (test code = 30.8 pg 27.0-33.0 N MCH) MEAN CELL HGB CONCETRATION 32.7 g/dL 33.0-37.0 L (test code = MCHC) RED CELL DISTRIBUTION WIDTH CV 13.8 % 11.5-14.5 N (test code = RDW) RED CELL DISTRIBUTION WIDTH SD 46.6 fL 37.0-54.0 N (test code = RDW-SD) PLATELET COUNT (test code = 150 x10 3/uL 150-400 N PLT) MEAN PLATELET VOLUME (test 11.0 fL 7.0-9.0 H code = MPV) NEUTROPHIL % (test code = NT%) 78.3 % 56.0-77.0 H IMMATURE GRANULOCYTE % (test 1.9 % 0.0-2.0 N code = IG%) LYMPHOCYTE % (test code = LY%) 10.8 % 14.0-32.0 L MONOCYTE % (test code = MO%) 8.6 % 4.8-9.0 N EOSINOPHIL % (test code = EO%) 0.2 % 0.3-3.7 L BASOPHIL % (test code = BA%) 0.2 % 0.0-2.0 N NUCLEATED RBC % (test code = 0.0 % 0-0 N NRBC%) NEUTROPHIL # (test code = NT#) 10.04 x10 3/uL 2.0-7.6 H IMMATURE GRANULOCYTE # (test 0.25 x10 3/uL 0.00-0.03 H code = IG#) LYMPHOCYTE # (test code = LY#) 1.39 x10 3/uL 1.0-3.8 N MONOCYTE # (test code = MO#) 1.10 x10 3/uL 0.1-0.8 H EOSINOPHIL # (test code = EO#) 0.03 x10 3/uL 0.0-0.2 N BASOPHIL # (test code = BA#) 0.03 x10 3/uL 0.0-0.2 N NUCLEATED RBC # (test code = 0.00 x10 3/uL 0.0-0.1 N NRBC#) MANUAL DIFF REQUIRED (test NO code = MDIFF) RBC [id number] 10:25:00 Test Item Value Reference Range Interpretation Comments POIKILOCYTOSIS (test code = POIK) SLIGHT ANISOCYTOSIS (test code = ANISO) 1+ - XR ABDOMEN 1V (KUB)2021-01-29 09:44:00 [facility] 1935 Sex: M FAX: Rosario Silva [phone] [place]: St: ADM FAX: Harrison Jones NP Name: BERTIN NICOLE [facility] : 1935 Age/S: 85/M [address] [place] [address] Unit #: [id number] Loc: G.[facility] [place] [address] Phys: Harrison Jones NP Acct: [id number] Dis Date: Status: ADM IN PHONE #: [phone] Exam Date: 01/29/2021 0905FAX #: [phone] Reason: ILEUS EXAMS: CPT CODE: [id number] XR ABDOMEN 1V (KUB) [id number] PROCEDURE: ABDOMEN SINGLE VIEW INDICATION: ILEUS; . COMPARISON: Multiple priors, most recent 01/28/2021 TECHNIQUE:Supine view(s) of the abdomen and pelvis. FINDINGS: Upper abdomen is beyond the bmugr-gb-vafj. Gas within scattered normal caliber small bowel and mildly dilated colon. Redundant sigmoid colon. No pneumatosis or gross free intraperitoneal air. No soft tissue masses or pathologic calcifications. Degenerative changes of the spine. IMPRESSION: Stable mild colonic dilatation. 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 [facility] CBC W/AUTO [id number] 06:58:00 Test Item Value Reference Range Interpretation Comments WHITE BLOOD CELL (test code = 12.8 x10 3/uL 4.5-11.0 H WBC) RED BLOOD CELL (test code = 2.95 x10 6/uL 4.00-5.60 L RBC) HEMOGLOBIN (test code = HGB) 9.1 g/dL 12.5-16.9 L HEMATOCRIT (test code = HCT) 27.8 % 37.5-50.7 L MEAN CELL VOLUME (test code = 94.2 fL 81.0-99.0 MCV) MEAN CELL HGB (test code = 30.8 pg 27.0-33.0 N MCH) MEAN CELL HGB CONCETRATION 32.7 g/dL 33.0-37.0 L (test code = MCHC) RED CELL DISTRIBUTION WIDTH CV 13.8 % 11.5-14.5 N (test code = RDW) RED CELL DISTRIBUTION WIDTH SD 46.6 fL 37.0-54.0 N (test code = RDW-SD) PLATELET COUNT (test code = 150 x10 3/uL 150-400 N PLT) MEAN PLATELET VOLUME (test 11.0 fL 7.0-9.0 H code = MPV) NEUTROPHIL % (test code = NT%) 78.3 % 56.0-77.0 H IMMATURE GRANULOCYTE % (test 1.9 % 0.0-2.0 N code = IG%) LYMPHOCYTE % (test code = LY%) 10.8 % 14.0-32.0 L MONOCYTE % (test code = MO%) 8.6 % 4.8-9.0 N EOSINOPHIL % (test code = EO%) 0.2 % 0.3-3.7 L BASOPHIL % (test code = BA%) 0.2 % 0.0-2.0 N NUCLEATED RBC % (test code = 0.0 % 0-0 N NRBC%) NEUTROPHIL # (test code = NT#) 10.04 x10 3/uL 2.0-7.6 H IMMATURE GRANULOCYTE # (test 0.25 x10 3/uL 0.00-0.03 H code = IG#) LYMPHOCYTE # (test code = LY#) 1.39 x10 3/uL 1.0-3.8 N MONOCYTE # (test code = MO#) 1.10 x10 3/uL 0.1-0.8 H EOSINOPHIL # (test code = EO#) 0.03 x10 3/uL 0.0-0.2 N BASOPHIL # (test code = BA#) 0.03 x10 3/uL 0.0-0.2 N NUCLEATED RBC # (test code = 0.00 x10 3/uL 0.0-0.1 N NRBC#) MANUAL DIFF REQUIRED (test NO code = MDIFF) RBC [id number] 06:58:00 Test Item Value Reference Range Interpretation Comments ANISOCYTOSIS (test code = ANISO) CBC W/AUTO [id number] 06:58:00 Test Item Value Reference Range Interpretation Comments WHITE BLOOD CELL (test code = 12.8 x10 3/uL 4.5-11.0 H WBC) RED BLOOD CELL (test code = 2.95 x10 6/uL 4.00-5.60 L RBC) HEMOGLOBIN (test code = HGB) 9.1 g/dL 12.5-16.9 L HEMATOCRIT (test code = HCT) 27.8 % 37.5-50.7 L MEAN CELL VOLUME (test code = 94.2 fL 81.0-99.0 MCV) MEAN CELL HGB (test code = 30.8 pg 27.0-33.0 N MCH) MEAN CELL HGB CONCETRATION 32.7 g/dL 33.0-37.0 L (test code = MCHC) RED CELL DISTRIBUTION WIDTH CV 13.8 % 11.5-14.5 N (test code = RDW) RED CELL DISTRIBUTION WIDTH SD 46.6 fL 37.0-54.0 N (test code = RDW-SD) PLATELET COUNT (test code = 150 x10 3/uL 150-400 N PLT) MEAN PLATELET VOLUME (test 11.0 fL 7.0-9.0 H code = MPV) NEUTROPHIL % (test code = NT%) 78.3 % 56.0-77.0 H IMMATURE GRANULOCYTE % (test 1.9 % 0.0-2.0 N code = IG%) LYMPHOCYTE % (test code = LY%) 10.8 % 14.0-32.0 L MONOCYTE % (test code = MO%) 8.6 % 4.8-9.0 N EOSINOPHIL % (test code = EO%) 0.2 % 0.3-3.7 L BASOPHIL % (test code = BA%) 0.2 % 0.0-2.0 N NUCLEATED RBC % (test code = 0.0 % 0-0 N NRBC%) NEUTROPHIL # (test code = NT#) 10.04 x10 3/uL 2.0-7.6 H IMMATURE GRANULOCYTE # (test 0.25 x10 3/uL 0.00-0.03 H code = IG#) LYMPHOCYTE # (test code = LY#) 1.39 x10 3/uL 1.0-3.8 N MONOCYTE # (test code = MO#) 1.10 x10 3/uL 0.1-0.8 H EOSINOPHIL # (test code = EO#) 0.03 x10 3/uL 0.0-0.2 N BASOPHIL # (test code = BA#) 0.03 x10 3/uL 0.0-0.2 N NUCLEATED RBC # (test code = 0.00 x10 3/uL 0.0-0.1 N NRBC#) MANUAL DIFF REQUIRED (test NO code = MDIFF) RBC [id number] 06:58:00 Test Item Value Reference Range Interpretation Comments ANISOCYTOSIS (test code = ANISO) PROTHROMBIN [id number] 05:39:00 Test Item Value Reference Range Interpretation Comments PROTHROMBIN TIME 15.7 SECONDS 9.3-12.9 H PATIENT (test code = PTP) INTERNATIONAL NORMAL 1.4 0.8-1.2 H [employer] INR BY RATIO (test code = INDICATIO N Indication INR) INR1. 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 Mec hanical prosthetic valv es (high risk), 2. 5 - 3.5 Presence of Lup us Anticoagulant o r Antiphospholipi d Antibodies, Pre vention of systemic emb olism - Acute Myocardia l Infarction (to prevent recurrent infar ct). 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 [facility] [id number] 18:56:00 Test Item Value Reference Range Interpretation Comments GLUBED (test code = 105 MG/DL 70-110 N Performe d by certified GLUBED) 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 [facility] [id number] 15:39:00 Test Item Value Reference Range Interpretation Comments GLUBED (test code = 99 MG/DL 70-110 N Performe d by certified GLUBED) 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 [facility] [id number] 14:12:00 Test Item Value Reference Range Interpretation Comments PHOSPHOROUS (test code = PHOS) 3.2 MG/DL 2.5-4.9 N COMMENTS: Day of initiation if not already [id number] 14:12:00 Test Item Value Reference Range Interpretation Comments MAGNESIUM (test code = MAG) 1.97 mg/dL 1.80-2.40 N COMMENTS: Day of initiation if not already drawn- XR ABDOMEN 1V (KUB)2021-01-28 09:49:00[facility] 1935 Sex: M FAX: Rosario Silva [phone] [place]: St: [facility] FAX: Bunny Licea [phone] -------- Name: BERTIN NICOLE [facility] : 1935 Age/S: 85/M [address] [place] [address] Unit #: [id number] Loc: Erika.[address] [place] [address] Phys: Bunny Chong MD Acct: [id number] Dis Date: Status: ADM IN PHONE #: [phone] Exam Date: 01/28/2021 0842 FAX #: [phone] Reason: ILEUS EXAMS: CPT CODE: [id number] XR ABDOMEN 1V (KUB) [id number] Procedure: Abdominal Radiograph. Clinical Indication: Ileus. Comparison: Abdominal radiographs 01/26/2021. FINDINGS: A supine radiograph of the abdomen in 2 views demonstrates gaseous distention of the colon. No free intraperitoneal air or pathologic calcifications. Degenerative changeinvolves the thoracolumbar spine. IMPRESSION: 1. Findings which may indicate colonic ileus. SL: [id number]-H at 0992 Reported and signed by: Mervin Mendoza M.D. CC: Rosario Granados MD; Bunny Chong MD Technologist:Aida Hernandez, RT(R); Betty Kilgore RT(R) Trnscrd Date/Time/By: 01/28/2021 (0949) : By: Smita Orig Print D/T: S: 01/28/2021 (0907) PAGE 1 Signed ReportCBC W/AUTO [id number] 08:24:00 Test Item Value Reference Range Interpretation Comments WHITE BLOOD CELL (test code = 13.5 x10 3/uL 4.5-11.0 H WBC) RED BLOOD CELL (test code = 3.04 x10 6/uL 4.00-5.60 L RBC) HEMOGLOBIN (test code = HGB) 9.4 g/dL 12.5-16.9 L HEMATOCRIT (test code = HCT) 30.4 % 37.5-50.7 L MEAN CELL VOLUME (test code = 100.0 fL 81.0-99.0 H MCV) MEAN CELL HGB (test code = 30.9 pg 27.0-33.0 N MCH) MEAN CELL HGB CONCETRATION 30.9 g/dL 33.0-37.0 L (test code = MCHC) RED CELL DISTRIBUTION WIDTH CV 13.7 % 11.5-14.5 N (test code = RDW) RED CELL DISTRIBUTION WIDTH SD 49.8 fL 37.0-54.0 N (test code = RDW-SD) PLATELET COUNT (test code = 140 x10 3/uL 150-400 L PLT) MEAN PLATELET VOLUME (test 10.2 fL 7.0-9.0 H code = MPV) NEUTROPHIL % (test code = NT%) 79.9 % 56.0-77.0 H IMMATURE GRANULOCYTE % (test 2.6 % 0.0-2.0 H code = IG%) LYMPHOCYTE % (test code = LY%) 9.9 % 14.0-32.0 L MONOCYTE % (test code = MO%) 7.2 % 4.8-9.0 N EOSINOPHIL % (test code = EO%) 0.1 % 0.3-3.7 L BASOPHIL % (test code = BA%) 0.3 % 0.0-2.0 N NUCLEATED RBC % (test code = 0.0 % 0-0 N NRBC%) NEUTROPHIL # (test code = NT#) 10.80 x10 3/uL 2.0-7.6 H IMMATURE GRANULOCYTE # (test 0.35 x10 3/uL 0.00-0.03 H code = IG#) LYMPHOCYTE # (test code = LY#) 1.34 x10 3/uL 1.0-3.8 N MONOCYTE # (test code = MO#) 0.98 x10 3/uL 0.1-0.8 H EOSINOPHIL # (test code = EO#) 0.02 x10 3/uL 0.0-0.2 N BASOPHIL # (test code = BA#) 0.04 x10 3/uL 0.0-0.2 N NUCLEATED RBC # (test code = 0.00 x10 3/uL 0.0-0.1 N NRBC#) MANUAL DIFF REQUIRED (test NO code = MDIFF) BASIC METABOLIC [id number] 08:15:00 Test Item Value Reference Range Interpretation Comments SODIUM (test code = NA) 144 mEq/L 134-147 N POTASSIUM (test code = 3.5 mEq/L 3.4-5.0 N K) CHLORIDE (test code = 113 mEq/L 100-108 H CL) CARBON DIOXIDE (test 19 mEq/l 21-33 L code = CO2) ANION GAP (test code = 16 0-20 N GAP) GLUCOSE (test code = 80 mg/dL 70-110 N GLU) BLOOD UREA NITROGEN 13 mg/dL 7-18 (test code = BUN) GLOMERULAR FILTRATION 71.4 70-80 N Units of measure = RATE (test code = GFR) ml/mi n/1.73 m2 CREATININE (test code = 1.0 mg/dL 0.6-1.3 N CREAT) CALCIUM (test code = 8.2 mg/dL 8.0-10.5 N CA) THROMBOPLASTIN TIME [id number] 06:07:00 Test Item Value Reference Range Interpretation Comments THROMBOPLASTIN TIME 28.8 Seconds 25.0-39.5 N Therape utic Range: PARTIAL (test code = 50.4 - 88.3 Seconds PTT) Effective 02/16/2019 [id number] 18:04:00 Test Item Value Reference Range Interpretation Comments GLUBED (test code = 81 MG/DL 70-110 N Performe d by certified GLUBED) 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 [facility] CBC W/AUTO [id number] 09:50:00 Test Item Value Reference Range Interpretation Comments WHITE BLOOD CELL (test code = 12.9 x10 3/uL 4.5-11.0 H WBC) RED BLOOD CELL (test code = 3.40 x10 6/uL 4.00-5.60 L RBC) HEMOGLOBIN (test code = HGB) 10.4 g/dL 12.5-16.9 L HEMATOCRIT (test code = HCT) 33.9 % 37.5-50.7 L MEAN CELL VOLUME (test code = 99.7 fL 81.0-99.0 H MCV) MEAN CELL HGB (test code = MCH) 30.6 pg 27.0-33.0 N MEAN CELL HGB CONCETRATION 30.7 g/dL 33.0-37.0 L (test code = MCHC) RED CELL DISTRIBUTION WIDTH CV 13.7 % 11.5-14.5 N (test code = RDW) RED CELL DISTRIBUTION WIDTH SD 50.0 fL 37.0-54.0 N (test code = RDW-SD) PLATELET COUNT (test code = 146 x10 3/uL 150-400 L PLT) MEAN PLATELET VOLUME (test code 10.5 fL 7.0-9.0 H = MPV) MANUAL DIFF REQUIRED (test code YES = MDIFF) WBC [id number] 09:50:00 Test Item Value Reference Range Interpretation Comments SEGMENTED NEUTROPHILS (test 89.9 % 37-69 H code = SEG) BAND NEUTROPHIL (test code = 0.0 % 0.0-10.0 N BAND) LYMPHOCYTE (test code = 3.7 % 23-55 L LYMPH) MONOCYTE (test code = MON) 3.7 % 0-10 N METAMYELOCYTE (test code = 0.9 % 0.0-0.0 H META) MYELOCYTE (test code = 0.9 % 0.0-0.0 H MYELO) PROMYELOCYTE (test code = 0.9 % 0-0 H PROM) POLYCHROMASIA (test code = 2+ POLC) POIKILOCYTOSIS (test code = 2+ POIK) CRENATED CELLS (test code = 2+ CREN) ACANTHOCYTES (test code = 1+ NONE ACAN) OVALOCYTES (test code = 1+ OVAL) PLATELET ESTIMATE (test code 120-150 THOUSAND ADEQUATE = PLTEST) PLATELET MORPHOLOGY (test LARGE PLATELETS code = PLTMORPH) CBC W/AUTO [id number] 09:43:00 Test Item Value Reference Range Interpretation Comments WHITE BLOOD CELL (test code = 12.9 x10 3/uL 4.5-11.0 H WBC) RED BLOOD CELL (test code = 3.40 x10 6/uL 4.00-5.60 L RBC) HEMOGLOBIN (test code = HGB) 10.4 g/dL 12.5-16.9 L HEMATOCRIT (test code = HCT) 33.9 % 37.5-50.7 L MEAN CELL VOLUME (test code = 99.7 fL 81.0-99.0 H MCV) MEAN CELL HGB (test code = MCH) 30.6 pg 27.0-33.0 N MEAN CELL HGB CONCETRATION 30.7 g/dL 33.0-37.0 L (test code = MCHC) RED CELL DISTRIBUTION WIDTH CV 13.7 % 11.5-14.5 N (test code = RDW) RED CELL DISTRIBUTION WIDTH SD 50.0 fL 37.0-54.0 N (test code = RDW-SD) PLATELET COUNT (test code = 146 x10 3/uL 150-400 L PLT) MEAN PLATELET VOLUME (test code 10.5 fL 7.0-9.0 H = MPV) MANUAL DIFF REQUIRED (test code YES = MDIFF) WBC [id number] 09:43:00 Test Item Value Reference Range Interpretation Comments BAND NEUTROPHIL (test code = BAND) % 0.0-10.0 ANISOCYTOSIS (test code = ANISO) PLATELET ESTIMATE (test code = THOUSAND ADEQUATE PLTEST) CBC W/AUTO [id number] 09:43:00 Test Item Value Reference Range Interpretation Comments WHITE BLOOD CELL (test code = 12.9 x10 3/uL 4.5-11.0 H WBC) RED BLOOD CELL (test code = 3.40 x10 6/uL 4.00-5.60 L RBC) HEMOGLOBIN (test code = HGB) 10.4 g/dL 12.5-16.9 L HEMATOCRIT (test code = HCT) 33.9 % 37.5-50.7 L MEAN CELL VOLUME (test code = 99.7 fL 81.0-99.0 H MCV) MEAN CELL HGB (test code = MCH) 30.6 pg 27.0-33.0 N MEAN CELL HGB CONCETRATION 30.7 g/dL 33.0-37.0 L (test code = MCHC) RED CELL DISTRIBUTION WIDTH CV 13.7 % 11.5-14.5 N (test code = RDW) RED CELL DISTRIBUTION WIDTH SD 50.0 fL 37.0-54.0 N (test code = RDW-SD) PLATELET COUNT (test code = 146 x10 3/uL 150-400 L PLT) MEAN PLATELET VOLUME (test code 10.5 fL 7.0-9.0 H = MPV) MANUAL DIFF REQUIRED (test code YES = MDIFF) WBC [id number] 09:43:00 Test Item Value Reference Range Interpretation Comments BAND NEUTROPHIL (test code = BAND) % 0.0-10.0 ANISOCYTOSIS (test code = ANISO) PLATELET ESTIMATE (test code = THOUSAND ADEQUATE PLTEST) BASIC METABOLIC [id number] 07:57:00 Test Item Value Reference Range Interpretation Comments SODIUM (test code = NA) 144 mEq/L 134-147 N POTASSIUM (test code = 3.8 mEq/L 3.4-5.0 N K) CHLORIDE (test code = 111 mEq/L 100-108 H CL) CARBON DIOXIDE (test 21 mEq/l 21-33 N code = CO2) ANION GAP (test code = 16 0-20 N GAP) GLUCOSE (test code = 75 mg/dL 70-110 N GLU) BLOOD UREA NITROGEN 21 mg/dL 7-18 H (test code = BUN) GLOMERULAR FILTRATION 63.9 70-80 L Units of measure = RATE (test code = GFR) ml/mi n/1.73 m2 CREATININE (test code = 1.1 mg/dL 0.6-1.3 N CREAT) CALCIUM (test code = 8.5 mg/dL 8.0-10.5 N CA) [id number] 07:57:00 Test Item Value Reference Range Interpretation Comments MAGNESIUM (test code = MAG) 1.95 mg/dL 1.80-2.40 N TOTAL IRON BINDING [id number] 07:57:00 Test Item Value Reference Range Interpretation Comments SERUM IRON (test code = IRON) 15 mcg/dL 35-150 L TOTAL IRON BINDING CAPACITY (test 159 mcg/dL 260-445 L code = TIBC) UIBC (test code = UIBC) 144 mcg/dL IRON SATURATION (test code = 9.4 % 14-34 L FESAT) VITAMIN [id number] 07:57:00 Test Item Value Reference Range Interpretation Comments VITAMIN B12 (test code = VITB12) 1113 pg/mL 193-986 H [id number] 07:57:00 Test Item Value Reference Range Interpretation Comments FERRITIN (test code = ROXANA) 620.4 ng/mL 23.9-336.2 H - XR ABDOMEN 1V (KUB)2021-01-27 07:55:00 [facility] : 1935 Sex: M FAX: Rosario Silva [phone] [place]: St: ADM FAX: Pratik Crain MD [phone] --------- Name: BERTIN NICOLE [facility] : 1935 Age/S: 85/M [address] [place] [address] Unit #: [id number] Loc: G.[address] [place] [address] Phys: Pratik Addison MD Acct: [id number] Dis Date: Status: ADM IN PHONE #: [phone] ExamDate: 01/27/2021 0743 FAX #: [phone] Reason: ILEUS EXAMS: CPT CODE: [id number] XR ABDOMEN 1V (KUB) 33718 STUDY: - XR ABDOMEN 1V (KUB) 01/27/2021 5:00 AM Ordering Physician: Pratik Addison MD Patient Name: BERTIN NICOLE MR: [id number] : 1935; Age: 85 years y/o Male Clinical Indication: ILEUSComparison: January 26, 2021 x- ray Bowel gas: Multiple dilated large and small bowel loops consistent with ileus. General: No organomegaly, mass lesions, or suspicious abnormal calcifications. Lung bases: No significant abnormality.. 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 Osseous structures: Mild spinal degenerative change without fracture, dislocation, or focal osseous lesion. IMPRESSION: Multiple dilated large and small bowel loops consistent with ileus. SL: [id number] PAGE 1 SignedReport (CONTINUED) FAX: Rosario Martinez [phone] [place]: St: ADM FAX: Pratik Crain MD [phone] Name: BERTIN NICOLE [facility] [place] : 1935 Age/S: 85/M [address] [place] [address] Unit #: [id number]: ErikaOscar3355 [place] [address] Phys: Pratik Addison MD Acct: [id number] Dis Date: Status: ADM INPHONE #: [phone] Exam Date: 01/27/2021 0743 FAX #: [phone] Reason: ILEUS EXAMS: CPT CODE:[id number] XR ABDOMEN 1V (KUB) 19048 (Continued) at 0755 Reported and signed by: Clement Katz M.D. CC: Rosario Granados MD; Pratik Addison MD Technologist: Marcy Hendrix, RT(R); Aida Hernandez RT(R) [facility] Date/Time/By: 01/27/2021 (0755) : By: [email or web address] Orig Print D/T: S: 01/27/2021 (0758) PAGE 2 Signed ReportCBC W/AUTO DIFF 2021-01-27 06:40:00 Test Item Value Reference Range Interpretation Comments WHITE BLOOD CELL (test code = 12.9 x10 3/uL 4.5-11.0 H WBC) RED BLOOD CELL (test code = 3.40 x10 6/uL 4.00-5.60 L RBC) HEMOGLOBIN (test code = HGB) 10.4 g/dL 12.5-16.9 L HEMATOCRIT (test code = HCT) 33.9 % 37.5-50.7 L MEAN CELL VOLUME (test code = 99.7 fL 81.0-99.0 H MCV) MEAN CELL HGB (test code = MCH) 30.6 pg 27.0-33.0 N MEAN CELL HGB CONCETRATION 30.7 g/dL 33.0-37.0 L (test code = MCHC) RED CELL DISTRIBUTION WIDTH CV 13.7 % 11.5-14.5 N (test code = RDW) RED CELL DISTRIBUTION WIDTH SD 50.0 fL 37.0-54.0 N (test code = RDW-SD) PLATELET COUNT (test code = 146 x10 3/uL 150-400 L PLT) MEAN PLATELET VOLUME (test code 10.5 fL 7.0-9.0 H = MPV) NEUTROPHIL % (test code = NT%) % 56.0-77.0 LYMPHOCYTE % (test code = LY%) % 14.0-32.0 NEUTROPHIL # (test code = NT#) x10 3/uL 2.0-7.6 LYMPHOCYTE # (test code = LY#) x10 3/uL 1.0-3.8 MANUAL DIFF REQUIRED (test code = MDIFF) THROMBOPLASTIN TIME [id number] 05:09:00 Test Item Value Reference Range Interpretation Comments THROMBOPLASTIN TIME 29.7 Seconds 25.0-39.5 N Therape utic Range: PARTIAL (test code = 50.4 - 88.3 Seconds PTT) Effective 02/16/2019 - XR ABDOMEN 1V (KUB)2021-01-26 08:41:00 [facility] : 1935 Sex: M FAX: Rosario Silva [phone] [place]: St: ADM FAX: Pratik Crain MD [phone] --------- Name: BERTIN NICOLE [facility] [place] : 1935 Age/S: 85/M [address] [place] [address] Unit #: [id number] Loc: [address] [address] Phys: Pratik Addison MD Acct: [id number] Dis Date: Status: ADM IN PHONE #: [phone] Exam Date: 01/26/2021 0600 FAX #: [phone] Reason: ABD DISTENTION EXAMS: CPT CODE: [id number] XR ABDOMEN 1V (KUB) 57603 CLINICAL HISTORY: Abdominal distention. COMPARISON: January 25, 2021 epidural catheter. Examination of the abdomen is available in 3 images. Several small and large bowel loops are present in nonspecific manner. Findings are compatible with those of ileus. There have not changed significantly since previous examination performed on January 25, 2021. IMPRESSION: Distended small or large bowel loops compatible with ileus, unchanged since previous examination. at 0841 Reported and signed by: Domingo Cha M.D. CC: Rosario Granados MD; Pratik Addison MD Technologist: Em Pruett, RT(R)(M); Ilene Cowan RT(R) [facility] Date/Time/By: 01/26/2021 (0841) : By: Jared Orig Print D/T: S: 01/26/2021 (0857) PAGE 1 Signed ReportBASIC METABOLIC [id number] 05:05:00 Test Item Value Reference Range Interpretation Comments SODIUM (test code = NA) 141 mEq/L 134-147 N POTASSIUM (test code = 3.9 mEq/L 3.4-5.0 N K) CHLORIDE (test code = 111 mEq/L 100-108 H CL) CARBON DIOXIDE (test 22 mEq/l 21-33 N code = CO2) ANION GAP (test code = 12 0-20 N GAP) GLUCOSE (test code = 99 mg/dL 70-110 N GLU) BLOOD UREA NITROGEN 17 mg/dL 7-18 N (test code = BUN) GLOMERULAR FILTRATION 71.4 70-80 N Units of measure = RATE (test code = GFR) ml/mi n/1.73 m2 CREATININE (test code = 1.0 mg/dL 0.6-1.3 N CREAT) CALCIUM (test code = 8.1 mg/dL 8.0-10.5 N CA) [id number] 05:05:00 Test Item Value Reference Range Interpretation Comments MAGNESIUM (test code = MAG) 1.76 mg/dL 1.80-2.40 L THROMBOPLASTIN TIME [id number] 05:00:00 Test Item Value Reference Range Interpretation Comments THROMBOPLASTIN TIME 32.1 Seconds 25.0-39.5 N Therape utic Range: PARTIAL (test code = 50.4 - 88.3 Seconds PTT) Effective 02/16/2019 CBC W/AUTO [id number] 04:53:00 Test Item Value Reference Range Interpretation Comments WHITE BLOOD CELL (test code = 9.9 x10 3/uL 4.5-11.0 N WBC) RED BLOOD CELL (test code = 3.01 x10 6/uL 4.00-5.60 L RBC) HEMOGLOBIN (test code = HGB) 9.3 g/dL 12.5-16.9 L HEMATOCRIT (test code = HCT) 29.2 % 37.5-50.7 L MEAN CELL VOLUME (test code = 97.0 fL 81.0-99.0 N MCV) MEAN CELL HGB (test code = MCH) 30.9 pg 27.0-33.0 N MEAN CELL HGB CONCETRATION 31.8 g/dL 33.0-37.0 L (test code = MCHC) RED CELL DISTRIBUTION WIDTH CV 13.6 % 11.5-14.5 N (test code = RDW) RED CELL DISTRIBUTION WIDTH SD 48.7 fL 37.0-54.0 N (test code = RDW-SD) PLATELET COUNT (test code = 140 x10 3/uL 150-400 L PLT) MEAN PLATELET VOLUME (test code 10.1 fL 7.0-9.0 H = MPV) NEUTROPHIL % (test code = NT%) 71.1 % 56.0-77.0 N IMMATURE GRANULOCYTE % (test 4.6 % 0.0-2.0 H code = IG%) LYMPHOCYTE % (test code = LY%) 14.0 % 14.0-32.0 N MONOCYTE % (test code = MO%) 9.5 % 4.8-9.0 H EOSINOPHIL % (test code = EO%) 0.5 % 0.3-3.7 N BASOPHIL % (test code = BA%) 0.3 % 0.0-2.0 N NUCLEATED RBC % (test code = 0.0 % 0-0 N NRBC%) NEUTROPHIL # (test code = NT#) 7.03 x10 3/uL 2.0-7.6 N IMMATURE GRANULOCYTE # (test 0.46 x10 3/uL 0.00-0.03 H code = IG#) LYMPHOCYTE # (test code = LY#) 1.39 x10 3/uL 1.0-3.8 N MONOCYTE # (test code = MO#) 0.94 x10 3/uL 0.1-0.8 H EOSINOPHIL # (test code = EO#) 0.05 x10 3/uL 0.0-0.2 N BASOPHIL # (test code = BA#) 0.03 x10 3/uL 0.0-0.2 N NUCLEATED RBC # (test code = 0.00 x10 3/uL 0.0-0.1 N NRBC#) MANUAL DIFF REQUIRED (test code NO = MDIFF) THROMBOPLASTIN TIME [id number] 13:39:00 Test Item Value Reference Range Interpretation Comments THROMBOPLASTIN TIME 30.3 Seconds 25.0-39.5 N Therape utic Range: PARTIAL (test code = 50.4 - 88.3 Seconds PTT) Effective 02/16/2019 - XR ABDOMEN 1V ([place])2021-01-25 10:11:00 [facility] : 1935 Sex: M FAX: Rosario Martinez [phone] [place]: St: ADM FAX: Pratik Crain MD [phone] -------- Name: BERTIN NICOLE [facility] Frederic Figueredo : 1935 Age/S: 85/M [address] [place] [address] Unit #: [id number] Loc: G.[facility] [place] [address] Phys: Pratik Addison MD Acct: [id number] Dis Date: Status: ADM IN PHONE #: [phone] ExamDate: 01/25/2021 0617 FAX #: [phone] Reason: ILEUS EXAMS: CPT CODE: [id number] XR ABDOMEN 1V (KUB) 81052 EXAMINATION: Portable AP abdomen. Exam Date: 01/25/2021 0500 hours CLINICAL HISTORY: ILEUS COMPARISON: January 24, 2021 1355 hours Diffuse dilatation of both small and large bowel is noted. There does appear to be air in the descending colon. The stomach is no longer dilated. No free air is visualized. No significant bowel wall thickening is noted. No abnormal intra-abdominal calcifications are identified. Imaged osseous structures are unchanged. IMPRESSION: Dilated large and small bowel mostconsistent with ileus. at 1011 Reported and signed by: Addie Weldon M.D. CC: Rosario Granados MD; Pratik Addison MDTechnologist: Ilene Cowan, RT(R); Maryam Pate, RT(R) Trnscrd Date/Time/By: 01/25/2021 (101) :By: Jennifer Orig Print D/T: S: 01/25/2021 (1014) PAGE 1 Signed ReportCOMPREHENSIVE METABOLIC [id number] 04:42:00 Test Item Value Reference Range Interpretation Comments SODIUM (test code = NA) 139 mEq/L 134-147 N POTASSIUM (test code = 3.9 mEq/L 3.4-5.0 N K) CHLORIDE (test code = 110 mEq/L 100-108 H CL) CARBON DIOXIDE (test 20 mEq/l 21-33 L code = CO2) ANION GAP (test code = 13 0-20 N GAP) GLUCOSE (test code = 125 mg/dL 70-110 H GLU) BLOOD UREA NITROGEN 15 mg/dL 7-18 N (test code = BUN) GLOMERULAR FILTRATION 71.4 70-80 N Units of measure = RATE (test code = GFR) ml/mi n/1.73 m2 CREATININE (test code = 1.0 mg/dL 0.6-1.3 N CREAT) TOTAL PROTEIN (test 5.2 g/dL 6.4-8.2 L code = PROT) ALBUMIN (test code = 2.70 g/dL 3.4-5.0 L ALB) CALCIUM (test code = 8.1 mg/dL 8.0-10.5 N CA) BILIRUBIN TOTAL (test 1.20 mg/dL 0.0-1.0 H code = BILT) SGOT/AST (test code = 44 IUnit/L 15-37 H AST) SGPT/ALT (test code = 52 IUnit/L 30-65 N ALT) ALKALINE PHOSPHATASE 54 IUnit/L 20-125 N TOTAL (test code = ALKP) CBC W/AUTO [id number] 04:27:00 Test Item Value Reference Range Interpretation Comments WHITE BLOOD CELL (test code = 12.6 x10 3/uL 4.5-11.0 H WBC) RED BLOOD CELL (test code = 3.11 x10 6/uL 4.00-5.60 L RBC) HEMOGLOBIN (test code = HGB) 9.6 g/dL 12.5-16.9 L HEMATOCRIT (test code = HCT) 30.0 % 37.5-50.7 L MEAN CELL VOLUME (test code = 96.5 fL 81.0-99.0 N MCV) MEAN CELL HGB (test code = MCH) 30.9 pg 27.0-33.0 N MEAN CELL HGB CONCETRATION 32.0 g/dL 33.0-37.0 L (test code = MCHC) RED CELL DISTRIBUTION WIDTH CV 13.6 % 11.5-14.5 N (test code = RDW) RED CELL DISTRIBUTION WIDTH SD 47.8 fL 37.0-54.0 N (test code = RDW-SD) PLATELET COUNT (test code = 178 x10 3/uL 150-400 N PLT) MEAN PLATELET VOLUME (test code 9.8 fL 7.0-9.0 H = MPV) NEUTROPHIL % (test code = NT%) 73.1 % 56.0-77.0 N IMMATURE GRANULOCYTE % (test 4.0 % 0.0-2.0 H code = IG%) LYMPHOCYTE % (test code = LY%) 14.1 % 14.0-32.0 N MONOCYTE % (test code = MO%) 8.3 % 4.8-9.0 N EOSINOPHIL % (test code = EO%) 0.3 % 0.3-3.7 N BASOPHIL % (test code = BA%) 0.2 % 0.0-2.0 N NUCLEATED RBC % (test code = 0.0 % 0-0 N NRBC%) NEUTROPHIL # (test code = NT#) 9.24 x10 3/uL 2.0-7.6 H IMMATURE GRANULOCYTE # (test 0.50 x10 3/uL 0.00-0.03 H code = IG#) LYMPHOCYTE # (test code = LY#) 1.78 x10 3/uL 1.0-3.8 N MONOCYTE # (test code = MO#) 1.05 x10 3/uL 0.1-0.8 H EOSINOPHIL # (test code = EO#) 0.04 x10 3/uL 0.0-0.2 N BASOPHIL # (test code = BA#) 0.03 x10 3/uL 0.0-0.2 N NUCLEATED RBC # (test code = 0.00 x10 3/uL 0.0-0.1 N NRBC#) MANUAL DIFF REQUIRED (test code NO = MDIFF) CBC W/AUTO [id number] 04:26:00 Test Item Value Reference Range Interpretation Comments WHITE BLOOD CELL (test code = x10 3/uL 4.5-11.0 WBC) RED BLOOD CELL (test code = RBC) x10 6/uL 4.00-5.60 HEMOGLOBIN (test code = HGB) g/dL 12.5-16.9 HEMATOCRIT (test code = HCT) % 37.5-50.7 MEAN CELL VOLUME (test code = fL 81.0-99.0 MCV) MEAN CELL HGB (test code = MCH) pg 27.0-33.0 MEAN CELL HGB CONCETRATION (test g/dL 33.0-37.0 code = MCHC) RED CELL DISTRIBUTION WIDTH CV % 11.5-14.5 (test code = RDW) PLATELET COUNT (test code = PLT) 178 x10 3/uL 150-400 N NEUTROPHIL % (test code = NT%) % 56.0-77.0 LYMPHOCYTE % (test code = LY%) % 14.0-32.0 NEUTROPHIL # (test code = NT#) x10 3/uL 2.0-7.6 LYMPHOCYTE # (test code = LY#) x10 3/uL 1.0-3.8 MANUAL DIFF REQUIRED (test code = MDIFF) - DUP VEIN UNI/[id number] 23:57:00 [facility] 1935 Sex: M Name: BERTIN NICOLE [facility] : 1935 Age/S: 85 / M [address] [place] [address] Unit #: [id number] Loc: [place] [address] Phys: Danica Vital Acct: [id number] Dis Date: Status: ADM IN PHONE #: [phone] Exam Date: 01/24/20211918 FAX #: [phone] Reason: swelling/redness RUE EXAMS: CPT CODE: [id number] DUP VEIN UNI/LTD 77963 UNILATERAL UPPER EXTREMITY VENOUS ULTRASOUND DATED 01/24/2021 INDICATION: Right upper extremity swelling and redness. COMPARISON: None. TECHNIQUE: Sonographicevaluation of the right upper extremity veins was performed using high resolution B-mode imaging, pulse and color Doppler imaging. FINDINGS: The right internal jugular, subclavian, axillary, brachial and basilic veins are widely patent without evidence of intraluminal thrombus. The cephalic vein in the forearm is enlarged, noncompressible, contains echogenic intraluminal material and demonstrates dimi nished flow on color Doppler compatible with venous thrombosis. Normal compressibility of the radialand ulnar veins is demonstrated in the proximal forearm. IMPRESSION: 1. Sonographic findings compatible with venous thrombosis of the cephalic vein in the right forearm. The venous structures of the right upper extremity above the elbow are widely patent without evidence of intraluminal thrombus. Report called to patient's nurse on 01/24/2021 at 11:55 PM. SL: 131 at 2422 Reported and signed by: Amish Perry M.D. CC: Danica Vital; Rosario Granados MD Technologist: Tammie Aldana RDMS(AB) Trnscb Date/Time: 01/24/2021 (728) Aubrie Orig Print D/T: S: 01/25/2021 (0001) Probe: PAGE 1 Signed Report- XR FLUOROSCOPY 0-60 [id number] 18:59:00[facility] : 1935 Sex: M FAX: Rosario Silva [phone] [place]: St: [facility] FAX: Mary Brooks [phone] Name: BERTIN NICOLE [facility] [place] : 1935 Age/S: 85/M [address] [place] [address] Unit #: [id number] Loc: G.[address] [place] [address] Phys: Vickie Brooks NP Acct: [id number] Dis Date: Status: ADM IN PHONE #: [phone] Date: 01/24/20211835 FAX #: [phone] Reason: ILEUS, NG TUBE PLACEMENT EXAMS: CPT CODE: [id number] XR FLUOROSCOPY 0-60 MIN 81336 Unsuccessful NG tube placement under fluoroscopy guidance HISTORY: Ileus. PROCEDURE: Multiple unsuccessful attempts were made under fluoroscopy guidance to pass the NG tube. 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 No tube was placed. TECHNICAL: Fluoroscopic time was 4.7 minutes. Reference Air Kerma Dose 41.9 mGy. IMPRESSION: 1. Unsuccessful NG tube placement as described above. 2. No complications. at 1859 Reported and signed by: Bon Gomez D.O. CC: Rosario Granados MD; Vickie Brooks NP Technologist: Susy Figueroa RT(R)(M); Ty Ferguson, RT(R); ... Trnscrd Date/Time/By: 01/24/2021 (1858) : By: [email or web address] Orig Print D/T: S: 01/24/2021 (1902) PAGE 1 Signed Report- XR ABDOMEN 1V (KUB)2021-01-24 14:59:00 [facility] 1935 Sex: M FAX: Rosario Silva [phone] [place]: St: ADM FAX: Pratik Crain MD [phone] -------- Name: BERTIN NICOLE [facility] : 1935 Age/S: 85/M [address] [place] [address] Unit #: [id number] Loc: G.[address] [place] [address] Phys: Pratik Addison MD Acct: [id number] Dis Date: Status: ADM IN PHONE #: [phone] Exam Date: 01/24/2021 1434 FAX #: [phone] Reason: ABD DISTENTION EXAMS: CPT CODE: [id number] XR ABDOMEN 1V (KUB) 56513 PROCEDURE: ABDOMEN SINGLE VIEW INDICATION: ABD DISTENTION; . COMPARISON: Multiplepriors, most recent 01/24/2021 at 0457 hours TECHNIQUE: Supine view(s) of the abdomen and pelvis. FINDINGS: The stomach is mildly distended with gas. Mild diffuse dilatation of small and large bowel, similar to earlier the same day. No pneumatosis or gross free intraperitoneal air. No gross soft tissue masses. Multilevel degenerative change of the spine. IMPRESSION: Findings compatible with ileus. Degree of bowel dilatation stable from earlier today. SL: [id number] at 4209 Reported and signed by: Clarke Joshi M.D. CC: Rosario Granados MD; Pratik Addison MD Technologist: RT Gonsalo(R) Trnscrd Date/Time/By: 01/24/2021 (0638) : By: Tyson Orig Print D/T: S: 01/24/2021 (9478) PAGE 1 Signed ReportUA RFLX MICR CULT IF [id number] 12:22:00 Test Item Value Reference Range Interpretation Comments UA COLOR (test code = COLU) RIGO YEL/STRAW A UA APPEARANCE (test code = CLOUDY CLEAR A APPU) UA GLUCOSE DIPSTICK (test code NEGATIVE NEGATIVE = DGLUU) UA BILIRUBIN DIPSTICK (test NEGATIVE NEGATIVE code = BILU) UA KETONE DIPSTICK (test code = NEGATIVE NEGATIVE KETU) UA SPECIFIC GRAVITY (test code 1.026 1.005-1.030 N = SGU) UA BLOOD DIPSTICK (test code = 2+ NEGATIVE A REID) UA PH DIPSTICK (test code = 5.0 5.0-7.0 N BEN) UA PROTEIN DIPSTICK (test code 1+ NEGATIVE A = PROU) UA UROBILINIOGEN DIPSTICK (test 4.0 mg/dL 0.2-1.0 A code = URO) UA NITRITE DIPSTICK (test code NEGATIVE NEGATIVE = EDUARD) UA LEUKOCYTE ESTERASE DIPSTICK NEGATIVE NEGATIVE (test code = LEUU) UA WBC (test code = WBCU) 4-9 WBC/HPF 0-3 A UA RBC (test code = RBCU) 11-20 RBC/HPF 0-3 UA WBC NO REFLEX (test code = 4-9 WBC/HPF 0-3 A WBCUCL) UA BACTERIA (test code = BACU) 1+ /HPF NONE SEEN A UA SQUAMOUS CELLS (test code = 0-5 /HPF NONE SEEN SQU) UA HYALINE CAST (test code = 6-10 /LPF NONE SEEN HYALU) UA MUCUS (test code = MUCU) 4+ /LPF NONE SEEN A UA AMORPHOUS SEDIMENT (test TRACE /HPF NONE code = AMORU) Cath type: Temporary/indwellingIN date: 01/19/21IN time: 1245DC date: 01/22/21DC time: 0Elapse time: 63 Hrs 15 MinsIndication for culture: RiskForSepsis-no oth srcSpecimen Description: CLEAN CATCH- XR ABDOMEN 1V (KUB)2021-01-24 09:52:00 [facility] 1935 Sex: M FAX: Rosario Martinez [phone] [place]: St: [facility] FAX: Pratik Crain MD [phone] -------- Name: BERTIN NICOLE [facility] : 1935 Age/S: 85/M [address] [place] [address] Unit #: [id number] Loc: [id number] [place] [address] Phys: Pratik Addison MD Acct: [id number] Dis Date: Status: ADM IN PHONE #: [phone] ExamDate: 01/24/2021535 FAX #: [phone] Reason: ILEUS EXAMS: CPT CODE: [id number] XR ABDOMEN 1V (KUB) 12915 EXAMINATION: AP abdomen x-ray in 2 images Exam Date: 01/24/2021 0457 hours CLINICAL HISTORY:ILEUS COMPARISON: January 23, 2021 0432 hours Mildly dilated loops of bowel are again identified. Bowel loops measure approximately 3.7 to 4.1 cm. There does appear to be air in the transverse colon. No air is identified in the rectal region at this time. No free air is identified. Degenerative changes are identified in the lumbar spine. IMPRESSION: Dilated loops of small bowel with air in the colon issuggestive of ileus. The findings appears slightly more prominent than on the prior exam. at 0952 Reported and signed by: Addie Weldon M.D. CC: Rosario Granados MD; Pratik Addison MD Technologist: Ilene Cowan, RT(R); Maryam Pate RT(R) Trnscrd Date/Time/By: 01/24/2021 (0952) : By: CathyCER Orig Print D/T: S: 01/24/2021 (0955) PAGE 1 Signed Report- XR CHEST 1 [id number] 08:19:00 [facility] : 1935 Sex: M FAX: Rosario Silva [phone] [place]: St: ADM FAX: Lawanda Grimes NP [phone] Name: BERTIN NICOLE [facility] : 1935 Age/S: 85/M [address] [place] [address] Unit #: [id number] Loc: [id number] [place] [address] Phys: Lawanda Grimes NP Acct: [id number] Dis Date: Status: ADM IN PHONE #: [phone] Exam Date: 2020 FAX #: [phone] Reason: follow up s/p MVR EXAMS: CPT CODE: [id number] XR CHEST 1 V 60008 Clinical Indication: Mitral valve regurgitation. Comparison: 01/22/2021. Impression: Chest, single view. Prior median sternotomy and mitral valve replacement. Cardiomegaly and bilateral pleural effusions with overlying atelectasis or infiltrate, similar to prior. No pneumothorax. Osseous structures are unchanged. SL: [id number] at 0819 Reported and signed by: Bhargavi Meier M.D. CC: Rosario Granados MD; Lawanda Grimes NP Technologist: Ilene Cowan, RT(R); Maryam Pate RT(R) [facility] Date/Time/By: 01/24/2021 (818) : By: [email or web address] Orig Print D/T: S: 01/24/2021 (4248) PAGE 1 Signed ReportCBC W/AUTO [id number] 05:27:00 Test Item Value Reference Range Interpretation Comments WHITE BLOOD CELL 13.2 x10 3/uL 4.5-11.0 H (test code = WBC) RED BLOOD CELL (test 3.14 x10 6/uL 4.00-5.60 L code = RBC) HEMOGLOBIN (test code 9.8 g/dL 12.5-16.9 L = HGB) HEMATOCRIT (test code 29.5 % 37.5-50.7 L = HCT) MEAN CELL VOLUME 93.9 fL 81.0-99.0 N (test code = MCV) MEAN CELL HGB (test 31.2 pg 27.0-33.0 N code = MCH) MEAN CELL HGB 33.2 g/dL 33.0-37.0 N CONCETRATION (test code = MCHC) RED CELL DISTRIBUTION 13.7 % 11.5-14.5 N WIDTH CV (test code = RDW) RED CELL DISTRIBUTION 47.1 fL 37.0-54.0 N WIDTH SD (test code = RDW-SD) PLATELET COUNT (test 225 x10 3/uL 150-400 N code = PLT) MEAN PLATELET VOLUME 9.8 fL 7.0-9.0 H (test code = MPV) NEUTROPHIL % (test 74.2 % 56.0-77.0 N code = NT%) IMMATURE GRANULOCYTE 4.0 % 0.0-2.0 H % (test code = IG%) LYMPHOCYTE % (test 12.4 % 14.0-32.0 L code = LY%) MONOCYTE % (test code 8.6 % 4.8-9.0 N = MO%) EOSINOPHIL % (test 0.6 % 0.3-3.7 N code = EO%) BASOPHIL % (test code 0.2 % 0.0-2.0 N = BA%) NUCLEATED RBC % (test 0.0 % 0-0 N code = NRBC%) NEUTROPHIL # (test 9.77 x10 3/uL 2.0-7.6 H code = NT#) IMMATURE GRANULOCYTE 0.53 x10 3/uL 0.00-0.03 H # (test code = IG#) LYMPHOCYTE # (test 1.64 x10 3/uL 1.0-3.8 N code = LY#) MONOCYTE # (test code 1.14 x10 3/uL 0.1-0.8 H = MO#) EOSINOPHIL # (test 0.08 x10 3/uL 0.0-0.2 N code = EO#) BASOPHIL # (test code 0.03 x10 3/uL 0.0-0.2 N = BA#) NUCLEATED RBC # (test 0.00 x10 3/uL 0.0-0.1 N code = NRBC#) MANUAL DIFF REQUIRED NO SLIDE R EVJORGEWED, (test code = MDIFF) CONSISTE NT WITH AUTO DIFF. BASIC METABOLIC [id number] 04:23:00 Test Item Value Reference Range Interpretation Comments SODIUM (test code = NA) 136 mEq/L 134-147 N POTASSIUM (test code = 3.4 mEq/L 3.4-5.0 N K) CHLORIDE (test code = 110 mEq/L 100-108 H CL) CARBON DIOXIDE (test 20 mEq/l 21-33 L code = CO2) ANION GAP (test code = 10 0-20 N GAP) GLUCOSE (test code = 133 mg/dL 70-110 H GLU) BLOOD UREA NITROGEN 14 mg/dL 7-18 (test code = BUN) GLOMERULAR FILTRATION 71.4 70-80 N Units of measure = RATE (test code = GFR) ml/mi n/1.73 m2 CREATININE (test code = 1.0 mg/dL 0.6-1.3 N CREAT) CALCIUM (test code = 8.1 mg/dL 8.0-10.5 N CA) [id number] 04:23:00 Test Item Value Reference Range Interpretation Comments MAGNESIUM (test code = MAG) 2.04 mg/dL 1.80-2.40 N CBC W/AUTO [id number] 04:13:00 Test Item Value Reference Range Interpretation Comments WHITE BLOOD CELL (test code = 13.2 x10 3/uL 4.5-11.0 H WBC) RED BLOOD CELL (test code = 3.14 x10 6/uL 4.00-5.60 L RBC) HEMOGLOBIN (test code = HGB) 9.8 g/dL 12.5-16.9 L HEMATOCRIT (test code = HCT) 29.5 % 37.5-50.7 L MEAN CELL VOLUME (test code = 93.9 fL 81.0-99.0 N MCV) MEAN CELL HGB (test code = MCH) 31.2 pg 27.0-33.0 N MEAN CELL HGB CONCETRATION 33.2 g/dL 33.0-37.0 N (test code = MCHC) RED CELL DISTRIBUTION WIDTH CV 13.7 % 11.5-14.5 N (test code = RDW) RED CELL DISTRIBUTION WIDTH SD 47.1 fL 37.0-54.0 N (test code = RDW-SD) PLATELET COUNT (test code = 225 x10 3/uL 150-400 N PLT) MEAN PLATELET VOLUME (test code 9.8 fL 7.0-9.0 H = MPV) NEUTROPHIL % (test code = NT%) % 56.0-77.0 LYMPHOCYTE % (test code = LY%) % 14.0-32.0 NEUTROPHIL # (test code = NT#) x10 3/uL 2.0-7.6 LYMPHOCYTE # (test code = LY#) x10 3/uL 1.0-3.8 MANUAL DIFF REQUIRED (test code = MDIFF) CBC W/AUTO [id number] 04:11:00 Test Item Value Reference Range Interpretation Comments WHITE BLOOD CELL (test code = x10 3/uL 4.5-11.0 WBC) RED BLOOD CELL (test code = RBC) x10 6/uL 4.00-5.60 HEMOGLOBIN (test code = HGB) g/dL 12.5-16.9 HEMATOCRIT (test code = HCT) % 37.5-50.7 MEAN CELL VOLUME (test code = fL 81.0-99.0 MCV) MEAN CELL HGB (test code = MCH) pg 27.0-33.0 MEAN CELL HGB CONCETRATION (test g/dL 33.0-37.0 code = MCHC) RED CELL DISTRIBUTION WIDTH CV % 11.5-14.5 (test code = RDW) PLATELET COUNT (test code = PLT) 225 x10 3/uL 150-400 N NEUTROPHIL % (test code = NT%) % 56.0-77.0 LYMPHOCYTE % (test code = LY%) % 14.0-32.0 NEUTROPHIL # (test code = NT#) x10 3/uL 2.0-7.6 LYMPHOCYTE # (test code = LY#) x10 3/uL 1.0-3.8 MANUAL DIFF REQUIRED (test code = MDIFF) - XR ABDOMEN 1V (KUB)2021-01-23 07:39:00 [facility] : 1935 Sex: M FAX: Rosario Silva [phone] [place]: St: ADM FAX: Pratik Crain MD [phone] --------- Name: BERTIN NICOLE [facility] [place] : 1935 Age/S: 85/M [address] [place] [address] Unit #: [id number] Loc: G.2208 [place] [address] Phys: Pratik Addison MD Acct: [id number] Dis Date: Status: ADM IN PHONE #: [phone] Exam Date: 01/23/202138 FAX #: [phone] Reason: ILEUS EXAMS: CPT CODE: [id number] XR ABDOMEN 1V (KUB) 46478 STUDY: - XR ABDOMEN 1V (KUB) 01/23/2021 5:00 AM Ordering Physician: Pratik Addison MD Patient Name: BERTIN NICOLE MR: [id number] : 1935; Age: 85 years y/o Male Clinical Indication: ILEUS Comparison: January 22, 2021 x-ray Bowel gas: Mildly dilated small bowel loops with air-filled large bowel loops. General: No organomegaly, mass lesions, or suspicious abnormal calcifications. Lung bases: No significant abnormality. Osseous structures: Mild spinal degenerative change without fracture, dislocation, or focal osseous lesion. IMPRESSION: Mildly dilated large and small bowel loops, which may represent ileus. SL: [id number] PAGE 1 Signed Report (CONTINUED) FAX: Rosario Martinez [phone] [place]: St: ADM FAX: Pratik Crain MD [phone] Name: BERTIN NICOLE [facility] : 1935 Age/S: 85/M [address] [place] [address] Unit #: [id number] Loc: [address] [address] Phys: Pratik Addison MD Acct: [id number] Dis Date: Status: ADM IN PHONE #: [phone] Exam Date: 01/23/2021537 FAX #: [phone] Reason: ILEUS EXAMS: CPT CODE: [id number] XR ABDOMEN 1V (KUB) 91399 (Continued) at 0739 Reported and signed by: Clement Katz M.D. CC: Rosario Granados MD; Pratik Addison MD Technologist: Em Pruett, RT(R)(M); Ilene Cowan RT(R) Trnnhrd Date/Time/By: 01/23/2021 (0739) : By: [email or web address] Orig Print D/T:S: 01/23/2021 (0743) PAGE 2 Signed ReportBASIC METABOLIC [id number] 03:50:00 Test Item Value Reference Range Interpretation Comments SODIUM (test code = NA) 142 mEq/L 134-147 N POTASSIUM (test code = 3.9 mEq/L 3.4-5.0 N K) CHLORIDE (test code = 115 mEq/L 100-108 H CL) CARBON DIOXIDE (test 19 mEq/l 21-33 L code = CO2) ANION GAP (test code = 12 0-20 N GAP) GLUCOSE (test code = 108 mg/dL 70-110 N GLU) BLOOD UREA NITROGEN 21 mg/dL 7-18 H (test code = BUN) GLOMERULAR FILTRATION 71.4 70-80 N Units of measure = RATE (test code = GFR) ml/mi n/1.73 m2 CREATININE (test code = 1.0 mg/dL 0.6-1.3 N CREAT) CALCIUM (test code = 7.6 mg/dL 8.0-10.5 L CA) [id number] 03:50:00 Test Item Value Reference Range Interpretation Comments MAGNESIUM (test code = MAG) 2.05 mg/dL 1.80-2.40 N CBC W/AUTO [id number] 03:36:00 Test Item Value Reference Range Interpretation Comments WHITE BLOOD CELL (test code = 12.1 x10 3/uL 4.5-11.0 H WBC) RED BLOOD CELL (test code = 2.88 x10 6/uL 4.00-5.60 L RBC) HEMOGLOBIN (test code = HGB) 9.1 g/dL 12.5-16.9 L HEMATOCRIT (test code = HCT) 27.8 % 37.5-50.7 L MEAN CELL VOLUME (test code = 96.5 fL 81.0-99.0 N MCV) MEAN CELL HGB (test code = MCH) 31.6 pg 27.0-33.0 N MEAN CELL HGB CONCETRATION 32.7 g/dL 33.0-37.0 L (test code = MCHC) RED CELL DISTRIBUTION WIDTH CV 13.7 % 11.5-14.5 N (test code = RDW) RED CELL DISTRIBUTION WIDTH SD 48.8 fL 37.0-54.0 N (test code = RDW-SD) PLATELET COUNT (test code = 216 x10 3/uL 150-400 N PLT) MEAN PLATELET VOLUME (test code 9.3 fL 7.0-9.0 H = MPV) NEUTROPHIL % (test code = NT%) 69.7 % 56.0-77.0 N IMMATURE GRANULOCYTE % (test 2.8 % 0.0-2.0 H code = IG%) LYMPHOCYTE % (test code = LY%) 16.5 % 14.0-32.0 N MONOCYTE % (test code = MO%) 10.3 % 4.8-9.0 H EOSINOPHIL % (test code = EO%) 0.4 % 0.3-3.7 N BASOPHIL % (test code = BA%) 0.3 % 0.0-2.0 N NUCLEATED RBC % (test code = 0.0 % 0-0 N NRBC%) NEUTROPHIL # (test code = NT#) 8.42 x10 3/uL 2.0-7.6 H IMMATURE GRANULOCYTE # (test 0.34 x10 3/uL 0.00-0.03 H code = IG#) LYMPHOCYTE # (test code = LY#) 1.99 x10 3/uL 1.0-3.8 N MONOCYTE # (test code = MO#) 1.24 x10 3/uL 0.1-0.8 H EOSINOPHIL # (test code = EO#) 0.05 x10 3/uL 0.0-0.2 N BASOPHIL # (test code = BA#) 0.04 x10 3/uL 0.0-0.2 N NUCLEATED RBC # (test code = 0.00 x10 3/uL 0.0-0.1 N NRBC#) MANUAL DIFF REQUIRED (test code NO = MDIFF) - XR ABDOMEN 1V (KU)2021-01-22 10:34:00 [facility] : 1935 Sex: M FAX: Rosario Silva [phone] [place]: St: ADM FAX: Y Pratik Addison MD [phone] --------- Name: BERTIN NICOLE [facility] [place] : 1935 Age/S: 85/M [address] [place] [address] Blvd Unit #: [id number] Loc: Rosa2208 [place] [address] Phys: Pratik Addison MD Acct: [id number] Dis Date: Status: ADM IN PHONE #: [phone] Exam Date: 01/22/2021 1020 FAX #: [phone] Reason: ILEUS EXAMS: CPT CODE: [id number] XR ABDOMEN 1V (KUB) 96332 Abdomen single view 01/22/2021 HISTORY: Ileus Comparison is made to 01/21/2021 FINDINGS: Increased colonic gas is noted. Decreased small bowel gas is noted. No dilated small bowel loops are currently identified. There are degenerative changes in the lumbar spine. IMPRESSION: Resolution of small b owel dilatation. SL: [id number] at 1034 Reported and signed by: Gm Mann M.D. CC: Rosario Granados MD; Sandra MEJIA Technologist: Renuka Mcdaniel, RT(R) Trnscrd Date/Time/By: 01/22/2021 (1034) : By: [email or web address] Orig Print D/T: S: 01/22/2021 (1037) PAGE 1 Signed Report- XR CHEST 1 [id number] 08:07:00[facility] 1935 Sex: M FAX: Miky Fregoso MD [place]: St: [facility] FAX: Rosario Martinez [phone] Name: BERTIN NICOLE [facility] : 1935 Age/S: 85/M [address] [place] [address] Blvd Unit #: [id number] Loc: G.2208 [place] [address] Phys: Miky Mitchell MD Acct: [id number] Dis Date: Status: ADM IN PHONE #: [phone] Exam Date: 01/22/2021525 FAX #: [phone] Reason: EVALUATE LUNGS FOR ATELECTASIS EXAMS: CPT CODE: [id number] XR CHEST 1 V 22425 EXAM: XR CHEST 1 VIEW DATE: 01/22/2021 5:00 AM : 1935; Age: 85 years y/o Male INDICATION: EVALUATE LUNGS FOR ATELECTASIS COMPARISON: Radiograph from prior day TECHNIQUE: AP chest. IMPRESSION: Lines, tubes and hardware: Stable. Heart, mediastinum and lungs: Unchanged cardiomegaly is seen. Atherosclerotic changes are seen involving the aorta. Persistent mild bibasilar atelectasis or infiltrates. Probable trace left pleural effusion. SL: [id number] at 0807 Reported and signed by: Bon Gomez D.O. CC: Miky Mitchell MD; Rosario Granados MD Technologist: Em Pruett, RT(R)(M); Maryam Pate RT(R) Trnscrd Date/Time/By: 01/22/2021 (0807) : By: [email or web address] Orig Print D/T: S: 01/22/2021 (5462) PAGE 1 Signed Re portCBC W/AUTO [id number] 04:14:00 Test Item Value Reference Range Interpretation Comments WHITE BLOOD CELL (test code = 10.8 x10 3/uL 4.5-11.0 WBC) RED BLOOD CELL (test code = 3.29 x10 6/uL 4.00-5.60 L RBC) HEMOGLOBIN (test code = HGB) 10.4 g/dL 12.5-16.9 L HEMATOCRIT (test code = HCT) 32.5 % 37.5-50.7 L MEAN CELL VOLUME (test code = 98.8 fL 81.0-99.0 N MCV) MEAN CELL HGB (test code = MCH) 31.6 pg 27.0-33.0 N MEAN CELL HGB CONCETRATION 32.0 g/dL 33.0-37.0 L (test code = MCHC) RED CELL DISTRIBUTION WIDTH CV 13.5 % 11.5-14.5 N (test code = RDW) RED CELL DISTRIBUTION WIDTH SD 49.3 fL 37.0-54.0 N (test code = RDW-SD) PLATELET COUNT (test code = 222 x10 3/uL 150-400 N PLT) MEAN PLATELET VOLUME (test code 9.9 fL 7.0-9.0 H = MPV) NEUTROPHIL % (test code = NT%) 71.4 % 56.0-77.0 N IMMATURE GRANULOCYTE % (test 1.8 % 0.0-2.0 N code = IG%) LYMPHOCYTE % (test code = LY%) 13.8 % 14.0-32.0 L MONOCYTE % (test code = MO%) 12.2 % 4.8-9.0 H EOSINOPHIL % (test code = EO%) 0.4 % 0.3-3.7 N BASOPHIL % (test code = BA%) 0.4 % 0.0-2.0 N NUCLEATED RBC % (test code = 0.0 % 0-0 N NRBC%) NEUTROPHIL # (test code = NT#) 7.74 x10 3/uL 2.0-7.6 H IMMATURE GRANULOCYTE # (test 0.20 x10 3/uL 0.00-0.03 H code = IG#) LYMPHOCYTE # (test code = LY#) 1.49 x10 3/uL 1.0-3.8 N MONOCYTE # (test code = MO#) 1.32 x10 3/uL 0.1-0.8 H EOSINOPHIL # (test code = EO#) 0.04 x10 3/uL 0.0-0.2 N BASOPHIL # (test code = BA#) 0.04 x10 3/uL 0.0-0.2 N NUCLEATED RBC # (test code = 0.00 x10 3/uL 0.0-0.1 N NRBC#) MANUAL DIFF REQUIRED (test code NO = MDIFF) BASIC METABOLIC [id number] 04:06:00 Test Item Value Reference Range Interpretation Comments SODIUM (test code = NA) 142 mEq/L 134-147 N POTASSIUM (test code = 3.9 mEq/L 3.4-5.0 N K) CHLORIDE (test code = 114 mEq/L 100-108 H CL) CARBON DIOXIDE (test 18 mEq/l 21-33 L code = CO2) ANION GAP (test code = 13 0-20 N GAP) GLUCOSE (test code = 98 mg/dL 70-110 N GLU) BLOOD UREA NITROGEN 18 mg/dL 7-18 (test code = BUN) GLOMERULAR FILTRATION 71.4 70-80 N Units of measure = RATE (test code = GFR) ml/mi n/1.73 m2 CREATININE (test code = 1.0 mg/dL 0.6-1.3 N CREAT) CALCIUM (test code = 8.3 mg/dL 8.0-10.5 N CA) [id number] 04:06:00 Test Item Value Reference Range Interpretation Comments MAGNESIUM (test code = MAG) 2.08 mg/dL 1.80-2.40 - XR CHEST 1 [id number] 08:03:00 [facility] 1935 Sex: M FAX: Rosario Silva [phone] [place]: St: ADM FAX: Harrison Jones NP Name: BERTIN NICOLE [facility] [place] : 1935 Age/S: 85/M [address] [place] [address] Blvd Unit #: [id number] Loc: G.2208 [place] [address] Phys: Harrison Jones NP Acct: [id number] Dis Date: Status: ADM IN PHONE #: [phone] Exam Date: 01/21/2021 0735FAX #: [phone] Reason: Cardiac Surgery Post Op EXAMS: CPT CODE: [id number] XR CHEST 1 V 70943 Chest single view 01/21/2021 HISTORY: Postoperative cardiac surgery Comparison is made to 01/20/2021 FINDINGS: Cardiomegaly is stable. Tortuous aorta is noted. Right base atelectasis/infiltrate has resolved. Left base atelectasis/infiltrate is decreased. No interstitial edema is noted. Midline sternotomy wires and pacemaker are stable. IMPRESSION: 1. Resolution of right base atelectasis/infiltrate. 2. Decreased left base atelectasis/infiltrate. SL: [id number] at 0803 Reported and signed by: Gm Mann M.D. CC: Rosario Granados MD; Harrison Jones NP Technologist: Aida Hernandez, RT(R); Jennifer Gordon RT(R) TrnscrdDate/Time/By: 01/21/2021 (802) : By: [email or web address] Orig Print D/T: S: 01/21/2021 (805) PAGE 1 Signed Report- XR ABDOMEN 1V (KUB) 2021-01-21 08:01:00 [facility] : 1935 Sex: M FAX: Miky Fregoso MD [place]: St: ADM FAX: Rosario Martinez [phone] Name: COREYBERTIN [facility] : 1935 Age/S: 85/M [address] [place] [address] Blvd Unit #: [id number] [facility] [place] [address] Phys: Miky Mitchell MD Acct: [id number] Dis Date: Status: ADM IN PHONE #: [phone] Exam Date: 01/21/2021 07 FAX #: [phone] Reason: Ileus EXAMS: CPT CODE: [id number] XR ABDOMEN 1V (KUB) 81733 Abdomen single view 01/21/2021 HISTORY: Ileus. Comparison is made to 01/20/2021 FINDINGS: The number of dilated small bowel loops has increased. They previously measured up to 4.3 cm and currently measure 4.8 cm. There are degenerative changes throughout the lumbar spine. Gastric tube tip is coiled in the stomach. IMPRESSION: Increased dilated small bowel loops compatible with ileus or obstruction. SL: [id number] at 0801 Reported and signed by: Gm Mann M.D. CC: Miky Mitchell MD; Rosario Granados MD Technologist: iAda Hernandez RT(R); RT Moira(R) Trnscrd Date/Time/By: 01/21/2021 (800) : By: [email or web address] Orig Print D/T: S: 01/21/2021 (04) PAGE 1 Signed ReportBASIC METABOLIC [id number] 04:11:00 Test Item Value Reference Range Interpretation Comments SODIUM (test code = NA) 142 mEq/L 134-147 N POTASSIUM (test code = 3.6 mEq/L 3.4-5.0 N K) CHLORIDE (test code = 112 mEq/L 100-108 H CL) CARBON DIOXIDE (test 22 mEq/l 21-33 N code = CO2) ANION GAP (test code = 12 0-20 N GAP) GLUCOSE (test code = 97 mg/dL 70-110 N GLU) BLOOD UREA NITROGEN 28 mg/dL 7-18 H (test code = BUN) GLOMERULAR FILTRATION 63.9 70-80 L Units of measure = RATE (test code = GFR) ml/mi n/1.73 m2 CREATININE (test code = 1.1 mg/dL 0.6-1.3 N CREAT) CALCIUM (test code = 8.4 mg/dL 8.0-10.5 N CA) HEPATIC FUNCTION [id number] 04:11:00 Test Item Value Reference Range Interpretation Comments TOTAL PROTEIN (test code = PROT) 5.5 g/dL 6.4-8.2 L ALBUMIN (test code = ALB) 3.30 g/dL 3.4-5.0 L BILIRUBIN TOTAL (test code = BILT) 1.10 mg/dL 0.0-1.0 H BILIRUBIN DIRECT (test code = 0.60 MG/DL 0.0-0.30 H BILD) BILIRUBIN INDIRECT (test code = 0.50 MG/DL BILIND) SGOT/AST (test code = AST) 47 IUnit/L 15-37 H SGPT/ALT (test code = ALT) 37 IUnit/L 30-65 ALKALINE PHOSPHATASE TOTAL (test 48 IUnit/L 20-125 N code = ALKP) [id number] 04:11:00 Test Item Value Reference Range Interpretation Comments MAGNESIUM (test code = MAG) 2.65 mg/dL 1.80-2.40 H CALCIUM [id number] 04:01:00 Test Item Value Reference Range Interpretation Comments CALCIUM IONIZED (test code = MARY JANE) 1.12 MMOL/L 1.12-1.32 N CBC W/AUTO [id number] 04:00:00 Test Item Value Reference Range Interpretation Comments WHITE BLOOD CELL (test code = 7.7 x10 3/uL 4.5-11.0 N WBC) RED BLOOD CELL (test code = 3.37 x10 6/uL 4.00-5.60 L RBC) HEMOGLOBIN (test code = HGB) 10.4 g/dL 12.5-16.9 L HEMATOCRIT (test code = HCT) 32.8 % 37.5-50.7 L MEAN CELL VOLUME (test code = 97.3 fL 81.0-99.0 MCV) MEAN CELL HGB (test code = MCH) 30.9 pg 27.0-33.0 N MEAN CELL HGB CONCETRATION 31.7 g/dL 33.0-37.0 L (test code = MCHC) RED CELL DISTRIBUTION WIDTH CV 13.7 % 11.5-14.5 N (test code = RDW) RED CELL DISTRIBUTION WIDTH SD 48.7 fL 37.0-54.0 N (test code = RDW-SD) PLATELET COUNT (test code = 182 x10 3/uL 150-400 N PLT) MEAN PLATELET VOLUME (test code 10.3 fL 7.0-9.0 H = MPV) NEUTROPHIL % (test code = NT%) 65.6 % 56.0-77.0 N IMMATURE GRANULOCYTE % (test 0.9 % 0.0-2.0 N code = IG%) LYMPHOCYTE % (test code = LY%) 16.3 % 14.0-32.0 N MONOCYTE % (test code = MO%) 15.2 % 4.8-9.0 H EOSINOPHIL % (test code = EO%) 1.6 % 0.3-3.7 N BASOPHIL % (test code = BA%) 0.4 % 0.0-2.0 N NUCLEATED RBC % (test code = 0.0 % 0-0 N NRBC%) NEUTROPHIL # (test code = NT#) 5.06 x10 3/uL 2.0-7.6 N IMMATURE GRANULOCYTE # (test 0.07 x10 3/uL 0.00-0.03 H code = IG#) LYMPHOCYTE # (test code = LY#) 1.26 x10 3/uL 1.0-3.8 N MONOCYTE # (test code = MO#) 1.17 x10 3/uL 0.1-0.8 H EOSINOPHIL # (test code = EO#) 0.12 x10 3/uL 0.0-0.2 N BASOPHIL # (test code = BA#) 0.03 x10 3/uL 0.0-0.2 N NUCLEATED RBC # (test code = 0.00 x10 3/uL 0.0-0.1 N NRBC#) MANUAL DIFF REQUIRED (test code NO = MDIFF) RENAL FUNCTION [id number] 14:42:00 Test Item Value Reference Range Interpretation Comments SODIUM (test code = NA) 141 mEq/L 134-147 N POTASSIUM (test code = 3.9 mEq/L 3.4-5.0 N K) CHLORIDE (test code = 111 mEq/L 100-108 H CL) CARBON DIOXIDE (test 22 mEq/l 21-33 N code = CO2) ANION GAP (test code = 12 0-20 N GAP) GLUCOSE (test code = 106 mg/dL 70-110 N GLU) BLOOD UREA NITROGEN 36 mg/dL 7-18 H (test code = BUN) GLOMERULAR FILTRATION 52.7 70-80 L Units of measure = RATE (test code = GFR) ml/mi n/1.73 m2 CREATININE (test code = 1.3 mg/dL 0.6-1.3 N CREAT) ALBUMIN (test code = 3.60 g/dL 3.4-5.0 N ALB) CALCIUM (test code = CA) 8.6 mg/dL 8.0-10.5 N PHOSPHOROUS (test code = 2.5 MG/DL 2.5-4.9 N PHOS) - XR CHEST 1 [id number] 08:21:00 [facility] 1935 Sex: M FAX: Rosario Silva [phone] [place]: St: ADM FAX: Harrison Jones NP Name: BERTIN NICOLE [facility] : 1935 Age/S: 85/M [address] [place] [address] Unit #: [id number] Loc: G.2208 [place] [address] Phys: Harrison Jones NP Acct: [id number] Dis Date: Status: ADM IN PHONE #: [phone] Exam Date: 01/20/2021 0737 FAX #: [phone] Reason: Cardiac Surgery Post Op EXAMS: CPT CODE: [id number] XR CHEST 1 V [id number] PROCEDURE: Chest Radiograph. Clinical Indication: Cardiac surgery postoperative assessment, mitral valve replacement. Comparison: Chest radiograph 01/19/2021. FINDINGS: The chest shows bibasilar pulmonary opacities, left greater than right. An NG tube tip is coiled in the body the stomach. The cardiac silhouette is enlarged. Status post midline sternotomy and mitral valve replacement. Degenerative change involves the thoracic spine. IMPRESSION: 1. Cardiomegaly with bibasilar pulmonary opacities. SL: K58-H at 0821 Reported and signed by: Mervin Mendoza M.D. CC: Rosario Granados MD; Harrison Jones NP Technologist: Aida Hernandez, RT(R); Dolores Ramsay RT(R) Trnscrd Date/Time/By: 01/20/2021 (820) : By: CathyTDO Orig PrintD/T: S: 01/20/2021 (823) PAGE 1 Signed Report- XR ABDOMEN 1V (KUB)2021-01-20 08:18:00 [facility] 1935 Sex: M FAX: Rosario Martinez [phone] [place]: St: [facility] FAX: Pratik Crain MD [phone] -------- Name: BERTIN NICOLE [facility] : 1935 Age/S: 85/M [address] [place] [address] Bl Unit #: [id number] Loc: G.2208 [place] [address] Phys: Pratik Addison MD Acct: [id number] Dis Date: Status: ADM IN PHONE #: [phone] ExamDate: 01/20/2021 0737 FAX #: [phone] Reason: ILEUS EXAMS: CPT CODE: [id number] XR ABDOMEN 1V (KUB) [id number] Procedure: Abdominal Radiograph. Clinical Indication: Ileus, mitral valve replacement. Comparison: Abdominal radiograph 01/19/2021. FINDINGS: A supine radiograph of the abdomen in 2 views demonstrates a few loops of minimally dilated small bowel in the left midabdomen, intervally decreased comp ared to the prior study. There is scattered air in the colon. No free intraperitoneal air. An NG tube tip projects in the expected location of the proximal stomach. Degenerative change involves the thoracolumbar spine. IMPRESSION: 1. Findings suggesting improving ileus. SL: K58-H at 0818 Reported and signed by: Mervin Mendoza M.D. CC: Rosario Granados MD; Pratik Addison MD Technologist: Aida Hernandez, RT(R); Dolores Ramsay RT(R) Trnscrd Date/Time/By: 01/20/2021 (0818) : By: CathyTDO Orig Print D/T: S: 01/20/2021 (0 821) PAGE 1 Signed ReportBASIC METABOLIC [id number] 04:20:00 Test Item Value Reference Range Interpretation Comments SODIUM (test code = NA) 138 mEq/L 134-147 N POTASSIUM (test code = 3.4 mEq/L 3.4-5.0 N K) CHLORIDE (test code = 110 mEq/L 100-108 H CL) CARBON DIOXIDE (test 21 mEq/l 21-33 N code = CO2) ANION GAP (test code = 11 0-20 N GAP) GLUCOSE (test code = 114 mg/dL 70-110 H GLU) BLOOD UREA NITROGEN 34 mg/dL 7-18 H (test code = BUN) GLOMERULAR FILTRATION 48.4 70-80 L Units of measure = RATE (test code = GFR) ml/mi n/1.73 m2 CREATININE (test code = 1.4 mg/dL 0.6-1.3 H CREAT) CALCIUM (test code = 8.4 mg/dL 8.0-10.5 N CA) HEPATIC FUNCTION [id number] 04:20:00 Test Item Value Reference Range Interpretation Comments TOTAL PROTEIN (test code = PROT) 5.5 g/dL 6.4-8.2 L ALBUMIN (test code = ALB) 3.50 g/dL 3.4-5.0 N BILIRUBIN TOTAL (test code = BILT) 1.20 mg/dL 0.0-1.0 H BILIRUBIN DIRECT (test code = 0.70 MG/DL 0.0-0.30 H BILD) BILIRUBIN INDIRECT (test code = 0.50 MG/DL BILIND) SGOT/AST (test code = AST) 28 IUnit/L 15-37 N SGPT/ALT (test code = ALT) 24 IUnit/L 30-65 L ALKALINE PHOSPHATASE TOTAL (test 41 IUnit/L 20-125 N code = ALKP) [id number] 04:20:00 Test Item Value Reference Range Interpretation Comments MAGNESIUM (test code = MAG) 2.45 mg/dL 1.80-2.40 H CALCIUM [id number] 04:08:00 Test Item Value Reference Range Interpretation Comments CALCIUM IONIZED (test code = MARY JANE) 1.08 MMOL/L 1.12-1.32 L CBC W/AUTO [id number] 04:00:00 Test Item Value Reference Range Interpretation Comments WHITE BLOOD CELL (test code = 6.5 x10 3/uL 4.5-11.0 N WBC) RED BLOOD CELL (test code = 3.03 x10 6/uL 4.00-5.60 L RBC) HEMOGLOBIN (test code = HGB) 9.7 g/dL 12.5-16.9 L HEMATOCRIT (test code = HCT) 28.5 % 37.5-50.7 L MEAN CELL VOLUME (test code = 94.1 fL 81.0-99.0 N MCV) MEAN CELL HGB (test code = MCH) 32.0 pg 27.0-33.0 N MEAN CELL HGB CONCETRATION 34.0 g/dL 33.0-37.0 N (test code = MCHC) RED CELL DISTRIBUTION WIDTH CV 13.6 % 11.5-14.5 N (test code = RDW) RED CELL DISTRIBUTION WIDTH SD 46.6 fL 37.0-54.0 N (test code = RDW-SD) PLATELET COUNT (test code = 154 x10 3/uL 150-400 N PLT) MEAN PLATELET VOLUME (test code 10.3 fL 7.0-9.0 H = MPV) NEUTROPHIL % (test code = NT%) 64.9 % 56.0-77.0 N IMMATURE GRANULOCYTE % (test 0.6 % 0.0-2.0 N code = IG%) LYMPHOCYTE % (test code = LY%) 15.4 % 14.0-32.0 N MONOCYTE % (test code = MO%) 18.1 % 4.8-9.0 H EOSINOPHIL % (test code = EO%) 0.8 % 0.3-3.7 N BASOPHIL % (test code = BA%) 0.2 % 0.0-2.0 N NUCLEATED RBC % (test code = 0.0 % 0-0 N NRBC%) NEUTROPHIL # (test code = NT#) 4.21 x10 3/uL 2.0-7.6 N IMMATURE GRANULOCYTE # (test 0.04 x10 3/uL 0.00-0.03 H code = IG#) LYMPHOCYTE # (test code = LY#) 1.00 x10 3/uL 1.0-3.8 N MONOCYTE # (test code = MO#) 1.17 x10 3/uL 0.1-0.8 H EOSINOPHIL # (test code = EO#) 0.05 x10 3/uL 0.0-0.2 N BASOPHIL # (test code = BA#) 0.01 x10 3/uL 0.0-0.2 N NUCLEATED RBC # (test code = 0.00 x10 3/uL 0.0-0.1 N NRBC#) MANUAL DIFF REQUIRED (test code NO = MDIFF) BASIC METABOLIC [id number] 20:30:00 Test Item Value Reference Range Interpretation Comments SODIUM (test code = NA) 139 mEq/L 134-147 N POTASSIUM (test code = 3.4 mEq/L 3.4-5.0 N K) CHLORIDE (test code = 109 mEq/L 100-108 H CL) CARBON DIOXIDE (test 20 mEq/l 21-33 L code = CO2) ANION GAP (test code = 13 0-20 N GAP) GLUCOSE (test code = 120 mg/dL 70-110 H GLU) BLOOD UREA NITROGEN 41 mg/dL 7-18 H (test code = BUN) GLOMERULAR FILTRATION 44.7 70-80 L Units of measure = RATE (test code = GFR) ml/mi n/1.73 m2 CREATININE (test code = 1.5 mg/dL 0.6-1.3 H CREAT) CALCIUM (test code = 7.4 mg/dL 8.0-10.5 L CA) LACTIC [id number] 20:28:00 Test Item Value Reference Range Interpretation Comments LACTIC ACID (test code = LACT) 0.6 mmol/L 0.4-1.9 N POC ARTERIAL BLOOD [id number] 20:02:00 Test Item Value Reference Range Interpretation Comments POC ARTERIAL BLOOD GAS PH (test 7.442 7.35-7.45 N code = POCPHA) POC ARTERIAL BLOOD GAS PCO2 31.2 mmHg 35.0-45 L (test code = ISKHUN1R) POC TCO2 ARTERIAL (test code = 22.1 POCTCO2) POC ARTERIAL BLOOD GAS PO2 (test 101.4 mmHg 80-100.0 H code = IJFWG0R) POC HCO3 ARTERIAL (test code = 21.2 MMOL/L 22.0-26.0 L [id number]) POC BASE EXCESS (test code = -2.8 MMOL/L -4.0-4.0 N POCBEA) POC O2 SATURATION (test code = 98.0 % 90-100 N POCO2S) FIO2 (test code = FIO2A) 40 % PaO2/FiO2 (test code = [id number]) 253.50 mm/Hg ABG DELIVERY (test code = ROBERTO) Cannula ABG TEMPERATURE (test code = 100 F TEMPA) ABG SITE (test code = SITEA) R Radial MARGARITA'S TEST (test code = N/A ALLENS) [id number] 20:02:00 Test Item Value Reference Range Interpretation Comments SODIUM (test code = NA/ABG) MEQ/L 134-147 [id number] 20:02:00 Test Item Value Reference Range Interpretation Comments POTASSIUM (test code = K/ABG) MEQ/L 3.4-5.0 [id number] 20:02:00 Test Item Value Reference Range Interpretation Comments CHLORIDE (test code = CL/ABG) MEQ/L 100-108 CREATININE [id number] 20:02:00 Test Item Value Reference Range Interpretation Comments CREATININE ABG (test code = CREAABG) mg/dL 0.8-1.3 [id number] 20:02:00 Test Item Value Reference Range Interpretation Comments HEMOGLOBIN (test code = HGB/ABG) G/DL 12.5-16.9 [id number] 20:02:00 Test Item Value Reference Range Interpretation Comments HEMATOCRIT (test code = HCT/ABG) % 37.5-50.7 POC IONIZED [id number] 20:02:00 Test Item Value Reference Range Interpretation Comments POC IONIZED CALCIUM (test code = MMOL/L 1.12-1.32 POCCA) POC LACTIC [id number] 20:02:00 Test Item Value Reference Range Interpretation Comments POC LACTIC ACID (test code = POCLAC) mmol/l 0.9-1.7 POC [id number] 20:02:00 Test Item Value Reference Range Interpretation Comments POC GLUCOSE (test code = POCGLU) MG/DL 70-110 POC ARTERIAL BLOOD [id number] 20:02:00 Test Item Value Reference Range Interpretation Comments POC ARTERIAL BLOOD GAS PH (test 7.442 7.35-7.45 N code = POCPHA) POC ARTERIAL BLOOD GAS PCO2 31.2 mmHg 35.0-45 L (test code = QMKQHX6T) POC TCO2 ARTERIAL (test code = 22.1 POCTCO2) POC ARTERIAL BLOOD GAS PO2 (test 101.4 mmHg 80-100.0 H code = NQHVU1F) POC HCO3 ARTERIAL (test code = 21.2 MMOL/L 22.0-26.0 L HTGPOV5T) POC BASE EXCESS (test code = -2.8 MMOL/L -4.0-4.0 N POCBEA) POC O2 SATURATION (test code = 98.0 % 90-100 N POCO2S) FIO2 (test code = FIO2A) 40 % PaO2/FiO2 (test code = [id number]) 253.50 mm/Hg ABG DELIVERY (test code = ROBERTO) Cannula ABG TEMPERATURE (test code = 100 F TEMPA) ABG SITE (test code = SITEA) R Radial MARGARITA'S TEST (test code = N/A ALLENS) [id number] 20:02:00 Test Item Value Reference Range Interpretation Comments SODIUM (test code = NA/ABG) 136 MEQ/L 134-147 N [id number] 20:02:00 Test Item Value Reference Range Interpretation Comments POTASSIUM (test code = K/ABG) MEQ/L 3.4-5.0 [id number] 20:02:00 Test Item Value Reference Range Interpretation Comments CHLORIDE (test code = CL/ABG) MEQ/L 100-108 CREATININE [id number] 20:02:00 Test Item Value Reference Range Interpretation Comments CREATININE ABG (test code = CREAABG) mg/dL 0.8-1.3 [id number] 20:02:00 Test Item Value Reference Range Interpretation Comments HEMOGLOBIN (test code = HGB/ABG) G/DL 12.5-16.9 [id number] 20:02:00 Test Item Value Reference Range Interpretation Comments HEMATOCRIT (test code = HCT/ABG) % 37.5-50.7 POC IONIZED [id number] 20:02:00 Test Item Value Reference Range Interpretation Comments POC IONIZED CALCIUM (test code = MMOL/L 1.12-1.32 POCCA) POC LACTIC [id number] 20:02:00 Test Item Value Reference Range Interpretation Comments POC LACTIC ACID (test code = POCLAC) mmol/l 0.9-1.7 POC [id number] 20:02:00 Test Item Value Reference Range Interpretation Comments POC GLUCOSE (test code = POCGLU) MG/DL 70-110 POC ARTERIAL BLOOD [id number] 20:02:00 Test Item Value Reference Range Interpretation Comments POC ARTERIAL BLOOD GAS PH (test 7.442 7.35-7.45 N code = POCPHA) POC ARTERIAL BLOOD GAS PCO2 31.2 mmHg 35.0-45 L (test code = ODZMRM5V) POC TCO2 ARTERIAL (test code = 22.1 POCTCO2) POC ARTERIAL BLOOD GAS PO2 (test 101.4 mmHg 80-100.0 H code = VMPHU7Z) POC HCO3 ARTERIAL (test code = 21.2 MMOL/L 22.0-26.0 L IVZSZX9M) POC BASE EXCESS (test code = -2.8 MMOL/L -4.0-4.0 N POCBEA) POC O2 SATURATION (test code = 98.0 % 90-100 N POCO2S) FIO2 (test code = FIO2A) 40 % PaO2/FiO2 (test code = BNC0RBO3) 253.50 mm/Hg ABG DELIVERY (test code = ROBERTO) Cannula ABG TEMPERATURE (test code = 100 F TEMPA) ABG SITE (test code = SITEA) R Radial MARGARITA'S TEST (test code = N/A ALLENS) [id number] 20:02:00 Test Item Value Reference Range Interpretation Comments SODIUM (test code = NA/ABG) 136 MEQ/L 134-147 N [id number] 20:02:00 Test Item Value Reference Range Interpretation Comments POTASSIUM (test code = K/ABG) 3.2 MEQ/L 3.4-5.0 L [id number] 20:02:00 Test Item Value Reference Range Interpretation Comments CHLORIDE (test code = CL/ABG) MEQ/L 100-108 CREATININE [id number] 20:02:00 Test Item Value Reference Range Interpretation Comments CREATININE ABG (test code = CREAABG) mg/dL 0.8-1.3 [id number] 20:02:00 Test Item Value Reference Range Interpretation Comments HEMOGLOBIN (test code = HGB/ABG) G/DL 12.5-16.9 [id number] 20:02:00 Test Item Value Reference Range Interpretation Comments HEMATOCRIT (test code = HCT/ABG) % 37.5-50.7 POC IONIZED [id number] 20:02:00 Test Item Value Reference Range Interpretation Comments POC IONIZED CALCIUM (test code = MMOL/L 1.12-1.32 POCCA) POC LACTIC [id number] 20:02:00 Test Item Value Reference Range Interpretation Comments POC LACTIC ACID (test code = POCLAC) mmol/l 0.9-1.7 POC [id number] 20:02:00 Test Item Value Reference Range Interpretation Comments POC GLUCOSE (test code = POCGLU) MG/DL 70-110 POC ARTERIAL BLOOD [id number] 20:02:00 Test Item Value Reference Range Interpretation Comments POC ARTERIAL BLOOD GAS PH (test 7.442 7.35-7.45 N code = POCPHA) POC ARTERIAL BLOOD GAS PCO2 31.2 mmHg 35.0-45 L (test code = DVRBEN0U) POC TCO2 ARTERIAL (test code = 22.1 POCTCO2) POC ARTERIAL BLOOD GAS PO2 (test 101.4 mmHg 80-100.0 H code = CMWFG8I) POC HCO3 ARTERIAL (test code = 21.2 MMOL/L 22.0-26.0 L ZXDPGE9L) POC BASE EXCESS (test code = -2.8 MMOL/L -4.0-4.0 N POCBEA) POC O2 SATURATION (test code = 98.0 % 90-100 N POCO2S) FIO2 (test code = FIO2A) 40 % PaO2/FiO2 (test code = DMW9IQY2) 253.50 mm/Hg ABG DELIVERY (test code = ROBERTO) Cannula ABG TEMPERATURE (test code = 100 F TEMPA) ABG SITE (test code = SITEA) R Radial MARGARITA'S TEST (test code = N/A ALLENS) [id number] 20:02:00 Test Item Value Reference Range Interpretation Comments SODIUM (test code = NA/ABG) 136 MEQ/L 134-147 N [id number] 20:02:00 Test Item Value Reference Range Interpretation Comments POTASSIUM (test code = K/ABG) 3.2 MEQ/L 3.4-5.0 L [id number] 20:02:00 Test Item Value Reference Range Interpretation Comments CHLORIDE (test code = CL/ABG) MEQ/L 100-108 CREATININE [id number] 20:02:00 Test Item Value Reference Range Interpretation Comments CREATININE ABG (test code = CREAABG) mg/dL 0.8-1.3 [id number] 20:02:00 Test Item Value Reference Range Interpretation Comments HEMOGLOBIN (test code = HGB/ABG) G/DL 12.5-16.9 [id number] 20:02:00 Test Item Value Reference Range Interpretation Comments HEMATOCRIT (test code = HCT/ABG) % 37.5-50.7 POC IONIZED [id number] 20:02:00 Test Item Value Reference Range Interpretation Comments POC IONIZED CALCIUM (test code = 1.11 MMOL/L 1.12-1.32 L POCCA) POC LACTIC [id number] 20:02:00 Test Item Value Reference Range Interpretation Comments POC LACTIC ACID (test code = POCLAC) mmol/l 0.9-1.7 POC [id number] 20:02:00 Test Item Value Reference Range Interpretation Comments POC GLUCOSE (test code = POCGLU) MG/DL 70-110 POC ARTERIAL BLOOD [id number] 20:02:00 Test Item Value Reference Range Interpretation Comments POC ARTERIAL BLOOD GAS PH (test 7.442 7.35-7.45 N code = POCPHA) POC ARTERIAL BLOOD GAS PCO2 31.2 mmHg 35.0-45 L (test code = LWKFYM8J) POC TCO2 ARTERIAL (test code = 22.1 POCTCO2) POC ARTERIAL BLOOD GAS PO2 (test 101.4 mmHg 80-100.0 H code = QPDJD9N) POC HCO3 ARTERIAL (test code = 21.2 MMOL/L 22.0-26.0 L NXFGUM0D) POC BASE EXCESS (test code = -2.8 MMOL/L -4.0-4.0 N POCBEA) POC O2 SATURATION (test code = 98.0 % 90-100 N POCO2S) FIO2 (test code = FIO2A) 40 % PaO2/FiO2 (test code = [id number]) 253.50 mm/Hg ABG DELIVERY (test code = ROBERTO) Cannula ABG TEMPERATURE (test code = 100 F TEMPA) ABG SITE (test code = SITEA) R Radial MARGARITA'S TEST (test code = N/A ALLENS) [id number] 20:02:00 Test Item Value Reference Range Interpretation Comments SODIUM (test code = NA/ABG) 136 MEQ/L 134-147 N [id number] 20:02:00 Test Item Value Reference Range Interpretation Comments POTASSIUM (test code = K/ABG) 3.2 MEQ/L 3.4-5.0 L [id number] 20:02:00 Test Item Value Reference Range Interpretation Comments CHLORIDE (test code = CL/ABG) MEQ/L 100-108 CREATININE [id number] 20:02:00 Test Item Value Reference Range Interpretation Comments CREATININE ABG (test code = CREAABG) mg/dL 0.8-1.3 [id number] 20:02:00 Test Item Value Reference Range Interpretation Comments HEMOGLOBIN (test code = HGB/ABG) G/DL 12.5-16.9 [id number] 20:02:00 Test Item Value Reference Range Interpretation Comments HEMATOCRIT (test code = HCT/ABG) % 37.5-50.7 POC IONIZED [id number] 20:02:00 Test Item Value Reference Range Interpretation Comments POC IONIZED CALCIUM (test code = 1.11 MMOL/L 1.12-1.32 L POCCA) POC LACTIC [id number] 20:02:00 Test Item Value Reference Range Interpretation Comments POC LACTIC ACID (test code = POCLAC) mmol/l 0.9-1.7 POC [id number] 20:02:00 Test Item Value Reference Range Interpretation Comments POC GLUCOSE (test code = POCGLU) 121 MG/DL 70-110 H POC ARTERIAL BLOOD [id number] 20:02:00 Test Item Value Reference Range Interpretation Comments POC ARTERIAL BLOOD GAS PH (test 7.442 7.35-7.45 N code = POCPHA) POC ARTERIAL BLOOD GAS PCO2 31.2 mmHg 35.0-45 L (test code = OSJOGJ2D) POC TCO2 ARTERIAL (test code = 22.1 POCTCO2) POC ARTERIAL BLOOD GAS PO2 (test 101.4 mmHg 80-100.0 H code = BCTWH2C) POC HCO3 ARTERIAL (test code = 21.2 MMOL/L 22.0-26.0 L ETZVQL8K) POC BASE EXCESS (test code = -2.8 MMOL/L -4.0-4.0 N POCBEA) POC O2 SATURATION (test code = 98.0 % 90-100 N POCO2S) FIO2 (test code = FIO2A) 40 % PaO2/FiO2 (test code = HYY7FBF1) 253.50 mm/Hg ABG DELIVERY (test code = ROBERTO) Cannula ABG TEMPERATURE (test code = 100 F TEMPA) ABG SITE (test code = SITEA) R Radial MARGARITA'S TEST (test code = N/A ALLENS) [id number] 20:02:00 Test Item Value Reference Range Interpretation Comments SODIUM (test code = NA/ABG) 136 MEQ/L 134-147 N [id number] 20:02:00 Test Item Value Reference Range Interpretation Comments POTASSIUM (test code = K/ABG) 3.2 MEQ/L 3.4-5.0 L [id number] 20:02:00 Test Item Value Reference Range Interpretation Comments CHLORIDE (test code = CL/ABG) MEQ/L 100-108 CREATININE [id number] 20:02:00 Test Item Value Reference Range Interpretation Comments CREATININE ABG (test code = CREAABG) mg/dL 0.8-1.3 [id number] 20:02:00 Test Item Value Reference Range Interpretation Comments HEMOGLOBIN (test code = HGB/ABG) G/DL 12.5-16.9 [id number] 20:02:00 Test Item Value Reference Range Interpretation Comments HEMATOCRIT (test code = HCT/ABG) % 37.5-50.7 POC IONIZED [id number] 20:02:00 Test Item Value Reference Range Interpretation Comments POC IONIZED CALCIUM (test code = 1.11 MMOL/L 1.12-1.32 L POCCA) POC LACTIC [id number] 20:02:00 Test Item Value Reference Range Interpretation Comments POC LACTIC ACID (test code = 0.9 mmol/l 0.9-1.7 N POCLAC) POC [id number] 20:02:00 Test Item Value Reference Range Interpretation Comments POC GLUCOSE (test code = POCGLU) 121 MG/DL 70-110 H POC ARTERIAL BLOOD [id number] 20:02:00 Test Item Value Reference Range Interpretation Comments POC ARTERIAL BLOOD GAS PH (test 7.442 7.35-7.45 N code = POCPHA) POC ARTERIAL BLOOD GAS PCO2 31.2 mmHg 35.0-45 L (test code = LBZDLS4U) POC TCO2 ARTERIAL (test code = 22.1 POCTCO2) POC ARTERIAL BLOOD GAS PO2 (test 101.4 mmHg 80-100.0 H code = CUSVZ3X) POC HCO3 ARTERIAL (test code = 21.2 MMOL/L 22.0-26.0 L VKQDIE3B) POC BASE EXCESS (test code = -2.8 MMOL/L -4.0-4.0 N POCBEA) POC O2 SATURATION (test code = 98.0 % 90-100 N POCO2S) FIO2 (test code = FIO2A) 40 % PaO2/FiO2 (test code = [id number]) 253.50 mm/Hg ABG DELIVERY (test code = ROBERTO) Cannula ABG TEMPERATURE (test code = 100 F TEMPA) ABG SITE (test code = SITEA) R Radial MARGARITA'S TEST (test code = N/A ALLENS) [id number] 20:02:00 Test Item Value Reference Range Interpretation Comments SODIUM (test code = NA/ABG) 136 MEQ/L 134-147 N [id number] 20:02:00 Test Item Value Reference Range Interpretation Comments POTASSIUM (test code = K/ABG) 3.2 MEQ/L 3.4-5.0 L [id number] 20:02:00 Test Item Value Reference Range Interpretation Comments CHLORIDE (test code = CL/ABG) MEQ/L 100-108 CREATININE [id number] 20:02:00 Test Item Value Reference Range Interpretation Comments CREATININE ABG (test code = CREAABG) mg/dL 0.8-1.3 [id number] 20:02:00 Test Item Value Reference Range Interpretation Comments HEMOGLOBIN (test code = HGB/ABG) G/DL 12.5-16.9 [id number] 20:02:00 Test Item Value Reference Range Interpretation Comments HEMATOCRIT (test code = HCT/ABG) 26 % 37.5-50.7 L POC IONIZED [id number] 20:02:00 Test Item Value Reference Range Interpretation Comments POC IONIZED CALCIUM (test code = 1.11 MMOL/L 1.12-1.32 L POCCA) POC LACTIC [id number] 20:02:00 Test Item Value Reference Range Interpretation Comments POC LACTIC ACID (test code = 0.9 mmol/l 0.9-1.7 N POCLAC) POC [id number] 20:02:00 Test Item Value Reference Range Interpretation Comments POC GLUCOSE (test code = POCGLU) 121 MG/DL 70-110 H POC ARTERIAL BLOOD [id number] 20:02:00 Test Item Value Reference Range Interpretation Comments POC ARTERIAL BLOOD GAS PH (test 7.442 7.35-7.45 N code = POCPHA) POC ARTERIAL BLOOD GAS PCO2 31.2 mmHg 35.0-45 L (test code = TWNSEP0O) POC TCO2 ARTERIAL (test code = 22.1 POCTCO2) POC ARTERIAL BLOOD GAS PO2 (test 101.4 mmHg 80-100.0 H code = PLMZT9X) POC HCO3 ARTERIAL (test code = 21.2 MMOL/L 22.0-26.0 L GYICTS1J) POC BASE EXCESS (test code = -2.8 MMOL/L -4.0-4.0 N POCBEA) POC O2 SATURATION (test code = 98.0 % 90-100 N POCO2S) FIO2 (test code = FIO2A) 40 % PaO2/FiO2 (test code = [id number]) 253.50 mm/Hg ABG DELIVERY (test code = ROBERTO) Cannula ABG TEMPERATURE (test code = 100 F TEMPA) ABG SITE (test code = SITEA) R Radial MARGARITA'S TEST (test code = N/A ALLENS) [id number] 20:02:00 Test Item Value Reference Range Interpretation Comments SODIUM (test code = NA/ABG) 136 MEQ/L 134-147 N [id number] 20:02:00 Test Item Value Reference Range Interpretation Comments POTASSIUM (test code = K/ABG) 3.2 MEQ/L 3.4-5.0 L [id number] 20:02:00 Test Item Value Reference Range Interpretation Comments CHLORIDE (test code = CL/ABG) MEQ/L 100-108 CREATININE [id number] 20:02:00 Test Item Value Reference Range Interpretation Comments CREATININE ABG (test code = CREAABG) mg/dL 0.8-1.3 [id number] 20:02:00 Test Item Value Reference Range Interpretation Comments HEMOGLOBIN (test code = HGB/ABG) 8.7 G/DL 12.5-16.9 L [id number] 20:02:00 Test Item Value Reference Range Interpretation Comments HEMATOCRIT (test code = HCT/ABG) 26 % 37.5-50.7 L POC IONIZED [id number] 20:02:00 Test Item Value Reference Range Interpretation Comments POC IONIZED CALCIUM (test code = 1.11 MMOL/L 1.12-1.32 L POCCA) POC LACTIC [id number] 20:02:00 Test Item Value Reference Range Interpretation Comments POC LACTIC ACID (test code = 0.9 mmol/l 0.9-1.7 N POCLAC) POC [id number] 20:02:00 Test Item Value Reference Range Interpretation Comments POC GLUCOSE (test code = POCGLU) 121 MG/DL 70-110 H POC ARTERIAL BLOOD [id number] 20:02:00 Test Item Value Reference Range Interpretation Comments POC ARTERIAL BLOOD GAS PH (test 7.442 7.35-7.45 N code = POCPHA) POC ARTERIAL BLOOD GAS PCO2 31.2 mmHg 35.0-45 L (test code = WJNIGK6D) POC TCO2 ARTERIAL (test code = 22.1 POCTCO2) POC ARTERIAL BLOOD GAS PO2 (test 101.4 mmHg 80-100.0 H code = DCPOP2Q) POC HCO3 ARTERIAL (test code = 21.2 MMOL/L 22.0-26.0 L KZCFMJ9S) POC BASE EXCESS (test code = -2.8 MMOL/L -4.0-4.0 N POCBEA) POC O2 SATURATION (test code = 98.0 % 90-100 N POCO2S) FIO2 (test code = FIO2A) 40 % PaO2/FiO2 (test code = SSW4VEP2) 253.50 mm/Hg ABG DELIVERY (test code = ROBERTO) Cannula ABG TEMPERATURE (test code = 100 F TEMPA) ABG SITE (test code = SITEA) R Radial MARGARITA'S TEST (test code = N/A ALLENS) [id number] 20:02:00 Test Item Value Reference Range Interpretation Comments SODIUM (test code = NA/ABG) 136 MEQ/L 134-147 N [id number] 20:02:00 Test Item Value Reference Range Interpretation Comments POTASSIUM (test code = K/ABG) 3.2 MEQ/L 3.4-5.0 L [id number] 20:02:00 Test Item Value Reference Range Interpretation Comments CHLORIDE (test code = CL/ABG) 107 MEQ/L 100-108 N CREATININE [id number] 20:02:00 Test Item Value Reference Range Interpretation Comments CREATININE ABG (test code = CREAABG) mg/dL 0.8-1.3 [id number] 20:02:00 Test Item Value Reference Range Interpretation Comments HEMOGLOBIN (test code = HGB/ABG) 8.7 G/DL 12.5-16.9 L [id number] 20:02:00 Test Item Value Reference Range Interpretation Comments HEMATOCRIT (test code = HCT/ABG) 26 % 37.5-50.7 L POC IONIZED [id number] 20:02:00 Test Item Value Reference Range Interpretation Comments POC IONIZED CALCIUM (test code = 1.11 MMOL/L 1.12-1.32 L POCCA) POC LACTIC [id number] 20:02:00 Test Item Value Reference Range Interpretation Comments POC LACTIC ACID (test code = 0.9 mmol/l 0.9-1.7 N POCLAC) POC [id number] 20:02:00 Test Item Value Reference Range Interpretation Comments POC GLUCOSE (test code = POCGLU) 121 MG/DL 70-110 H POC ARTERIAL BLOOD [id number] 20:02:00 Test Item Value Reference Range Interpretation Comments POC ARTERIAL BLOOD GAS PH (test 7.442 7.35-7.45 N code = POCPHA) POC ARTERIAL BLOOD GAS PCO2 31.2 mmHg 35.0-45 L (test code = KJHPLL9M) POC TCO2 ARTERIAL (test code = 22.1 POCTCO2) POC ARTERIAL BLOOD GAS PO2 (test 101.4 mmHg 80-100.0 H code = IYQVD5H) POC HCO3 ARTERIAL (test code = 21.2 MMOL/L 22.0-26.0 L [id number]) POC BASE EXCESS (test code = -2.8 MMOL/L -4.0-4.0 N POCBEA) POC O2 SATURATION (test code = 98.0 % 90-100 N POCO2S) FIO2 (test code = FIO2A) 40 % PaO2/FiO2 (test code = BGG0HSO7) 253.50 mm/Hg ABG DELIVERY (test code = ROBERTO) Cannula ABG TEMPERATURE (test code = 100 F TEMPA) ABG SITE (test code = SITEA) R Radial MARGARITA'S TEST (test code = N/A ALLENS) [id number] 20:02:00 Test Item Value Reference Range Interpretation Comments SODIUM (test code = NA/ABG) 136 MEQ/L 134-147 N [id number] 20:02:00 Test Item Value Reference Range Interpretation Comments POTASSIUM (test code = K/ABG) 3.2 MEQ/L 3.4-5.0 L [id number] 20:02:00 Test Item Value Reference Range Interpretation Comments CHLORIDE (test code = CL/ABG) 107 MEQ/L 100-108 N CREATININE [id number] 20:02:00 Test Item Value Reference Range Interpretation Comments CREATININE ABG (test code = 1.8 mg/dL 0.8-1.3 H CREAABG) [id number] 20:02:00 Test Item Value Reference Range Interpretation Comments HEMOGLOBIN (test code = HGB/ABG) 8.7 G/DL 12.5-16.9 L [id number] 20:02:00 Test Item Value Reference Range Interpretation Comments HEMATOCRIT (test code = HCT/ABG) 26 % 37.5-50.7 L POC IONIZED [id number] 20:02:00 Test Item Value Reference Range Interpretation Comments POC IONIZED CALCIUM (test code = 1.11 MMOL/L 1.12-1.32 L POCCA) POC LACTIC [id number] 20:02:00 Test Item Value Reference Range Interpretation Comments POC LACTIC ACID (test code = 0.9 mmol/l 0.9-1.7 N POCLAC) POC [id number] 20:02:00 Test Item Value Reference Range Interpretation Comments POC GLUCOSE (test code = POCGLU) 121 MG/DL 70-110 H LACTIC [id number] 15:51:00 Test Item Value Reference Range Interpretation Comments LACTIC ACID (test code = LACT) 1.2 mmol/L 0.4-1.9 N CBC W/AUTO [id number] 15:30:00 Test Item Value Reference Range Interpretation Comments WHITE BLOOD CELL 6.4 x10 3/uL 4.5-11.0 N (test code = WBC) RED BLOOD CELL (test 3.15 x10 6/uL 4.00-5.60 L code = RBC) HEMOGLOBIN (test code 10.2 g/dL 12.5-16.9 L = HGB) HEMATOCRIT (test code 29.8 % 37.5-50.7 L = HCT) MEAN CELL VOLUME 94.6 fL 81.0-99.0 N (test code = MCV) MEAN CELL HGB (test 32.4 pg 27.0-33.0 N code = MCH) MEAN CELL HGB 34.2 g/dL 33.0-37.0 N CONCETRATION (test code = MCHC) RED CELL DISTRIBUTION 13.6 % 11.5-14.5 N WIDTH CV (test code = RDW) RED CELL DISTRIBUTION 46.5 fL 37.0-54.0 N WIDTH SD (test code = RDW-SD) PLATELET COUNT (test 150 x10 3/uL 150-400 N code = PLT) MEAN PLATELET VOLUME 9.7 fL 7.0-9.0 H (test code = MPV) MANUAL DIFF REQUIRED YES Previou sly reported (test code = MDIFF) result: NO Edited by: FE on 01/19/21:[id number] 1524: MAN DI FF NEEDED previous ly reported as: NO WBC [id number] 15:30:00 Test Item Value Reference Range Interpretation Comments SEGMENTED NEUTROPHILS 56 % 37-69 N (test code = SEG) BAND NEUTROPHIL (test 6.0 % 0.0-10.0 N code = BAND) LYMPHOCYTE (test code 19 % 23-55 L = LYMPH) MONOCYTE (test code = 17 % 0-10 H MON) EOSINOPHIL (test code 1 % 0.0-4.0 N = EOS) METAMYELOCYTE (test 1.0 % 0.0-0.0 H code = META) POLYCHROMASIA (test SLIGHT code = POLC) POIKILOCYTOSIS (test SLIGHT code = POIK) ANISOCYTOSIS (test SLIGHT code = ANISO) MICROCYTOSIS (test FEW code = MICR) OVALOCYTES (test code FEW = OVAL) TOXIC GRANULATION SLIGHT (test code = TOX) DOHLE BODIES (test Present code = DB) PLATELET ESTIMATE Adequate THOUSAND ADEQUATE (test code = PLTEST) PLATELET MORPHOLOGY LARGE PLATELETS LARGE PLTS SEEN (test code = PLTMORPH) CBC W/AUTO [id number] 15:24:00 Test Item Value Reference Range Interpretation Comments WHITE BLOOD CELL (test code = 6.4 x10 3/uL 4.5-11.0 N WBC) RED BLOOD CELL (test code = 3.15 x10 6/uL 4.00-5.60 L RBC) HEMOGLOBIN (test code = HGB) 10.2 g/dL 12.5-16.9 L HEMATOCRIT (test code = HCT) 29.8 % 37.5-50.7 L MEAN CELL VOLUME (test code = 94.6 fL 81.0-99.0 N MCV) MEAN CELL HGB (test code = MCH) 32.4 pg 27.0-33.0 N MEAN CELL HGB CONCETRATION 34.2 g/dL 33.0-37.0 N (test code = MCHC) RED CELL DISTRIBUTION WIDTH CV 13.6 % 11.5-14.5 N (test code = RDW) RED CELL DISTRIBUTION WIDTH SD 46.5 fL 37.0-54.0 N (test code = RDW-SD) PLATELET COUNT (test code = 150 x10 3/uL 150-400 N PLT) MEAN PLATELET VOLUME (test code 9.7 fL 7.0-9.0 H = MPV) MANUAL DIFF REQUIRED (test code NO = MDIFF) CBC W/AUTO [id number] 15:24:00 Test Item Value Reference Range Interpretation Comments WHITE BLOOD CELL 6.4 x10 3/uL 4.5-11.0 N (test code = WBC) RED BLOOD CELL (test 3.15 x10 6/uL 4.00-5.60 L code = RBC) HEMOGLOBIN (test code 10.2 g/dL 12.5-16.9 L = HGB) HEMATOCRIT (test code 29.8 % 37.5-50.7 L = HCT) MEAN CELL VOLUME 94.6 fL 81.0-99.0 N (test code = MCV) MEAN CELL HGB (test 32.4 pg 27.0-33.0 N code = MCH) MEAN CELL HGB 34.2 g/dL 33.0-37.0 N CONCETRATION (test code = MCHC) RED CELL DISTRIBUTION 13.6 % 11.5-14.5 N WIDTH CV (test code = RDW) RED CELL DISTRIBUTION 46.5 fL 37.0-54.0 N WIDTH SD (test code = RDW-SD) PLATELET COUNT (test 150 x10 3/uL 150-400 N code = PLT) MEAN PLATELET VOLUME 9.7 fL 7.0-9.0 H (test code = MPV) MANUAL DIFF REQUIRED YES Previou sly reported (test code = MDIFF) result: NO Edited by: FE on 01/19/21: 1524: MAN DI FF NEEDED previous ly reported as: NO WBC [id number] 15:24:00 Test Item Value Reference Range Interpretation Comments BAND NEUTROPHIL (test code = BAND) % 0.0-10.0 ANISOCYTOSIS (test code = ANISO) PLATELET ESTIMATE (test code = THOUSAND ADEQUATE PLTEST) CBC W/AUTO [id number] 15:24:00 Test Item Value Reference Range Interpretation Comments WHITE BLOOD CELL 6.4 x10 3/uL 4.5-11.0 N (test code = WBC) RED BLOOD CELL (test 3.15 x10 6/uL 4.00-5.60 L code = RBC) HEMOGLOBIN (test code 10.2 g/dL 12.5-16.9 L = HGB) HEMATOCRIT (test code 29.8 % 37.5-50.7 L = HCT) MEAN CELL VOLUME 94.6 fL 81.0-99.0 N (test code = MCV) MEAN CELL HGB (test 32.4 pg 27.0-33.0 N code = MCH) MEAN CELL HGB 34.2 g/dL 33.0-37.0 N CONCETRATION (test code = MCHC) RED CELL DISTRIBUTION 13.6 % 11.5-14.5 N WIDTH CV (test code = RDW) RED CELL DISTRIBUTION 46.5 fL 37.0-54.0 N WIDTH SD (test code = RDW-SD) PLATELET COUNT (test 150 x10 3/uL 150-400 N code = PLT) MEAN PLATELET VOLUME 9.7 fL 7.0-9.0 H (test code = MPV) MANUAL DIFF REQUIRED YES Previou sly reported (test code = MDIFF) result: NO Edited by: FE on 01/19/21: 1524: MAN DI FF NEEDED previous ly reported as: NO WBC [id number] 15:24:00 Test Item Value Reference Range Interpretation Comments BAND NEUTROPHIL (test code = BAND) % 0.0-10.0 ANISOCYTOSIS (test code = ANISO) PLATELET ESTIMATE (test code = THOUSAND ADEQUATE PLTEST) COMPREHENSIVE METABOLIC [id number] 14:51:00 Test Item Value Reference Range Interpretation Comments SODIUM (test code = NA) 137 mEq/L 134-147 N POTASSIUM (test code = 3.8 mEq/L 3.4-5.0 N K) CHLORIDE (test code = 105 mEq/L 100-108 N CL) CARBON DIOXIDE (test 24 mEq/l 21-33 N code = CO2) ANION GAP (test code = 11 0-20 N GAP) GLUCOSE (test code = 124 mg/dL 70-110 H GLU) BLOOD UREA NITROGEN 50 mg/dL 7-18 H (test code = BUN) GLOMERULAR FILTRATION 32.1 70-80 L Units of measure = RATE (test code = GFR) ml/mi n/1.73 m2 CREATININE (test code = 2.0 mg/dL 0.6-1.3 H CREAT) TOTAL PROTEIN (test 5.8 g/dL 6.4-8.2 L code = PROT) ALBUMIN (test code = 3.70 g/dL 3.4-5.0 N ALB) CALCIUM (test code = 8.5 mg/dL 8.0-10.5 N CA) BILIRUBIN TOTAL (test 1.50 mg/dL 0.0-1.0 H code = BILT) SGOT/AST (test code = 33 IUnit/L 15-37 N AST) SGPT/ALT (test code = 26 IUnit/L 30-65 L ALT) ALKALINE PHOSPHATASE 43 IUnit/L 20-125 N TOTAL (test code = ALKP) [id number] 14:51:00 Test Item Value Reference Range Interpretation Comments MAGNESIUM (test code = MAG) 2.52 mg/dL 1.80-2.40 H CBC W/AUTO [id number] 14:41:00 Test Item Value Reference Range Interpretation Comments WHITE BLOOD CELL (test code = 6.4 x10 3/uL 4.5-11.0 N WBC) RED BLOOD CELL (test code = 3.15 x10 6/uL 4.00-5.60 L RBC) HEMOGLOBIN (test code = HGB) 10.2 g/dL 12.5-16.9 L HEMATOCRIT (test code = HCT) 29.8 % 37.5-50.7 L MEAN CELL VOLUME (test code = 94.6 fL 81.0-99.0 N MCV) MEAN CELL HGB (test code = MCH) 32.4 pg 27.0-33.0 N MEAN CELL HGB CONCETRATION 34.2 g/dL 33.0-37.0 N (test code = MCHC) RED CELL DISTRIBUTION WIDTH CV 13.6 % 11.5-14.5 N (test code = RDW) RED CELL DISTRIBUTION WIDTH SD 46.5 fL 37.0-54.0 N (test code = RDW-SD) PLATELET COUNT (test code = 150 x10 3/uL 150-400 N PLT) MEAN PLATELET VOLUME (test code 9.7 fL 7.0-9.0 H = MPV) NEUTROPHIL % (test code = NT%) % 56.0-77.0 LYMPHOCYTE % (test code = LY%) % 14.0-32.0 NEUTROPHIL # (test code = NT#) x10 3/uL 2.0-7.6 LYMPHOCYTE # (test code = LY#) x10 3/uL 1.0-3.8 MANUAL DIFF REQUIRED (test code NO = MDIFF) - XR FLUOROSCOPY 0-60 [id number] 11:50:00 [facility] : 1935 Sex: M FAX: Rosario Silva [phone] [place]: St: [facility] FAX: Joey Porras [phone] Name: BERTIN NICOLE [facility] Frederic LakeDOB: 1935 Age/S: 85/M [address] [place] [address] Unit #: [id number] Loc: [place] [address]Az[place]: Joey Porras MD Acct: [id number] Dis Date: Status: ADM IN PHONE #: [phone] Exam Date: 01/19/2021 1042 FAX #: [phone] Reason: Ileus, needs NGT, tried multiple times EXAMS: CPT CODE: [id number] XR FLUOROSCOPY 0-60 MIN 80904 Fluoroscopic guided gastric tube placement 01/19/2021 HISTORY: Ileus. FINDINGS: NG tube was placed through the left nares and advanced into the stomach. Tip is in the mid stomach at the end of the exam. Contrast demonstrated gastric tube placement. Total estimated active fluoroscopy time was approximately 1.1 minutes. Number of images: 2. Dose (Air Kerma): 35.89 mGy IMPRESSION: Fluoroscopic guided placement of NG tube. SL: [id number] at 1150 Reported and signed by: Gm Mann M.D. CC: Rosario Granados MD; Joey Porras MD Technologist: RT Taisha(R) Trnscrd Date/Time/By: 01/19/2021 (1150) : By: [email or web address] Orig Print D/T: S: 01/19/2021 (4003) PAGE 1 Signed Report- XR ABDOMEN 1V (KUB)2021-01-19 07:43:00[facility] : 1935 Sex: M FAX: Rosario Silva [phone] [place]: St: ADM FAX: Joey Porrsa [phone] Name: BERTIN NICOLE [facility] [place] LakeDOB: 1935 Age/S: 85/M [address] [place] [address] Unit #: [id number] Loc: [address] [address]Fzlk: Joey Porras MD Acct: [id number] Dis Date: Status: ADM IN PHONE #: [phone] Exam Date: 01/19/2021534 FAX #: [phone] Reason: f/u ileus EXAMS: CPT CODE: [id number] XR ABDOMEN 1V(KUB) 40304 Abdomen single view 01/19/2021 HISTORY: Ileus. Comparison is made to 01/18/2021 FINDINGS:Dilated loops of small bowel in the abdomen and pelvis are not significantly changed measuring 4.3 cm. Increased rectal gas is noted. Moderate degenerative changes throughout the spine are present. Moderate gastric gas is noted. IMPRESSION: 1. No change in dilated small bowel compatible with ileus or obstruction. 2. Increased rectal gas. 3. Moderate gastric gas. SL: [id number] at 0743 Reported and signed by: Gm Mann M.D. CC: Rosario Granados MD; Joey Porras MD Technologist: Vicente Wilcox, RT(R); Ilene Cowan, RT(R) Trnscrd Date/Time/By: 01/19/2021 (0743) : By: [email or web address] Orig Print D/T: S: 01/19/2021 (0746) PAGE 1 Signed Report- XR CHEST 1 [id number] 07:41:00 [facility] 1935 Sex: M FAX: Rosario Silva [phone] [place]: St: ADM FAX: Harrison Jones NP Name: BERTIN NICOLE [facility] : 1935 Age/S: 85/M [address] [place] [address] Unit #: [id number] Loc: G.[address] [place] [address] Phys: Harrison Jones NP Acct: [id number] Dis Date: Status: ADM IN PHONE #: [phone] Exam Date: 01/19/2021534 FAX #: [phone] Reason: Cardiac Surgery Post Op EXAMS: CPT CODE: [id number] XR CHEST 1 V [id number] single view 01/19/2021 HISTORY: Postoperative cardiac surgery Comparison is made to 01/18/2021 FINDINGS: Cardiomegaly is stable. Tortuous aorta is noted. Midline sternotomy wires are noted. Bibasilar atelectasis/infiltrates are unchanged. The lungs are hypoinflated. No interstitial edema is noted.IMPRESSION: Stable chest. SL: [id number] at 0741 Reported and signed by: Gm Mann M.D. CC: Rosario Granados MD;Harrison Jones NP Technologist: Vicente Wilcox, RT(R); Ilene Cowan RT(R) Trnscrd Date/Time/By: 01/19/2021 (0741) : By: [email or web address] Orig Print D/T: S: 01/19/2021 (0745) PAGE 1 Signed ReportBASIC METABOLIC PANEL 2021-01-19 03:43:00 Test Item Value Reference Range Interpretation Comments SODIUM (test code = NA) 133 mEq/L 134-147 L POTASSIUM (test code = 4.2 mEq/L 3.4-5.0 N K) CHLORIDE (test code = 104 mEq/L 100-108 N CL) CARBON DIOXIDE (test 22 mEq/l 21-33 N code = CO2) ANION GAP (test code = 11 0-20 N GAP) GLUCOSE (test code = 146 mg/dL 70-110 H GLU) BLOOD UREA NITROGEN 36 mg/dL 7-18 H (test code = BUN) GLOMERULAR FILTRATION 32.1 70-80 L Units of measure = RATE (test code = GFR) ml/mi n/1.73 m2 CREATININE (test code = 2.0 mg/dL 0.6-1.3 H CREAT) CALCIUM (test code = 9.1 mg/dL 8.0-10.5 N CA) HEPATIC FUNCTION [id number] 03:43:00 Test Item Value Reference Range Interpretation Comments TOTAL PROTEIN (test code = PROT) 6.0 g/dL 6.4-8.2 L ALBUMIN (test code = ALB) 3.70 g/dL 3.4-5.0 N BILIRUBIN TOTAL (test code = BILT) 1.70 mg/dL 0.0-1.0 H BILIRUBIN DIRECT (test code = 0.90 MG/DL 0.0-0.30 H BILD) BILIRUBIN INDIRECT (test code = 0.80 MG/DL BILIND) SGOT/AST (test code = AST) 34 IUnit/L 15-37 N SGPT/ALT (test code = ALT) 27 IUnit/L 30-65 L ALKALINE PHOSPHATASE TOTAL (test 49 IUnit/L 20-125 N code = ALKP) [id number] 03:43:00 Test Item Value Reference Range Interpretation Comments MAGNESIUM (test code = MAG) 2.17 mg/dL 1.80-2.40 N CBC W/AUTO [id number] 03:34:00 Test Item Value Reference Range Interpretation Comments WHITE BLOOD CELL (test code = 8.5 x10 3/uL 4.5-11.0 N WBC) RED BLOOD CELL (test code = 3.98 x10 6/uL 4.00-5.60 L RBC) HEMOGLOBIN (test code = HGB) 12.5 g/dL 12.5-16.9 N HEMATOCRIT (test code = HCT) 36.9 % 37.5-50.7 L MEAN CELL VOLUME (test code = 92.7 fL 81.0-99.0 MCV) MEAN CELL HGB (test code = MCH) 31.4 pg 27.0-33.0 N MEAN CELL HGB CONCETRATION 33.9 g/dL 33.0-37.0 N (test code = MCHC) RED CELL DISTRIBUTION WIDTH CV 13.1 % 11.5-14.5 N (test code = RDW) RED CELL DISTRIBUTION WIDTH SD 44.5 fL 37.0-54.0 N (test code = RDW-SD) PLATELET COUNT (test code = 180 x10 3/uL 150-400 N PLT) MEAN PLATELET VOLUME (test code 10.5 fL 7.0-9.0 H = MPV) NEUTROPHIL % (test code = NT%) 65.1 % 56.0-77.0 N IMMATURE GRANULOCYTE % (test 0.5 % 0.0-2.0 N code = IG%) LYMPHOCYTE % (test code = LY%) 14.4 % 14.0-32.0 N MONOCYTE % (test code = MO%) 19.8 % 4.8-9.0 H EOSINOPHIL % (test code = EO%) 0.0 % 0.3-3.7 L BASOPHIL % (test code = BA%) 0.2 % 0.0-2.0 N NUCLEATED RBC % (test code = 0.0 % 0-0 N NRBC%) NEUTROPHIL # (test code = NT#) 5.50 x10 3/uL 2.0-7.6 N IMMATURE GRANULOCYTE # (test 0.04 x10 3/uL 0.00-0.03 H code = IG#) LYMPHOCYTE # (test code = LY#) 1.22 x10 3/uL 1.0-3.8 N MONOCYTE # (test code = MO#) 1.67 x10 3/uL 0.1-0.8 H EOSINOPHIL # (test code = EO#) 0.00 x10 3/uL 0.0-0.2 N BASOPHIL # (test code = BA#) 0.02 x10 3/uL 0.0-0.2 N NUCLEATED RBC # (test code = 0.00 x10 3/uL 0.0-0.1 N NRBC#) MANUAL DIFF REQUIRED (test code NO = MDIFF) - XR ABDOMEN 1V (KU)2021-01-18 08:57:00 [facility] : 1935 Sex: M FAX: Rosario Silva [phone] [place]: St: [facility] FAX: Jada Woo [phone] -------- Name: BERTIN NICOLE [facility] Frederic Figueredo : 1935 Age/S: 85/M [address] [place] [address] Unit #: [id number] Loc: [place] [address] Phys: Jada Churchill MD Acct: [id number] Dis Date: Status: ADM IN PHONE #: [phone] Date: 01/18/2021528 FAX #: [phone] Reason: N/V EXAMS: CPT CODE: [id number] XR ABDOMEN 1V(KUB) 59277 EXAM: XR ABDOMEN 1 VIEW DATE: 01/18/2021 5:00 AM : 1935; Age: 85 years y/o Male Clinical Indication: N/V COMPARISON: None. TECHNIQUE: AP view of the abdomen. IMPRESSION: Air distended stomach is seen. Multiple distended small bowel loops are seen within the upper and mid abdomen, which may represent ileus versus obstruction. SL: [id number] at 0857 Reported and signed by: Bon Gomez D.O. CC: Roderick Wade MD; Jada Churchill MD Technologist: Vicente Wilcox, RT(R); Ilene Cowan RT(R) Trnscrd Date/Time/By: 01/18/2021 (0857) : By: [email or web address] Orig Print D/T: S: 01/18/2021 (0900) PAGE 1 SignedReport- XR CHEST 1 [id number] 08:34:00 [facility] 1935 Sex: M FAX: Rosario Silva [phone] [place]: St: ADM FAX: Harrison Jones [employer] Name: BERTIN NICOLE [facility] : 1935 Age/S: 85/M [address] [place] [address] Unit #: [id number] Loc: [address] [address] Phys: Harrison Jones NP Acct: [id number] Dis Date: Status: ADM IN PHONE #: [phone] Exam Date: 01/18/2021528 FAX #: [phone] Reason: Cardiac Surgery Post Op EXAMS: CPT CODE: [id number] XR CHEST 1 V [id number] RADIOGRAPH ONE VIEW 01/18/2021 AT 0441 HOURS. CLINICAL HISTORY: Cardiac surgery. Postoperative.COMPARISON STUDIES: Chest one view 01/16/[address] 01/11/2021. FINDINGS: One view of the chest was obtained. Decreased lung volumes with central crowding of the pulmonary vasculature and persistent perihilar and bibasilar pulmonary opacities, probably representing atelectasis and or secretions. No pleural effusions. The cardiac silhouette is enlarged with median sternotomy changes in keeping with history. Moderate bilateral glenohumeral joint osteoarthritis and severe thoracic spondylosis. Prior left rotator cuff repair. IMPRESSION: 1. Decreased lung volumes with persistent bilateral perihilar and bibasilar pulmonary opacities, probably representing atelectasis and or secretions. 2. Intervalright IJ central venous catheter removal. 3. Grossly stable postoperative mediastinum. SL: [id number] at 0834 Reported and signed by: Adalid Figueroa M.D. CC: Rosario Granados MD; Harrison Jones NP Technologist:Vicente Wilcox, RT(R); Ilene Cowan, RT(R) Trnscrd Date/Time/By: 01/18/2021 (0834) : By: [email or web address] O rig Print D/T: S: 01/18/2021 (0837) PAGE 1 Signed ReportBASIC METABOLIC PANEL 2021-01-18 03:07:00 Test Item Value Reference Range Interpretation Comments SODIUM (test code = NA) 131 mEq/L 134-147 L POTASSIUM (test code = 4.2 mEq/L 3.4-5.0 N K) CHLORIDE (test code = 103 mEq/L 100-108 N CL) CARBON DIOXIDE (test 24 mEq/l 21-33 N code = CO2) ANION GAP (test code = 8 0-20 N GAP) GLUCOSE (test code = 130 mg/dL 70-110 H GLU) BLOOD UREA NITROGEN 12 mg/dL 7-18 (test code = BUN) GLOMERULAR FILTRATION 92.3 70-80 H Units of measure = RATE (test code = GFR) ml/mi n/1.73 m2 CREATININE (test code = 0.8 mg/dL 0.6-1.3 N CREAT) CALCIUM (test code = 8.9 mg/dL 8.0-10.5 N CA) COMMENTS: POD #1HEPATIC FUNCTION [id number] 03:07:00 Test Item Value Reference Range Interpretation Comments TOTAL PROTEIN (test code = PROT) 6.4 g/dL 6.4-8.2 N ALBUMIN (test code = ALB) 4.00 g/dL 3.4-5.0 N BILIRUBIN TOTAL (test code = BILT) 1.80 mg/dL 0.0-1.0 H BILIRUBIN DIRECT (test code = 0.80 MG/DL 0.0-0.30 H BILD) BILIRUBIN INDIRECT (test code = 1.00 MG/DL BILIND) SGOT/AST (test code = AST) 45 IUnit/L 15-37 H SGPT/ALT (test code = ALT) 29 IUnit/L 30-65 L ALKALINE PHOSPHATASE TOTAL (test 55 IUnit/L 20-125 N code = ALKP) COMMENTS: POD #[id number] 03:07:00 Test Item Value Reference Range Interpretation Comments MAGNESIUM (test code = MAG) 1.98 mg/dL 1.80-2.40 N COMMENTS: POD #1CBC W/AUTO [id number] 02:59:00 Test Item Value Reference Range Interpretation Comments WHITE BLOOD CELL (test code = 12.0 x10 3/uL 4.5-11.0 H WBC) RED BLOOD CELL (test code = 3.91 x10 6/uL 4.00-5.60 L RBC) HEMOGLOBIN (test code = HGB) 12.6 g/dL 12.5-16.9 HEMATOCRIT (test code = HCT) 39.7 % 37.5-50.7 MEAN CELL VOLUME (test code = 101.5 fL 81.0-99.0 H MCV) MEAN CELL HGB (test code = MCH) 32.2 pg 27.0-33.0 N MEAN CELL HGB CONCETRATION 31.7 g/dL 33.0-37.0 L (test code = MCHC) RED CELL DISTRIBUTION WIDTH CV 13.3 % 11.5-14.5 N (test code = RDW) RED CELL DISTRIBUTION WIDTH SD 49.7 fL 37.0-54.0 N (test code = RDW-SD) PLATELET COUNT (test code = 143 x10 3/uL 150-400 L PLT) MEAN PLATELET VOLUME (test code 10.5 fL 7.0-9.0 H = MPV) NEUTROPHIL % (test code = NT%) 76.0 % 56.0-77.0 N IMMATURE GRANULOCYTE % (test 0.6 % 0.0-2.0 N code = IG%) LYMPHOCYTE % (test code = LY%) 11.4 % 14.0-32.0 L MONOCYTE % (test code = MO%) 11.7 % 4.8-9.0 H EOSINOPHIL % (test code = EO%) 0.1 % 0.3-3.7 L BASOPHIL % (test code = BA%) 0.2 % 0.0-2.0 N NUCLEATED RBC % (test code = 0.0 % 0-0 N NRBC%) NEUTROPHIL # (test code = NT#) 9.12 x10 3/uL 2.0-7.6 H IMMATURE GRANULOCYTE # (test 0.07 x10 3/uL 0.00-0.03 H code = IG#) LYMPHOCYTE # (test code = LY#) 1.37 x10 3/uL 1.0-3.8 N MONOCYTE # (test code = MO#) 1.40 x10 3/uL 0.1-0.8 H EOSINOPHIL # (test code = EO#) 0.01 x10 3/uL 0.0-0.2 N BASOPHIL # (test code = BA#) 0.02 x10 3/uL 0.0-0.2 N NUCLEATED RBC # (test code = 0.00 x10 3/uL 0.0-0.1 N NRBC#) MANUAL DIFF REQUIRED (test code NO = MDIFF) - XR CHEST 1 [id number] 07:22:00 [facility] 1935 Sex: M FAX: Rosario Silva [phone] [place]: St: ADM FAX: Harrison Jones NP Name: BERTIN NICOLE [facility] : 1935 Age/S: 85/M [address] [place] [address] Bl Unit #: [id number] Loc: [address] [place] [address] Phys: Harrison Jones NP Acct: [id number] Dis Date: Status: ADM IN PHONE #: [phone] Exam Date: 01/17/2021 0551 FAX #: [phone] Reason: Cardiac Surgery Post Op EXAMS: CPT CODE: [id number] XR CHEST 1 V 08248 Chest single view 01/17/2021 HISTORY: Postoperative cardiac surgery Comparison is made to 01/16/2021 FINDINGS: Right jugular [place] catheter has been removed. Right jugular sheath remains. Midline sternotomy wires are stable. Cardiomegaly is stable. Tortuous aorta is unchanged. Bibasilar atelectasis/infiltrates are unchanged. No interstitial edema is noted. IMPRESSION: 1. Interval removal of right jugular [place] catheter. 2. Otherwise stable chest. SL: [id number] at 0722 Reported and signed by: Gm Mann M.D. CC: Rosario Granados MD; Harrison Jones NP Technologist: Vicente Wilcox, RT(R); Ilene Cowan RT(R)Trnscrd Date/Time/By: 01/17/2021 (721) : By: [email or web address] [facility] Print D/T: S: 01/17/2021 (0740) PAGE 1 Signed ReportBASIC METABOLIC [id number] 03:46:00 Test Item Value Reference Range Interpretation Comments SODIUM (test code = NA) 134 mEq/L 134-147 N POTASSIUM (test code = 4.2 mEq/L 3.4-5.0 N K) CHLORIDE (test code = 107 mEq/L 100-108 N CL) CARBON DIOXIDE (test 22 mEq/l 21-33 N code = CO2) ANION GAP (test code = 9 0-20 N GAP) GLUCOSE (test code = 130 mg/dL 70-110 H GLU) BLOOD UREA NITROGEN 19 mg/dL 7-18 H (test code = BUN) GLOMERULAR FILTRATION 71.4 70-80 N Units of measure = RATE (test code = GFR) ml/mi n/1.73 m2 CREATININE (test code = 1.0 mg/dL 0.6-1.3 N CREAT) CALCIUM (test code = 8.6 mg/dL 8.0-10.5 N CA) COMMENTS: POD #1HEPATIC FUNCTION [id number] 03:46:00 Test Item Value Reference Range Interpretation Comments TOTAL PROTEIN (test code = PROT) 5.7 g/dL 6.4-8.2 L ALBUMIN (test code = ALB) 3.90 g/dL 3.4-5.0 N BILIRUBIN TOTAL (test code = BILT) 1.30 mg/dL 0.0-1.0 H BILIRUBIN DIRECT (test code = 0.60 MG/DL 0.0-0.30 H BILD) BILIRUBIN INDIRECT (test code = 0.70 MG/DL BILIND) SGOT/AST (test code = AST) 55 IUnit/L 15-37 H SGPT/ALT (test code = ALT) 38 IUnit/L 30-65 ALKALINE PHOSPHATASE TOTAL (test 48 IUnit/L 20-125 N code = ALKP) COMMENTS: POD #[id number] 03:46:00 Test Item Value Reference Range Interpretation Comments MAGNESIUM (test code = MAG) 1.91 mg/dL 1.80-2.40 N COMMENTS: POD #1CBC W/AUTO [id number] 03:36:00 Test Item Value Reference Range Interpretation Comments WHITE BLOOD CELL (test code = 10.1 x10 3/uL 4.5-11.0 N WBC) RED BLOOD CELL (test code = 2.99 x10 6/uL 4.00-5.60 L RBC) HEMOGLOBIN (test code = HGB) 9.4 g/dL 12.5-16.9 L HEMATOCRIT (test code = HCT) 28.2 % 37.5-50.7 L MEAN CELL VOLUME (test code = 94.3 fL 81.0-99.0 N MCV) MEAN CELL HGB (test code = MCH) 31.4 pg 27.0-33.0 N MEAN CELL HGB CONCETRATION 33.3 g/dL 33.0-37.0 N (test code = MCHC) RED CELL DISTRIBUTION WIDTH CV 13.7 % 11.5-14.5 N (test code = RDW) RED CELL DISTRIBUTION WIDTH SD 47.3 fL 37.0-54.0 N (test code = RDW-SD) PLATELET COUNT (test code = 96 x10 3/uL 150-400 L PLT) MEAN PLATELET VOLUME (test code 10.6 fL 7.0-9.0 H = MPV) NEUTROPHIL % (test code = NT%) 70.4 % 56.0-77.0 N IMMATURE GRANULOCYTE % (test 0.2 % 0.0-2.0 N code = IG%) LYMPHOCYTE % (test code = LY%) 16.6 % 14.0-32.0 N MONOCYTE % (test code = MO%) 12.5 % 4.8-9.0 H EOSINOPHIL % (test code = EO%) 0.1 % 0.3-3.7 L BASOPHIL % (test code = BA%) 0.2 % 0.0-2.0 N NUCLEATED RBC % (test code = 0.0 % 0-0 N NRBC%) NEUTROPHIL # (test code = NT#) 7.11 x10 3/uL 2.0-7.6 N IMMATURE GRANULOCYTE # (test 0.02 x10 3/uL 0.00-0.03 N code = IG#) LYMPHOCYTE # (test code = LY#) 1.67 x10 3/uL 1.0-3.8 N MONOCYTE # (test code = MO#) 1.26 x10 3/uL 0.1-0.8 H EOSINOPHIL # (test code = EO#) 0.01 x10 3/uL 0.0-0.2 N BASOPHIL # (test code = BA#) 0.02 x10 3/uL 0.0-0.2 N NUCLEATED RBC # (test code = 0.00 x10 3/uL 0.0-0.1 N NRBC#) MANUAL DIFF REQUIRED (test code NO = MDIFF) [id number] 13:08:00 Test Item Value Reference Range Interpretation Comments GLUBED (test code = 112 MG/DL 70-110 H Performe d by certified GLUBED) 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 [facility] B-TYPE NATRIURETIC [id number] 11:27:00 Test Item Value Reference Range Interpretation Comments B-TYPE NATRIURETIC PEPTIDE (test 115.0 PG/ML 0-100 H code = BNP) [id number] 08:58:00 Test Item Value Reference Range Interpretation Comments GLUBED (test code = 119 MG/DL 70-110 H Performe d by certified GLUBED) 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 [facility] - XR CHEST 1 [id number] 08:10:00 [facility] 1935 Sex: M FAX: Rosario Silva [phone] [place]: St: ADM FAX: Harrison Jones [employer] 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 CLINICAL HISTORY: Cardiac surgery. Postoperative. COMPARISON STUDIES: Chest one view from yesterday at [address] from 01/11/2021. FINDINGS: One view of the chest was obtained. 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 Persistent ill- defined bilateral perihilar retrocardiac opacities are noted. No pleural effusionor pneumothorax. 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 Prior left rotator cuff repair. IMPRESSION: 1. Grossly stable postoperative mediastinum. 2. Persistent bilateral perihilar retrocardiac pulmonary opacities, likely representing atelectasis and or secretions. SL: [id number] at 0810 Reported and signed by: Adalid Figueroa M.D. CC: Rosario Granados MD; Harrison Jones NP Technologist: Vicente Wilcox RT(R); RT Fransisca(R) Trnscrd Date/Time/By: 01/16/2021 (08) : By: [email or web address] Or ig Print D/T: S: 01/16/2021 (0813) PAGE 1 Signed [id number] 07:15:00 Test Item Value Reference Range Interpretation Comments GLUBED (test code = 117 MG/DL 70-110 H Performe d by certified GLUBED) 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 [facility] [id number] 07:15:00 Test Item Value Reference Range Interpretation Comments GLUBED (test code = 119 MG/DL 70-110 H Performe d by certified GLUBED) 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 [facility] LACTIC [id number] 04:23:00 Test Item Value Reference Range Interpretation Comments LACTIC ACID (test code = LACT) 0.8 mmol/L 0.4-1.9 N BASIC METABOLIC [id number] 04:19:00 Test Item Value Reference Range Interpretation Comments SODIUM (test code = NA) 137 mEq/L 134-147 N POTASSIUM (test code = 4.7 mEq/L 3.4-5.0 N K) CHLORIDE (test code = 110 mEq/L 100-108 H CL) CARBON DIOXIDE (test 22 mEq/l 21-33 N code = CO2) ANION GAP (test code = 10 0-20 N GAP) GLUCOSE (test code = 129 mg/dL 70-110 H GLU) BLOOD UREA NITROGEN 17 mg/dL 7-18 N (test code = BUN) GLOMERULAR FILTRATION 63.9 70-80 L Units of measure = RATE (test code = GFR) ml/mi n/1.73 m2 CREATININE (test code = 1.1 mg/dL 0.6-1.3 N CREAT) CALCIUM (test code = 8.6 mg/dL 8.0-10.5 N CA) COMMENTS: POD #1HEPATIC FUNCTION [id number] 04:19:00 Test Item Value Reference Range Interpretation Comments TOTAL PROTEIN (test code = PROT) 5.6 g/dL 6.4-8.2 L ALBUMIN (test code = ALB) 3.60 g/dL 3.4-5.0 N BILIRUBIN TOTAL (test code = 0.90 mg/dL 0.0-1.0 N BILT) BILIRUBIN DIRECT (test code = 0.40 MG/DL 0.0-0.30 H BILD) BILIRUBIN INDIRECT (test code = 0.50 MG/DL BILIND) SGOT/AST (test code = AST) 105 IUnit/L 15-37 H SGPT/ALT (test code = ALT) 87 IUnit/L 30-65 H ALKALINE PHOSPHATASE TOTAL (test 59 IUnit/L 20-125 N code = ALKP) COMMENTS: POD #[id number] 04:19:00 Test Item Value Reference Range Interpretation Comments MAGNESIUM (test code = MAG) 2.08 mg/dL 1.80-2.40 N COMMENTS: POD #1POC ARTERIAL BLOOD [id number] 04:09:00 Test Item Value Reference Range Interpretation Comments POC ARTERIAL BLOOD GAS PH (test 7.356 7.35-7.45 N code = POCPHA) POC ARTERIAL BLOOD GAS PCO2 39.7 mmHg 35.0-45 N (test code = AEQOBL1F) POC TCO2 ARTERIAL (test code = 23.2 POCTCO2) POC ARTERIAL BLOOD GAS PO2 (test 61.5 mmHg 80-100.0 L code = HNSTL5K) POC HCO3 ARTERIAL (test code = 22.0 MMOL/L 22.0-26.0 N KDQTBG2N) POC BASE EXCESS (test code = -3.3 MMOL/L -4.0-4.0 N POCBEA) POC O2 SATURATION (test code = 89.3 % 90-100 L POCO2S) FIO2 (test code = FIO2A) 28 % PaO2/FiO2 (test code = YUU2YTW9) 219.64 mm/Hg ABG DELIVERY (test code = ROBERTO) Cannula ABG TEMPERATURE (test code = 99.7 F TEMPA) ABG SITE (test code = SITEA) Art Line MARGARITA'S TEST (test code = N/A ALLENS) [id number] 04:09:00 Test Item Value Reference Range Interpretation Comments SODIUM (test code = NA/ABG) MEQ/L 134-147 [id number] 04:09:00 Test Item Value Reference Range Interpretation Comments POTASSIUM (test code = K/ABG) MEQ/L 3.4-5.0 [id number] 04:09:00 Test Item Value Reference Range Interpretation Comments CHLORIDE (test code = CL/ABG) MEQ/L 100-108 CREATININE [id number] 04:09:00 Test Item Value Reference Range Interpretation Comments CREATININE ABG (test code = CREAABG) mg/dL 0.8-1.3 [id number] 04:09:00 Test Item Value Reference Range Interpretation Comments HEMOGLOBIN (test code = HGB/ABG) G/DL 12.5-16.9 [id number] 04:09:00 Test Item Value Reference Range Interpretation Comments HEMATOCRIT (test code = HCT/ABG) % 37.5-50.7 POC IONIZED [id number] 04:09:00 Test Item Value Reference Range Interpretation Comments POC IONIZED CALCIUM (test code = MMOL/L 1.12-1.32 POCCA) POC LACTIC [id number] 04:09:00 Test Item Value Reference Range Interpretation Comments POC LACTIC ACID (test code = POCLAC) mmol/l 0.9-1.7 POC [id number] 04:09:00 Test Item Value Reference Range Interpretation Comments POC GLUCOSE (test code = POCGLU) MG/DL 70-110 POC ARTERIAL BLOOD [id number] 04:09:00 Test Item Value Reference Range Interpretation Comments POC ARTERIAL BLOOD GAS PH (test 7.356 7.35-7.45 N code = POCPHA) POC ARTERIAL BLOOD GAS PCO2 39.7 mmHg 35.0-45 N (test code = WOXBGC0H) POC TCO2 ARTERIAL (test code = 23.2 POCTCO2) POC ARTERIAL BLOOD GAS PO2 (test 61.5 mmHg 80-100.0 L code = SOOBW0D) POC HCO3 ARTERIAL (test code = 22.0 MMOL/L 22.0-26.0 N TCFAGT2G) POC BASE EXCESS (test code = -3.3 MMOL/L -4.0-4.0 N POCBEA) POC O2 SATURATION (test code = 89.3 % 90-100 L POCO2S) FIO2 (test code = FIO2A) 28 % PaO2/FiO2 (test code = BHY3LKH2) 219.64 mm/Hg ABG DELIVERY (test code = ROBERTO) Cannula ABG TEMPERATURE (test code = 99.7 F TEMPA) ABG SITE (test code = SITEA) Art Line MARGARITA'S TEST (test code = N/A ALLENS) [id number] 04:09:00 Test Item Value Reference Range Interpretation Comments SODIUM (test code = NA/ABG) 137 MEQ/L 134-147 N [id number] 04:09:00 Test Item Value Reference Range Interpretation Comments POTASSIUM (test code = K/ABG) MEQ/L 3.4-5.0 [id number] 04:09:00 Test Item Value Reference Range Interpretation Comments CHLORIDE (test code = CL/ABG) MEQ/L 100-108 CREATININE [id number] 04:09:00 Test Item Value Reference Range Interpretation Comments CREATININE ABG (test code = CREAABG) mg/dL 0.8-1.3 [id number] 04:09:00 Test Item Value Reference Range Interpretation Comments HEMOGLOBIN (test code = HGB/ABG) G/DL 12.5-16.9 [id number] 04:09:00 Test Item Value Reference Range Interpretation Comments HEMATOCRIT (test code = HCT/ABG) % 37.5-50.7 POC IONIZED [id number] 04:09:00 Test Item Value Reference Range Interpretation Comments POC IONIZED CALCIUM (test code = MMOL/L 1.12-1.32 POCCA) POC LACTIC [id number] 04:09:00 Test Item Value Reference Range Interpretation Comments POC LACTIC ACID (test code = POCLAC) mmol/l 0.9-1.7 POC [id number] 04:09:00 Test Item Value Reference Range Interpretation Comments POC GLUCOSE (test code = POCGLU) MG/DL 70-110 POC ARTERIAL BLOOD [id number] 04:09:00 Test Item Value Reference Range Interpretation Comments POC ARTERIAL BLOOD GAS PH (test 7.356 7.35-7.45 N code = POCPHA) POC ARTERIAL BLOOD GAS PCO2 39.7 mmHg 35.0-45 N (test code = MBUQMV9F) POC TCO2 ARTERIAL (test code = 23.2 POCTCO2) POC ARTERIAL BLOOD GAS PO2 (test 61.5 mmHg 80-100.0 L code = NGJNJ3I) POC HCO3 ARTERIAL (test code = 22.0 MMOL/L 22.0-26.0 N ZNMOJM4I) POC BASE EXCESS (test code = -3.3 MMOL/L -4.0-4.0 N POCBEA) POC O2 SATURATION (test code = 89.3 % 90-100 L POCO2S) FIO2 (test code = FIO2A) 28 % PaO2/FiO2 (test code = NNR8UUJ9) 219.64 mm/Hg ABG DELIVERY (test code = ROBERTO) Cannula ABG TEMPERATURE (test code = 99.7 F TEMPA) ABG SITE (test code = SITEA) Art Line MARGARITA'S TEST (test code = N/A ALLENS) [id number] 04:09:00 Test Item Value Reference Range Interpretation Comments SODIUM (test code = NA/ABG) 137 MEQ/L 134-147 N [id number] 04:09:00 Test Item Value Reference Range Interpretation Comments POTASSIUM (test code = K/ABG) 4.6 MEQ/L 3.4-5.0 N [id number] 04:09:00 Test Item Value Reference Range Interpretation Comments CHLORIDE (test code = CL/ABG) MEQ/L 100-108 CREATININE [id number] 04:09:00 Test Item Value Reference Range Interpretation Comments CREATININE ABG (test code = CREAABG) mg/dL 0.8-1.3 [id number] 04:09:00 Test Item Value Reference Range Interpretation Comments HEMOGLOBIN (test code = HGB/ABG) G/DL 12.5-16.9 [id number] 04:09:00 Test Item Value Reference Range Interpretation Comments HEMATOCRIT (test code = HCT/ABG) % 37.5-50.7 POC IONIZED [id number] 04:09:00 Test Item Value Reference Range Interpretation Comments POC IONIZED CALCIUM (test code = MMOL/L 1.12-1.32 POCCA) POC LACTIC [id number] 04:09:00 Test Item Value Reference Range Interpretation Comments POC LACTIC ACID (test code = POCLAC) mmol/l 0.9-1.7 POC [id number] 04:09:00 Test Item Value Reference Range Interpretation Comments POC GLUCOSE (test code = POCGLU) MG/DL 70-110 POC ARTERIAL BLOOD [id number] 04:09:00 Test Item Value Reference Range Interpretation Comments POC ARTERIAL BLOOD GAS PH (test 7.356 7.35-7.45 N code = POCPHA) POC ARTERIAL BLOOD GAS PCO2 39.7 mmHg 35.0-45 N (test code = YKGGLA9B) POC TCO2 ARTERIAL (test code = 23.2 POCTCO2) POC ARTERIAL BLOOD GAS PO2 (test 61.5 mmHg 80-100.0 L code = GRMBH3E) POC HCO3 ARTERIAL (test code = 22.0 MMOL/L 22.0-26.0 N WJQWPB6B) POC BASE EXCESS (test code = -3.3 MMOL/L -4.0-4.0 N POCBEA) POC O2 SATURATION (test code = 89.3 % 90-100 L POCO2S) FIO2 (test code = FIO2A) 28 % PaO2/FiO2 (test code = RET4ILJ5) 219.64 mm/Hg ABG DELIVERY (test code = ROBERTO) Cannula ABG TEMPERATURE (test code = 99.7 F TEMPA) ABG SITE (test code = SITEA) Art Line MARGARITA'S TEST (test code = N/A ALLENS) [id number] 04:09:00 Test Item Value Reference Range Interpretation Comments SODIUM (test code = NA/ABG) 137 MEQ/L 134-147 N [id number] 04:09:00 Test Item Value Reference Range Interpretation Comments POTASSIUM (test code = K/ABG) 4.6 MEQ/L 3.4-5.0 N [id number] 04:09:00 Test Item Value Reference Range Interpretation Comments CHLORIDE (test code = CL/ABG) MEQ/L 100-108 CREATININE [id number] 04:09:00 Test Item Value Reference Range Interpretation Comments CREATININE ABG (test code = CREAABG) mg/dL 0.8-1.3 [id number] 04:09:00 Test Item Value Reference Range Interpretation Comments HEMOGLOBIN (test code = HGB/ABG) G/DL 12.5-16.9 [id number] 04:09:00 Test Item Value Reference Range Interpretation Comments HEMATOCRIT (test code = HCT/ABG) % 37.5-50.7 POC IONIZED [id number] 04:09:00 Test Item Value Reference Range Interpretation Comments POC IONIZED CALCIUM (test code = 1.20 MMOL/L 1.12-1.32 N POCCA) POC LACTIC [id number] 04:09:00 Test Item Value Reference Range Interpretation Comments POC LACTIC ACID (test code = POCLAC) mmol/l 0.9-1.7 POC [id number] 04:09:00 Test Item Value Reference Range Interpretation Comments POC GLUCOSE (test code = POCGLU) MG/DL 70-110 POC ARTERIAL BLOOD [id number] 04:09:00 Test Item Value Reference Range Interpretation Comments POC ARTERIAL BLOOD GAS PH (test 7.356 7.35-7.45 N code = POCPHA) POC ARTERIAL BLOOD GAS PCO2 39.7 mmHg 35.0-45 N (test code = PRWFQD8X) POC TCO2 ARTERIAL (test code = 23.2 POCTCO2) POC ARTERIAL BLOOD GAS PO2 (test 61.5 mmHg 80-100.0 L code = EIKKN6B) POC HCO3 ARTERIAL (test code = 22.0 MMOL/L 22.0-26.0 N IKQYHX7Q) POC BASE EXCESS (test code = -3.3 MMOL/L -4.0-4.0 N POCBEA) POC O2 SATURATION (test code = 89.3 % 90-100 L POCO2S) FIO2 (test code = FIO2A) 28 % PaO2/FiO2 (test code = [id number]) 219.64 mm/Hg ABG DELIVERY (test code = ROBERTO) Cannula ABG TEMPERATURE (test code = 99.7 F TEMPA) ABG SITE (test code = SITEA) Art Line MARGARITA'S TEST (test code = N/A ALLENS) [id number] 04:09:00 Test Item Value Reference Range Interpretation Comments SODIUM (test code = NA/ABG) 137 MEQ/L 134-147 N [id number] 04:09:00 Test Item Value Reference Range Interpretation Comments POTASSIUM (test code = K/ABG) 4.6 MEQ/L 3.4-5.0 N [id number] 04:09:00 Test Item Value Reference Range Interpretation Comments CHLORIDE (test code = CL/ABG) MEQ/L 100-108 CREATININE [id number] 04:09:00 Test Item Value Reference Range Interpretation Comments CREATININE ABG (test code = CREAABG) mg/dL 0.8-1.3 [id number] 04:09:00 Test Item Value Reference Range Interpretation Comments HEMOGLOBIN (test code = HGB/ABG) G/DL 12.5-16.9 [id number] 04:09:00 Test Item Value Reference Range Interpretation Comments HEMATOCRIT (test code = HCT/ABG) % 37.5-50.7 POC IONIZED [id number] 04:09:00 Test Item Value Reference Range Interpretation Comments POC IONIZED CALCIUM (test code = 1.20 MMOL/L 1.12-1.32 N POCCA) POC LACTIC [id number] 04:09:00 Test Item Value Reference Range Interpretation Comments POC LACTIC ACID (test code = POCLAC) mmol/l 0.9-1.7 POC [id number] 04:09:00 Test Item Value Reference Range Interpretation Comments POC GLUCOSE (test code = POCGLU) 126 MG/DL 70-110 H POC ARTERIAL BLOOD [id number] 04:09:00 Test Item Value Reference Range Interpretation Comments POC ARTERIAL BLOOD GAS PH (test 7.356 7.35-7.45 N code = POCPHA) POC ARTERIAL BLOOD GAS PCO2 39.7 mmHg 35.0-45 N (test code = OKCRCR3R) POC TCO2 ARTERIAL (test code = 23.2 POCTCO2) POC ARTERIAL BLOOD GAS PO2 (test 61.5 mmHg 80-100.0 L code = GRUFN9K) POC HCO3 ARTERIAL (test code = 22.0 MMOL/L 22.0-26.0 N XRGNFZ6H) POC BASE EXCESS (test code = -3.3 MMOL/L -4.0-4.0 N POCBEA) POC O2 SATURATION (test code = 89.3 % 90-100 L POCO2S) FIO2 (test code = FIO2A) 28 % PaO2/FiO2 (test code = JMU3DDH5) 219.64 mm/Hg ABG DELIVERY (test code = ROBERTO) Cannula ABG TEMPERATURE (test code = 99.7 F TEMPA) ABG SITE (test code = SITEA) Art Line MARGARITA'S TEST (test code = N/A ALLENS) [id number] 04:09:00 Test Item Value Reference Range Interpretation Comments SODIUM (test code = NA/ABG) 137 MEQ/L 134-147 N [id number] 04:09:00 Test Item Value Reference Range Interpretation Comments POTASSIUM (test code = K/ABG) 4.6 MEQ/L 3.4-5.0 N [id number] 04:09:00 Test Item Value Reference Range Interpretation Comments CHLORIDE (test code = CL/ABG) MEQ/L 100-108 CREATININE [id number] 04:09:00 Test Item Value Reference Range Interpretation Comments CREATININE ABG (test code = CREAABG) mg/dL 0.8-1.3 [id number] 04:09:00 Test Item Value Reference Range Interpretation Comments HEMOGLOBIN (test code = HGB/ABG) G/DL 12.5-16.9 [id number] 04:09:00 Test Item Value Reference Range Interpretation Comments HEMATOCRIT (test code = HCT/ABG) % 37.5-50.7 POC IONIZED [id number] 04:09:00 Test Item Value Reference Range Interpretation Comments POC IONIZED CALCIUM (test code = 1.20 MMOL/L 1.12-1.32 N POCCA) POC LACTIC [id number] 04:09:00 Test Item Value Reference Range Interpretation Comments POC LACTIC ACID (test code = 0.9 mmol/l 0.9-1.7 N POCLAC) POC [id number] 04:09:00 Test Item Value Reference Range Interpretation Comments POC GLUCOSE (test code = POCGLU) 126 MG/DL 70-110 H POC ARTERIAL BLOOD [id number] 04:09:00 Test Item Value Reference Range Interpretation Comments POC ARTERIAL BLOOD GAS PH (test 7.356 7.35-7.45 N code = POCPHA) POC ARTERIAL BLOOD GAS PCO2 39.7 mmHg 35.0-45 N (test code = XRSCJC7T) POC TCO2 ARTERIAL (test code = 23.2 POCTCO2) POC ARTERIAL BLOOD GAS PO2 (test 61.5 mmHg 80-100.0 L code = YEQJP1F) POC HCO3 ARTERIAL (test code = 22.0 MMOL/L 22.0-26.0 N HVOMMB9Z) POC BASE EXCESS (test code = -3.3 MMOL/L -4.0-4.0 N POCBEA) POC O2 SATURATION (test code = 89.3 % 90-100 L POCO2S) FIO2 (test code = FIO2A) 28 % PaO2/FiO2 (test code = LUJ2ZRR0) 219.64 mm/Hg ABG DELIVERY (test code = ROBERTO) Cannula ABG TEMPERATURE (test code = 99.7 F TEMPA) ABG SITE (test code = SITEA) Art Line MARGARITA'S TEST (test code = N/A ALLENS) [id number] 04:09:00 Test Item Value Reference Range Interpretation Comments SODIUM (test code = NA/ABG) 137 MEQ/L 134-147 N [id number] 04:09:00 Test Item Value Reference Range Interpretation Comments POTASSIUM (test code = K/ABG) 4.6 MEQ/L 3.4-5.0 N [id number] 04:09:00 Test Item Value Reference Range Interpretation Comments CHLORIDE (test code = CL/ABG) MEQ/L 100-108 CREATININE [id number] 04:09:00 Test Item Value Reference Range Interpretation Comments CREATININE ABG (test code = CREAABG) mg/dL 0.8-1.3 [id number] 04:09:00 Test Item Value Reference Range Interpretation Comments HEMOGLOBIN (test code = HGB/ABG) G/DL 12.5-16.9 [id number] 04:09:00 Test Item Value Reference Range Interpretation Comments HEMATOCRIT (test code = HCT/ABG) 30 % 37.5-50.7 L POC IONIZED [id number] 04:09:00 Test Item Value Reference Range Interpretation Comments POC IONIZED CALCIUM (test code = 1.20 MMOL/L 1.12-1.32 N POCCA) POC LACTIC [id number] 04:09:00 Test Item Value Reference Range Interpretation Comments POC LACTIC ACID (test code = 0.9 mmol/l 0.9-1.7 N POCLAC) POC [id number] 04:09:00 Test Item Value Reference Range Interpretation Comments POC GLUCOSE (test code = POCGLU) 126 MG/DL 70-110 H POC ARTERIAL BLOOD [id number] 04:09:00 Test Item Value Reference Range Interpretation Comments POC ARTERIAL BLOOD GAS PH (test 7.356 7.35-7.45 N code = POCPHA) POC ARTERIAL BLOOD GAS PCO2 39.7 mmHg 35.0-45 N (test code = MYHDGH9Z) POC TCO2 ARTERIAL (test code = 23.2 POCTCO2) POC ARTERIAL BLOOD GAS PO2 (test 61.5 mmHg 80-100.0 L code = ODJSE8F) POC HCO3 ARTERIAL (test code = 22.0 MMOL/L 22.0-26.0 N LMLGYZ0P) POC BASE EXCESS (test code = -3.3 MMOL/L -4.0-4.0 N POCBEA) POC O2 SATURATION (test code = 89.3 % 90-100 L POCO2S) FIO2 (test code = FIO2A) 28 % PaO2/FiO2 (test code = HPV3LSP5) 219.64 mm/Hg ABG DELIVERY (test code = ROBERTO) Cannula ABG TEMPERATURE (test code = 99.7 F TEMPA) ABG SITE (test code = SITEA) Art Line MARGARITA'S TEST (test code = N/A JOHN PAUL) [id number] 04:09:00 Test Item Value Reference Range Interpretation Comments SODIUM (test code = NA/ABG) 137 MEQ/L 134-147 N [id number] 04:09:00 Test Item Value Reference Range Interpretation Comments POTASSIUM (test code = K/ABG) 4.6 MEQ/L 3.4-5.0 N [id number] 04:09:00 Test Item Value Reference Range Interpretation Comments CHLORIDE (test code = CL/ABG) MEQ/L 100-108 CREATININE [id number] 04:09:00 Test Item Value Reference Range Interpretation Comments CREATININE ABG (test code = CREAABG) mg/dL 0.8-1.3 [id number] 04:09:00 Test Item Value Reference Range Interpretation Comments HEMOGLOBIN (test code = HGB/ABG) 10.0 G/DL 12.5-16.9 L [id number] 04:09:00 Test Item Value Reference Range Interpretation Comments HEMATOCRIT (test code = HCT/ABG) 30 % 37.5-50.7 L POC IONIZED [id number] 04:09:00 Test Item Value Reference Range Interpretation Comments POC IONIZED CALCIUM (test code = 1.20 MMOL/L 1.12-1.32 N POCCA) POC LACTIC [id number] 04:09:00 Test Item Value Reference Range Interpretation Comments POC LACTIC ACID (test code = 0.9 mmol/l 0.9-1.7 N POCLAC) POC [id number] 04:09:00 Test Item Value Reference Range Interpretation Comments POC GLUCOSE (test code = POCGLU) 126 MG/DL 70-110 H POC ARTERIAL BLOOD [id number] 04:09:00 Test Item Value Reference Range Interpretation Comments POC ARTERIAL BLOOD GAS PH (test 7.356 7.35-7.45 N code = POCPHA) POC ARTERIAL BLOOD GAS PCO2 39.7 mmHg 35.0-45 N (test code = VHOPUY3G) POC TCO2 ARTERIAL (test code = 23.2 POCTCO2) POC ARTERIAL BLOOD GAS PO2 (test 61.5 mmHg 80-100.0 L code = XROPP0L) POC HCO3 ARTERIAL (test code = 22.0 MMOL/L 22.0-26.0 N WWHZIO7R) POC BASE EXCESS (test code = -3.3 MMOL/L -4.0-4.0 N POCBEA) POC O2 SATURATION (test code = 89.3 % 90-100 L POCO2S) FIO2 (test code = FIO2A) 28 % PaO2/FiO2 (test code = CHU9AEJ8) 219.64 mm/Hg ABG DELIVERY (test code = ROBERTO) Cannula ABG TEMPERATURE (test code = 99.7 F TEMPA) ABG SITE (test code = SITEA) Art Line MARGARITA'S TEST (test code = N/A ALLENS) [id number] 04:09:00 Test Item Value Reference Range Interpretation Comments SODIUM (test code = NA/ABG) 137 MEQ/L 134-147 N [id number] 04:09:00 Test Item Value Reference Range Interpretation Comments POTASSIUM (test code = K/ABG) 4.6 MEQ/L 3.4-5.0 N [id number] 04:09:00 Test Item Value Reference Range Interpretation Comments CHLORIDE (test code = CL/ABG) 106 MEQ/L 100-108 N CREATININE [id number] 04:09:00 Test Item Value Reference Range Interpretation Comments CREATININE ABG (test code = CREAABG) mg/dL 0.8-1.3 [id number] 04:09:00 Test Item Value Reference Range Interpretation Comments HEMOGLOBIN (test code = HGB/ABG) 10.0 G/DL 12.5-16.9 L [id number] 04:09:00 Test Item Value Reference Range Interpretation Comments HEMATOCRIT (test code = HCT/ABG) 30 % 37.5-50.7 L POC IONIZED [id number] 04:09:00 Test Item Value Reference Range Interpretation Comments POC IONIZED CALCIUM (test code = 1.20 MMOL/L 1.12-1.32 N POCCA) POC LACTIC [id number] 04:09:00 Test Item Value Reference Range Interpretation Comments POC LACTIC ACID (test code = 0.9 mmol/l 0.9-1.7 N POCLAC) POC [id number] 04:09:00 Test Item Value Reference Range Interpretation Comments POC GLUCOSE (test code = POCGLU) 126 MG/DL 70-110 H POC ARTERIAL BLOOD [id number] 04:09:00 Test Item Value Reference Range Interpretation Comments POC ARTERIAL BLOOD GAS PH (test 7.356 7.35-7.45 N code = POCPHA) POC ARTERIAL BLOOD GAS PCO2 39.7 mmHg 35.0-45 N (test code = GACYFZ6B) POC TCO2 ARTERIAL (test code = 23.2 POCTCO2) POC ARTERIAL BLOOD GAS PO2 (test 61.5 mmHg 80-100.0 L code = BKZHZ6I) POC HCO3 ARTERIAL (test code = 22.0 MMOL/L 22.0-26.0 N PAKFCX5X) POC BASE EXCESS (test code = -3.3 MMOL/L -4.0-4.0 N POCBEA) POC O2 SATURATION (test code = 89.3 % 90-100 L POCO2S) FIO2 (test code = FIO2A) 28 % PaO2/FiO2 (test code = QLB7GLE3) 219.64 mm/Hg ABG DELIVERY (test code = ROBERTO) Cannula ABG TEMPERATURE (test code = 99.7 F TEMPA) ABG SITE (test code = SITEA) Art Line MARGARITA'S TEST (test code = N/A ALLENS) [id number] 04:09:00 Test Item Value Reference Range Interpretation Comments SODIUM (test code = NA/ABG) 137 MEQ/L 134-147 N [id number] 04:09:00 Test Item Value Reference Range Interpretation Comments POTASSIUM (test code = K/ABG) 4.6 MEQ/L 3.4-5.0 N [id number] 04:09:00 Test Item Value Reference Range Interpretation Comments CHLORIDE (test code = CL/ABG) 106 MEQ/L 100-108 N CREATININE [id number] 04:09:00 Test Item Value Reference Range Interpretation Comments CREATININE ABG (test code = 1.1 mg/dL 0.8-1.3 CREAABG) [id number] 04:09:00 Test Item Value Reference Range Interpretation Comments HEMOGLOBIN (test code = HGB/ABG) 10.0 G/DL 12.5-16.9 L [id number] 04:09:00 Test Item Value Reference Range Interpretation Comments HEMATOCRIT (test code = HCT/ABG) 30 % 37.5-50.7 L POC IONIZED [id number] 04:09:00 Test Item Value Reference Range Interpretation Comments POC IONIZED CALCIUM (test code = 1.20 MMOL/L 1.12-1.32 N POCCA) POC LACTIC [id number] 04:09:00 Test Item Value Reference Range Interpretation Comments POC LACTIC ACID (test code = 0.9 mmol/l 0.9-1.7 N POCLAC) POC [id number] 04:09:00 Test Item Value Reference Range Interpretation Comments POC GLUCOSE (test code = POCGLU) 126 MG/DL 70-110 H CBC W/AUTO [id number] 03:56:00 Test Item Value Reference Range Interpretation Comments WHITE BLOOD CELL (test code = 12.0 x10 3/uL 4.5-11.0 H WBC) RED BLOOD CELL (test code = 3.23 x10 6/uL 4.00-5.60 L RBC) HEMOGLOBIN (test code = HGB) 10.4 g/dL 12.5-16.9 L HEMATOCRIT (test code = HCT) 31.2 % 37.5-50.7 L MEAN CELL VOLUME (test code = 96.6 fL 81.0-99.0 N MCV) MEAN CELL HGB (test code = MCH) 32.2 pg 27.0-33.0 N MEAN CELL HGB CONCETRATION 33.3 g/dL 33.0-37.0 N (test code = MCHC) RED CELL DISTRIBUTION WIDTH CV 13.6 % 11.5-14.5 N (test code = RDW) RED CELL DISTRIBUTION WIDTH SD 48.4 fL 37.0-54.0 N (test code = RDW-SD) PLATELET COUNT (test code = 127 x10 3/uL 150-400 L PLT) MEAN PLATELET VOLUME (test code 10.3 fL 7.0-9.0 H = MPV) NEUTROPHIL % (test code = NT%) 79.1 % 56.0-77.0 H IMMATURE GRANULOCYTE % (test 0.7 % 0.0-2.0 N code = IG%) LYMPHOCYTE % (test code = LY%) 8.7 % 14.0-32.0 L MONOCYTE % (test code = MO%) 11.3 % 4.8-9.0 H EOSINOPHIL % (test code = EO%) 0.0 % 0.3-3.7 L BASOPHIL % (test code = BA%) 0.2 % 0.0-2.0 N NUCLEATED RBC % (test code = 0.0 % 0-0 N NRBC%) NEUTROPHIL # (test code = NT#) 9.48 x10 3/uL 2.0-7.6 H IMMATURE GRANULOCYTE # (test 0.08 x10 3/uL 0.00-0.03 H code = IG#) LYMPHOCYTE # (test code = LY#) 1.04 x10 3/uL 1.0-3.8 N MONOCYTE # (test code = MO#) 1.35 x10 3/uL 0.1-0.8 H EOSINOPHIL # (test code = EO#) 0.00 x10 3/uL 0.0-0.2 N BASOPHIL # (test code = BA#) 0.02 x10 3/uL 0.0-0.2 N NUCLEATED RBC # (test code = 0.00 x10 3/uL 0.0-0.1 N NRBC#) MANUAL DIFF REQUIRED (test code NO = MDIFF) PROTHROMBIN [id number] 00:22:00 Test Item Value Reference Range Interpretation Comments PROTHROMBIN TIME 12.8 SECONDS 9.3-12.9 N PATIENT (test code = PTP) INTERNATIONAL NORMAL 1.2 0.8-1.2 N TARGET INR BY RATIO (test code = INDICATIO N Indication INR) INR1. 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 Mec hanical prosthetic valv es (high risk), 2. 5 - 3.5 Presence of Lup us Anticoagulant o r Antiphospholipi d Antibodies, Pre vention of systemic emb olism - Acute Myocardia l Infarction (to prevent recurrent infar ct). THROMBOPLASTIN TIME [id number] 00:22:00 Test Item Value Reference Range Interpretation Comments THROMBOPLASTIN TIME 28.9 Seconds 25.0-39.5 N Therape utic Range: PARTIAL (test code = 50.4 - 88.3 Seconds PTT) Effective 02/16/2019 CBC W/AUTO [id number] 00:13:00 Test Item Value Reference Range Interpretation Comments WHITE BLOOD CELL (test code = 11.9 x10 3/uL 4.5-11.0 H WBC) RED BLOOD CELL (test code = 3.44 x10 6/uL 4.00-5.60 L RBC) HEMOGLOBIN (test code = HGB) 10.9 g/dL 12.5-16.9 L HEMATOCRIT (test code = HCT) 33.9 % 37.5-50.7 L MEAN CELL VOLUME (test code = 98.5 fL 81.0-99.0 N MCV) MEAN CELL HGB (test code = 31.7 pg 27.0-33.0 N MCH) MEAN CELL HGB CONCETRATION 32.2 g/dL 33.0-37.0 L (test code = MCHC) RED CELL DISTRIBUTION WIDTH CV 13.5 % 11.5-14.5 N (test code = RDW) RED CELL DISTRIBUTION WIDTH SD 49.3 fL 37.0-54.0 N (test code = RDW-SD) PLATELET COUNT (test code = 132 x10 3/uL 150-400 L PLT) MEAN PLATELET VOLUME (test 10.0 fL 7.0-9.0 H code = MPV) NEUTROPHIL % (test code = NT%) 84.6 % 56.0-77.0 H IMMATURE GRANULOCYTE % (test 0.5 % 0.0-2.0 N code = IG%) LYMPHOCYTE % (test code = LY%) 6.0 % 14.0-32.0 L MONOCYTE % (test code = MO%) 8.7 % 4.8-9.0 N EOSINOPHIL % (test code = EO%) 0.0 % 0.3-3.7 L BASOPHIL % (test code = BA%) 0.2 % 0.0-2.0 N NUCLEATED RBC % (test code = 0.0 % 0-0 N NRBC%) NEUTROPHIL # (test code = NT#) 10.07 x10 3/uL 2.0-7.6 H IMMATURE GRANULOCYTE # (test 0.06 x10 3/uL 0.00-0.03 H code = IG#) LYMPHOCYTE # (test code = LY#) 0.71 x10 3/uL 1.0-3.8 L MONOCYTE # (test code = MO#) 1.04 x10 3/uL 0.1-0.8 H EOSINOPHIL # (test code = EO#) 0.00 x10 3/uL 0.0-0.2 N BASOPHIL # (test code = BA#) 0.02 x10 3/uL 0.0-0.2 N NUCLEATED RBC # (test code = 0.00 x10 3/uL 0.0-0.1 N NRBC#) MANUAL DIFF REQUIRED (test NO code = MDIFF) COMPREHENSIVE METABOLIC [id number] 00:11:00 Test Item Value Reference Range Interpretation Comments SODIUM (test code = NA) 139 mEq/L 134-147 N POTASSIUM (test code = 4.7 mEq/L 3.4-5.0 N K) CHLORIDE (test code = 113 mEq/L 100-108 H CL) CARBON DIOXIDE (test 20 mEq/l 21-33 L code = CO2) ANION GAP (test code = 10 0-20 N GAP) GLUCOSE (test code = 131 mg/dL 70-110 H GLU) BLOOD UREA NITROGEN 14 mg/dL 7-18 N (test code = BUN) GLOMERULAR FILTRATION 63.9 70-80 L Units of measure = RATE (test code = GFR) ml/mi n/1.73 m2 CREATININE (test code = 1.1 mg/dL 0.6-1.3 N CREAT) TOTAL PROTEIN (test 5.5 g/dL 6.4-8.2 L code = PROT) ALBUMIN (test code = 3.60 g/dL 3.4-5.0 N ALB) CALCIUM (test code = 8.3 mg/dL 8.0-10.5 N CA) BILIRUBIN TOTAL (test 0.90 mg/dL 0.0-1.0 N code = BILT) SGOT/AST (test code = 119 IUnit/L 15-37 H AST) SGPT/ALT (test code = 95 IUnit/L 30-65 H ALT) ALKALINE PHOSPHATASE 59 IUnit/L 20-125 N TOTAL (test code = ALKP) [id number] 00:11:00 Test Item Value Reference Range Interpretation Comments PHOSPHOROUS (test code = PHOS) 4.2 MG/DL 2.5-4.9 N [id number] 00:11:00 Test Item Value Reference Range Interpretation Comments MAGNESIUM (test code = MAG) 2.15 mg/dL 1.80-2.40 N CALCIUM [id number] 00:11:00 Test Item Value Reference Range Interpretation Comments CALCIUM IONIZED (test code = MARY JANE) 1.18 MMOL/L 1.12-1.32 N LACTIC [id number] 00:05:00 Test Item Value Reference Range Interpretation Comments LACTIC ACID (test code = LACT) 1.0 mmol/L 0.4-1.9 N COMPREHENSIVE METABOLIC [id number] 00:02:00 Test Item Value Reference Range Interpretation Comments SODIUM (test code = NA) mEq/L 134-147 POTASSIUM (test code = K) mEq/L 3.4-5.0 CHLORIDE (test code = CL) mEq/L 100-108 CARBON DIOXIDE (test code = CO2) mEq/l 21-33 ANION GAP (test code = GAP) 0-20 GLUCOSE (test code = GLU) mg/dL 70-110 BLOOD UREA NITROGEN (test code = mg/dL 7-18 BUN) GLOMERULAR FILTRATION RATE (test 70-80 code = GFR) CREATININE (test code = CREAT) mg/dL 0.6-1.3 TOTAL PROTEIN (test code = PROT) g/dL 6.4-8.2 ALBUMIN (test code = ALB) g/dL 3.4-5.0 CALCIUM (test code = CA) mg/dL 8.0-10.5 BILIRUBIN TOTAL (test code = BILT) mg/dL 0.0-1.0 SGOT/AST (test code = AST) IUnit/L 15-37 SGPT/ALT (test code = ALT) IUnit/L 30-65 ALKALINE PHOSPHATASE TOTAL (test IUnit/L 20-125 code = ALKP) [id number] 00:02:00 Test Item Value Reference Range Interpretation Comments PHOSPHOROUS (test code = PHOS) MG/DL 2.5-4.9 [id number] 00:02:00 Test Item Value Reference Range Interpretation Comments MAGNESIUM (test code = MAG) mg/dL 1.80-2.40 CALCIUM [id number] 00:02:00 Test Item Value Reference Range Interpretation Comments CALCIUM IONIZED (test code = MARY JANE) 1.18 MMOL/L 1.12-1.32 N [id number] 22:35:00 Test Item Value Reference Range Interpretation Comments GLUBED (test code = 123 MG/DL 70-110 H Performe d by certified GLUBED) 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 [facility] - XR CHEST 1 [id number] 20:58:00 [facility] 1935 Sex: M FAX: Rosario Silva [phone] [place]: St: ADM FAX: Harrison Jones NP Name: BERTIN NICOLE [facility] [place] : 1935 Age/S: 85/M [address] [place] [address] Bl Unit #: [id number] Loc: G.[address] [place] [id number] Phys: Harrison Jones NP Acct: [id number] Dis Date: Status: ADM IN PHONE #: [phone] Exam Date: 01/15/20211958 FAX #: [phone] Reason: Cardiac Surgery Post Op EXAMS: CPT CODE: [id number] XR CHEST 1 V [id number] Indication: Cardiac Surgery Post Op; Comparison: Prior chest radiograph dated 01/11/2021 FINDINGS: The single frontal chest radiograph demonstrates 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 Mild left basilar atelectasis/infiltrate.No large pleural effusions or pneumothorax. Median sternotomy wires. Overlapping EKG leads and wires. The trachea is midline. Degenerative changes of the thoracic spine. Left humeral head tendon anchor noted. IMPRESSION: 1. 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 2.Mild cardiomegaly with central pulmonary venous congestion. 3. Mild left basilar atelectasis/infiltrate. SL: APATIL-H at 2057 Reported and signed by: Claire Jon M.D. 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 [facility] BASIC METABOLIC [id number] 13:38:00 Test Item Value Reference Range Interpretation Comments SODIUM (test code = NA) 140 mEq/L 134-147 N POTASSIUM (test code = 4.6 mEq/L 3.4-5.0 N K) CHLORIDE (test code = 113 mEq/L 100-108 H CL) CARBON DIOXIDE (test 21 mEq/l 21-33 N code = CO2) ANION GAP (test code = 10 0-20 N GAP) GLUCOSE (test code = 170 mg/dL 70-110 H GLU) BLOOD UREA NITROGEN 14 mg/dL 7-18 N (test code = BUN) GLOMERULAR FILTRATION 71.4 70-80 N Units of measure = RATE (test code = GFR) ml/mi n/1.73 m2 CREATININE (test code = 1.0 mg/dL 0.6-1.3 N CREAT) CALCIUM (test code = 8.8 mg/dL 8.0-10.5 N CA) COMMENTS: On [id number] 13:38:00 Test Item Value Reference Range Interpretation Comments MAGNESIUM (test code = MAG) 2.37 mg/dL 1.80-2.40 N COMMENTS: On arrivalPROTHROMBIN [id number] 13:37:00 Test Item Value Reference Range Interpretation Comments PROTHROMBIN TIME 15.3 SECONDS 9.3-12.9 H PATIENT (test code = PTP) INTERNATIONAL NORMAL 1.4 0.8-1.2 H TARGET INR BY RATIO (test code = INDICATIO N Indication INR) INR1. 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 Mec hanical prosthetic valv es (high risk), 2. 5 - 3.5 Presence of Lup us Anticoagulant o r Antiphospholipi d Antibodies, Pre vention of systemic emb olism - Acute Myocardia l Infarction (to prevent recurrent infar ct). COMMENTS: On arrivalTHROMBOPLASTIN TIME [id number] 13:37:00 Test Item Value Reference Range Interpretation Comments THROMBOPLASTIN TIME 38.0 Seconds 25.0-39.5 N Therape utic Range: PARTIAL (test code = 50.4 - 88.3 Seconds PTT) Effective 02/16/2019 COMMENTS: On arrivalLACTIC [id number] 13:33:00 Test Item Value Reference Range Interpretation Comments LACTIC ACID (test code = LACT) 1.7 mmol/L 0.4-1.9 N CBC W/AUTO [id number] 13:28:00 Test Item Value Reference Range Interpretation Comments WHITE BLOOD CELL (test code = 17.3 x10 3/uL 4.5-11.0 H WBC) RED BLOOD CELL (test code = 3.67 x10 6/uL 4.00-5.60 L RBC) HEMOGLOBIN (test code = HGB) 11.7 g/dL 12.5-16.9 L HEMATOCRIT (test code = HCT) 35.2 % 37.5-50.7 L MEAN CELL VOLUME (test code = 95.9 fL 81.0-99.0 N MCV) MEAN CELL HGB (test code = 31.9 pg 27.0-33.0 N MCH) MEAN CELL HGB CONCETRATION 33.2 g/dL 33.0-37.0 N (test code = MCHC) RED CELL DISTRIBUTION WIDTH CV 13.2 % 11.5-14.5 N (test code = RDW) RED CELL DISTRIBUTION WIDTH SD 47.0 fL 37.0-54.0 N (test code = RDW-SD) PLATELET COUNT (test code = 140 x10 3/uL 150-400 L PLT) MEAN PLATELET VOLUME (test 9.9 fL 7.0-9.0 H code = MPV) NEUTROPHIL % (test code = NT%) 82.3 % 56.0-77.0 H IMMATURE GRANULOCYTE % (test 0.9 % 0.0-2.0 N code = IG%) LYMPHOCYTE % (test code = LY%) 13.8 % 14.0-32.0 L MONOCYTE % (test code = MO%) 2.4 % 4.8-9.0 L EOSINOPHIL % (test code = EO%) 0.4 % 0.3-3.7 N BASOPHIL % (test code = BA%) 0.2 % 0.0-2.0 N NUCLEATED RBC % (test code = 0.0 % 0-0 N NRBC%) NEUTROPHIL # (test code = NT#) 14.23 x10 3/uL 2.0-7.6 H IMMATURE GRANULOCYTE # (test 0.16 x10 3/uL 0.00-0.03 H code = IG#) LYMPHOCYTE # (test code = LY#) 2.38 x10 3/uL 1.0-3.8 N MONOCYTE # (test code = MO#) 0.41 x10 3/uL 0.1-0.8 N EOSINOPHIL # (test code = EO#) 0.07 x10 3/uL 0.0-0.2 N BASOPHIL # (test code = BA#) 0.04 x10 3/uL 0.0-0.2 N NUCLEATED RBC # (test code = 0.00 x10 3/uL 0.0-0.1 N NRBC#) MANUAL DIFF REQUIRED (test NO code = MDIFF) COMMENTS: On [id number] 13:21:00 Test Item Value Reference Range Interpretation Comments GLUBED (test code = 161 MG/DL 70-110 H Performe d by certified GLUBED) 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 [facility] [id number] 12:36:00 Test Item Value Reference Range Interpretation Comments ACT-ISTAT (test code 120 SEC 74-137 N 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 [facility] POC ARTERIAL BLOOD [id number] 12:28:00 Test Item Value Reference Range Interpretation Comments POC ARTERIAL BLOOD GAS PH (test 7.244 7.35-7.45 LL code = POCPHA) POC ARTERIAL BLOOD GAS PCO2 (test 56.4 mmHg 35.0-45 HH code = CMHNNX0F) POC TCO2 ARTERIAL (test code = 26.1 POCTCO2) POC ARTERIAL BLOOD GAS PO2 (test 395.0 mmHg 80-100.0 HH code = IXFGY9Z) POC HCO3 ARTERIAL (test code = 24.4 MMOL/L 22.0-26.0 N [id number]) POC BASE EXCESS (test code = -3.3 MMOL/L -4.0-4.0 N POCBEA) POC O2 SATURATION (test code = 99.9 % 90-100 N POCO2S) [id number] 12:28:00 Test Item Value Reference Range Interpretation Comments SODIUM (test code = NA/ABG) MEQ/L 134-147 [id number] 12:28:00 Test Item Value Reference Range Interpretation Comments POTASSIUM (test code = K/ABG) MEQ/L 3.4-5.0 [id number] 12:28:00 Test Item Value Reference Range Interpretation Comments CHLORIDE (test code = CL/ABG) MEQ/L 100-108 CREATININE [id number] 12:28:00 Test Item Value Reference Range Interpretation Comments CREATININE ABG (test code = CREAABG) mg/dL 0.8-1.3 [id number] 12:28:00 Test Item Value Reference Range Interpretation Comments HEMOGLOBIN (test code = HGB/ABG) G/DL 12.5-16.9 [id number] 12:28:00 Test Item Value Reference Range Interpretation Comments HEMATOCRIT (test code = HCT/ABG) % 37.5-50.7 POC IONIZED [id number] 12:28:00 Test Item Value Reference Range Interpretation Comments POC IONIZED CALCIUM (test code = MMOL/L 1.12-1.32 POCCA) POC LACTIC [id number] 12:28:00 Test Item Value Reference Range Interpretation Comments POC LACTIC ACID (test code = POCLAC) mmol/l 0.9-1.7 POC [id number] 12:28:00 Test Item Value Reference Range Interpretation Comments POC GLUCOSE (test code = POCGLU) MG/DL 70-110 POC ARTERIAL BLOOD [id number] 12:28:00 Test Item Value Reference Range Interpretation Comments POC ARTERIAL BLOOD GAS PH (test 7.244 7.35-7.45 LL code = POCPHA) POC ARTERIAL BLOOD GAS PCO2 (test 56.4 mmHg 35.0-45 HH code = FWSGMR1O) POC TCO2 ARTERIAL (test code = 26.1 POCTCO2) POC ARTERIAL BLOOD GAS PO2 (test 395.0 mmHg 80-100.0 HH code = ZWTVC6A) POC HCO3 ARTERIAL (test code = 24.4 MMOL/L 22.0-26.0 N [id number]) POC BASE EXCESS (test code = -3.3 MMOL/L -4.0-4.0 N POCBEA) POC O2 SATURATION (test code = 99.9 % 90-100 N POCO2S) [id number] 12:28:00 Test Item Value Reference Range Interpretation Comments SODIUM (test code = NA/ABG) 139 MEQ/L 134-147 N [id number] 12:28:00 Test Item Value Reference Range Interpretation Comments POTASSIUM (test code = K/ABG) MEQ/L 3.4-5.0 [id number] 12:28:00 Test Item Value Reference Range Interpretation Comments CHLORIDE (test code = CL/ABG) MEQ/L 100-108 CREATININE [id number] 12:28:00 Test Item Value Reference Range Interpretation Comments CREATININE ABG (test code = CREAABG) mg/dL 0.8-1.3 [id number] 12:28:00 Test Item Value Reference Range Interpretation Comments HEMOGLOBIN (test code = HGB/ABG) G/DL 12.5-16.9 [id number] 12:28:00 Test Item Value Reference Range Interpretation Comments HEMATOCRIT (test code = HCT/ABG) % 37.5-50.7 POC IONIZED [id number] 12:28:00 Test Item Value Reference Range Interpretation Comments POC IONIZED CALCIUM (test code = MMOL/L 1.12-1.32 POCCA) POC LACTIC [id number] 12:28:00 Test Item Value Reference Range Interpretation Comments POC LACTIC ACID (test code = POCLAC) mmol/l 0.9-1.7 POC [id number] 12:28:00 Test Item Value Reference Range Interpretation Comments POC GLUCOSE (test code = POCGLU) MG/DL 70-110 POC ARTERIAL BLOOD [id number] 12:28:00 Test Item Value Reference Range Interpretation Comments POC ARTERIAL BLOOD GAS PH (test 7.244 7.35-7.45 LL code = POCPHA) POC ARTERIAL BLOOD GAS PCO2 (test 56.4 mmHg 35.0-45 HH code = VFUJZL3R) POC TCO2 ARTERIAL (test code = 26.1 POCTCO2) POC ARTERIAL BLOOD GAS PO2 (test 395.0 mmHg 80-100.0 HH code = ESOJE2I) POC HCO3 ARTERIAL (test code = 24.4 MMOL/L 22.0-26.0 N [id number]) POC BASE EXCESS (test code = -3.3 MMOL/L -4.0-4.0 N POCBEA) POC O2 SATURATION (test code = 99.9 % 90-100 N POCO2S) [id number] 12:28:00 Test Item Value Reference Range Interpretation Comments SODIUM (test code = NA/ABG) 139 MEQ/L 134-147 N [id number] 12:28:00 Test Item Value Reference Range Interpretation Comments POTASSIUM (test code = K/ABG) 4.6 MEQ/L 3.4-5.0 N [id number] 12:28:00 Test Item Value Reference Range Interpretation Comments CHLORIDE (test code = CL/ABG) MEQ/L 100-108 CREATININE [id number] 12:28:00 Test Item Value Reference Range Interpretation Comments CREATININE ABG (test code = CREAABG) mg/dL 0.8-1.3 [id number] 12:28:00 Test Item Value Reference Range Interpretation Comments HEMOGLOBIN (test code = HGB/ABG) G/DL 12.5-16.9 [id number] 12:28:00 Test Item Value Reference Range Interpretation Comments HEMATOCRIT (test code = HCT/ABG) % 37.5-50.7 POC IONIZED [id number] 12:28:00 Test Item Value Reference Range Interpretation Comments POC IONIZED CALCIUM (test code = MMOL/L 1.12-1.32 POCCA) POC LACTIC [id number] 12:28:00 Test Item Value Reference Range Interpretation Comments POC LACTIC ACID (test code = POCLAC) mmol/l 0.9-1.7 POC [id number] 12:28:00 Test Item Value Reference Range Interpretation Comments POC GLUCOSE (test code = POCGLU) MG/DL 70-110 POC ARTERIAL BLOOD [id number] 12:28:00 Test Item Value Reference Range Interpretation Comments POC ARTERIAL BLOOD GAS PH (test 7.244 7.35-7.45 LL code = POCPHA) POC ARTERIAL BLOOD GAS PCO2 (test 56.4 mmHg 35.0-45 HH code = DHYUVO8U) POC TCO2 ARTERIAL (test code = 26.1 POCTCO2) POC ARTERIAL BLOOD GAS PO2 (test 395.0 mmHg 80-100.0 HH code = UJAUF0S) POC HCO3 ARTERIAL (test code = 24.4 MMOL/L 22.0-26.0 N TRMDUO1X) POC BASE EXCESS (test code = -3.3 MMOL/L -4.0-4.0 N POCBEA) POC O2 SATURATION (test code = 99.9 % 90-100 N POCO2S) [id number] 12:28:00 Test Item Value Reference Range Interpretation Comments SODIUM (test code = NA/ABG) 139 MEQ/L 134-147 N [id number] 12:28:00 Test Item Value Reference Range Interpretation Comments POTASSIUM (test code = K/ABG) 4.6 MEQ/L 3.4-5.0 N [id number] 12:28:00 Test Item Value Reference Range Interpretation Comments CHLORIDE (test code = CL/ABG) MEQ/L 100-108 CREATININE [id number] 12:28:00 Test Item Value Reference Range Interpretation Comments CREATININE ABG (test code = CREAABG) mg/dL 0.8-1.3 [id number] 12:28:00 Test Item Value Reference Range Interpretation Comments HEMOGLOBIN (test code = HGB/ABG) G/DL 12.5-16.9 [id number] 12:28:00 Test Item Value Reference Range Interpretation Comments HEMATOCRIT (test code = HCT/ABG) % 37.5-50.7 POC IONIZED [id number] 12:28:00 Test Item Value Reference Range Interpretation Comments POC IONIZED CALCIUM (test code = 1.40 MMOL/L 1.12-1.32 H POCCA) POC LACTIC [id number] 12:28:00 Test Item Value Reference Range Interpretation Comments POC LACTIC ACID (test code = POCLAC) mmol/l 0.9-1.7 POC [id number] 12:28:00 Test Item Value Reference Range Interpretation Comments POC GLUCOSE (test code = POCGLU) MG/DL 70-110 POC ARTERIAL BLOOD [id number] 12:28:00 Test Item Value Reference Range Interpretation Comments POC ARTERIAL BLOOD GAS PH (test 7.244 7.35-7.45 LL code = POCPHA) POC ARTERIAL BLOOD GAS PCO2 (test 56.4 mmHg 35.0-45 HH code = RYYAVS3B) POC TCO2 ARTERIAL (test code = 26.1 POCTCO2) POC ARTERIAL BLOOD GAS PO2 (test 395.0 mmHg 80-100.0 HH code = CVYGC0O) POC HCO3 ARTERIAL (test code = 24.4 MMOL/L 22.0-26.0 N [id number]) POC BASE EXCESS (test code = -3.3 MMOL/L -4.0-4.0 N POCBEA) POC O2 SATURATION (test code = 99.9 % 90-100 N POCO2S) [id number] 12:28:00 Test Item Value Reference Range Interpretation Comments SODIUM (test code = NA/ABG) 139 MEQ/L 134-147 N [id number] 12:28:00 Test Item Value Reference Range Interpretation Comments POTASSIUM (test code = K/ABG) 4.6 MEQ/L 3.4-5.0 N [id number] 12:28:00 Test Item Value Reference Range Interpretation Comments CHLORIDE (test code = CL/ABG) MEQ/L 100-108 CREATININE [id number] 12:28:00 Test Item Value Reference Range Interpretation Comments CREATININE ABG (test code = CREAABG) mg/dL 0.8-1.3 [id number] 12:28:00 Test Item Value Reference Range Interpretation Comments HEMOGLOBIN (test code = HGB/ABG) G/DL 12.5-16.9 [id number] 12:28:00 Test Item Value Reference Range Interpretation Comments HEMATOCRIT (test code = HCT/ABG) % 37.5-50.7 POC IONIZED [id number] 12:28:00 Test Item Value Reference Range Interpretation Comments POC IONIZED CALCIUM (test code = 1.40 MMOL/L 1.12-1.32 H POCCA) POC LACTIC [id number] 12:28:00 Test Item Value Reference Range Interpretation Comments POC LACTIC ACID (test code = POCLAC) mmol/l 0.9-1.7 POC [id number] 12:28:00 Test Item Value Reference Range Interpretation Comments POC GLUCOSE (test code = POCGLU) 158 MG/DL 70-110 H POC ARTERIAL BLOOD [id number] 12:28:00 Test Item Value Reference Range Interpretation Comments POC ARTERIAL BLOOD GAS PH (test 7.244 7.35-7.45 LL code = POCPHA) POC ARTERIAL BLOOD GAS PCO2 (test 56.4 mmHg 35.0-45 HH code = HUZOSR1U) POC TCO2 ARTERIAL (test code = 26.1 POCTCO2) POC ARTERIAL BLOOD GAS PO2 (test 395.0 mmHg 80-100.0 HH code = NOMME8I) POC HCO3 ARTERIAL (test code = 24.4 MMOL/L 22.0-26.0 N [id number]) POC BASE EXCESS (test code = -3.3 MMOL/L -4.0-4.0 N POCBEA) POC O2 SATURATION (test code = 99.9 % 90-100 N POCO2S) [id number] 12:28:00 Test Item Value Reference Range Interpretation Comments SODIUM (test code = NA/ABG) 139 MEQ/L 134-147 N [id number] 12:28:00 Test Item Value Reference Range Interpretation Comments POTASSIUM (test code = K/ABG) 4.6 MEQ/L 3.4-5.0 N [id number] 12:28:00 Test Item Value Reference Range Interpretation Comments CHLORIDE (test code = CL/ABG) MEQ/L 100-108 CREATININE [id number] 12:28:00 Test Item Value Reference Range Interpretation Comments CREATININE ABG (test code = CREAABG) mg/dL 0.8-1.3 [id number] 12:28:00 Test Item Value Reference Range Interpretation Comments HEMOGLOBIN (test code = HGB/ABG) G/DL 12.5-16.9 [id number] 12:28:00 Test Item Value Reference Range Interpretation Comments HEMATOCRIT (test code = HCT/ABG) % 37.5-50.7 POC IONIZED [id number] 12:28:00 Test Item Value Reference Range Interpretation Comments POC IONIZED CALCIUM (test code = 1.40 MMOL/L 1.12-1.32 H POCCA) POC LACTIC [id number] 12:28:00 Test Item Value Reference Range Interpretation Comments POC LACTIC ACID (test code = 1.7 mmol/l 0.9-1.7 N POCLAC) POC [id number] 12:28:00 Test Item Value Reference Range Interpretation Comments POC GLUCOSE (test code = POCGLU) 158 MG/DL 70-110 H POC ARTERIAL BLOOD [id number] 12:28:00 Test Item Value Reference Range Interpretation Comments POC ARTERIAL BLOOD GAS PH (test 7.244 7.35-7.45 LL code = POCPHA) POC ARTERIAL BLOOD GAS PCO2 (test 56.4 mmHg 35.0-45 HH code = JIZJEG0E) POC TCO2 ARTERIAL (test code = 26.1 POCTCO2) POC ARTERIAL BLOOD GAS PO2 (test 395.0 mmHg 80-100.0 HH code = VJFFI1S) POC HCO3 ARTERIAL (test code = 24.4 MMOL/L 22.0-26.0 N AQGZCP8I) POC BASE EXCESS (test code = -3.3 MMOL/L -4.0-4.0 N POCBEA) POC O2 SATURATION (test code = 99.9 % 90-100 N POCO2S) [id number] 12:28:00 Test Item Value Reference Range Interpretation Comments SODIUM (test code = NA/ABG) 139 MEQ/L 134-147 N [id number] 12:28:00 Test Item Value Reference Range Interpretation Comments POTASSIUM (test code = K/ABG) 4.6 MEQ/L 3.4-5.0 N [id number] 12:28:00 Test Item Value Reference Range Interpretation Comments CHLORIDE (test code = CL/ABG) MEQ/L 100-108 CREATININE [id number] 12:28:00 Test Item Value Reference Range Interpretation Comments CREATININE ABG (test code = CREAABG) mg/dL 0.8-1.3 [id number] 12:28:00 Test Item Value Reference Range Interpretation Comments HEMOGLOBIN (test code = HGB/ABG) G/DL 12.5-16.9 [id number] 12:28:00 Test Item Value Reference Range Interpretation Comments HEMATOCRIT (test code = HCT/ABG) 29 % 37.5-50.7 L POC IONIZED [id number] 12:28:00 Test Item Value Reference Range Interpretation Comments POC IONIZED CALCIUM (test code = 1.40 MMOL/L 1.12-1.32 H POCCA) POC LACTIC [id number] 12:28:00 Test Item Value Reference Range Interpretation Comments POC LACTIC ACID (test code = 1.7 mmol/l 0.9-1.7 N POCLAC) POC [id number] 12:28:00 Test Item Value Reference Range Interpretation Comments POC GLUCOSE (test code = POCGLU) 158 MG/DL 70-110 H POC ARTERIAL BLOOD [id number] 12:28:00 Test Item Value Reference Range Interpretation Comments POC ARTERIAL BLOOD GAS PH (test 7.244 7.35-7.45 LL code = POCPHA) POC ARTERIAL BLOOD GAS PCO2 (test 56.4 mmHg 35.0-45 HH code = [id number]) POC TCO2 ARTERIAL (test code = 26.1 POCTCO2) POC ARTERIAL BLOOD GAS PO2 (test 395.0 mmHg 80-100.0 HH code = [id number]) POC HCO3 ARTERIAL (test code = 24.4 MMOL/L 22.0-26.0 N [id number]) POC BASE EXCESS (test code = -3.3 MMOL/L -4.0-4.0 N POCBEA) POC O2 SATURATION (test code = 99.9 % 90-100 N POCO2S) [id number] 12:28:00 Test Item Value Reference Range Interpretation Comments SODIUM (test code = NA/ABG) 139 MEQ/L 134-147 N [id number] 12:28:00 Test Item Value Reference Range Interpretation Comments POTASSIUM (test code = K/ABG) 4.6 MEQ/L 3.4-5.0 N [id number] 12:28:00 Test Item Value Reference Range Interpretation Comments CHLORIDE (test code = CL/ABG) MEQ/L 100-108 CREATININE [id number] 12:28:00 Test Item Value Reference Range Interpretation Comments CREATININE ABG (test code = CREAABG) mg/dL 0.8-1.3 [id number] 12:28:00 Test Item Value Reference Range Interpretation Comments HEMOGLOBIN (test code = HGB/ABG) 9.7 G/DL 12.5-16.9 L [id number] 12:28:00 Test Item Value Reference Range Interpretation Comments HEMATOCRIT (test code = HCT/ABG) 29 % 37.5-50.7 L POC IONIZED [id number] 12:28:00 Test Item Value Reference Range Interpretation Comments POC IONIZED CALCIUM (test code = 1.40 MMOL/L 1.12-1.32 H POCCA) POC LACTIC [id number] 12:28:00 Test Item Value Reference Range Interpretation Comments POC LACTIC ACID (test code = 1.7 mmol/l 0.9-1.7 N POCLAC) POC [id number] 12:28:00 Test Item Value Reference Range Interpretation Comments POC GLUCOSE (test code = POCGLU) 158 MG/DL 70-110 H POC ARTERIAL BLOOD [id number] 12:28:00 Test Item Value Reference Range Interpretation Comments POC ARTERIAL BLOOD GAS PH (test 7.244 7.35-7.45 LL code = POCPHA) POC ARTERIAL BLOOD GAS PCO2 (test 56.4 mmHg 35.0-45 HH code = [id number]) POC TCO2 ARTERIAL (test code = 26.1 POCTCO2) POC ARTERIAL BLOOD GAS PO2 (test 395.0 mmHg 80-100.0 HH code = SOEDQ5K) POC HCO3 ARTERIAL (test code = 24.4 MMOL/L 22.0-26.0 N UVSLGZ8G) POC BASE EXCESS (test code = -3.3 MMOL/L -4.0-4.0 N POCBEA) POC O2 SATURATION (test code = 99.9 % 90-100 N POCO2S) [id number] 12:28:00 Test Item Value Reference Range Interpretation Comments SODIUM (test code = NA/ABG) 139 MEQ/L 134-147 N [id number] 12:28:00 Test Item Value Reference Range Interpretation Comments POTASSIUM (test code = K/ABG) 4.6 MEQ/L 3.4-5.0 N [id number] 12:28:00 Test Item Value Reference Range Interpretation Comments CHLORIDE (test code = CL/ABG) 109 MEQ/L 100-108 H CREATININE [id number] 12:28:00 Test Item Value Reference Range Interpretation Comments CREATININE ABG (test code = CREAABG) mg/dL 0.8-1.3 [id number] 12:28:00 Test Item Value Reference Range Interpretation Comments HEMOGLOBIN (test code = HGB/ABG) 9.7 G/DL 12.5-16.9 L [id number] 12:28:00 Test Item Value Reference Range Interpretation Comments HEMATOCRIT (test code = HCT/ABG) 29 % 37.5-50.7 L POC IONIZED [id number] 12:28:00 Test Item Value Reference Range Interpretation Comments POC IONIZED CALCIUM (test code = 1.40 MMOL/L 1.12-1.32 H POCCA) POC LACTIC [id number] 12:28:00 Test Item Value Reference Range Interpretation Comments POC LACTIC ACID (test code = 1.7 mmol/l 0.9-1.7 N POCLAC) POC [id number] 12:28:00 Test Item Value Reference Range Interpretation Comments POC GLUCOSE (test code = POCGLU) 158 MG/DL 70-110 H POC ARTERIAL BLOOD [id number] 12:28:00 Test Item Value Reference Range Interpretation Comments POC ARTERIAL BLOOD GAS PH (test 7.244 7.35-7.45 LL code = POCPHA) POC ARTERIAL BLOOD GAS PCO2 (test 56.4 mmHg 35.0-45 HH code = QSBDWR8H) POC TCO2 ARTERIAL (test code = 26.1 POCTCO2) POC ARTERIAL BLOOD GAS PO2 (test 395.0 mmHg 80-100.0 HH code = MJDNR2F) POC HCO3 ARTERIAL (test code = 24.4 MMOL/L 22.0-26.0 N IPXKHG2W) POC BASE EXCESS (test code = -3.3 MMOL/L -4.0-4.0 N POCBEA) POC O2 SATURATION (test code = 99.9 % 90-100 N POCO2S) [id number] 12:28:00 Test Item Value Reference Range Interpretation Comments SODIUM (test code = NA/ABG) 139 MEQ/L 134-147 N [id number] 12:28:00 Test Item Value Reference Range Interpretation Comments POTASSIUM (test code = K/ABG) 4.6 MEQ/L 3.4-5.0 N [id number] 12:28:00 Test Item Value Reference Range Interpretation Comments CHLORIDE (test code = CL/ABG) 109 MEQ/L 100-108 H CREATININE [id number] 12:28:00 Test Item Value Reference Range Interpretation Comments CREATININE ABG (test code = 0.9 mg/dL 0.8-1.3 CREAABG) [id number] 12:28:00 Test Item Value Reference Range Interpretation Comments HEMOGLOBIN (test code = HGB/ABG) 9.7 G/DL 12.5-16.9 L [id number] 12:28:00 Test Item Value Reference Range Interpretation Comments HEMATOCRIT (test code = HCT/ABG) 29 % 37.5-50.7 L POC IONIZED [id number] 12:28:00 Test Item Value Reference Range Interpretation Comments POC IONIZED CALCIUM (test code = 1.40 MMOL/L 1.12-1.32 H POCCA) POC LACTIC [id number] 12:28:00 Test Item Value Reference Range Interpretation Comments POC LACTIC ACID (test code = 1.7 mmol/l 0.9-1.7 N POCLAC) POC [id number] 12:28:00 Test Item Value Reference Range Interpretation Comments POC GLUCOSE (test code = POCGLU) 158 MG/DL 70-110 H [id number] 11:46:00 Test Item Value Reference Range Interpretation Comments ACT-ISTAT (test code 659 SEC 74-137 H 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 [facility] POC ARTERIAL BLOOD [id number] 11:30:00 Test Item Value Reference Range Interpretation Comments POC ARTERIAL BLOOD GAS PH (test 7.235 7.35-7.45 LL code = POCPHA) POC ARTERIAL BLOOD GAS PCO2 (test 63.5 mmHg 35.0-45 HH code = RIEOMH1M) POC TCO2 ARTERIAL (test code = 28.8 POCTCO2) POC ARTERIAL BLOOD GAS PO2 (test 409.5 mmHg 80-100.0 HH code = KINFH8H) POC HCO3 ARTERIAL (test code = 26.9 MMOL/L 22.0-26.0 H WNAWVN3Q) POC BASE EXCESS (test code = -1.2 MMOL/L -4.0-4.0 N POCBEA) POC O2 SATURATION (test code = 99.9 % 90-100 N POCO2S) [id number] 11:30:00 Test Item Value Reference Range Interpretation Comments SODIUM (test code = NA/ABG) MEQ/L 134-147 [id number] 11:30:00 Test Item Value Reference Range Interpretation Comments POTASSIUM (test code = K/ABG) MEQ/L 3.4-5.0 [id number] 11:30:00 Test Item Value Reference Range Interpretation Comments CHLORIDE (test code = CL/ABG) MEQ/L 100-108 CREATININE [id number] 11:30:00 Test Item Value Reference Range Interpretation Comments CREATININE ABG (test code = CREAABG) mg/dL 0.8-1.3 [id number] 11:30:00 Test Item Value Reference Range Interpretation Comments HEMOGLOBIN (test code = HGB/ABG) G/DL 12.5-16.9 [id number] 11:30:00 Test Item Value Reference Range Interpretation Comments HEMATOCRIT (test code = HCT/ABG) % 37.5-50.7 POC IONIZED [id number] 11:30:00 Test Item Value Reference Range Interpretation Comments POC IONIZED CALCIUM (test code = MMOL/L 1.12-1.32 POCCA) POC LACTIC [id number] 11:30:00 Test Item Value Reference Range Interpretation Comments POC LACTIC ACID (test code = POCLAC) mmol/l 0.9-1.7 POC [id number] 11:30:00 Test Item Value Reference Range Interpretation Comments POC GLUCOSE (test code = POCGLU) MG/DL 70-110 POC ARTERIAL BLOOD [id number] 11:30:00 Test Item Value Reference Range Interpretation Comments POC ARTERIAL BLOOD GAS PH (test 7.235 7.35-7.45 LL code = POCPHA) POC ARTERIAL BLOOD GAS PCO2 (test 63.5 mmHg 35.0-45 HH code = KPXSVQ2P) POC TCO2 ARTERIAL (test code = 28.8 POCTCO2) POC ARTERIAL BLOOD GAS PO2 (test 409.5 mmHg 80-100.0 HH code = SNAFK5L) POC HCO3 ARTERIAL (test code = 26.9 MMOL/L 22.0-26.0 H FHOZFC1R) POC BASE EXCESS (test code = -1.2 MMOL/L -4.0-4.0 N POCBEA) POC O2 SATURATION (test code = 99.9 % 90-100 N POCO2S) [id number] 11:30:00 Test Item Value Reference Range Interpretation Comments SODIUM (test code = NA/ABG) 138 MEQ/L 134-147 N [id number] 11:30:00 Test Item Value Reference Range Interpretation Comments POTASSIUM (test code = K/ABG) MEQ/L 3.4-5.0 [id number] 11:30:00 Test Item Value Reference Range Interpretation Comments CHLORIDE (test code = CL/ABG) MEQ/L 100-108 CREATININE [id number] 11:30:00 Test Item Value Reference Range Interpretation Comments CREATININE ABG (test code = CREAABG) mg/dL 0.8-1.3 [id number] 11:30:00 Test Item Value Reference Range Interpretation Comments HEMOGLOBIN (test code = HGB/ABG) G/DL 12.5-16.9 [id number] 11:30:00 Test Item Value Reference Range Interpretation Comments HEMATOCRIT (test code = HCT/ABG) % 37.5-50.7 POC IONIZED [id number] 11:30:00 Test Item Value Reference Range Interpretation Comments POC IONIZED CALCIUM (test code = MMOL/L 1.12-1.32 POCCA) POC LACTIC [id number] 11:30:00 Test Item Value Reference Range Interpretation Comments POC LACTIC ACID (test code = POCLAC) mmol/l 0.9-1.7 POC [id number] 11:30:00 Test Item Value Reference Range Interpretation Comments POC GLUCOSE (test code = POCGLU) MG/DL 70-110 POC ARTERIAL BLOOD [id number] 11:30:00 Test Item Value Reference Range Interpretation Comments POC ARTERIAL BLOOD GAS PH (test 7.235 7.35-7.45 LL code = POCPHA) POC ARTERIAL BLOOD GAS PCO2 (test 63.5 mmHg 35.0-45 HH code = PQHSBB9E) POC TCO2 ARTERIAL (test code = 28.8 POCTCO2) POC ARTERIAL BLOOD GAS PO2 (test 409.5 mmHg 80-100.0 HH code = VDGRN1F) POC HCO3 ARTERIAL (test code = 26.9 MMOL/L 22.0-26.0 H BQSDNF1T) POC BASE EXCESS (test code = -1.2 MMOL/L -4.0-4.0 N POCBEA) POC O2 SATURATION (test code = 99.9 % 90-100 N POCO2S) [id number] 11:30:00 Test Item Value Reference Range Interpretation Comments SODIUM (test code = NA/ABG) 138 MEQ/L 134-147 N [id number] 11:30:00 Test Item Value Reference Range Interpretation Comments POTASSIUM (test code = K/ABG) 5.3 MEQ/L 3.4-5.0 H [id number] 11:30:00 Test Item Value Reference Range Interpretation Comments CHLORIDE (test code = CL/ABG) MEQ/L 100-108 CREATININE [id number] 11:30:00 Test Item Value Reference Range Interpretation Comments CREATININE ABG (test code = CREAABG) mg/dL 0.8-1.3 [id number] 11:30:00 Test Item Value Reference Range Interpretation Comments HEMOGLOBIN (test code = HGB/ABG) G/DL 12.5-16.9 [id number] 11:30:00 Test Item Value Reference Range Interpretation Comments HEMATOCRIT (test code = HCT/ABG) % 37.5-50.7 POC IONIZED [id number] 11:30:00 Test Item Value Reference Range Interpretation Comments POC IONIZED CALCIUM (test code = MMOL/L 1.12-1.32 POCCA) POC LACTIC [id number] 11:30:00 Test Item Value Reference Range Interpretation Comments POC LACTIC ACID (test code = POCLAC) mmol/l 0.9-1.7 POC [id number] 11:30:00 Test Item Value Reference Range Interpretation Comments POC GLUCOSE (test code = POCGLU) MG/DL 70-110 POC ARTERIAL BLOOD [id number] 11:30:00 Test Item Value Reference Range Interpretation Comments POC ARTERIAL BLOOD GAS PH (test 7.235 7.35-7.45 LL code = POCPHA) POC ARTERIAL BLOOD GAS PCO2 (test 63.5 mmHg 35.0-45 HH code = SVVPGQ6U) POC TCO2 ARTERIAL (test code = 28.8 POCTCO2) POC ARTERIAL BLOOD GAS PO2 (test 409.5 mmHg 80-100.0 HH code = GWOEX8U) POC HCO3 ARTERIAL (test code = 26.9 MMOL/L 22.0-26.0 H AKAOXZ7C) POC BASE EXCESS (test code = -1.2 MMOL/L -4.0-4.0 N POCBEA) POC O2 SATURATION (test code = 99.9 % 90-100 N POCO2S) [id number] 11:30:00 Test Item Value Reference Range Interpretation Comments SODIUM (test code = NA/ABG) 138 MEQ/L 134-147 N [id number] 11:30:00 Test Item Value Reference Range Interpretation Comments POTASSIUM (test code = K/ABG) 5.3 MEQ/L 3.4-5.0 H [id number] 11:30:00 Test Item Value Reference Range Interpretation Comments CHLORIDE (test code = CL/ABG) MEQ/L 100-108 CREATININE [id number] 11:30:00 Test Item Value Reference Range Interpretation Comments CREATININE ABG (test code = CREAABG) mg/dL 0.8-1.3 [id number] 11:30:00 Test Item Value Reference Range Interpretation Comments HEMOGLOBIN (test code = HGB/ABG) G/DL 12.5-16.9 [id number] 11:30:00 Test Item Value Reference Range Interpretation Comments HEMATOCRIT (test code = HCT/ABG) % 37.5-50.7 POC IONIZED [id number] 11:30:00 Test Item Value Reference Range Interpretation Comments POC IONIZED CALCIUM (test code = 1.16 MMOL/L 1.12-1.32 N POCCA) POC LACTIC [id number] 11:30:00 Test Item Value Reference Range Interpretation Comments POC LACTIC ACID (test code = POCLAC) mmol/l 0.9-1.7 POC [id number] 11:30:00 Test Item Value Reference Range Interpretation Comments POC GLUCOSE (test code = POCGLU) MG/DL 70-110 POC ARTERIAL BLOOD [id number] 11:30:00 Test Item Value Reference Range Interpretation Comments POC ARTERIAL BLOOD GAS PH (test 7.235 7.35-7.45 LL code = POCPHA) POC ARTERIAL BLOOD GAS PCO2 (test 63.5 mmHg 35.0-45 HH code = ERONPY6C) POC TCO2 ARTERIAL (test code = 28.8 POCTCO2) POC ARTERIAL BLOOD GAS PO2 (test 409.5 mmHg 80-100.0 HH code = AYTLK5B) POC HCO3 ARTERIAL (test code = 26.9 MMOL/L 22.0-26.0 H MHFENU3D) POC BASE EXCESS (test code = -1.2 MMOL/L -4.0-4.0 N POCBEA) POC O2 SATURATION (test code = 99.9 % 90-100 N POCO2S) [id number] 11:30:00 Test Item Value Reference Range Interpretation Comments SODIUM (test code = NA/ABG) 138 MEQ/L 134-147 N [id number] 11:30:00 Test Item Value Reference Range Interpretation Comments POTASSIUM (test code = K/ABG) 5.3 MEQ/L 3.4-5.0 H [id number] 11:30:00 Test Item Value Reference Range Interpretation Comments CHLORIDE (test code = CL/ABG) MEQ/L 100-108 CREATININE [id number] 11:30:00 Test Item Value Reference Range Interpretation Comments CREATININE ABG (test code = CREAABG) mg/dL 0.8-1.3 [id number] 11:30:00 Test Item Value Reference Range Interpretation Comments HEMOGLOBIN (test code = HGB/ABG) G/DL 12.5-16.9 [id number] 11:30:00 Test Item Value Reference Range Interpretation Comments HEMATOCRIT (test code = HCT/ABG) % 37.5-50.7 POC IONIZED [id number] 11:30:00 Test Item Value Reference Range Interpretation Comments POC IONIZED CALCIUM (test code = 1.16 MMOL/L 1.12-1.32 N POCCA) POC LACTIC [id number] 11:30:00 Test Item Value Reference Range Interpretation Comments POC LACTIC ACID (test code = POCLAC) mmol/l 0.9-1.7 POC [id number] 11:30:00 Test Item Value Reference Range Interpretation Comments POC GLUCOSE (test code = POCGLU) 162 MG/DL 70-110 H POC ARTERIAL BLOOD [id number] 11:30:00 Test Item Value Reference Range Interpretation Comments POC ARTERIAL BLOOD GAS PH (test 7.235 7.35-7.45 LL code = POCPHA) POC ARTERIAL BLOOD GAS PCO2 (test 63.5 mmHg 35.0-45 HH code = DNMTAI6O) POC TCO2 ARTERIAL (test code = 28.8 POCTCO2) POC ARTERIAL BLOOD GAS PO2 (test 409.5 mmHg 80-100.0 HH code = YYPVZ3Z) POC HCO3 ARTERIAL (test code = 26.9 MMOL/L 22.0-26.0 H RFNYWM7W) POC BASE EXCESS (test code = -1.2 MMOL/L -4.0-4.0 N POCBEA) POC O2 SATURATION (test code = 99.9 % 90-100 N POCO2S) [id number] 11:30:00 Test Item Value Reference Range Interpretation Comments SODIUM (test code = NA/ABG) 138 MEQ/L 134-147 N [id number] 11:30:00 Test Item Value Reference Range Interpretation Comments POTASSIUM (test code = K/ABG) 5.3 MEQ/L 3.4-5.0 H [id number] 11:30:00 Test Item Value Reference Range Interpretation Comments CHLORIDE (test code = CL/ABG) MEQ/L 100-108 CREATININE [id number] 11:30:00 Test Item Value Reference Range Interpretation Comments CREATININE ABG (test code = CREAABG) mg/dL 0.8-1.3 [id number] 11:30:00 Test Item Value Reference Range Interpretation Comments HEMOGLOBIN (test code = HGB/ABG) G/DL 12.5-16.9 [id number] 11:30:00 Test Item Value Reference Range Interpretation Comments HEMATOCRIT (test code = HCT/ABG) % 37.5-50.7 POC IONIZED [id number] 11:30:00 Test Item Value Reference Range Interpretation Comments POC IONIZED CALCIUM (test code = 1.16 MMOL/L 1.12-1.32 N POCCA) POC LACTIC [id number] 11:30:00 Test Item Value Reference Range Interpretation Comments POC LACTIC ACID (test code = 1.2 mmol/l 0.9-1.7 N POCLAC) POC [id number] 11:30:00 Test Item Value Reference Range Interpretation Comments POC GLUCOSE (test code = POCGLU) 162 MG/DL 70-110 H POC ARTERIAL BLOOD [id number] 11:30:00 Test Item Value Reference Range Interpretation Comments POC ARTERIAL BLOOD GAS PH (test 7.235 7.35-7.45 LL code = POCPHA) POC ARTERIAL BLOOD GAS PCO2 (test 63.5 mmHg 35.0-45 HH code = DZLMQD4Z) POC TCO2 ARTERIAL (test code = 28.8 POCTCO2) POC ARTERIAL BLOOD GAS PO2 (test 409.5 mmHg 80-100.0 HH code = EOPSS3D) POC HCO3 ARTERIAL (test code = 26.9 MMOL/L 22.0-26.0 H MXVJAA3L) POC BASE EXCESS (test code = -1.2 MMOL/L -4.0-4.0 N POCBEA) POC O2 SATURATION (test code = 99.9 % 90-100 N POCO2S) [id number] 11:30:00 Test Item Value Reference Range Interpretation Comments SODIUM (test code = NA/ABG) 138 MEQ/L 134-147 N [id number] 11:30:00 Test Item Value Reference Range Interpretation Comments POTASSIUM (test code = K/ABG) 5.3 MEQ/L 3.4-5.0 H [id number] 11:30:00 Test Item Value Reference Range Interpretation Comments CHLORIDE (test code = CL/ABG) MEQ/L 100-108 CREATININE [id number] 11:30:00 Test Item Value Reference Range Interpretation Comments CREATININE ABG (test code = CREAABG) mg/dL 0.8-1.3 [id number] 11:30:00 Test Item Value Reference Range Interpretation Comments HEMOGLOBIN (test code = HGB/ABG) G/DL 12.5-16.9 [id number] 11:30:00 Test Item Value Reference Range Interpretation Comments HEMATOCRIT (test code = HCT/ABG) 27 % 37.5-50.7 L POC IONIZED [id number] 11:30:00 Test Item Value Reference Range Interpretation Comments POC IONIZED CALCIUM (test code = 1.16 MMOL/L 1.12-1.32 N POCCA) POC LACTIC [id number] 11:30:00 Test Item Value Reference Range Interpretation Comments POC LACTIC ACID (test code = 1.2 mmol/l 0.9-1.7 N POCLAC) POC [id number] 11:30:00 Test Item Value Reference Range Interpretation Comments POC GLUCOSE (test code = POCGLU) 162 MG/DL 70-110 H POC ARTERIAL BLOOD [id number] 11:30:00 Test Item Value Reference Range Interpretation Comments POC ARTERIAL BLOOD GAS PH (test 7.235 7.35-7.45 LL code = POCPHA) POC ARTERIAL BLOOD GAS PCO2 (test 63.5 mmHg 35.0-45 HH code = BNFSWA5M) POC TCO2 ARTERIAL (test code = 28.8 POCTCO2) POC ARTERIAL BLOOD GAS PO2 (test 409.5 mmHg 80-100.0 HH code = UJZOT2Z) POC HCO3 ARTERIAL (test code = 26.9 MMOL/L 22.0-26.0 H OIEXBH7G) POC BASE EXCESS (test code = -1.2 MMOL/L -4.0-4.0 N POCBEA) POC O2 SATURATION (test code = 99.9 % 90-100 N POCO2S) [id number] 11:30:00 Test Item Value Reference Range Interpretation Comments SODIUM (test code = NA/ABG) 138 MEQ/L 134-147 N [id number] 11:30:00 Test Item Value Reference Range Interpretation Comments POTASSIUM (test code = K/ABG) 5.3 MEQ/L 3.4-5.0 H [id number] 11:30:00 Test Item Value Reference Range Interpretation Comments CHLORIDE (test code = CL/ABG) MEQ/L 100-108 CREATININE [id number] 11:30:00 Test Item Value Reference Range Interpretation Comments CREATININE ABG (test code = CREAABG) mg/dL 0.8-1.3 [id number] 11:30:00 Test Item Value Reference Range Interpretation Comments HEMOGLOBIN (test code = HGB/ABG) 9.0 G/DL 12.5-16.9 L [id number] 11:30:00 Test Item Value Reference Range Interpretation Comments HEMATOCRIT (test code = HCT/ABG) 27 % 37.5-50.7 L POC IONIZED [id number] 11:30:00 Test Item Value Reference Range Interpretation Comments POC IONIZED CALCIUM (test code = 1.16 MMOL/L 1.12-1.32 N POCCA) POC LACTIC [id number] 11:30:00 Test Item Value Reference Range Interpretation Comments POC LACTIC ACID (test code = 1.2 mmol/l 0.9-1.7 N POCLAC) POC [id number] 11:30:00 Test Item Value Reference Range Interpretation Comments POC GLUCOSE (test code = POCGLU) 162 MG/DL 70-110 H POC ARTERIAL BLOOD [id number] 11:30:00 Test Item Value Reference Range Interpretation Comments POC ARTERIAL BLOOD GAS PH (test 7.235 7.35-7.45 LL code = POCPHA) POC ARTERIAL BLOOD GAS PCO2 (test 63.5 mmHg 35.0-45 HH code = EOHYVM4Y) POC TCO2 ARTERIAL (test code = 28.8 POCTCO2) POC ARTERIAL BLOOD GAS PO2 (test 409.5 mmHg 80-100.0 HH code = VDQBQ3P) POC HCO3 ARTERIAL (test code = 26.9 MMOL/L 22.0-26.0 H HNWBPJ9E) POC BASE EXCESS (test code = -1.2 MMOL/L -4.0-4.0 N POCBEA) POC O2 SATURATION (test code = 99.9 % 90-100 N POCO2S) [id number] 11:30:00 Test Item Value Reference Range Interpretation Comments SODIUM (test code = NA/ABG) 138 MEQ/L 134-147 N [id number] 11:30:00 Test Item Value Reference Range Interpretation Comments POTASSIUM (test code = K/ABG) 5.3 MEQ/L 3.4-5.0 H [id number] 11:30:00 Test Item Value Reference Range Interpretation Comments CHLORIDE (test code = CL/ABG) 103 MEQ/L 100-108 N CREATININE [id number] 11:30:00 Test Item Value Reference Range Interpretation Comments CREATININE ABG (test code = CREAABG) mg/dL 0.8-1.3 [id number] 11:30:00 Test Item Value Reference Range Interpretation Comments HEMOGLOBIN (test code = HGB/ABG) 9.0 G/DL 12.5-16.9 L [id number] 11:30:00 Test Item Value Reference Range Interpretation Comments HEMATOCRIT (test code = HCT/ABG) 27 % 37.5-50.7 L POC IONIZED [id number] 11:30:00 Test Item Value Reference Range Interpretation Comments POC IONIZED CALCIUM (test code = 1.16 MMOL/L 1.12-1.32 N POCCA) POC LACTIC [id number] 11:30:00 Test Item Value Reference Range Interpretation Comments POC LACTIC ACID (test code = 1.2 mmol/l 0.9-1.7 N POCLAC) POC [id number] 11:30:00 Test Item Value Reference Range Interpretation Comments POC GLUCOSE (test code = POCGLU) 162 MG/DL 70-110 H POC ARTERIAL BLOOD [id number] 11:30:00 Test Item Value Reference Range Interpretation Comments POC ARTERIAL BLOOD GAS PH (test 7.235 7.35-7.45 LL code = POCPHA) POC ARTERIAL BLOOD GAS PCO2 (test 63.5 mmHg 35.0-45 HH code = UHWVSG3P) POC TCO2 ARTERIAL (test code = 28.8 POCTCO2) POC ARTERIAL BLOOD GAS PO2 (test 409.5 mmHg 80-100.0 HH code = EBMFO5V) POC HCO3 ARTERIAL (test code = 26.9 MMOL/L 22.0-26.0 H ZYFEEA3D) POC BASE EXCESS (test code = -1.2 MMOL/L -4.0-4.0 N POCBEA) POC O2 SATURATION (test code = 99.9 % 90-100 N POCO2S) [id number] 11:30:00 Test Item Value Reference Range Interpretation Comments SODIUM (test code = NA/ABG) 138 MEQ/L 134-147 N [id number] 11:30:00 Test Item Value Reference Range Interpretation Comments POTASSIUM (test code = K/ABG) 5.3 MEQ/L 3.4-5.0 H [id number] 11:30:00 Test Item Value Reference Range Interpretation Comments CHLORIDE (test code = CL/ABG) 103 MEQ/L 100-108 N CREATININE [id number] 11:30:00 Test Item Value Reference Range Interpretation Comments CREATININE ABG (test code = 0.7 mg/dL 0.8-1.3 L CREAABG) [id number] 11:30:00 Test Item Value Reference Range Interpretation Comments HEMOGLOBIN (test code = HGB/ABG) 9.0 G/DL 12.5-16.9 L [id number] 11:30:00 Test Item Value Reference Range Interpretation Comments HEMATOCRIT (test code = HCT/ABG) 27 % 37.5-50.7 L POC IONIZED [id number] 11:30:00 Test Item Value Reference Range Interpretation Comments POC IONIZED CALCIUM (test code = 1.16 MMOL/L 1.12-1.32 N POCCA) POC LACTIC [id number] 11:30:00 Test Item Value Reference Range Interpretation Comments POC LACTIC ACID (test code = 1.2 mmol/l 0.9-1.7 N POCLAC) POC [id number] 11:30:00 Test Item Value Reference Range Interpretation Comments POC GLUCOSE (test code = POCGLU) 162 MG/DL 70-110 H [id number] 11:21:00 Test Item Value Reference Range Interpretation Comments ACT-ISTAT (test code 747 SEC 74-137 H 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 [facility] POC ARTERIAL BLOOD [id number] 11:11:00 Test Item Value Reference Range Interpretation Comments POC ARTERIAL BLOOD GAS PH (test 7.283 7.35-7.45 LL code = POCPHA) POC ARTERIAL BLOOD GAS PCO2 (test 56.9 mmHg 35.0-45 HH code = [id number]) POC TCO2 ARTERIAL (test code = 28.6 POCTCO2) POC ARTERIAL BLOOD GAS PO2 (test 450.7 mmHg 80-100.0 HH code = CQCYV7A) POC HCO3 ARTERIAL (test code = 26.9 MMOL/L 22.0-26.0 H [id number]) POC BASE EXCESS (test code = -0.3 MMOL/L -4.0-4.0 N POCBEA) POC O2 SATURATION (test code = 100.0 % 90-100 N POCO2S) [id number] 11:11:00 Test Item Value Reference Range Interpretation Comments SODIUM (test code = NA/ABG) MEQ/L 134-147 [id number] 11:11:00 Test Item Value Reference Range Interpretation Comments POTASSIUM (test code = K/ABG) MEQ/L 3.4-5.0 [id number] 11:11:00 Test Item Value Reference Range Interpretation Comments CHLORIDE (test code = CL/ABG) MEQ/L 100-108 CREATININE [id number] 11:11:00 Test Item Value Reference Range Interpretation Comments CREATININE ABG (test code = CREAABG) mg/dL 0.8-1.3 [id number] 11:11:00 Test Item Value Reference Range Interpretation Comments HEMOGLOBIN (test code = HGB/ABG) G/DL 12.5-16.9 [id number] 11:11:00 Test Item Value Reference Range Interpretation Comments HEMATOCRIT (test code = HCT/ABG) % 37.5-50.7 POC IONIZED [id number] 11:11:00 Test Item Value Reference Range Interpretation Comments POC IONIZED CALCIUM (test code = MMOL/L 1.12-1.32 POCCA) POC LACTIC [id number] 11:11:00 Test Item Value Reference Range Interpretation Comments POC LACTIC ACID (test code = POCLAC) mmol/l 0.9-1.7 POC [id number] 11:11:00 Test Item Value Reference Range Interpretation Comments POC GLUCOSE (test code = POCGLU) MG/DL 70-110 POC ARTERIAL BLOOD [id number] 11:11:00 Test Item Value Reference Range Interpretation Comments POC ARTERIAL BLOOD GAS PH (test 7.283 7.35-7.45 LL code = POCPHA) POC ARTERIAL BLOOD GAS PCO2 (test 56.9 mmHg 35.0-45 HH code = [id number]) POC TCO2 ARTERIAL (test code = 28.6 POCTCO2) POC ARTERIAL BLOOD GAS PO2 (test 450.7 mmHg 80-100.0 HH code = AHLKE9N) POC HCO3 ARTERIAL (test code = 26.9 MMOL/L 22.0-26.0 H [id number]) POC BASE EXCESS (test code = -0.3 MMOL/L -4.0-4.0 N POCBEA) POC O2 SATURATION (test code = 100.0 % 90-100 N POCO2S) [id number] 11:11:00 Test Item Value Reference Range Interpretation Comments SODIUM (test code = NA/ABG) 139 MEQ/L 134-147 N [id number] 11:11:00 Test Item Value Reference Range Interpretation Comments POTASSIUM (test code = K/ABG) MEQ/L 3.4-5.0 [id number] 11:11:00 Test Item Value Reference Range Interpretation Comments CHLORIDE (test code = CL/ABG) MEQ/L 100-108 CREATININE [id number] 11:11:00 Test Item Value Reference Range Interpretation Comments CREATININE ABG (test code = CREAABG) mg/dL 0.8-1.3 [id number] 11:11:00 Test Item Value Reference Range Interpretation Comments HEMOGLOBIN (test code = HGB/ABG) G/DL 12.5-16.9 [id number] 11:11:00 Test Item Value Reference Range Interpretation Comments HEMATOCRIT (test code = HCT/ABG) % 37.5-50.7 POC IONIZED [id number] 11:11:00 Test Item Value Reference Range Interpretation Comments POC IONIZED CALCIUM (test code = MMOL/L 1.12-1.32 POCCA) POC LACTIC [id number] 11:11:00 Test Item Value Reference Range Interpretation Comments POC LACTIC ACID (test code = POCLAC) mmol/l 0.9-1.7 POC [id number] 11:11:00 Test Item Value Reference Range Interpretation Comments POC GLUCOSE (test code = POCGLU) MG/DL 70-110 POC ARTERIAL BLOOD [id number] 11:11:00 Test Item Value Reference Range Interpretation Comments POC ARTERIAL BLOOD GAS PH (test 7.283 7.35-7.45 LL code = POCPHA) POC ARTERIAL BLOOD GAS PCO2 (test 56.9 mmHg 35.0-45 HH code = RRRJGQ3B) POC TCO2 ARTERIAL (test code = 28.6 POCTCO2) POC ARTERIAL BLOOD GAS PO2 (test 450.7 mmHg 80-100.0 HH code = TEWYG0F) POC HCO3 ARTERIAL (test code = 26.9 MMOL/L 22.0-26.0 H [id number]) POC BASE EXCESS (test code = -0.3 MMOL/L -4.0-4.0 N POCBEA) POC O2 SATURATION (test code = 100.0 % 90-100 N POCO2S) [id number] 11:11:00 Test Item Value Reference Range Interpretation Comments SODIUM (test code = NA/ABG) 139 MEQ/L 134-147 N [id number] 11:11:00 Test Item Value Reference Range Interpretation Comments POTASSIUM (test code = K/ABG) 5.2 MEQ/L 3.4-5.0 H [id number] 11:11:00 Test Item Value Reference Range Interpretation Comments CHLORIDE (test code = CL/ABG) MEQ/L 100-108 CREATININE [id number] 11:11:00 Test Item Value Reference Range Interpretation Comments CREATININE ABG (test code = CREAABG) mg/dL 0.8-1.3 [id number] 11:11:00 Test Item Value Reference Range Interpretation Comments HEMOGLOBIN (test code = HGB/ABG) G/DL 12.5-16.9 [id number] 11:11:00 Test Item Value Reference Range Interpretation Comments HEMATOCRIT (test code = HCT/ABG) % 37.5-50.7 POC IONIZED [id number] 11:11:00 Test Item Value Reference Range Interpretation Comments POC IONIZED CALCIUM (test code = MMOL/L 1.12-1.32 POCCA) POC LACTIC [id number] 11:11:00 Test Item Value Reference Range Interpretation Comments POC LACTIC ACID (test code = POCLAC) mmol/l 0.9-1.7 POC [id number] 11:11:00 Test Item Value Reference Range Interpretation Comments POC GLUCOSE (test code = POCGLU) MG/DL 70-110 POC ARTERIAL BLOOD [id number] 11:11:00 Test Item Value Reference Range Interpretation Comments POC ARTERIAL BLOOD GAS PH (test 7.283 7.35-7.45 LL code = POCPHA) POC ARTERIAL BLOOD GAS PCO2 (test 56.9 mmHg 35.0-45 HH code = YMVBCI1R) POC TCO2 ARTERIAL (test code = 28.6 POCTCO2) POC ARTERIAL BLOOD GAS PO2 (test 450.7 mmHg 80-100.0 HH code = PGQFJ0E) POC HCO3 ARTERIAL (test code = 26.9 MMOL/L 22.0-26.0 H NPZJQW0U) POC BASE EXCESS (test code = -0.3 MMOL/L -4.0-4.0 N POCBEA) POC O2 SATURATION (test code = 100.0 % 90-100 N POCO2S) [id number] 11:11:00 Test Item Value Reference Range Interpretation Comments SODIUM (test code = NA/ABG) 139 MEQ/L 134-147 N [id number] 11:11:00 Test Item Value Reference Range Interpretation Comments POTASSIUM (test code = K/ABG) 5.2 MEQ/L 3.4-5.0 H [id number] 11:11:00 Test Item Value Reference Range Interpretation Comments CHLORIDE (test code = CL/ABG) MEQ/L 100-108 CREATININE [id number] 11:11:00 Test Item Value Reference Range Interpretation Comments CREATININE ABG (test code = CREAABG) mg/dL 0.8-1.3 [id number] 11:11:00 Test Item Value Reference Range Interpretation Comments HEMOGLOBIN (test code = HGB/ABG) G/DL 12.5-16.9 [id number] 11:11:00 Test Item Value Reference Range Interpretation Comments HEMATOCRIT (test code = HCT/ABG) % 37.5-50.7 POC IONIZED [id number] 11:11:00 Test Item Value Reference Range Interpretation Comments POC IONIZED CALCIUM (test code = 1.10 MMOL/L 1.12-1.32 L POCCA) POC LACTIC [id number] 11:11:00 Test Item Value Reference Range Interpretation Comments POC LACTIC ACID (test code = POCLAC) mmol/l 0.9-1.7 POC [id number] 11:11:00 Test Item Value Reference Range Interpretation Comments POC GLUCOSE (test code = POCGLU) MG/DL 70-110 POC ARTERIAL BLOOD [id number] 11:11:00 Test Item Value Reference Range Interpretation Comments POC ARTERIAL BLOOD GAS PH (test 7.283 7.35-7.45 LL code = POCPHA) POC ARTERIAL BLOOD GAS PCO2 (test 56.9 mmHg 35.0-45 HH code = TFLYBI6Q) POC TCO2 ARTERIAL (test code = 28.6 POCTCO2) POC ARTERIAL BLOOD GAS PO2 (test 450.7 mmHg 80-100.0 HH code = DIYUU6T) POC HCO3 ARTERIAL (test code = 26.9 MMOL/L 22.0-26.0 H NLUJDP4L) POC BASE EXCESS (test code = -0.3 MMOL/L -4.0-4.0 N POCBEA) POC O2 SATURATION (test code = 100.0 % 90-100 N POCO2S) [id number] 11:11:00 Test Item Value Reference Range Interpretation Comments SODIUM (test code = NA/ABG) 139 MEQ/L 134-147 N [id number] 11:11:00 Test Item Value Reference Range Interpretation Comments POTASSIUM (test code = K/ABG) 5.2 MEQ/L 3.4-5.0 H [id number] 11:11:00 Test Item Value Reference Range Interpretation Comments CHLORIDE (test code = CL/ABG) MEQ/L 100-108 CREATININE [id number] 11:11:00 Test Item Value Reference Range Interpretation Comments CREATININE ABG (test code = CREAABG) mg/dL 0.8-1.3 [id number] 11:11:00 Test Item Value Reference Range Interpretation Comments HEMOGLOBIN (test code = HGB/ABG) G/DL 12.5-16.9 [id number] 11:11:00 Test Item Value Reference Range Interpretation Comments HEMATOCRIT (test code = HCT/ABG) % 37.5-50.7 POC IONIZED [id number] 11:11:00 Test Item Value Reference Range Interpretation Comments POC IONIZED CALCIUM (test code = 1.10 MMOL/L 1.12-1.32 L POCCA) POC LACTIC [id number] 11:11:00 Test Item Value Reference Range Interpretation Comments POC LACTIC ACID (test code = POCLAC) mmol/l 0.9-1.7 POC [id number] 11:11:00 Test Item Value Reference Range Interpretation Comments POC GLUCOSE (test code = POCGLU) 135 MG/DL 70-110 H POC ARTERIAL BLOOD [id number] 11:11:00 Test Item Value Reference Range Interpretation Comments POC ARTERIAL BLOOD GAS PH (test 7.283 7.35-7.45 LL code = POCPHA) POC ARTERIAL BLOOD GAS PCO2 (test 56.9 mmHg 35.0-45 HH code = PJHNMH6X) POC TCO2 ARTERIAL (test code = 28.6 POCTCO2) POC ARTERIAL BLOOD GAS PO2 (test 450.7 mmHg 80-100.0 HH code = HCQCY5A) POC HCO3 ARTERIAL (test code = 26.9 MMOL/L 22.0-26.0 H WYNHON2C) POC BASE EXCESS (test code = -0.3 MMOL/L -4.0-4.0 N POCBEA) POC O2 SATURATION (test code = 100.0 % 90-100 N POCO2S) [id number] 11:11:00 Test Item Value Reference Range Interpretation Comments SODIUM (test code = NA/ABG) 139 MEQ/L 134-147 N [id number] 11:11:00 Test Item Value Reference Range Interpretation Comments POTASSIUM (test code = K/ABG) 5.2 MEQ/L 3.4-5.0 H [id number] 11:11:00 Test Item Value Reference Range Interpretation Comments CHLORIDE (test code = CL/ABG) MEQ/L 100-108 CREATININE [id number] 11:11:00 Test Item Value Reference Range Interpretation Comments CREATININE ABG (test code = CREAABG) mg/dL 0.8-1.3 [id number] 11:11:00 Test Item Value Reference Range Interpretation Comments HEMOGLOBIN (test code = HGB/ABG) G/DL 12.5-16.9 [id number] 11:11:00 Test Item Value Reference Range Interpretation Comments HEMATOCRIT (test code = HCT/ABG) % 37.5-50.7 POC IONIZED [id number] 11:11:00 Test Item Value Reference Range Interpretation Comments POC IONIZED CALCIUM (test code = 1.10 MMOL/L 1.12-1.32 L POCCA) POC LACTIC [id number] 11:11:00 Test Item Value Reference Range Interpretation Comments POC LACTIC ACID (test code = 1.0 mmol/l 0.9-1.7 N POCLAC) POC [id number] 11:11:00 Test Item Value Reference Range Interpretation Comments POC GLUCOSE (test code = POCGLU) 135 MG/DL 70-110 H POC ARTERIAL BLOOD [id number] 11:11:00 Test Item Value Reference Range Interpretation Comments POC ARTERIAL BLOOD GAS PH (test 7.283 7.35-7.45 LL code = POCPHA) POC ARTERIAL BLOOD GAS PCO2 (test 56.9 mmHg 35.0-45 HH code = MFZUOK9G) POC TCO2 ARTERIAL (test code = 28.6 POCTCO2) POC ARTERIAL BLOOD GAS PO2 (test 450.7 mmHg 80-100.0 HH code = HBGNU7U) POC HCO3 ARTERIAL (test code = 26.9 MMOL/L 22.0-26.0 H WRSVFI6S) POC BASE EXCESS (test code = -0.3 MMOL/L -4.0-4.0 N POCBEA) POC O2 SATURATION (test code = 100.0 % 90-100 N POCO2S) [id number] 11:11:00 Test Item Value Reference Range Interpretation Comments SODIUM (test code = NA/ABG) 139 MEQ/L 134-147 N [id number] 11:11:00 Test Item Value Reference Range Interpretation Comments POTASSIUM (test code = K/ABG) 5.2 MEQ/L 3.4-5.0 H [id number] 11:11:00 Test Item Value Reference Range Interpretation Comments CHLORIDE (test code = CL/ABG) MEQ/L 100-108 CREATININE [id number] 11:11:00 Test Item Value Reference Range Interpretation Comments CREATININE ABG (test code = CREAABG) mg/dL 0.8-1.3 [id number] 11:11:00 Test Item Value Reference Range Interpretation Comments HEMOGLOBIN (test code = HGB/ABG) G/DL 12.5-16.9 [id number] 11:11:00 Test Item Value Reference Range Interpretation Comments HEMATOCRIT (test code = HCT/ABG) 27 % 37.5-50.7 L POC IONIZED [id number] 11:11:00 Test Item Value Reference Range Interpretation Comments POC IONIZED CALCIUM (test code = 1.10 MMOL/L 1.12-1.32 L POCCA) POC LACTIC [id number] 11:11:00 Test Item Value Reference Range Interpretation Comments POC LACTIC ACID (test code = 1.0 mmol/l 0.9-1.7 N POCLAC) POC [id number] 11:11:00 Test Item Value Reference Range Interpretation Comments POC GLUCOSE (test code = POCGLU) 135 MG/DL 70-110 H POC ARTERIAL BLOOD [id number] 11:11:00 Test Item Value Reference Range Interpretation Comments POC ARTERIAL BLOOD GAS PH (test 7.283 7.35-7.45 LL code = POCPHA) POC ARTERIAL BLOOD GAS PCO2 (test 56.9 mmHg 35.0-45 HH code = KNIPCK0W) POC TCO2 ARTERIAL (test code = 28.6 POCTCO2) POC ARTERIAL BLOOD GAS PO2 (test 450.7 mmHg 80-100.0 HH code = BAQRD8R) POC HCO3 ARTERIAL (test code = 26.9 MMOL/L 22.0-26.0 H WEZNFM5U) POC BASE EXCESS (test code = -0.3 MMOL/L -4.0-4.0 N POCBEA) POC O2 SATURATION (test code = 100.0 % 90-100 N POCO2S) [id number] 11:11:00 Test Item Value Reference Range Interpretation Comments SODIUM (test code = NA/ABG) 139 MEQ/L 134-147 N [id number] 11:11:00 Test Item Value Reference Range Interpretation Comments POTASSIUM (test code = K/ABG) 5.2 MEQ/L 3.4-5.0 H [id number] 11:11:00 Test Item Value Reference Range Interpretation Comments CHLORIDE (test code = CL/ABG) MEQ/L 100-108 CREATININE [id number] 11:11:00 Test Item Value Reference Range Interpretation Comments CREATININE ABG (test code = CREAABG) mg/dL 0.8-1.3 [id number] 11:11:00 Test Item Value Reference Range Interpretation Comments HEMOGLOBIN (test code = HGB/ABG) 9.3 G/DL 12.5-16.9 L [id number] 11:11:00 Test Item Value Reference Range Interpretation Comments HEMATOCRIT (test code = HCT/ABG) 27 % 37.5-50.7 L POC IONIZED [id number] 11:11:00 Test Item Value Reference Range Interpretation Comments POC IONIZED CALCIUM (test code = 1.10 MMOL/L 1.12-1.32 L POCCA) POC LACTIC [id number] 11:11:00 Test Item Value Reference Range Interpretation Comments POC LACTIC ACID (test code = 1.0 mmol/l 0.9-1.7 N POCLAC) POC [id number] 11:11:00 Test Item Value Reference Range Interpretation Comments POC GLUCOSE (test code = POCGLU) 135 MG/DL 70-110 H POC ARTERIAL BLOOD [id number] 11:11:00 Test Item Value Reference Range Interpretation Comments POC ARTERIAL BLOOD GAS PH (test 7.283 7.35-7.45 LL code = POCPHA) POC ARTERIAL BLOOD GAS PCO2 (test 56.9 mmHg 35.0-45 HH code = XMDGRX6B) POC TCO2 ARTERIAL (test code = 28.6 POCTCO2) POC ARTERIAL BLOOD GAS PO2 (test 450.7 mmHg 80-100.0 HH code = JJPIM9D) POC HCO3 ARTERIAL (test code = 26.9 MMOL/L 22.0-26.0 H MNQWCX4J) POC BASE EXCESS (test code = -0.3 MMOL/L -4.0-4.0 N POCBEA) POC O2 SATURATION (test code = 100.0 % 90-100 N POCO2S) [id number] 11:11:00 Test Item Value Reference Range Interpretation Comments SODIUM (test code = NA/ABG) 139 MEQ/L 134-147 N [id number] 11:11:00 Test Item Value Reference Range Interpretation Comments POTASSIUM (test code = K/ABG) 5.2 MEQ/L 3.4-5.0 H [id number] 11:11:00 Test Item Value Reference Range Interpretation Comments CHLORIDE (test code = CL/ABG) 105 MEQ/L 100-108 N CREATININE [id number] 11:11:00 Test Item Value Reference Range Interpretation Comments CREATININE ABG (test code = CREAABG) mg/dL 0.8-1.3 [id number] 11:11:00 Test Item Value Reference Range Interpretation Comments HEMOGLOBIN (test code = HGB/ABG) 9.3 G/DL 12.5-16.9 L [id number] 11:11:00 Test Item Value Reference Range Interpretation Comments HEMATOCRIT (test code = HCT/ABG) 27 % 37.5-50.7 L POC IONIZED [id number] 11:11:00 Test Item Value Reference Range Interpretation Comments POC IONIZED CALCIUM (test code = 1.10 MMOL/L 1.12-1.32 L POCCA) POC LACTIC [id number] 11:11:00 Test Item Value Reference Range Interpretation Comments POC LACTIC ACID (test code = 1.0 mmol/l 0.9-1.7 N POCLAC) POC [id number] 11:11:00 Test Item Value Reference Range Interpretation Comments POC GLUCOSE (test code = POCGLU) 135 MG/DL 70-110 H POC ARTERIAL BLOOD [id number] 11:11:00 Test Item Value Reference Range Interpretation Comments POC ARTERIAL BLOOD GAS PH (test 7.283 7.35-7.45 LL code = POCPHA) POC ARTERIAL BLOOD GAS PCO2 (test 56.9 mmHg 35.0-45 HH code = GYABLN1A) POC TCO2 ARTERIAL (test code = 28.6 POCTCO2) POC ARTERIAL BLOOD GAS PO2 (test 450.7 mmHg 80-100.0 HH code = EHRCW4T) POC HCO3 ARTERIAL (test code = 26.9 MMOL/L 22.0-26.0 H RQVWDG7L) POC BASE EXCESS (test code = -0.3 MMOL/L -4.0-4.0 N POCBEA) POC O2 SATURATION (test code = 100.0 % 90-100 N POCO2S) [id number] 11:11:00 Test Item Value Reference Range Interpretation Comments SODIUM (test code = NA/ABG) 139 MEQ/L 134-147 N [id number] 11:11:00 Test Item Value Reference Range Interpretation Comments POTASSIUM (test code = K/ABG) 5.2 MEQ/L 3.4-5.0 H [id number] 11:11:00 Test Item Value Reference Range Interpretation Comments CHLORIDE (test code = CL/ABG) 105 MEQ/L 100-108 N CREATININE [id number] 11:11:00 Test Item Value Reference Range Interpretation Comments CREATININE ABG (test code = 1.3 mg/dL 0.8-1.3 N CREAABG) [id number] 11:11:00 Test Item Value Reference Range Interpretation Comments HEMOGLOBIN (test code = HGB/ABG) 9.3 G/DL 12.5-16.9 L [id number] 11:11:00 Test Item Value Reference Range Interpretation Comments HEMATOCRIT (test code = HCT/ABG) 27 % 37.5-50.7 L POC IONIZED [id number] 11:11:00 Test Item Value Reference Range Interpretation Comments POC IONIZED CALCIUM (test code = 1.10 MMOL/L 1.12-1.32 L POCCA) POC LACTIC [id number] 11:11:00 Test Item Value Reference Range Interpretation Comments POC LACTIC ACID (test code = 1.0 mmol/l 0.9-1.7 N POCLAC) POC [id number] 11:11:00 Test Item Value Reference Range Interpretation Comments POC GLUCOSE (test code = POCGLU) 135 MG/DL 70-110 H [id number] 10:55:00 Test Item Value Reference Range Interpretation Comments ACT-ISTAT (test code 896 SEC 74-137 H 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 [facility] POC ARTERIAL BLOOD [id number] 10:35:00 Test Item Value Reference Range Interpretation Comments POC ARTERIAL BLOOD GAS PH (test 7.255 7.35-7.45 LL code = POCPHA) POC ARTERIAL BLOOD GAS PCO2 (test 59.5 mmHg 35.0-45 HH code = GZJPEV8U) POC TCO2 ARTERIAL (test code = 28.2 POCTCO2) POC ARTERIAL BLOOD GAS PO2 (test 522.9 mmHg 80-100.0 HH code = MHGGW8T) POC HCO3 ARTERIAL (test code = 26.4 MMOL/L 22.0-26.0 H FKSQYW6B) POC BASE EXCESS (test code = -1.7 MMOL/L -4.0-4.0 N POCBEA) POC O2 SATURATION (test code = 100.0 % 90-100 N POCO2S) [id number] 10:35:00 Test Item Value Reference Range Interpretation Comments SODIUM (test code = NA/ABG) MEQ/L 134-147 [id number] 10:35:00 Test Item Value Reference Range Interpretation Comments POTASSIUM (test code = K/ABG) MEQ/L 3.4-5.0 [id number] 10:35:00 Test Item Value Reference Range Interpretation Comments CHLORIDE (test code = CL/ABG) MEQ/L 100-108 CREATININE [id number] 10:35:00 Test Item Value Reference Range Interpretation Comments CREATININE ABG (test code = CREAABG) mg/dL 0.8-1.3 [id number] 10:35:00 Test Item Value Reference Range Interpretation Comments HEMOGLOBIN (test code = HGB/ABG) G/DL 12.5-16.9 [id number] 10:35:00 Test Item Value Reference Range Interpretation Comments HEMATOCRIT (test code = HCT/ABG) % 37.5-50.7 POC IONIZED [id number] 10:35:00 Test Item Value Reference Range Interpretation Comments POC IONIZED CALCIUM (test code = MMOL/L 1.12-1.32 POCCA) POC LACTIC [id number] 10:35:00 Test Item Value Reference Range Interpretation Comments POC LACTIC ACID (test code = POCLAC) mmol/l 0.9-1.7 POC [id number] 10:35:00 Test Item Value Reference Range Interpretation Comments POC GLUCOSE (test code = POCGLU) MG/DL 70-110 POC ARTERIAL BLOOD [id number] 10:35:00 Test Item Value Reference Range Interpretation Comments POC ARTERIAL BLOOD GAS PH (test 7.255 7.35-7.45 LL code = POCPHA) POC ARTERIAL BLOOD GAS PCO2 (test 59.5 mmHg 35.0-45 HH code = KCEOTR4F) POC TCO2 ARTERIAL (test code = 28.2 POCTCO2) POC ARTERIAL BLOOD GAS PO2 (test 522.9 mmHg 80-100.0 HH code = FVIDX8Q) POC HCO3 ARTERIAL (test code = 26.4 MMOL/L 22.0-26.0 H LEUENG4H) POC BASE EXCESS (test code = -1.7 MMOL/L -4.0-4.0 N POCBEA) POC O2 SATURATION (test code = 100.0 % 90-100 N POCO2S) [id number] 10:35:00 Test Item Value Reference Range Interpretation Comments SODIUM (test code = NA/ABG) 142 MEQ/L 134-147 N [id number] 10:35:00 Test Item Value Reference Range Interpretation Comments POTASSIUM (test code = K/ABG) MEQ/L 3.4-5.0 [id number] 10:35:00 Test Item Value Reference Range Interpretation Comments CHLORIDE (test code = CL/ABG) MEQ/L 100-108 CREATININE [id number] 10:35:00 Test Item Value Reference Range Interpretation Comments CREATININE ABG (test code = CREAABG) mg/dL 0.8-1.3 [id number] 10:35:00 Test Item Value Reference Range Interpretation Comments HEMOGLOBIN (test code = HGB/ABG) G/DL 12.5-16.9 [id number] 10:35:00 Test Item Value Reference Range Interpretation Comments HEMATOCRIT (test code = HCT/ABG) % 37.5-50.7 POC IONIZED [id number] 10:35:00 Test Item Value Reference Range Interpretation Comments POC IONIZED CALCIUM (test code = MMOL/L 1.12-1.32 POCCA) POC LACTIC [id number] 10:35:00 Test Item Value Reference Range Interpretation Comments POC LACTIC ACID (test code = POCLAC) mmol/l 0.9-1.7 POC [id number] 10:35:00 Test Item Value Reference Range Interpretation Comments POC GLUCOSE (test code = POCGLU) MG/DL 70-110 POC ARTERIAL BLOOD [id number] 10:35:00 Test Item Value Reference Range Interpretation Comments POC ARTERIAL BLOOD GAS PH (test 7.255 7.35-7.45 LL code = POCPHA) POC ARTERIAL BLOOD GAS PCO2 (test 59.5 mmHg 35.0-45 HH code = VZXDIV9J) POC TCO2 ARTERIAL (test code = 28.2 POCTCO2) POC ARTERIAL BLOOD GAS PO2 (test 522.9 mmHg 80-100.0 HH code = TEGLN2L) POC HCO3 ARTERIAL (test code = 26.4 MMOL/L 22.0-26.0 H SWBFQA2B) POC BASE EXCESS (test code = -1.7 MMOL/L -4.0-4.0 N POCBEA) POC O2 SATURATION (test code = 100.0 % 90-100 N POCO2S) [id number] 10:35:00 Test Item Value Reference Range Interpretation Comments SODIUM (test code = NA/ABG) 142 MEQ/L 134-147 N [id number] 10:35:00 Test Item Value Reference Range Interpretation Comments POTASSIUM (test code = K/ABG) 4.0 MEQ/L 3.4-5.0 N [id number] 10:35:00 Test Item Value Reference Range Interpretation Comments CHLORIDE (test code = CL/ABG) MEQ/L 100-108 CREATININE [id number] 10:35:00 Test Item Value Reference Range Interpretation Comments CREATININE ABG (test code = CREAABG) mg/dL 0.8-1.3 [id number] 10:35:00 Test Item Value Reference Range Interpretation Comments HEMOGLOBIN (test code = HGB/ABG) G/DL 12.5-16.9 [id number] 10:35:00 Test Item Value Reference Range Interpretation Comments HEMATOCRIT (test code = HCT/ABG) % 37.5-50.7 POC IONIZED [id number] 10:35:00 Test Item Value Reference Range Interpretation Comments POC IONIZED CALCIUM (test code = MMOL/L 1.12-1.32 POCCA) POC LACTIC [id number] 10:35:00 Test Item Value Reference Range Interpretation Comments POC LACTIC ACID (test code = POCLAC) mmol/l 0.9-1.7 POC [id number] 10:35:00 Test Item Value Reference Range Interpretation Comments POC GLUCOSE (test code = POCGLU) MG/DL 70-110 POC ARTERIAL BLOOD [id number] 10:35:00 Test Item Value Reference Range Interpretation Comments POC ARTERIAL BLOOD GAS PH (test 7.255 7.35-7.45 LL code = POCPHA) POC ARTERIAL BLOOD GAS PCO2 (test 59.5 mmHg 35.0-45 HH code = [id number]) POC TCO2 ARTERIAL (test code = 28.2 POCTCO2) POC ARTERIAL BLOOD GAS PO2 (test 522.9 mmHg 80-100.0 HH code = [id number]) POC HCO3 ARTERIAL (test code = 26.4 MMOL/L 22.0-26.0 H [id number]) POC BASE EXCESS (test code = -1.7 MMOL/L -4.0-4.0 N POCBEA) POC O2 SATURATION (test code = 100.0 % 90-100 N POCO2S) [id number] 10:35:00 Test Item Value Reference Range Interpretation Comments SODIUM (test code = NA/ABG) 142 MEQ/L 134-147 N [id number] 10:35:00 Test Item Value Reference Range Interpretation Comments POTASSIUM (test code = K/ABG) 4.0 MEQ/L 3.4-5.0 N [id number] 10:35:00 Test Item Value Reference Range Interpretation Comments CHLORIDE (test code = CL/ABG) MEQ/L 100-108 CREATININE [id number] 10:35:00 Test Item Value Reference Range Interpretation Comments CREATININE ABG (test code = CREAABG) mg/dL 0.8-1.3 [id number] 10:35:00 Test Item Value Reference Range Interpretation Comments HEMOGLOBIN (test code = HGB/ABG) G/DL 12.5-16.9 [id number] 10:35:00 Test Item Value Reference Range Interpretation Comments HEMATOCRIT (test code = HCT/ABG) % 37.5-50.7 POC IONIZED [id number] 10:35:00 Test Item Value Reference Range Interpretation Comments POC IONIZED CALCIUM (test code = 1.23 MMOL/L 1.12-1.32 N POCCA) POC LACTIC [id number] 10:35:00 Test Item Value Reference Range Interpretation Comments POC LACTIC ACID (test code = POCLAC) mmol/l 0.9-1.7 POC [id number] 10:35:00 Test Item Value Reference Range Interpretation Comments POC GLUCOSE (test code = POCGLU) MG/DL 70-110 POC ARTERIAL BLOOD [id number] 10:35:00 Test Item Value Reference Range Interpretation Comments POC ARTERIAL BLOOD GAS PH (test 7.255 7.35-7.45 LL code = POCPHA) POC ARTERIAL BLOOD GAS PCO2 (test 59.5 mmHg 35.0-45 HH code = [id number]) POC TCO2 ARTERIAL (test code = 28.2 POCTCO2) POC ARTERIAL BLOOD GAS PO2 (test 522.9 mmHg 80-100.0 HH code = KSNCV2J) POC HCO3 ARTERIAL (test code = 26.4 MMOL/L 22.0-26.0 H [id number]) POC BASE EXCESS (test code = -1.7 MMOL/L -4.0-4.0 N POCBEA) POC O2 SATURATION (test code = 100.0 % 90-100 N POCO2S) [id number] 10:35:00 Test Item Value Reference Range Interpretation Comments SODIUM (test code = NA/ABG) 142 MEQ/L 134-147 N [id number] 10:35:00 Test Item Value Reference Range Interpretation Comments POTASSIUM (test code = K/ABG) 4.0 MEQ/L 3.4-5.0 N [id number] 10:35:00 Test Item Value Reference Range Interpretation Comments CHLORIDE (test code = CL/ABG) MEQ/L 100-108 CREATININE [id number] 10:35:00 Test Item Value Reference Range Interpretation Comments CREATININE ABG (test code = CREAABG) mg/dL 0.8-1.3 [id number] 10:35:00 Test Item Value Reference Range Interpretation Comments HEMOGLOBIN (test code = HGB/ABG) G/DL 12.5-16.9 [id number] 10:35:00 Test Item Value Reference Range Interpretation Comments HEMATOCRIT (test code = HCT/ABG) % 37.5-50.7 POC IONIZED [id number] 10:35:00 Test Item Value Reference Range Interpretation Comments POC IONIZED CALCIUM (test code = 1.23 MMOL/L 1.12-1.32 N POCCA) POC LACTIC [id number] 10:35:00 Test Item Value Reference Range Interpretation Comments POC LACTIC ACID (test code = POCLAC) mmol/l 0.9-1.7 POC [id number] 10:35:00 Test Item Value Reference Range Interpretation Comments POC GLUCOSE (test code = POCGLU) 118 MG/DL 70-110 H POC ARTERIAL BLOOD [id number] 10:35:00 Test Item Value Reference Range Interpretation Comments POC ARTERIAL BLOOD GAS PH (test 7.255 7.35-7.45 LL code = POCPHA) POC ARTERIAL BLOOD GAS PCO2 (test 59.5 mmHg 35.0-45 HH code = MVUJXF8D) POC TCO2 ARTERIAL (test code = 28.2 POCTCO2) POC ARTERIAL BLOOD GAS PO2 (test 522.9 mmHg 80-100.0 HH code = KEZZV4E) POC HCO3 ARTERIAL (test code = 26.4 MMOL/L 22.0-26.0 H TDSHOW8S) POC BASE EXCESS (test code = -1.7 MMOL/L -4.0-4.0 N POCBEA) POC O2 SATURATION (test code = 100.0 % 90-100 N POCO2S) [id number] 10:35:00 Test Item Value Reference Range Interpretation Comments SODIUM (test code = NA/ABG) 142 MEQ/L 134-147 N [id number] 10:35:00 Test Item Value Reference Range Interpretation Comments POTASSIUM (test code = K/ABG) 4.0 MEQ/L 3.4-5.0 N [id number] 10:35:00 Test Item Value Reference Range Interpretation Comments CHLORIDE (test code = CL/ABG) MEQ/L 100-108 CREATININE [id number] 10:35:00 Test Item Value Reference Range Interpretation Comments CREATININE ABG (test code = CREAABG) mg/dL 0.8-1.3 [id number] 10:35:00 Test Item Value Reference Range Interpretation Comments HEMOGLOBIN (test code = HGB/ABG) G/DL 12.5-16.9 [id number] 10:35:00 Test Item Value Reference Range Interpretation Comments HEMATOCRIT (test code = HCT/ABG) % 37.5-50.7 POC IONIZED [id number] 10:35:00 Test Item Value Reference Range Interpretation Comments POC IONIZED CALCIUM (test code = 1.23 MMOL/L 1.12-1.32 N POCCA) POC LACTIC [id number] 10:35:00 Test Item Value Reference Range Interpretation Comments POC LACTIC ACID (test code = 1.1 mmol/l 0.9-1.7 N POCLAC) POC [id number] 10:35:00 Test Item Value Reference Range Interpretation Comments POC GLUCOSE (test code = POCGLU) 118 MG/DL 70-110 H POC ARTERIAL BLOOD [id number] 10:35:00 Test Item Value Reference Range Interpretation Comments POC ARTERIAL BLOOD GAS PH (test 7.255 7.35-7.45 LL code = POCPHA) POC ARTERIAL BLOOD GAS PCO2 (test 59.5 mmHg 35.0-45 HH code = WJRSGR5H) POC TCO2 ARTERIAL (test code = 28.2 POCTCO2) POC ARTERIAL BLOOD GAS PO2 (test 522.9 mmHg 80-100.0 HH code = MYMUS8V) POC HCO3 ARTERIAL (test code = 26.4 MMOL/L 22.0-26.0 H PAPDYQ9U) POC BASE EXCESS (test code = -1.7 MMOL/L -4.0-4.0 N POCBEA) POC O2 SATURATION (test code = 100.0 % 90-100 N POCO2S) [id number] 10:35:00 Test Item Value Reference Range Interpretation Comments SODIUM (test code = NA/ABG) 142 MEQ/L 134-147 N [id number] 10:35:00 Test Item Value Reference Range Interpretation Comments POTASSIUM (test code = K/ABG) 4.0 MEQ/L 3.4-5.0 N [id number] 10:35:00 Test Item Value Reference Range Interpretation Comments CHLORIDE (test code = CL/ABG) MEQ/L 100-108 CREATININE [id number] 10:35:00 Test Item Value Reference Range Interpretation Comments CREATININE ABG (test code = CREAABG) mg/dL 0.8-1.3 [id number] 10:35:00 Test Item Value Reference Range Interpretation Comments HEMOGLOBIN (test code = HGB/ABG) G/DL 12.5-16.9 [id number] 10:35:00 Test Item Value Reference Range Interpretation Comments HEMATOCRIT (test code = HCT/ABG) 35 % 37.5-50.7 L POC IONIZED [id number] 10:35:00 Test Item Value Reference Range Interpretation Comments POC IONIZED CALCIUM (test code = 1.23 MMOL/L 1.12-1.32 N POCCA) POC LACTIC [id number] 10:35:00 Test Item Value Reference Range Interpretation Comments POC LACTIC ACID (test code = 1.1 mmol/l 0.9-1.7 N POCLAC) POC [id number] 10:35:00 Test Item Value Reference Range Interpretation Comments POC GLUCOSE (test code = POCGLU) 118 MG/DL 70-110 H POC ARTERIAL BLOOD [id number] 10:35:00 Test Item Value Reference Range Interpretation Comments POC ARTERIAL BLOOD GAS PH (test 7.255 7.35-7.45 LL code = POCPHA) POC ARTERIAL BLOOD GAS PCO2 (test 59.5 mmHg 35.0-45 HH code = QBDYVZ9D) POC TCO2 ARTERIAL (test code = 28.2 POCTCO2) POC ARTERIAL BLOOD GAS PO2 (test 522.9 mmHg 80-100.0 HH code = QVCFF6V) POC HCO3 ARTERIAL (test code = 26.4 MMOL/L 22.0-26.0 H QWGZFA4H) POC BASE EXCESS (test code = -1.7 MMOL/L -4.0-4.0 N POCBEA) POC O2 SATURATION (test code = 100.0 % 90-100 N POCO2S) [id number] 10:35:00 Test Item Value Reference Range Interpretation Comments SODIUM (test code = NA/ABG) 142 MEQ/L 134-147 N [id number] 10:35:00 Test Item Value Reference Range Interpretation Comments POTASSIUM (test code = K/ABG) 4.0 MEQ/L 3.4-5.0 N [id number] 10:35:00 Test Item Value Reference Range Interpretation Comments CHLORIDE (test code = CL/ABG) MEQ/L 100-108 CREATININE [id number] 10:35:00 Test Item Value Reference Range Interpretation Comments CREATININE ABG (test code = CREAABG) mg/dL 0.8-1.3 [id number] 10:35:00 Test Item Value Reference Range Interpretation Comments HEMOGLOBIN (test code = HGB/ABG) 12.0 G/DL 12.5-16.9 L [id number] 10:35:00 Test Item Value Reference Range Interpretation Comments HEMATOCRIT (test code = HCT/ABG) 35 % 37.5-50.7 L POC IONIZED [id number] 10:35:00 Test Item Value Reference Range Interpretation Comments POC IONIZED CALCIUM (test code = 1.23 MMOL/L 1.12-1.32 N POCCA) POC LACTIC [id number] 10:35:00 Test Item Value Reference Range Interpretation Comments POC LACTIC ACID (test code = 1.1 mmol/l 0.9-1.7 N POCLAC) POC [id number] 10:35:00 Test Item Value Reference Range Interpretation Comments POC GLUCOSE (test code = POCGLU) 118 MG/DL 70-110 H POC ARTERIAL BLOOD [id number] 10:35:00 Test Item Value Reference Range Interpretation Comments POC ARTERIAL BLOOD GAS PH (test 7.255 7.35-7.45 LL code = POCPHA) POC ARTERIAL BLOOD GAS PCO2 (test 59.5 mmHg 35.0-45 HH code = CGYJVA7V) POC TCO2 ARTERIAL (test code = 28.2 POCTCO2) POC ARTERIAL BLOOD GAS PO2 (test 522.9 mmHg 80-100.0 HH code = IVXVC4C) POC HCO3 ARTERIAL (test code = 26.4 MMOL/L 22.0-26.0 H NKDXCI3U) POC BASE EXCESS (test code = -1.7 MMOL/L -4.0-4.0 N POCBEA) POC O2 SATURATION (test code = 100.0 % 90-100 N POCO2S) [id number] 10:35:00 Test Item Value Reference Range Interpretation Comments SODIUM (test code = NA/ABG) 142 MEQ/L 134-147 N [id number] 10:35:00 Test Item Value Reference Range Interpretation Comments POTASSIUM (test code = K/ABG) 4.0 MEQ/L 3.4-5.0 N [id number] 10:35:00 Test Item Value Reference Range Interpretation Comments CHLORIDE (test code = CL/ABG) 110 MEQ/L 100-108 H CREATININE [id number] 10:35:00 Test Item Value Reference Range Interpretation Comments CREATININE ABG (test code = CREAABG) mg/dL 0.8-1.3 [id number] 10:35:00 Test Item Value Reference Range Interpretation Comments HEMOGLOBIN (test code = HGB/ABG) 12.0 G/DL 12.5-16.9 L [id number] 10:35:00 Test Item Value Reference Range Interpretation Comments HEMATOCRIT (test code = HCT/ABG) 35 % 37.5-50.7 L POC IONIZED [id number] 10:35:00 Test Item Value Reference Range Interpretation Comments POC IONIZED CALCIUM (test code = 1.23 MMOL/L 1.12-1.32 N POCCA) POC LACTIC [id number] 10:35:00 Test Item Value Reference Range Interpretation Comments POC LACTIC ACID (test code = 1.1 mmol/l 0.9-1.7 N POCLAC) POC [id number] 10:35:00 Test Item Value Reference Range Interpretation Comments POC GLUCOSE (test code = POCGLU) 118 MG/DL 70-110 H POC ARTERIAL BLOOD [id number] 10:35:00 Test Item Value Reference Range Interpretation Comments POC ARTERIAL BLOOD GAS PH (test 7.255 7.35-7.45 LL code = POCPHA) POC ARTERIAL BLOOD GAS PCO2 (test 59.5 mmHg 35.0-45 HH code = LLLYZU7Y) POC TCO2 ARTERIAL (test code = 28.2 POCTCO2) POC ARTERIAL BLOOD GAS PO2 (test 522.9 mmHg 80-100.0 HH code = XDTYB2F) POC HCO3 ARTERIAL (test code = 26.4 MMOL/L 22.0-26.0 H VLDJTT9F) POC BASE EXCESS (test code = -1.7 MMOL/L -4.0-4.0 N POCBEA) POC O2 SATURATION (test code = 100.0 % 90-100 N POCO2S) [id number] 10:35:00 Test Item Value Reference Range Interpretation Comments SODIUM (test code = NA/ABG) 142 MEQ/L 134-147 N [id number] 10:35:00 Test Item Value Reference Range Interpretation Comments POTASSIUM (test code = K/ABG) 4.0 MEQ/L 3.4-5.0 N [id number] 10:35:00 Test Item Value Reference Range Interpretation Comments CHLORIDE (test code = CL/ABG) 110 MEQ/L 100-108 H CREATININE [id number] 10:35:00 Test Item Value Reference Range Interpretation Comments CREATININE ABG (test code = 1.1 mg/dL 0.8-1.3 CREAABG) [id number] 10:35:00 Test Item Value Reference Range Interpretation Comments HEMOGLOBIN (test code = HGB/ABG) 12.0 G/DL 12.5-16.9 L [id number] 10:35:00 Test Item Value Reference Range Interpretation Comments HEMATOCRIT (test code = HCT/ABG) 35 % 37.5-50.7 L POC IONIZED [id number] 10:35:00 Test Item Value Reference Range Interpretation Comments POC IONIZED CALCIUM (test code = 1.23 MMOL/L 1.12-1.32 N POCCA) POC LACTIC [id number] 10:35:00 Test Item Value Reference Range Interpretation Comments POC LACTIC ACID (test code = 1.1 mmol/l 0.9-1.7 N POCLAC) POC [id number] 10:35:00 Test Item Value Reference Range Interpretation Comments POC GLUCOSE (test code = POCGLU) 118 MG/DL 70-110 H [id number] 10:13:00 Test Item Value Reference Range Interpretation Comments SODIUM (test code = NA/ABG) MEQ/L 134-147 [id number] 10:13:00 Test Item Value Reference Range Interpretation Comments POTASSIUM (test code = K/ABG) MEQ/L 3.4-5.0 CREATININE [id number] 10:13:00 Test Item Value Reference Range Interpretation Comments CREATININE ABG (test code = CREAABG) mg/dL 0.8-1.3 [id number] 10:13:00 Test Item Value Reference Range Interpretation Comments HEMOGLOBIN (test code = HGB/ABG) G/DL 12.5-16.9 [id number] 10:13:00 Test Item Value Reference Range Interpretation Comments HEMATOCRIT (test code = HCT/ABG) % 37.5-50.7 POC IONIZED [id number] 10:13:00 Test Item Value Reference Range Interpretation Comments POC IONIZED CALCIUM (test code = MMOL/L 1.12-1.32 POCCA) POC LACTIC [id number] 10:13:00 Test Item Value Reference Range Interpretation Comments POC LACTIC ACID (test code = POCLAC) mmol/l 0.9-1.7 POC [id number] 10:13:00 Test Item Value Reference Range Interpretation Comments POC GLUCOSE (test code = POCGLU) MG/DL 70-110 POC VENOUS BLOOD [id number] 10:13:00 Test Item Value Reference Range Interpretation Comments POC VENOUS BLOOD GAS PH (test 7.342 7.33-7.45 N code = POCPHV) POC VENOUS BLOOD GAS PCO2 (test 45.0 mmHg 43-47 N code = CETCQN9R) POC VENOUS BLOOD GAS PO2 (test 44.1 mmHG 10-50 N code = GIBYW5M) POC TCO2 VENOUS (test code = 25.8 AXFXZG3N) POC HCO3 VENOUS (test code = 24.4 MMOL/L 22-27 N YIMIIC8D) POC BASE EXCESS VENOUS (test code -1.5 MMOL/L -4.0-4.0 N = POCBEV) POC O2 SATURATION VENOUS (test 76.8 % 60-80 N code = FKFT0LT) [id number] 10:13:00 Test Item Value Reference Range Interpretation Comments CHLORIDE (test code = CL/VBG) MEQ/L [id number] 10:13:00 Test Item Value Reference Range Interpretation Comments SODIUM (test code = NA/ABG) 139 MEQ/L 134-147 N [id number] 10:13:00 Test Item Value Reference Range Interpretation Comments POTASSIUM (test code = K/ABG) MEQ/L 3.4-5.0 CREATININE [id number] 10:13:00 Test Item Value Reference Range Interpretation Comments CREATININE ABG (test code = CREAABG) mg/dL 0.8-1.3 [id number] 10:13:00 Test Item Value Reference Range Interpretation Comments HEMOGLOBIN (test code = HGB/ABG) G/DL 12.5-16.9 [id number] 10:13:00 Test Item Value Reference Range Interpretation Comments HEMATOCRIT (test code = HCT/ABG) % 37.5-50.7 POC IONIZED [id number] 10:13:00 Test Item Value Reference Range Interpretation Comments POC IONIZED CALCIUM (test code = MMOL/L 1.12-1.32 POCCA) POC LACTIC [id number] 10:13:00 Test Item Value Reference Range Interpretation Comments POC LACTIC ACID (test code = POCLAC) mmol/l 0.9-1.7 POC [id number] 10:13:00 Test Item Value Reference Range Interpretation Comments POC GLUCOSE (test code = POCGLU) MG/DL 70-110 POC VENOUS BLOOD [id number] 10:13:00 Test Item Value Reference Range Interpretation Comments POC VENOUS BLOOD GAS PH (test 7.342 7.33-7.45 N code = POCPHV) POC VENOUS BLOOD GAS PCO2 (test 45.0 mmHg 43-47 N code = GYETAX5W) POC VENOUS BLOOD GAS PO2 (test 44.1 mmHG 10-50 N code = CRCHR6S) POC TCO2 VENOUS (test code = 25.8 DMKAHR0U) POC HCO3 VENOUS (test code = 24.4 MMOL/L 22-27 N UDKFGZ6F) POC BASE EXCESS VENOUS (test code -1.5 MMOL/L -4.0-4.0 N = POCBEV) POC O2 SATURATION VENOUS (test 76.8 % 60-80 N code = PQSH8FC) [id number] 10:13:00 Test Item Value Reference Range Interpretation Comments CHLORIDE (test code = CL/VBG) MEQ/L [id number] 10:13:00 Test Item Value Reference Range Interpretation Comments SODIUM (test code = NA/ABG) 139 MEQ/L 134-147 N [id number] 10:13:00 Test Item Value Reference Range Interpretation Comments POTASSIUM (test code = K/ABG) 4.1 MEQ/L 3.4-5.0 N CREATININE [id number] 10:13:00 Test Item Value Reference Range Interpretation Comments CREATININE ABG (test code = CREAABG) mg/dL 0.8-1.3 [id number] 10:13:00 Test Item Value Reference Range Interpretation Comments HEMOGLOBIN (test code = HGB/ABG) G/DL 12.5-16.9 [id number] 10:13:00 Test Item Value Reference Range Interpretation Comments HEMATOCRIT (test code = HCT/ABG) % 37.5-50.7 POC IONIZED [id number] 10:13:00 Test Item Value Reference Range Interpretation Comments POC IONIZED CALCIUM (test code = MMOL/L 1.12-1.32 POCCA) POC LACTIC [id number] 10:13:00 Test Item Value Reference Range Interpretation Comments POC LACTIC ACID (test code = POCLAC) mmol/l 0.9-1.7 POC [id number] 10:13:00 Test Item Value Reference Range Interpretation Comments POC GLUCOSE (test code = POCGLU) MG/DL 70-110 POC VENOUS BLOOD [id number] 10:13:00 Test Item Value Reference Range Interpretation Comments POC VENOUS BLOOD GAS PH (test 7.342 7.33-7.45 N code = POCPHV) POC VENOUS BLOOD GAS PCO2 (test 45.0 mmHg 43-47 N code = OTBBWG2X) POC VENOUS BLOOD GAS PO2 (test 44.1 mmHG 10-50 N code = DAELX4W) POC TCO2 VENOUS (test code = 25.8 AQXRDC3B) POC HCO3 VENOUS (test code = 24.4 MMOL/L 22-27 N KKMDXR8T) POC BASE EXCESS VENOUS (test code -1.5 MMOL/L -4.0-4.0 N = POCBEV) POC O2 SATURATION VENOUS (test 76.8 % 60-80 N code = QZYW4GW) [id number] 10:13:00 Test Item Value Reference Range Interpretation Comments CHLORIDE (test code = CL/VBG) MEQ/L [id number] 10:13:00 Test Item Value Reference Range Interpretation Comments SODIUM (test code = NA/ABG) 139 MEQ/L 134-147 N [id number] 10:13:00 Test Item Value Reference Range Interpretation Comments POTASSIUM (test code = K/ABG) 4.1 MEQ/L 3.4-5.0 N CREATININE [id number] 10:13:00 Test Item Value Reference Range Interpretation Comments CREATININE ABG (test code = CREAABG) mg/dL 0.8-1.3 [id number] 10:13:00 Test Item Value Reference Range Interpretation Comments HEMOGLOBIN (test code = HGB/ABG) G/DL 12.5-16.9 [id number] 10:13:00 Test Item Value Reference Range Interpretation Comments HEMATOCRIT (test code = HCT/ABG) % 37.5-50.7 POC IONIZED [id number] 10:13:00 Test Item Value Reference Range Interpretation Comments POC IONIZED CALCIUM (test code = 1.12 MMOL/L 1.12-1.32 N POCCA) POC LACTIC [id number] 10:13:00 Test Item Value Reference Range Interpretation Comments POC LACTIC ACID (test code = POCLAC) mmol/l 0.9-1.7 POC [id number] 10:13:00 Test Item Value Reference Range Interpretation Comments POC GLUCOSE (test code = POCGLU) MG/DL 70-110 POC VENOUS BLOOD [id number] 10:13:00 Test Item Value Reference Range Interpretation Comments POC VENOUS BLOOD GAS PH (test 7.342 7.33-7.45 N code = POCPHV) POC VENOUS BLOOD GAS PCO2 (test 45.0 mmHg 43-47 N code = PPFVDG7F) POC VENOUS BLOOD GAS PO2 (test 44.1 mmHG 10-50 N code = MOJVX7P) POC TCO2 VENOUS (test code = 25.8 ZZESXH0V) POC HCO3 VENOUS (test code = 24.4 MMOL/L 22-27 N DPFSOO9J) POC BASE EXCESS VENOUS (test code -1.5 MMOL/L -4.0-4.0 N = POCBEV) POC O2 SATURATION VENOUS (test 76.8 % 60-80 N code = FINN9LM) [id number] 10:13:00 Test Item Value Reference Range Interpretation Comments CHLORIDE (test code = CL/VBG) MEQ/L [id number] 10:13:00 Test Item Value Reference Range Interpretation Comments SODIUM (test code = NA/ABG) 139 MEQ/L 134-147 N [id number] 10:13:00 Test Item Value Reference Range Interpretation Comments POTASSIUM (test code = K/ABG) 4.1 MEQ/L 3.4-5.0 N CREATININE [id number] 10:13:00 Test Item Value Reference Range Interpretation Comments CREATININE ABG (test code = CREAABG) mg/dL 0.8-1.3 [id number] 10:13:00 Test Item Value Reference Range Interpretation Comments HEMOGLOBIN (test code = HGB/ABG) G/DL 12.5-16.9 [id number] 10:13:00 Test Item Value Reference Range Interpretation Comments HEMATOCRIT (test code = HCT/ABG) % 37.5-50.7 POC IONIZED [id number] 10:13:00 Test Item Value Reference Range Interpretation Comments POC IONIZED CALCIUM (test code = 1.12 MMOL/L 1.12-1.32 N POCCA) POC LACTIC [id number] 10:13:00 Test Item Value Reference Range Interpretation Comments POC LACTIC ACID (test code = POCLAC) mmol/l 0.9-1.7 POC [id number] 10:13:00 Test Item Value Reference Range Interpretation Comments POC GLUCOSE (test code = POCGLU) 120 MG/DL 70-110 H POC VENOUS BLOOD [id number] 10:13:00 Test Item Value Reference Range Interpretation Comments POC VENOUS BLOOD GAS PH (test 7.342 7.33-7.45 N code = POCPHV) POC VENOUS BLOOD GAS PCO2 (test 45.0 mmHg 43-47 N code = ELXUPX0C) POC VENOUS BLOOD GAS PO2 (test 44.1 mmHG 10-50 N code = SUHRX4Z) POC TCO2 VENOUS (test code = 25.8 JLRGRH9I) POC HCO3 VENOUS (test code = 24.4 MMOL/L 22-27 N RSEDKF2S) POC BASE EXCESS VENOUS (test code -1.5 MMOL/L -4.0-4.0 N = POCBEV) POC O2 SATURATION VENOUS (test 76.8 % 60-80 N code = CSXG3SK) [id number] 10:13:00 Test Item Value Reference Range Interpretation Comments CHLORIDE (test code = CL/VBG) MEQ/L [id number] 10:13:00 Test Item Value Reference Range Interpretation Comments SODIUM (test code = NA/ABG) 139 MEQ/L 134-147 N [id number] 10:13:00 Test Item Value Reference Range Interpretation Comments POTASSIUM (test code = K/ABG) 4.1 MEQ/L 3.4-5.0 N CREATININE [id number] 10:13:00 Test Item Value Reference Range Interpretation Comments CREATININE ABG (test code = CREAABG) mg/dL 0.8-1.3 [id number] 10:13:00 Test Item Value Reference Range Interpretation Comments HEMOGLOBIN (test code = HGB/ABG) G/DL 12.5-16.9 [id number] 10:13:00 Test Item Value Reference Range Interpretation Comments HEMATOCRIT (test code = HCT/ABG) % 37.5-50.7 POC IONIZED [id number] 10:13:00 Test Item Value Reference Range Interpretation Comments POC IONIZED CALCIUM (test code = 1.12 MMOL/L 1.12-1.32 N POCCA) POC LACTIC [id number] 10:13:00 Test Item Value Reference Range Interpretation Comments POC LACTIC ACID (test code = < 0.3 mmol/l 0.9-1.7 L POCLAC) POC [id number] 10:13:00 Test Item Value Reference Range Interpretation Comments POC GLUCOSE (test code = POCGLU) 120 MG/DL 70-110 H POC VENOUS BLOOD [id number] 10:13:00 Test Item Value Reference Range Interpretation Comments POC VENOUS BLOOD GAS PH (test 7.342 7.33-7.45 N code = POCPHV) POC VENOUS BLOOD GAS PCO2 (test 45.0 mmHg 43-47 N code = XJNDFT7L) POC VENOUS BLOOD GAS PO2 (test 44.1 mmHG 10-50 N code = QDRCL6E) POC TCO2 VENOUS (test code = 25.8 DALEUB6Z) POC HCO3 VENOUS (test code = 24.4 MMOL/L 22-27 N TFGDNX4F) POC BASE EXCESS VENOUS (test code -1.5 MMOL/L -4.0-4.0 N = POCBEV) POC O2 SATURATION VENOUS (test 76.8 % 60-80 N code = RTWZ5JL) [id number] 10:13:00 Test Item Value Reference Range Interpretation Comments CHLORIDE (test code = CL/VBG) MEQ/L [id number] 10:13:00 Test Item Value Reference Range Interpretation Comments SODIUM (test code = NA/ABG) 139 MEQ/L 134-147 N [id number] 10:13:00 Test Item Value Reference Range Interpretation Comments POTASSIUM (test code = K/ABG) 4.1 MEQ/L 3.4-5.0 N CREATININE [id number] 10:13:00 Test Item Value Reference Range Interpretation Comments CREATININE ABG (test code = CREAABG) mg/dL 0.8-1.3 [id number] 10:13:00 Test Item Value Reference Range Interpretation Comments HEMOGLOBIN (test code = HGB/ABG) G/DL 12.5-16.9 [id number] 10:13:00 Test Item Value Reference Range Interpretation Comments HEMATOCRIT (test code = HCT/ABG) 32 % 37.5-50.7 L POC IONIZED [id number] 10:13:00 Test Item Value Reference Range Interpretation Comments POC IONIZED CALCIUM (test code = 1.12 MMOL/L 1.12-1.32 N POCCA) POC LACTIC [id number] 10:13:00 Test Item Value Reference Range Interpretation Comments POC LACTIC ACID (test code = < 0.3 mmol/l 0.9-1.7 L POCLAC) POC [id number] 10:13:00 Test Item Value Reference Range Interpretation Comments POC GLUCOSE (test code = POCGLU) 120 MG/DL 70-110 H POC VENOUS BLOOD [id number] 10:13:00 Test Item Value Reference Range Interpretation Comments POC VENOUS BLOOD GAS PH (test 7.342 7.33-7.45 N code = POCPHV) POC VENOUS BLOOD GAS PCO2 (test 45.0 mmHg 43-47 N code = [id number]) POC VENOUS BLOOD GAS PO2 (test 44.1 mmHG 10-50 N code = UVKWU2U) POC TCO2 VENOUS (test code = 25.8 [id number]) POC HCO3 VENOUS (test code = 24.4 MMOL/L 22-27 N [id number]) POC BASE EXCESS VENOUS (test code -1.5 MMOL/L -4.0-4.0 N = POCBEV) POC O2 SATURATION VENOUS (test 76.8 % 60-80 N code = VKCO7YX) [id number] 10:13:00 Test Item Value Reference Range Interpretation Comments CHLORIDE (test code = CL/VBG) MEQ/L [id number] 10:13:00 Test Item Value Reference Range Interpretation Comments SODIUM (test code = NA/ABG) 139 MEQ/L 134-147 N [id number] 10:13:00 Test Item Value Reference Range Interpretation Comments POTASSIUM (test code = K/ABG) 4.1 MEQ/L 3.4-5.0 N CREATININE [id number] 10:13:00 Test Item Value Reference Range Interpretation Comments CREATININE ABG (test code = CREAABG) mg/dL 0.8-1.3 [id number] 10:13:00 Test Item Value Reference Range Interpretation Comments HEMOGLOBIN (test code = HGB/ABG) 10.8 G/DL 12.5-16.9 L [id number] 10:13:00 Test Item Value Reference Range Interpretation Comments HEMATOCRIT (test code = HCT/ABG) 32 % 37.5-50.7 L POC IONIZED [id number] 10:13:00 Test Item Value Reference Range Interpretation Comments POC IONIZED CALCIUM (test code = 1.12 MMOL/L 1.12-1.32 N POCCA) POC LACTIC [id number] 10:13:00 Test Item Value Reference Range Interpretation Comments POC LACTIC ACID (test code = < 0.3 mmol/l 0.9-1.7 L POCLAC) POC [id number] 10:13:00 Test Item Value Reference Range Interpretation Comments POC GLUCOSE (test code = POCGLU) 120 MG/DL 70-110 H POC VENOUS BLOOD [id number] 10:13:00 Test Item Value Reference Range Interpretation Comments POC VENOUS BLOOD GAS PH (test 7.342 7.33-7.45 N code = POCPHV) POC VENOUS BLOOD GAS PCO2 (test 45.0 mmHg 43-47 N code = [id number]) POC VENOUS BLOOD GAS PO2 (test 44.1 mmHG 10-50 N code = KFHSG5A) POC TCO2 VENOUS (test code = 25.8 [id number]) POC HCO3 VENOUS (test code = 24.4 MMOL/L 22-27 N [id number]) POC BASE EXCESS VENOUS (test code -1.5 MMOL/L -4.0-4.0 N = POCBEV) POC O2 SATURATION VENOUS (test 76.8 % 60-80 N code = SNAQ0MA) [id number] 10:13:00 Test Item Value Reference Range Interpretation Comments CHLORIDE (test code = CL/VBG) MEQ/L [id number] 10:13:00 Test Item Value Reference Range Interpretation Comments SODIUM (test code = NA/ABG) 139 MEQ/L 134-147 N [id number] 10:13:00 Test Item Value Reference Range Interpretation Comments POTASSIUM (test code = K/ABG) 4.1 MEQ/L 3.4-5.0 N CREATININE [id number] 10:13:00 Test Item Value Reference Range Interpretation Comments CREATININE ABG (test code = CREAABG) mg/dL 0.8-1.3 [id number] 10:13:00 Test Item Value Reference Range Interpretation Comments HEMOGLOBIN (test code = HGB/ABG) 10.8 G/DL 12.5-16.9 L [id number] 10:13:00 Test Item Value Reference Range Interpretation Comments HEMATOCRIT (test code = HCT/ABG) 32 % 37.5-50.7 L POC IONIZED [id number] 10:13:00 Test Item Value Reference Range Interpretation Comments POC IONIZED CALCIUM (test code = 1.12 MMOL/L 1.12-1.32 N POCCA) POC LACTIC [id number] 10:13:00 Test Item Value Reference Range Interpretation Comments POC LACTIC ACID (test code = < 0.3 mmol/l 0.9-1.7 L POCLAC) POC [id number] 10:13:00 Test Item Value Reference Range Interpretation Comments POC GLUCOSE (test code = POCGLU) 120 MG/DL 70-110 H POC VENOUS BLOOD [id number] 10:13:00 Test Item Value Reference Range Interpretation Comments POC VENOUS BLOOD GAS PH (test 7.342 7.33-7.45 N code = POCPHV) POC VENOUS BLOOD GAS PCO2 (test 45.0 mmHg 43-47 N code = YLGBSV7R) POC VENOUS BLOOD GAS PO2 (test 44.1 mmHG 10-50 N code = XBGZT1W) POC TCO2 VENOUS (test code = 25.8 YUCKFB3L) POC HCO3 VENOUS (test code = 24.4 MMOL/L 22-27 N CZSMRP7E) POC BASE EXCESS VENOUS (test code -1.5 MMOL/L -4.0-4.0 N = POCBEV) POC O2 SATURATION VENOUS (test 76.8 % 60-80 N code = TYKR6KP) [id number] 10:13:00 Test Item Value Reference Range Interpretation Comments CHLORIDE (test code = CL/VBG) 106 MEQ/L [id number] 10:13:00 Test Item Value Reference Range Interpretation Comments SODIUM (test code = NA/ABG) 139 MEQ/L 134-147 N [id number] 10:13:00 Test Item Value Reference Range Interpretation Comments POTASSIUM (test code = K/ABG) 4.1 MEQ/L 3.4-5.0 N CREATININE [id number] 10:13:00 Test Item Value Reference Range Interpretation Comments CREATININE ABG (test code = 0.7 mg/dL 0.8-1.3 L CREAABG) [id number] 10:13:00 Test Item Value Reference Range Interpretation Comments HEMOGLOBIN (test code = HGB/ABG) 10.8 G/DL 12.5-16.9 L [id number] 10:13:00 Test Item Value Reference Range Interpretation Comments HEMATOCRIT (test code = HCT/ABG) 32 % 37.5-50.7 L POC IONIZED [id number] 10:13:00 Test Item Value Reference Range Interpretation Comments POC IONIZED CALCIUM (test code = 1.12 MMOL/L 1.12-1.32 N POCCA) POC LACTIC [id number] 10:13:00 Test Item Value Reference Range Interpretation Comments POC LACTIC ACID (test code = < 0.3 mmol/l 0.9-1.7 L POCLAC) POC [id number] 10:13:00 Test Item Value Reference Range Interpretation Comments POC GLUCOSE (test code = POCGLU) 120 MG/DL 70-110 H POC VENOUS BLOOD [id number] 10:13:00 Test Item Value Reference Range Interpretation Comments POC VENOUS BLOOD GAS PH (test 7.342 7.33-7.45 N code = POCPHV) POC VENOUS BLOOD GAS PCO2 (test 45.0 mmHg 43-47 N code = XDGIQZ6A) POC VENOUS BLOOD GAS PO2 (test 44.1 mmHG 10-50 N code = KIXQZ6S) POC TCO2 VENOUS (test code = 25.8 JJLVMX7G) POC HCO3 VENOUS (test code = 24.4 MMOL/L 22-27 N DMTTSF7K) POC BASE EXCESS VENOUS (test code -1.5 MMOL/L -4.0-4.0 N = POCBEV) POC O2 SATURATION VENOUS (test 76.8 % 60-80 N code = VPRE8ZZ) [id number] 10:13:00 Test Item Value Reference Range Interpretation Comments CHLORIDE (test code = CL/VBG) 106 MEQ/L [id number] 10:03:00 Test Item Value Reference Range Interpretation Comments ACT-ISTAT (test code 131 SEC 74-137 N 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 [facility] CREATININE [id number] 10:00:00 Test Item Value Reference Range Interpretation Comments CREATININE ABG (test code = CREAABG) mg/dL 0.8-1.3 [id number] 10:00:00 Test Item Value Reference Range Interpretation Comments HEMOGLOBIN (test code = HGB/ABG) G/DL 12.5-16.9 [id number] 10:00:00 Test Item Value Reference Range Interpretation Comments HEMATOCRIT (test code = HCT/ABG) % 37.5-50.7 POC IONIZED [id number] 10:00:00 Test Item Value Reference Range Interpretation Comments POC IONIZED CALCIUM (test code = 1.11 MMOL/L 1.12-1.32 L POCCA) POC LACTIC [id number] 10:00:00 Test Item Value Reference Range Interpretation Comments POC LACTIC ACID (test code = POCLAC) mmol/l 0.9-1.7 POC [id number] 10:00:00 Test Item Value Reference Range Interpretation Comments POC GLUCOSE (test code = POCGLU) MG/DL 70-110 POC ARTERIAL BLOOD [id number] 10:00:00 Test Item Value Reference Range Interpretation Comments POC ARTERIAL BLOOD GAS PH (test 7.388 7.35-7.45 N code = POCPHA) POC ARTERIAL BLOOD GAS PCO2 (test 38.9 mmHg 35.0-45 N code = BOBUMW2G) POC TCO2 ARTERIAL (test code = 24.6 POCTCO2) POC ARTERIAL BLOOD GAS PO2 (test 527.2 mmHg 80-100.0 HH code = ZOSII5Q) POC HCO3 ARTERIAL (test code = 23.5 MMOL/L 22.0-26.0 N MGYQCW3K) POC BASE EXCESS (test code = -1.4 MMOL/L -4.0-4.0 N POCBEA) POC O2 SATURATION (test code = 100.0 % 90-100 N POCO2S) [id number] 10:00:00 Test Item Value Reference Range Interpretation Comments SODIUM (test code = NA/ABG) 142 MEQ/L 134-147 N [id number] 10:00:00 Test Item Value Reference Range Interpretation Comments POTASSIUM (test code = K/ABG) 3.8 MEQ/L 3.4-5.0 N [id number] 10:00:00 Test Item Value Reference Range Interpretation Comments CHLORIDE (test code = CL/ABG) MEQ/L 100-108 CREATININE [id number] 10:00:00 Test Item Value Reference Range Interpretation Comments CREATININE ABG (test code = CREAABG) mg/dL 0.8-1.3 [id number] 10:00:00 Test Item Value Reference Range Interpretation Comments HEMOGLOBIN (test code = HGB/ABG) G/DL 12.5-16.9 [id number] 10:00:00 Test Item Value Reference Range Interpretation Comments HEMATOCRIT (test code = HCT/ABG) % 37.5-50.7 POC IONIZED [id number] 10:00:00 Test Item Value Reference Range Interpretation Comments POC IONIZED CALCIUM (test code = 1.11 MMOL/L 1.12-1.32 L POCCA) POC LACTIC [id number] 10:00:00 Test Item Value Reference Range Interpretation Comments POC LACTIC ACID (test code = POCLAC) mmol/l 0.9-1.7 POC [id number] 10:00:00 Test Item Value Reference Range Interpretation Comments POC GLUCOSE (test code = POCGLU) 105 MG/DL 70-110 N POC ARTERIAL BLOOD [id number] 10:00:00 Test Item Value Reference Range Interpretation Comments POC ARTERIAL BLOOD GAS PH (test 7.388 7.35-7.45 N code = POCPHA) POC ARTERIAL BLOOD GAS PCO2 (test 38.9 mmHg 35.0-45 N code = GLSWZH6A) POC TCO2 ARTERIAL (test code = 24.6 POCTCO2) POC ARTERIAL BLOOD GAS PO2 (test 527.2 mmHg 80-100.0 HH code = CTZVP8E) POC HCO3 ARTERIAL (test code = 23.5 MMOL/L 22.0-26.0 N XEEPLA9G) POC BASE EXCESS (test code = -1.4 MMOL/L -4.0-4.0 N POCBEA) POC O2 SATURATION (test code = 100.0 % 90-100 N POCO2S) [id number] 10:00:00 Test Item Value Reference Range Interpretation Comments SODIUM (test code = NA/ABG) 142 MEQ/L 134-147 N [id number] 10:00:00 Test Item Value Reference Range Interpretation Comments POTASSIUM (test code = K/ABG) 3.8 MEQ/L 3.4-5.0 N [id number] 10:00:00 Test Item Value Reference Range Interpretation Comments CHLORIDE (test code = CL/ABG) MEQ/L 100-108 CREATININE [id number] 10:00:00 Test Item Value Reference Range Interpretation Comments CREATININE ABG (test code = CREAABG) mg/dL 0.8-1.3 [id number] 10:00:00 Test Item Value Reference Range Interpretation Comments HEMOGLOBIN (test code = HGB/ABG) G/DL 12.5-16.9 [id number] 10:00:00 Test Item Value Reference Range Interpretation Comments HEMATOCRIT (test code = HCT/ABG) % 37.5-50.7 POC IONIZED [id number] 10:00:00 Test Item Value Reference Range Interpretation Comments POC IONIZED CALCIUM (test code = 1.11 MMOL/L 1.12-1.32 L POCCA) POC LACTIC [id number] 10:00:00 Test Item Value Reference Range Interpretation Comments POC LACTIC ACID (test code = 1.2 mmol/l 0.9-1.7 N POCLAC) POC [id number] 10:00:00 Test Item Value Reference Range Interpretation Comments POC GLUCOSE (test code = POCGLU) 105 MG/DL 70-110 N POC ARTERIAL BLOOD [id number] 10:00:00 Test Item Value Reference Range Interpretation Comments POC ARTERIAL BLOOD GAS PH (test 7.388 7.35-7.45 N code = POCPHA) POC ARTERIAL BLOOD GAS PCO2 (test 38.9 mmHg 35.0-45 N code = WEFMTB7R) POC TCO2 ARTERIAL (test code = 24.6 POCTCO2) POC ARTERIAL BLOOD GAS PO2 (test 527.2 mmHg 80-100.0 HH code = DOLMC6P) POC HCO3 ARTERIAL (test code = 23.5 MMOL/L 22.0-26.0 N KKUJQN3G) POC BASE EXCESS (test code = -1.4 MMOL/L -4.0-4.0 N POCBEA) POC O2 SATURATION (test code = 100.0 % 90-100 N POCO2S) [id number] 10:00:00 Test Item Value Reference Range Interpretation Comments SODIUM (test code = NA/ABG) 142 MEQ/L 134-147 N [id number] 10:00:00 Test Item Value Reference Range Interpretation Comments POTASSIUM (test code = K/ABG) 3.8 MEQ/L 3.4-5.0 N [id number] 10:00:00 Test Item Value Reference Range Interpretation Comments CHLORIDE (test code = CL/ABG) MEQ/L 100-108 CREATININE [id number] 10:00:00 Test Item Value Reference Range Interpretation Comments CREATININE ABG (test code = CREAABG) mg/dL 0.8-1.3 [id number] 10:00:00 Test Item Value Reference Range Interpretation Comments HEMOGLOBIN (test code = HGB/ABG) G/DL 12.5-16.9 [id number] 10:00:00 Test Item Value Reference Range Interpretation Comments HEMATOCRIT (test code = HCT/ABG) 33 % 37.5-50.7 L POC IONIZED [id number] 10:00:00 Test Item Value Reference Range Interpretation Comments POC IONIZED CALCIUM (test code = 1.11 MMOL/L 1.12-1.32 L POCCA) POC LACTIC [id number] 10:00:00 Test Item Value Reference Range Interpretation Comments POC LACTIC ACID (test code = 1.2 mmol/l 0.9-1.7 N POCLAC) POC [id number] 10:00:00 Test Item Value Reference Range Interpretation Comments POC GLUCOSE (test code = POCGLU) 105 MG/DL 70-110 N POC ARTERIAL BLOOD [id number] 10:00:00 Test Item Value Reference Range Interpretation Comments POC ARTERIAL BLOOD GAS PH (test 7.388 7.35-7.45 N code = POCPHA) POC ARTERIAL BLOOD GAS PCO2 (test 38.9 mmHg 35.0-45 N code = XXESRD0L) POC TCO2 ARTERIAL (test code = 24.6 POCTCO2) POC ARTERIAL BLOOD GAS PO2 (test 527.2 mmHg 80-100.0 HH code = OEXUA1K) POC HCO3 ARTERIAL (test code = 23.5 MMOL/L 22.0-26.0 N XECFPX3J) POC BASE EXCESS (test code = -1.4 MMOL/L -4.0-4.0 N POCBEA) POC O2 SATURATION (test code = 100.0 % 90-100 N POCO2S) [id number] 10:00:00 Test Item Value Reference Range Interpretation Comments SODIUM (test code = NA/ABG) 142 MEQ/L 134-147 N [id number] 10:00:00 Test Item Value Reference Range Interpretation Comments POTASSIUM (test code = K/ABG) 3.8 MEQ/L 3.4-5.0 N [id number] 10:00:00 Test Item Value Reference Range Interpretation Comments CHLORIDE (test code = CL/ABG) MEQ/L 100-108 CREATININE [id number] 10:00:00 Test Item Value Reference Range Interpretation Comments CREATININE ABG (test code = CREAABG) mg/dL 0.8-1.3 [id number] 10:00:00 Test Item Value Reference Range Interpretation Comments HEMOGLOBIN (test code = HGB/ABG) 11.4 G/DL 12.5-16.9 L [id number] 10:00:00 Test Item Value Reference Range Interpretation Comments HEMATOCRIT (test code = HCT/ABG) 33 % 37.5-50.7 L POC IONIZED [id number] 10:00:00 Test Item Value Reference Range Interpretation Comments POC IONIZED CALCIUM (test code = 1.11 MMOL/L 1.12-1.32 L POCCA) POC LACTIC [id number] 10:00:00 Test Item Value Reference Range Interpretation Comments POC LACTIC ACID (test code = 1.2 mmol/l 0.9-1.7 N POCLAC) POC [id number] 10:00:00 Test Item Value Reference Range Interpretation Comments POC GLUCOSE (test code = POCGLU) 105 MG/DL 70-110 N POC ARTERIAL BLOOD [id number] 10:00:00 Test Item Value Reference Range Interpretation Comments POC ARTERIAL BLOOD GAS PH (test 7.388 7.35-7.45 N code = POCPHA) POC ARTERIAL BLOOD GAS PCO2 (test 38.9 mmHg 35.0-45 N code = FFZKNZ8W) POC TCO2 ARTERIAL (test code = 24.6 POCTCO2) POC ARTERIAL BLOOD GAS PO2 (test 527.2 mmHg 80-100.0 HH code = VZAMI7L) POC HCO3 ARTERIAL (test code = 23.5 MMOL/L 22.0-26.0 N PFKBCR9V) POC BASE EXCESS (test code = -1.4 MMOL/L -4.0-4.0 N POCBEA) POC O2 SATURATION (test code = 100.0 % 90-100 N POCO2S) [id number] 10:00:00 Test Item Value Reference Range Interpretation Comments SODIUM (test code = NA/ABG) 142 MEQ/L 134-147 N [id number] 10:00:00 Test Item Value Reference Range Interpretation Comments POTASSIUM (test code = K/ABG) 3.8 MEQ/L 3.4-5.0 N [id number] 10:00:00 Test Item Value Reference Range Interpretation Comments CHLORIDE (test code = CL/ABG) 108 MEQ/L 100-108 N CREATININE [id number] 10:00:00 Test Item Value Reference Range Interpretation Comments CREATININE ABG (test code = CREAABG) mg/dL 0.8-1.3 [id number] 10:00:00 Test Item Value Reference Range Interpretation Comments HEMOGLOBIN (test code = HGB/ABG) 11.4 G/DL 12.5-16.9 L [id number] 10:00:00 Test Item Value Reference Range Interpretation Comments HEMATOCRIT (test code = HCT/ABG) 33 % 37.5-50.7 L POC IONIZED [id number] 10:00:00 Test Item Value Reference Range Interpretation Comments POC IONIZED CALCIUM (test code = 1.11 MMOL/L 1.12-1.32 L POCCA) POC LACTIC [id number] 10:00:00 Test Item Value Reference Range Interpretation Comments POC LACTIC ACID (test code = 1.2 mmol/l 0.9-1.7 N POCLAC) POC [id number] 10:00:00 Test Item Value Reference Range Interpretation Comments POC GLUCOSE (test code = POCGLU) 105 MG/DL 70-110 N POC ARTERIAL BLOOD [id number] 10:00:00 Test Item Value Reference Range Interpretation Comments POC ARTERIAL BLOOD GAS PH (test 7.388 7.35-7.45 N code = POCPHA) POC ARTERIAL BLOOD GAS PCO2 (test 38.9 mmHg 35.0-45 N code = TLWMPN4W) POC TCO2 ARTERIAL (test code = 24.6 POCTCO2) POC ARTERIAL BLOOD GAS PO2 (test 527.2 mmHg 80-100.0 HH code = GCFEB8E) POC HCO3 ARTERIAL (test code = 23.5 MMOL/L 22.0-26.0 N NSCLUK3Z) POC BASE EXCESS (test code = -1.4 MMOL/L -4.0-4.0 N POCBEA) POC O2 SATURATION (test code = 100.0 % 90-100 N POCO2S) [id number] 10:00:00 Test Item Value Reference Range Interpretation Comments SODIUM (test code = NA/ABG) 142 MEQ/L 134-147 N [id number] 10:00:00 Test Item Value Reference Range Interpretation Comments POTASSIUM (test code = K/ABG) 3.8 MEQ/L 3.4-5.0 N [id number] 10:00:00 Test Item Value Reference Range Interpretation Comments CHLORIDE (test code = CL/ABG) 108 MEQ/L 100-108 N CREATININE [id number] 10:00:00 Test Item Value Reference Range Interpretation Comments CREATININE ABG (test code = 0.7 mg/dL 0.8-1.3 L CREAABG) [id number] 10:00:00 Test Item Value Reference Range Interpretation Comments HEMOGLOBIN (test code = HGB/ABG) 11.4 G/DL 12.5-16.9 L [id number] 10:00:00 Test Item Value Reference Range Interpretation Comments HEMATOCRIT (test code = HCT/ABG) 33 % 37.5-50.7 L POC IONIZED [id number] 10:00:00 Test Item Value Reference Range Interpretation Comments POC IONIZED CALCIUM (test code = 1.11 MMOL/L 1.12-1.32 L POCCA) POC LACTIC [id number] 10:00:00 Test Item Value Reference Range Interpretation Comments POC LACTIC ACID (test code = 1.2 mmol/l 0.9-1.7 N POCLAC) POC [id number] 10:00:00 Test Item Value Reference Range Interpretation Comments POC GLUCOSE (test code = POCGLU) 105 MG/DL 70-110 N POC ARTERIAL BLOOD [id number] 10:00:00 Test Item Value Reference Range Interpretation Comments POC ARTERIAL BLOOD GAS PH (test 7.388 7.35-7.45 N code = POCPHA) POC ARTERIAL BLOOD GAS PCO2 (test 38.9 mmHg 35.0-45 N code = EKDDOA2G) POC TCO2 ARTERIAL (test code = 24.6 POCTCO2) POC ARTERIAL BLOOD GAS PO2 (test 527.2 mmHg 80-100.0 HH code = UUAEA7V) POC HCO3 ARTERIAL (test code = 23.5 MMOL/L 22.0-26.0 N BQHCTQ4C) POC BASE EXCESS (test code = -1.4 MMOL/L -4.0-4.0 N POCBEA) POC O2 SATURATION (test code = 100.0 % 90-100 N POCO2S) [id number] 10:00:00 Test Item Value Reference Range Interpretation Comments SODIUM (test code = NA/ABG) MEQ/L 134-147 [id number] 10:00:00 Test Item Value Reference Range Interpretation Comments POTASSIUM (test code = K/ABG) MEQ/L 3.4-5.0 [id number] 10:00:00 Test Item Value Reference Range Interpretation Comments CHLORIDE (test code = CL/ABG) MEQ/L 100-108 CREATININE [id number] 10:00:00 Test Item Value Reference Range Interpretation Comments CREATININE ABG (test code = CREAABG) mg/dL 0.8-1.3 [id number] 10:00:00 Test Item Value Reference Range Interpretation Comments HEMOGLOBIN (test code = HGB/ABG) G/DL 12.5-16.9 [id number] 10:00:00 Test Item Value Reference Range Interpretation Comments HEMATOCRIT (test code = HCT/ABG) % 37.5-50.7 POC IONIZED [id number] 10:00:00 Test Item Value Reference Range Interpretation Comments POC IONIZED CALCIUM (test code = MMOL/L 1.12-1.32 POCCA) POC LACTIC [id number] 10:00:00 Test Item Value Reference Range Interpretation Comments POC LACTIC ACID (test code = POCLAC) mmol/l 0.9-1.7 POC [id number] 10:00:00 Test Item Value Reference Range Interpretation Comments POC GLUCOSE (test code = POCGLU) MG/DL 70-110 POC ARTERIAL BLOOD [id number] 10:00:00 Test Item Value Reference Range Interpretation Comments POC ARTERIAL BLOOD GAS PH (test 7.388 7.35-7.45 N code = POCPHA) POC ARTERIAL BLOOD GAS PCO2 (test 38.9 mmHg 35.0-45 N code = JLWISW8M) POC TCO2 ARTERIAL (test code = 24.6 POCTCO2) POC ARTERIAL BLOOD GAS PO2 (test 527.2 mmHg 80-100.0 HH code = DIYPH6I) POC HCO3 ARTERIAL (test code = 23.5 MMOL/L 22.0-26.0 N ELWLEL9X) POC BASE EXCESS (test code = -1.4 MMOL/L -4.0-4.0 N POCBEA) POC O2 SATURATION (test code = 100.0 % 90-100 N POCO2S) [id number] 10:00:00 Test Item Value Reference Range Interpretation Comments SODIUM (test code = NA/ABG) 142 MEQ/L 134-147 N [id number] 10:00:00 Test Item Value Reference Range Interpretation Comments POTASSIUM (test code = K/ABG) MEQ/L 3.4-5.0 [id number] 10:00:00 Test Item Value Reference Range Interpretation Comments CHLORIDE (test code = CL/ABG) MEQ/L 100-108 CREATININE [id number] 10:00:00 Test Item Value Reference Range Interpretation Comments CREATININE ABG (test code = CREAABG) mg/dL 0.8-1.3 [id number] 10:00:00 Test Item Value Reference Range Interpretation Comments HEMOGLOBIN (test code = HGB/ABG) G/DL 12.5-16.9 [id number] 10:00:00 Test Item Value Reference Range Interpretation Comments HEMATOCRIT (test code = HCT/ABG) % 37.5-50.7 POC IONIZED [id number] 10:00:00 Test Item Value Reference Range Interpretation Comments POC IONIZED CALCIUM (test code = MMOL/L 1.12-1.32 POCCA) POC LACTIC [id number] 10:00:00 Test Item Value Reference Range Interpretation Comments POC LACTIC ACID (test code = POCLAC) mmol/l 0.9-1.7 POC [id number] 10:00:00 Test Item Value Reference Range Interpretation Comments POC GLUCOSE (test code = POCGLU) MG/DL 70-110 POC ARTERIAL BLOOD [id number] 10:00:00 Test Item Value Reference Range Interpretation Comments POC ARTERIAL BLOOD GAS PH (test 7.388 7.35-7.45 N code = POCPHA) POC ARTERIAL BLOOD GAS PCO2 (test 38.9 mmHg 35.0-45 N code = BRVEEE6Q) POC TCO2 ARTERIAL (test code = 24.6 POCTCO2) POC ARTERIAL BLOOD GAS PO2 (test 527.2 mmHg 80-100.0 HH code = IAAOD1S) POC HCO3 ARTERIAL (test code = 23.5 MMOL/L 22.0-26.0 N WMPPYB3F) POC BASE EXCESS (test code = -1.4 MMOL/L -4.0-4.0 N POCBEA) POC O2 SATURATION (test code = 100.0 % 90-100 N POCO2S) [id number] 10:00:00 Test Item Value Reference Range Interpretation Comments SODIUM (test code = NA/ABG) 142 MEQ/L 134-147 N [id number] 10:00:00 Test Item Value Reference Range Interpretation Comments POTASSIUM (test code = K/ABG) 3.8 MEQ/L 3.4-5.0 N [id number] 10:00:00 Test Item Value Reference Range Interpretation Comments CHLORIDE (test code = CL/ABG) MEQ/L 100-108 CREATININE [id number] 10:00:00 Test Item Value Reference Range Interpretation Comments CREATININE ABG (test code = CREAABG) mg/dL 0.8-1.3 [id number] 10:00:00 Test Item Value Reference Range Interpretation Comments HEMOGLOBIN (test code = HGB/ABG) G/DL 12.5-16.9 [id number] 10:00:00 Test Item Value Reference Range Interpretation Comments HEMATOCRIT (test code = HCT/ABG) % 37.5-50.7 POC IONIZED [id number] 10:00:00 Test Item Value Reference Range Interpretation Comments POC IONIZED CALCIUM (test code = MMOL/L 1.12-1.32 POCCA) POC LACTIC [id number] 10:00:00 Test Item Value Reference Range Interpretation Comments POC LACTIC ACID (test code = POCLAC) mmol/l 0.9-1.7 POC [id number] 10:00:00 Test Item Value Reference Range Interpretation Comments POC GLUCOSE (test code = POCGLU) MG/DL 70-110 POC ARTERIAL BLOOD [id number] 10:00:00 Test Item Value Reference Range Interpretation Comments POC ARTERIAL BLOOD GAS PH (test 7.388 7.35-7.45 N code = POCPHA) POC ARTERIAL BLOOD GAS PCO2 (test 38.9 mmHg 35.0-45 N code = AMRLCG5P) POC TCO2 ARTERIAL (test code = 24.6 POCTCO2) POC ARTERIAL BLOOD GAS PO2 (test 527.2 mmHg 80-100.0 HH code = NNIJQ7E) POC HCO3 ARTERIAL (test code = 23.5 MMOL/L 22.0-26.0 N DWQRDP1H) POC BASE EXCESS (test code = -1.4 MMOL/L -4.0-4.0 N POCBEA) POC O2 SATURATION (test code = 100.0 % 90-100 N POCO2S) [id number] 10:00:00 Test Item Value Reference Range Interpretation Comments SODIUM (test code = NA/ABG) 142 MEQ/L 134-147 N [id number] 10:00:00 Test Item Value Reference Range Interpretation Comments POTASSIUM (test code = K/ABG) 3.8 MEQ/L 3.4-5.0 N [id number] 10:00:00 Test Item Value Reference Range Interpretation Comments CHLORIDE (test code = CL/ABG) MEQ/L 100-108 - DUP EXTRACRANIAL [id number] 08:23:00 [facility] 1935 Sex: M Name: BERTIN NICOLE [facility] : 1935 Age/S: 85 / M [address] [place] [address] Bl Unit #: [id number] Loc: [place] [address] Phys: Rosario Granados MD Acct: [id number] Dis Date: Status: PRE IN PHONE#: [phone] Exam Date: 01/11/2021 173 FAX #: [phone] Reason: NONRHEUMATIC MITRAL VALVE REG. EXAMS: CPT CODE: [id number] DUP EXTRACRANIAL DERRICK [id number] Clinical Indication: 85-year-old male with mitral valve regurgitation; Comparison: None TECHNIQUE: Mendoza-scale, color Doppler and spectral Doppler of the carotid arteries was performed. Any reported ICA stenoses indirectly reference the distal internal carotid diameter as the denominator for the stenosis measurement, utilizing consensus panel criteria. FINDINGS: RIGHT: Mild plaque in the bulb ICA PSV 75 cm/sec CCA PSV 67 cm/sec ICA/CCA ratio 1.1 Vertebral flow is antegrade. External carotid artery is patent. LEFT: Mild plaque in the bulb ICA PSV57 cm/sec CCA PSV 96 cm/sec ICA/CCA ratio 0.6 Vertebral flow is antegrade. External carotid artery is patent. IMPRESSION: 1. RIGHT: ICA stenosis <50 % by velocity criteria. 2. LEFT: ICA stenosis <50 % by velocity criteria. Consensus panel Doppler US criteria for diagnosis of ICA stenosis: Stenosis (%) ICA PSV (cm/sec) ICA/CCA ratio ------ <50 <125 <2.0 50-69 125-230 2.0-4.0 >70 but less than >230 >4.0 near occlusion Near occlusion High, low, or Variable undetectable SL: [id number] PAGE 1 Signed Report (CONTINUED) Name: BERTIN NICOLE [facility] : 1935 Age/S: 85 / M [address] [place] [address] BlvdUnit #: [id number] Loc: [place] [address] Phys: Rosario Granados MD Acct: [id number] Dis Date: Status: PRE IN PHONE #: [phone] Exam Date: 01/11/2021 1733 FAX #: [phone] Reason: NONRHEUMATIC MITRAL VALVE REG. EXAMS: CPT CODE: [id number] DUP EXTRACRANIAL DERRICK [id number] (Continued) at 0823 Reported and signed by: Mahin Alford M.D. CC: Rosario Granados MD Technologist: Tammie Aldana RDMS() Trnscb Date/Time: 01/12/2021 (0823) [id number] Orig Print D/T: S: 01/12/2021 (0826) Probe: PAGE 2 Signed Report- CT CHEST W/O [id number] 18:10:00 [facility] 1935 Sex: M Name: BERTIN NICOLE [facility] [place] : 1935 Age/S: 85 / M [address] [place] [address] Blvd Unit #: [id number] Loc: [place] [address] Phys: Rosario Granados MD Acct: [id number] Dis Date: Status: PRE IN PHONE#: [phone] Exam Date: 01/11/2021 175 FAX #: [phone] Reason: SHORTNESS OF BREATH. EXAMS: CPT CODE: [id number] CT CHEST W/O CONTRAST 92120 Clinical Indication: Shortness of breath; Comparison:Chest x-ray 01/11/2021 TECHNIQUE: Sequential trans-axial images were obtained thru the chest and upper abdomen without iodinated contrast. Oral contrast has been administered. Coronal and sagittal recons tructions were obtained. Dose: DLP = 347.90 mGy-cm FINDINGS: LUNG PARENCHYMA AND PLEURA: No suspicious pulmonary nodule or consolidation. Mild bilateral bronchiectasis. Ground glass opacities of the lower lobes consistent with inflammation. No honeycombing. No pneumothorax or pleural effusion. AIRWAY:The central airways are patent. LYMPHADENOPATHY: Enlarged mediastinal lymph nodes measuring up to 11mm in short axis. No bulky hilar or axillary lymphadenopathy. HEART: Heart size is enlarged. Moderate coronary artery calcification. Small pericardial effusion. VASCULAR STRUCTURES: Tortuosity and atherosclerotic calcification of the aorta. No thoracic aortic aneurysm. OSSEOUS STRUCTURES: Degenerativechanges of the spine. VISUALIZED UPPER ABDOMEN: 2.4 cm low-density lesion upper pole left kidney is most likely related to a cyst. There is an additional low-density lesion at the upper pole left kidney incompletely characterized (series 2 image 104). Adrenal glands are unremarkable. ESOPHAGUS: No gross abnormalities. IMPRESSION: 1. Bilateral ground glass opacities consistent with inflammation 2. Bilateral bronchiectasis 3. Cardiomegaly and coronary artery calcification 4. Mediastinal lymphadenopathy SL: [id number] PAGE 1 Signed Report (CONTINUED) Name: BERTIN NICOLE [facility] [place] : 1935 Age/S: 85 / M [address] [place] [address] Blvd Unit #: [id number] Loc: [place] [address] Phys: Carito Granados MD Acct: [id number] Dis Date: Status: PRE IN PHONE #: [phone] Exam Date: 01/11/2021 175 FAX #: [phone] Reason: SHORTNESS OF BREATH. EXAMS: CPT CODE: [id number] CT CHEST W/O [id number] (Continued) at 1810 Reported and signed by: Jessica Castro M.D. CC: Rosario Granados MD Technologist:Nehemiah Kerr, RT(R)(CT) CTDI: DLP: Trnscb Date/Time: 01/11/2021 (1809) [id number] Orig Print D/T: S: 01/11/2021 (1813) PAGE 2 Signed Report- XR CHEST 2 [id number] 15:44:00 [facility] 1935 Sex: M FAX: Rosario Silva [phone] [place]: St: PRE Name: BERTIN NICOLE [facility] [place] : 1935 Age/S: 85/M [address] [place] [address] Blvd Unit #: [id number] Loc: [place] [address] Phys: Rosario Granados MD Acct: [id number] Dis Date: Status: PRE IN PHONE #: [phone] Exam Date: 01/11/2021 1410 FAX #: [phone] Reason: PREOP/MITRAL REGURGITATION EXAMS: CPT CODE: [id number] XR CHEST 2 V 87877 PROCEDURE: Chest Radiograph. Clinical Indication: Preoperative assessment, mitral valve regurgitation. Comparison: None. FINDINGS: The chest shows normal lung volumes without interstitial or airspace opacities, pleural effusions or pneumothorax. The cardiac silhouette is slightly enlarged. Degenerative change involves the thoracic spine. IMPRESSION: 1. No chest radiographic evidence of acute cardiopulmonary disease. SL: OCO-H at 4817 Reported and signed by: Mervin Mendoza M.D. CC: Rosario Granados MD Technologist: Jennifer Gordon RT(R) Trnscrd Date/Time/By: 01/11/2021 (1234) : By: Smita Orig Print D/T: S: 01/11/2021 (5686) PAGE 1 Signed ReportURINALYSIS [id number] 15:16:00 Test Item Value Reference Range Interpretation Comments UA COLOR (test code = COLU) YELLOW YEL/STRAW UA APPEARANCE (test code = CLEAR CLEAR APPU) UA GLUCOSE DIPSTICK (test code NEGATIVE NEGATIVE = DGLUU) UA BILIRUBIN DIPSTICK (test NEGATIVE NEGATIVE code = BILU) UA KETONE DIPSTICK (test code NEGATIVE NEGATIVE = KETU) UA SPECIFIC GRAVITY (test code 1.016 1.005-1.030 N = SGU) UA BLOOD DIPSTICK (test code = NEGATIVE NEGATIVE REID) UA PH DIPSTICK (test code = 5.0 5.0-7.0 N BEN) UA PROTEIN DIPSTICK (test code NEGATIVE NEGATIVE = PROU) UA UROBILINIOGEN DIPSTICK 0.2 mg/dL 0.2-1.0 (test code = URO) UA NITRITE DIPSTICK (test code NEGATIVE NEGATIVE = EDUARD) UA LEUKOCYTE ESTERASE DIPSTICK NEGATIVE NEGATIVE (test code = LEUU) UA RBC (test code = RBCU) 0-3 RBC/HPF 0-3 UA WBC NO REFLEX (test code = 0-3 WBC/HPF 0-3 WBCUCL) UA BACTERIA (test code = BACU) NONE SEEN /HPF NONE SEEN UA SQUAMOUS CELLS (test code = NONE SEEN /HPF NONE SEEN SQU) UA MUCUS (test code = MUCU) TRACE /LPF NONE SEEN COVID 19 Asymptomatic IH [id number] 14:55:00 Test Item Value Reference Range Interpretation Comments COVID 19 Asymptomatic Negative Negative A nega tive result is IH AG (test code = presumpti ve and should COVNONPUIAG) be confirmedwit h an FDA authorized mole cular assay, if neces jessee forpatient kvng gement.A positive result does not rule out co-inf ections withother patho gens.This test detects kimberly th viable (live) and non-viable,SARS -CoV, and SARS-CoV-2. Juan t performance dep ends on theamount of vi odalis (antigen) in th e sample.This juan t has not been FDA cleare d or approved; the t est hasbeen authori zed by FDA under an Em ergency Use Authorizati on(EUA) for use by labo ratories certified under the CLIA thatmeet the requirements to perform moderate, high or waivedcomplexit y tests. B-TYPE NATRIURETIC [id number] 14:15:00 Test Item Value Reference Range Interpretation Comments B-TYPE NATRIURETIC PEPTIDE (test 93.0 PG/ML 0-100 N code = BNP) COMPREHENSIVE METABOLIC [id number] 13:56:00 Test Item Value Reference Range Interpretation Comments SODIUM (test code = NA) 139 mEq/L 134-147 N POTASSIUM (test code = 4.6 mEq/L 3.4-5.0 N K) CHLORIDE (test code = 107 mEq/L 100-108 N CL) CARBON DIOXIDE (test 28 mEq/l 21-33 N code = CO2) ANION GAP (test code = 9 0-20 N GAP) GLUCOSE (test code = 93 mg/dL 70-110 N GLU) BLOOD UREA NITROGEN 20 mg/dL 7-18 H (test code = BUN) GLOMERULAR FILTRATION 36.2 70-80 L Units of measure = RATE (test code = GFR) ml/mi n/1.73 m2 CREATININE (test code = 1.8 mg/dL 0.6-1.3 H CREAT) TOTAL PROTEIN (test 7.0 g/dL 6.4-8.2 N code = PROT) ALBUMIN (test code = 4.20 g/dL 3.4-5.0 N ALB) CALCIUM (test code = 9.4 mg/dL 8.0-10.5 N CA) BILIRUBIN TOTAL (test 1.00 mg/dL 0.0-1.0 N code = BILT) SGOT/AST (test code = 23 IUnit/L 15-37 N AST) SGPT/ALT (test code = 19 IUnit/L 30-65 L ALT) ALKALINE PHOSPHATASE 78 IUnit/L 20-125 N TOTAL (test code = ALKP) [id number] 13:52:00 Test Item Value Reference Range Interpretation Comments HGBA1C% (test code = HGBA1C%) 4.3 %A1C 4.8-6.0 L PROTHROMBIN [id number] 13:46:00 Test Item Value Reference Range Interpretation Comments PROTHROMBIN TIME 14.1 SECONDS 9.3-12.9 H PATIENT (test code = PTP) INTERNATIONAL NORMAL 1.3 0.8-1.2 H TARGET INR BY RATIO (test code = INDICATIO N Indication INR) INR1. 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 Mec hanical prosthetic valv es (high risk), 2. 5 - 3.5 Presence of Lup us Anticoagulant o r Antiphospholipi d Antibodies, Pre vention of systemic emb olism - Acute Myocardia l Infarction (to prevent recurrent infar ct). THROMBOPLASTIN TIME [id number] 13:46:00 Test Item Value Reference Range Interpretation Comments THROMBOPLASTIN TIME 36.1 Seconds 25.0-39.5 N Therape utic Range: PARTIAL (test code = 50.4 - 88.3 Seconds PTT) Effective 02/16/2019 CBC W/AUTO [id number] 13:44:00 Test Item Value Reference Range Interpretation Comments WHITE BLOOD CELL (test code = 6.6 x10 3/uL 4.5-11.0 N WBC) RED BLOOD CELL (test code = 4.37 x10 6/uL 4.00-5.60 N RBC) HEMOGLOBIN (test code = HGB) 14.1 g/dL 12.5-16.9 N HEMATOCRIT (test code = HCT) 41.6 % 37.5-50.7 N MEAN CELL VOLUME (test code = 95.2 fL 81.0-99.0 N MCV) MEAN CELL HGB (test code = MCH) 32.3 pg 27.0-33.0 N MEAN CELL HGB CONCETRATION 33.9 g/dL 33.0-37.0 N (test code = MCHC) RED CELL DISTRIBUTION WIDTH CV 13.1 % 11.5-14.5 N (test code = RDW) RED CELL DISTRIBUTION WIDTH SD 46.4 fL 37.0-54.0 N (test code = RDW-SD) PLATELET COUNT (test code = 206 x10 3/uL 150-400 N PLT) MEAN PLATELET VOLUME (test code 10.0 fL 7.0-9.0 H = MPV) NEUTROPHIL % (test code = NT%) 51.6 % 56.0-77.0 L IMMATURE GRANULOCYTE % (test 0.3 % 0.0-2.0 N code = IG%) LYMPHOCYTE % (test code = LY%) 34.0 % 14.0-32.0 H MONOCYTE % (test code = MO%) 10.0 % 4.8-9.0 H EOSINOPHIL % (test code = EO%) 3.3 % 0.3-3.7 N BASOPHIL % (test code = BA%) 0.8 % 0.0-2.0 N NUCLEATED RBC % (test code = 0.0 % 0-0 N NRBC%) NEUTROPHIL # (test code = NT#) 3.39 x10 3/uL 2.0-7.6 N IMMATURE GRANULOCYTE # (test 0.02 x10 3/uL 0.00-0.03 N code = IG#) LYMPHOCYTE # (test code = LY#) 2.24 x10 3/uL 1.0-3.8 N MONOCYTE # (test code = MO#) 0.66 x10 3/uL 0.1-0.8 N EOSINOPHIL # (test code = EO#) 0.22 x10 3/uL 0.0-0.2 H BASOPHIL # (test code = BA#) 0.05 x10 3/uL 0.0-0.2 N NUCLEATED RBC # (test code = 0.00 x10 3/uL 0.0-0.1 N NRBC#) MANUAL DIFF REQUIRED (test code NO = MDIFF) CBC W Auto Differential panel - [id number] 09:10:00 Test Item Value Reference Range Interpretation Comments white blood count (test code = 6.1 K/uL 4.0-12.3 white blood count) red blood count (test code = red 4.80 M/uL 3.80-5.80 blood count) Hemoglobin [Mass/volume] in Blood 16.0 g/dL 11.67-17.22 (test code = 718-7) hematocrit (test code = hematocrit) 45.2 % 35.0-51.0 Erythrocyte mean corpuscular volume 94.0 fL 78-96 [Entitic volume] (test code = 90296-8) Erythrocyte mean corpuscular 33.2 pg 26.8-33.4 hemoglobin [Entitic mass] (test code = 62420-9) mean corpuscular HGB conc (test 35.3 g/dL 32.3-36.7 code = mean corpuscular HGB conc) red cell distribution width (test 12.1 % 11.6-15.4 code = red cell distribution width) Platelets [#/volume] in Blood (test 194 K/uL 115-328 code = 09516-5) Platelet mean volume [Entitic 7.0 fL 8.4-11.8 L volume] in Blood (test code = 11332-9) Neutrophils.band form/100 56.1 % 44.7-82.4 leukocytes in Blood (test code = 72134-3) Lymphocytes/100 leukocytes in Body 29.9 % 10.0-50.0 fluid (test code = 04613-6) Monocytes/100 leukocytes in Blood 11.3 % 3.9-13.4 by Automated count (test code = 5905-5) Eosinophils/100 leukocytes in Blood 1.6 % 0.0-6.43 by Automated count (test code = 713-8) Basophils/100 leukocytes in Blood 1.1 % 0.0-0.72 H by Automated count (test code = 706-2) [facility], [id number] 09:10:00 NeutrophilsBandLymphocyteAtypical LymphMonocyteEosinophilBasophilMetamyelocytePlatelet EstimatePlatelet MorphologyToxic GranulationHypersegmented PolysRouleauSmudge CellsWiser Hospital For Women And InfantsUrinalysis complete W Reflex Culture panel - [id number] 09:10:00 Test Item Value Reference Range Interpretation Comments Color of Urine by Auto (test light yellow code = 23258-1) Appearance of Urine (test code clear clear = 5767-9) Glucose [Presence] in Urine by negative negative Automated test strip (test code = 72035-5) Bilirubin.total [Mass/volume] negative negative in Urine (test code = 1978-6) Ketones [Mass/volume] in Urine negative negative by Automated test strip (test code = 10658-4) Specific gravity of Urine by 1.010 1.003-1.030 Automated test strip (test code = 98166-7) blood urine (test code = blood negative negative urine) pH of Urine (test code = 6.000 5-9 2276-5) protein urine (UA) (test code = negative negative protein urine (UA)) Urobilinogen [Presence] in normal 0.2-1.0 Urine (test code = 45193-0) Nitrite [Presence] in Urine by negative negative Test strip (test code = 5802-4) Leukocyte esterase [Presence] negative negative in Urine by Automated test strip (test code = 61653-4) Erythrocytes [#/volume] in <1 0-5 Urine by Automated count (test code = 798-9) Leukocytes [#/area] in Urine <1 0-5 sediment by Automated count (test code = 18117-6) Epithelial cells [Presence] in <1 0-5 Urine sediment by Light microscopy (test code = 01604-1) Bacteria identified in Urine by none detected none detect Culture (test code = 630-4) Casts [#/area] in Urine none detected none detect sediment by Automated count (test code = 47921-3) urine culture added? (test code no = urine culture added?) [facility]Com[facility] 2000 panel - Serum or Plasma 2018-11-12 09:10:00 Test Item Value Reference Range Interpretation Comments Glucose [Mass/volume] in Serum or 103 mg/dL 82-115 Plasma (test code = 2345-7) Urea nitrogen [Mass/volume] in 8 mg/dL 8-23 Serum or Plasma (test code = 3094-0) Osmolality of Serum or Plasma 276 280-300 L (test code = 2692-2) creatinine (test code = 1.0 mg/dL 0.70-1.20 creatinine) glomerular filtration rate (test >60.00 code = glomerular filtration rate) Urea nitrogen/Creatinine [Mass 8.0 12-20 L Ratio] in Serum or Plasma (test code = 3097-3) sodium level (test code = sodium 139 mmol/L 135-145 level) potassium level (test code = 4.4 mmol/L 3.5-5.2 potassium level) chloride level (test code = 102 mmol/L 98-108 chloride level) CO2 (test code = CO2) 25 mmol/L 21-32 anion gap (test code = anion gap) 16.4 mEq/L 12-20 calcium level (test code = calcium 9.6 mg/dL 8.8-10.2 level) total protein (test code = total 7.5 g/dL 6.6-8.7 protein) albumin (test code = albumin) 4.6 g/dL 3.5-5.2 globulin (test code = globulin) 2.9 gm/dL A/G ratio (test code = A/G ratio) 1.6 >1.0 bilirubin,total (test code = 0.9 mg/dL 0.0-1.2 bilirubin,total) AST/SGOT (test code = AST/SGOT) 22 U/L 15-40 Alanine aminotransferase 12 U/L 0-41 [Enzymatic activity/volume] in Serum or Plasma (test code = 1742-6) Alkaline phosphatase [Enzymatic 64 U/L 40-130 activity/volume] in Serum or Plasma (test code = 6768-6) [facility] 1996 panel - Serum or [id number] 09:10:00 Test Item Value Reference Range Interpretation Comments cholesterol level (test code = 168 mg/dL 150-200 cholesterol level) triglycerides level (test code = 148 mg/dL <150 triglycerides level) HDL cholesterol (test code = HDL 48 mg/dL >55 L cholesterol) LDL cholesterol direct (test code = 106 mg/dL <100 H LDL cholesterol direct) cholesterol risk ratio (test code = 3.500 cholesterol risk ratio) [facility]antsHemoglobin A1c [Mass/volume] in [id number] 09:10:00 Test Item Value Reference Range Interpretation Comments Hemoglobin A1c in Blood (test code = 4.6 % 4.0-6.0 17295-5) [facility]antsPSA, serum or [id number] 09:10:00 Test Item Value Reference Range Interpretation Comments total prostate screening (test 1.55 NG/mL 0.0-4.00 code = total prostate screening) [facility]antsThyrotropin [Units/volume] in Serum or [id number] 09:10:00 Test Item Value Reference Range Interpretation Comments Thyrotropin [Units/volume] in 2.89 uIU/mL 0.36-3.74 Serum or Plasma (test code = 3016-3) [facility]antsThyroxine (T4) [Mass/volume] in Serum or [id number] 09:10:00 Test Item Value Reference Range Interpretation Comments Thyroxine (T4) [Mass/volume] in 6.4 ug/dL 4.5-11.7 Serum or Plasma (test code = 3026-2) [facility] W Auto Differential panel - [id number] 09:10:00 Test Item Value Reference Range Interpretation Comments white blood count (test code = 6.1 K/uL 4.0-12.3 white blood count) red blood count (test code = red 4.80 M/uL 3.80-5.80 blood count) Hemoglobin [Mass/volume] in Blood 16.0 g/dL 11.67-17.22 (test code = 718-7) hematocrit (test code = hematocrit) 45.2 % 35.0-51.0 Erythrocyte mean corpuscular volume 94.0 fL 78-96 [Entitic volume] (test code = 20416-3) Erythrocyte mean corpuscular 33.2 pg 26.8-33.4 hemoglobin [Entitic mass] (test code = 19981-8) mean corpuscular HGB conc (test 35.3 g/dL 32.3-36.7 code = mean corpuscular HGB conc) red cell distribution width (test 12.1 % 11.6-15.4 code = red cell distribution width) Platelets [#/volume] in Blood (test 194 K/uL 115-328 code = 11517-0) Platelet mean volume [Entitic 7.0 fL 8.4-11.8 L volume] in Blood (test code = 88709-0) Neutrophils.band form/100 56.1 % 44.7-82.4 leukocytes in Blood (test code = 65963-8) Lymphocytes/100 leukocytes in Body 29.9 % 10.0-50.0 fluid (test code = 21507-0) Monocytes/100 leukocytes in Blood 11.3 % 3.9-13.4 by Automated count (test code = 5905-5) Eosinophils/100 leukocytes in Blood 1.6 % 0.0-6.43 by Automated count (test code = 713-8) Basophils/100 leukocytes in Blood 1.1 % 0.0-0.72 H by Automated count (test code = 706-2) [facility]antsdifferent[facility] panel, [id number] 09:10:00 NeutrophilsBandLymphocyteAtypical LymphMonocyteEosinophilBasophilMetamyelocytePlatelet EstimatePlatelet MorphologyToxic GranulationHypersegmented PolysRouleauSmudge CellsWiser Hospital For Women And InfantsUrinalysis complete W Reflex Culture panel - [id number] 09:10:00 Test Item Value Reference Range Interpretation Comments Color of Urine by Auto (test light yellow code = 04203-1) Appearance of Urine (test code clear clear = 5767-9) Glucose [Presence] in Urine by negative negative Automated test strip (test code = 99607-8) Bilirubin.total [Mass/volume] negative negative in Urine (test code = 1978-6) Ketones [Mass/volume] in Urine negative negative by Automated test strip (test code = 21240-1) Specific gravity of Urine by 1.010 1.003-1.030 Automated test strip (test code = 88514-7) blood urine (test code = blood negative negative urine) pH of Urine (test code = 6.000 5-9 2756-5) protein urine (UA) (test code = negative negative protein urine (UA)) Urobilinogen [Presence] in normal 0.2-1.0 Urine (test code = 27658-7) Nitrite [Presence] in Urine by negative negative Test strip (test code = 5802-4) Leukocyte esterase [Presence] negative negative in Urine by Automated test strip (test code = 41239-0) Erythrocytes [#/volume] in <1 0-5 Urine by Automated count (test code = 798-9) Leukocytes [#/area] in Urine <1 0-5 sediment by Automated count (test code = 84619-1) Epithelial cells [Presence] in <1 0-5 Urine sediment by Light microscopy (test code = 02996-1) Bacteria identified in Urine by none detected none detect Culture (test code = 630-4) Casts [#/area] in Urine none detected none detect sediment by Automated count (test code = 35652-7) urine culture added? (test code no = urine culture added?) [facility]Com[facility] 2000 panel - Serum or Plasma 2018-11-12 09:10:00 Test Item Value Reference Range Interpretation Comments Glucose [Mass/volume] in Serum or 103 mg/dL 82-115 Plasma (test code = 2345-7) Urea nitrogen [Mass/volume] in 8 mg/dL 8-23 Serum or Plasma (test code = 3094-0) Osmolality of Serum or Plasma 276 280-300 L (test code = 2692-2) creatinine (test code = 1.0 mg/dL 0.70-1.20 creatinine) glomerular filtration rate (test >60.00 code = glomerular filtration rate) Urea nitrogen/Creatinine [Mass 8.0 12-20 L Ratio] in Serum or Plasma (test code = 3097-3) sodium level (test code = sodium 139 mmol/L 135-145 level) potassium level (test code = 4.4 mmol/L 3.5-5.2 potassium level) chloride level (test code = 102 mmol/L 98-108 chloride level) CO2 (test code = CO2) 25 mmol/L 21-32 anion gap (test code = anion gap) 16.4 mEq/L 12-20 calcium level (test code = calcium 9.6 mg/dL 8.8-10.2 level) total protein (test code = total 7.5 g/dL 6.6-8.7 protein) albumin (test code = albumin) 4.6 g/dL 3.5-5.2 globulin (test code = globulin) 2.9 gm/dL A/G ratio (test code = A/G ratio) 1.6 >1.0 bilirubin,total (test code = 0.9 mg/dL 0.0-1.2 bilirubin,total) AST/SGOT (test code = AST/SGOT) 22 U/L 15-40 Alanine aminotransferase 12 U/L 0-41 [Enzymatic activity/volume] in Serum or Plasma (test code = 1742-6) Alkaline phosphatase [Enzymatic 64 U/L 40-130 activity/volume] in Serum or Plasma (test code = 6768-6) [facility] 1996 panel - Serum or [id number] 09:10:00 Test Item Value Reference Range Interpretation Comments cholesterol level (test code = 168 mg/dL 150-200 cholesterol level) triglycerides level (test code = 148 mg/dL <150 triglycerides level) HDL cholesterol (test code = HDL 48 mg/dL >55 L cholesterol) LDL cholesterol direct (test code = 106 mg/dL <100 H LDL cholesterol direct) cholesterol risk ratio (test code = 3.500 cholesterol risk ratio) [facility]antsHemoglobin A1c [Mass/volume] in [id number] 09:10:00 Test Item Value Reference Range Interpretation Comments Hemoglobin A1c in Blood (test code = 4.6 % 4.0-6.0 49311-5) [facility]antsPSA, serum or [id number] 09:10:00 Test Item Value Reference Range Interpretation Comments total prostate screening (test 1.55 NG/mL 0.0-4.00 code = total prostate screening) [facility]antsThyrotropin [Units/volume] in Serum or [id number] 09:10:00 Test Item Value Reference Range Interpretation Comments Thyrotropin [Units/volume] in 2.89 uIU/mL 0.36-3.74 Serum or Plasma (test code = 3016-3) [facility]antsThyroxine (T4) [Mass/volume] in Serum or [id number] 09:10:00 Test Item Value Reference Range Interpretation Comments Thyroxine (T4) [Mass/volume] in 6.4 ug/dL 4.5-11.7 Serum or Plasma (test code = 3026-2) [facility] W Auto Differential panel - [id number] 09:10:00 Test Item Value Reference Range Interpretation Comments white blood count (test code = 6.1 K/uL 4.0-12.3 white blood count) red blood count (test code = red 4.80 M/uL 3.80-5.80 blood count) Hemoglobin [Mass/volume] in Blood 16.0 g/dL 11.67-17.22 (test code = 718-7) hematocrit (test code = hematocrit) 45.2 % 35.0-51.0 Erythrocyte mean corpuscular volume 94.0 fL 78-96 [Entitic volume] (test code = 58933-7) Erythrocyte mean corpuscular 33.2 pg 26.8-33.4 hemoglobin [Entitic mass] (test code = 74712-4) mean corpuscular HGB conc (test 35.3 g/dL 32.3-36.7 code = mean corpuscular HGB conc) red cell distribution width (test 12.1 % 11.6-15.4 code = red cell distribution width) Platelets [#/volume] in Blood (test 194 K/uL 115-328 code = 04629-6) Platelet mean volume [Entitic 7.0 fL 8.4-11.8 L volume] in Blood (test code = 24035-4) Neutrophils.band form/100 56.1 % 44.7-82.4 leukocytes in Blood (test code = 54601-2) Lymphocytes/100 leukocytes in Body 29.9 % 10.0-50.0 fluid (test code = 35770-4) Monocytes/100 leukocytes in Blood 11.3 % 3.9-13.4 by Automated count (test code = 5905-5) Eosinophils/100 leukocytes in Blood 1.6 % 0.0-6.43 by Automated count (test code = 713-8) Basophils/100 leukocytes in Blood 1.1 % 0.0-0.72 H by Automated count (test code = 706-2) [facility]different[facility], [id number] 09:10:00 NeutrophilsBandLymphocyteAtypical LymphMonocyteEosinophilBasophilMetamyelocytePlatelet EstimatePlatelet MorphologyToxic GranulationHypersegmented PolysRouleauSmudge CellsMaAlliance Health CenterUrinalysis complete W Reflex Culture panel - [id number] 09:10:00 Test Item Value Reference Range Interpretation Comments Color of Urine by Auto (test light yellow code = 71423-4) Appearance of Urine (test code clear clear = 5767-9) Glucose [Presence] in Urine by negative negative Automated test strip (test code = 05693-0) Bilirubin.total [Mass/volume] negative negative in Urine (test code = 1977-6) Ketones [Mass/volume] in Urine negative negative by Automated test strip (test code = 01401-0) Specific gravity of Urine by 1.010 1.003-1.030 Automated test strip (test code = 79363-9) blood urine (test code = blood negative negative urine) pH of Urine (test code = 6.000 5-9 2756-5) protein urine (UA) (test code = negative negative protein urine (UA)) Urobilinogen [Presence] in normal 0.2-1.0 Urine (test code = 22416-3) Nitrite [Presence] in Urine by negative negative Test strip (test code = 5802-4) Leukocyte esterase [Presence] negative negative in Urine by Automated test strip (test code = 02788-2) Erythrocytes [#/volume] in <1 0-5 Urine by Automated count (test code = 798-9) Leukocytes [#/area] in Urine <1 0-5 sediment by Automated count (test code = 51250-8) Epithelial cells [Presence] in <1 0-5 Urine sediment by Light microscopy (test code = 28236-0) Bacteria identified in Urine by none detected none detect Culture (test code = 630-4) Casts [#/area] in Urine none detected none detect sediment by Automated count (test code = 19768-7) urine culture added? (test code no = urine culture added?) [facility]Com[facility] 2000 panel - Serum or Plasma 2018-11-12 09:10:00 Test Item Value Reference Range Interpretation Comments Glucose [Mass/volume] in Serum or 103 mg/dL 82-115 Plasma (test code = 2345-7) Urea nitrogen [Mass/volume] in 8 mg/dL 8-23 Serum or Plasma (test code = 3094-0) Osmolality of Serum or Plasma 276 280-300 L (test code = 2692-2) creatinine (test code = 1.0 mg/dL 0.70-1.20 creatinine) glomerular filtration rate (test >60.00 code = glomerular filtration rate) Urea nitrogen/Creatinine [Mass 8.0 12-20 L Ratio] in Serum or Plasma (test code = 3097-3) sodium level (test code = sodium 139 mmol/L 135-145 level) potassium level (test code = 4.4 mmol/L 3.5-5.2 potassium level) chloride level (test code = 102 mmol/L 98-108 chloride level) CO2 (test code = CO2) 25 mmol/L 21-32 anion gap (test code = anion gap) 16.4 mEq/L 12-20 calcium level (test code = calcium 9.6 mg/dL 8.8-10.2 level) total protein (test code = total 7.5 g/dL 6.6-8.7 protein) albumin (test code = albumin) 4.6 g/dL 3.5-5.2 globulin (test code = globulin) 2.9 gm/dL A/G ratio (test code = A/G ratio) 1.6 >1.0 bilirubin,total (test code = 0.9 mg/dL 0.0-1.2 bilirubin,total) AST/SGOT (test code = AST/SGOT) 22 U/L 15-40 Alanine aminotransferase 12 U/L 0-41 [Enzymatic activity/volume] in Serum or Plasma (test code = 1742-6) Alkaline phosphatase [Enzymatic 64 U/L 40-130 activity/volume] in Serum or Plasma (test code = 6768-6) [facility] - Serum or [id number] 09:10:00 Test Item Value Reference Range Interpretation Comments cholesterol level (test code = 168 mg/dL 150-200 cholesterol level) triglycerides level (test code = 148 mg/dL <150 triglycerides level) HDL cholesterol (test code = HDL 48 mg/dL >55 L cholesterol) LDL cholesterol direct (test code = 106 mg/dL <100 H LDL cholesterol direct) cholesterol risk ratio (test code = 3.500 cholesterol risk ratio) [facility] A[facility] [Mass/volume] in [id number] 09:10:00 Test Item Value Reference Range Interpretation Comments Hemoglobin A1c in Blood (test code = 4.6 % 4.0-6.0 40132-2) [facility], serum or [id number] 09:10:00 Test Item Value Reference Range Interpretation Comments total prostate screening (test 1.55 NG/mL 0.0-4.00 code = total prostate screening) [facility]Thyrotropin [Units/volume] in Serum or [id number] 09:10:00 Test Item Value Reference Range Interpretation Comments Thyrotropin [Units/volume] in 2.89 uIU/mL 0.36-3.74 Serum or Plasma (test code = 3016-3) [facility]Thyroxine (T4) [Mass/volume] in Serum or [id number] 09:10:00 Test Item Value Reference Range Interpretation Comments Thyroxine (T4) [Mass/volume] in 6.4 ug/dL 4.5-11.7 Serum or Plasma (test code = 3026-2) [facility]
[2022-11-27 21:15] LABS: Absolute Lymphocytes (CBC) 2.2 K/uL (0.7-4.9); Hematocrit 37.2 % (39.6-49.0); Lymphocytes % 34.9 % (15.3-44.8); MCV 94.5 fL (80-100); MPV 8.1 fL (7.6-11.3); RBC Red Blood Cell Count 3.94 M/uL (4.33-5.43)
[2022-11-27 21:34] LABS: Potassium 4.8 mmol/L (3.5-5.1); Troponin High Sensitivity 13.7 pg/mL (<58.9)
--- NOTE | 2022-11-27 22:10 | RAD REPORT ---
EXAM DESCRIPTION: RAD - Chest Single View - 11/27/2022 10:01 pm CLINICAL HISTORY: CHEST PAIN Chest pain. COMPARISON: No comparisons FINDINGS: Portable technique limits examination quality. The lungs are grossly clear. The heart is moderately enlarged. Sternotomy wires present. IMPRESSION: No acute intrathoracic process suspected.
[2022-11-27 22:15] LABS: SARS-CoV-2 Antigen Rapid Res Negative (Negative)
--- NOTE | 2022-11-28 00:16 | EDPHYS ---
Physician Documentation [facility] Name: Scotty Mcgee Age: 87 yrs Sex: Male : 1935 Arrival Date: 11/27/2022 Time: 19:48 Bed 5 Private MD: ED Physician Abbe Chilel HPI: 11/27 20:49 This 87 yrs old Male presents to ER via Ambulatory with complaints of bs3 Bradycardia, Blood Pressure Problem. 20:49 87-year-old male history of A. fib previously on amiodarone admitted to an outside [facility] recently for stroke work-up which was nondiagnostic found to be bradycardic and discharged today but present for persistent bradycardia and low blood pressure the patient has had intermittent associated dizziness he denies current chest pain or shortness of breath normally his blood pressure runs 100-115 systolic his heart rate was usually above 60 he currently feels well but notes that his family brought him in for his daughter he has had intermittent episodes of dizziness and presyncope recently. Historical: - Allergies: 20:23 No Known Allergies; kd3 - PMHx: 23:12 Atrial fibrillation; short term memory disorder; kl - PSHx: 23:12 mitral valve repair; kl - Immunization history:: Adult Immunizations up to date. - Social history:: Smoking status: Patient denies any tobacco usage or history of. ROS: 20:51 Constitutional: Negative for fever, chills Eyes: Negative for injury, pain, redness, bs3 and discharge, Neck: Negative for injury, pain, and swelling, Cardiovascular: Negative for chest pain, palpitations, and edema, Respiratory: Negative for shortness of breath, cough, wheezing Abdomen/GI: Negative for abdominal pain, nausea, vomiting, diarrhea Back: Negative for injury and pain, MS/Extremity: Negative for injury and deformity, Neuro: Negative for headache, weakness, numbness, tingling, and seizure, Psych: Negative for depression, anxiety, suicide ideation, homicidal ideation, and hallucinations. Exam: 20:51 Constitutional: This is a well developed, well nourished patient who is awake, alert, bs3 and in no acute distress. Eyes: Pupils equal round and reactive to light, extra-ocular motions intact. Lids and lashes normal. ENT: mmm, no posterior phyarngeal erythema Neck: Trachea midline, no thyromegaly, no neck stiffness Chest/axilla: Normal chest wall appearance and motion. Nontender with no deformity. No lesions are appreciated. Cardiovascular: bradycardic, irregular. Respiratory: Lungs have equal breath sounds bilaterally, clear to auscultation, no respiratory distress Abdomen/GI: Soft, non-tender, no rebound or guarding MS/ Extremity: Pulses equal, no cyanosis. Neurovascular intact. Full, normal range of motion. Neuro: Awake and alert, GCS 15, oriented to person, place, time, and situation. Cranial nerves II-XII grossly intact. Motor strength 5/5 in all extremities. Sensory grossly intact. Psych: Awake, alert, with orientation to person, place and time. Behavior, mood, and affect are within normal limits. Vital Signs: 20:18 BP 112 / 74; Pulse 53; Resp 19; Temp 97.9(TE); Pulse Ox 100% ; Weight 93.89 kg; Height kd3 6 ft. (182.88 cm); 20:56 BP 111 / 59; Pulse 58; Resp 17; Pulse Ox 96% on R/A; kl 21:46 BP 110 / 61; Pulse 49; Resp 17; Pulse Ox 96% on R/A; kl 22:38 BP 102 / 65; Pulse 73; Resp 17; Pulse Ox 96% on R/A; kl 20:18 Body Mass Index 28.07 (93.89 kg, 182.88 cm) kd3 MDM: 20:19 Patient medically screened. bs3 20:51 Differential Diagnosis Patient with recurrent dizziness/presyncopal he had a negative bs3 work-up for a neurologic etiology of his symptoms possible symptomatic bradycardia will get EKG history provided by daughter as patient is an unreliable historian discussed with Dr. Madison as this is his director loss prevention. 21:38 Independent interpretation of the following test(s) in the Emergency Department EKG: bs3 See my EKG interpretation above. Historians other than the Patient: Daughter/Son: pt not reliable. ED course: discussed with his director loss prevention who recommended a pacemaker, if possible transfer to [facility] [place] otherwise admit here, ecg afib [address] elevation or depression qtc 466 as read by myself. . 11/28 00:16 Data reviewed: vital signs, lab test result(s), EKG. ED course: reviewed recent bs3 admission records. ED course: discussed with transfer accepting and his director loss prevention, will transfer for pacemaker placement, admission, labs reviewed notable for elevated creatine otherwise neg. 11/27 20:46 Order name: Basic Metabolic Panel; Complete Time: 22:20 3 11/27 20:46 Order name: CBC with Diff; Complete Time: 22:20 3 11/27 20:46 Order name: Troponin HS; Complete Time: 22:20 3 11/27 20:46 Order name: XRAY Chest (1 view); Complete Time: 22:20 3 11/27 20:46 Order name: EKG; Complete Time: 20:47 3 11/27 21:28 Order name: SARS RAPID; Complete Time: 22:20 [facility] 11/27 20:46 Order name: Cardiac monitoring; Complete Time: 21:07 3 11/27 20:46 Order name: EKG - Nurse/Tech; Complete Time: 21:05 3 11/27 20:46 Order name: IV Saline Lock; Complete Time: 21:07 3 11/27 20:46 Order name: Labs collected and sent; Complete Time: 21:07 3 11/27 20:46 Order name: O2 Per Protocol; Complete Time: 21:07 3 11/27 20:46 Order name: O2 Sat Monitoring; Complete Time: 21:07 bs3 Administered Medications: No medications were administered Disposition Summary: 11/28/22 00:16 Transfer Ordered Transfer Location: Other Acute Care Facility bs3 Reason: Higher level of care bs3 Condition: Stable bs3 Problem: new bs3 Symptoms: are unchanged bs3 Accepting Physician: Ari(11/28/22 00:53) sanjana Diagnosis - Bradycardia, unspecified bs3 Forms: - Medication Reconciliation Form bs3 - SBAR form bs3 Signatures: Dispatcher [employer] Jessi Power RN RN kl Doucette, Kyli, RN RN kd3 Abbe Chilel MD MD bs3 Corrections: (The following items were deleted from the chart) 00:53 00:16 Ari allan
--- NOTE | 2022-11-28 00:16 | ER ---
Nurse's Notes [facility] Name: Scotty Mcgee Age: 87 yrs Sex: Male : 1935 Arrival Date: 11/27/2022 Time: 19:48 Bed 5 Private MD: Diagnosis: Bradycardia, unspecified Presentation: 11/27 20:18 Chief complaint: Patient's son or daughter states: On Friday he passed out and felt kd3 light headed. He was shaking violently and was sweaty, we called 911 and he went to [facility]. The heart rate has been consistently in the 40's since he has been discharged. There was a recommendation for a pacemaker. We were uncomfortable with the discharge and we want him to be admitted for DR. nobles to see him in the morning. Coronavirus screen: Vaccine status:. Ebola Screen: No symptoms or risks identified at this time. Initial Sepsis Screen: Does the patient meet any 2 criteria? No. Patient's initial sepsis screen is negative. Does the patient have a suspected source of infection? No. Patient's initial sepsis screen is negative. Risk Assessment: Do you want to hurt yourself or someone else? Patient reports no desire to harm self or others. Onset of symptoms was November 27, 2022. 20:18 Method Of Arrival: Ambulatory kd3 20:18 Acuity: HANK 4 kd3 Triage Assessment: 20:23 General: Appears in no apparent distress. Behavior is calm, cooperative. Pain: Denies kd3 pain. Historical: - Allergies: 20:23 No Known Allergies; kd3 - PMHx: 23:12 Atrial fibrillation; short term memory disorder; kl - PSHx: 23:12 mitral valve repair; kl - Immunization history:: Adult Immunizations up to date. - Social history:: Smoking status: Patient denies any tobacco usage or history of. Screenin:57 [facility] ED Fall Risk Assessment (Adult) History of falling in the last 3 months, kl including since admission No falls in past 3 months (0 pts) Confusion or Disorientation No (0 pts) Intoxicated or Sedated No (0 pts) Impaired Gait Yes (1 pt) Mobility Assist Device Used No (0 pt) Altered Elimination No (0 pt) Score/Fall Risk Level 0 - 2 = Low Risk Oriented to surroundings, Maintained a safe environment, Hourly rounding (assess needs \T\ fall precautionary measures) done. Abuse screen: Denies threats or abuse. Nutritional screening: No deficits noted. Tuberculosis screening: No symptoms or risk factors identified. Assessment: 20:55 General: Appears in no apparent distress. comfortable, Behavior is calm, cooperative, kl appropriate for age. Pain: Denies pain. Neuro: No deficits noted. Cardiovascular: Reports lightheadedness, Denies chest pain, Heart tones S1 S2 Capillary refill < 3 seconds Pulses are all present. Rhythm is pt has history of a fib. Respiratory: No deficits noted. GI: No deficits noted. No signs and/or symptoms were reported involving the gastrointestinal system. : No deficits noted. No signs and/or symptoms were reported regarding the genitourinary system. EENT: No deficits noted. No signs and/or symptoms were reported regarding the EENT system. 21:46 Reassessment: No changes from previously documented assessment. Patient and/or family kl updated on plan of care and expected duration. Pain level reassessed. Patient is alert, oriented x 3, equal unlabored respirations, skin warm/dry/pink. Patient states feeling better. 22:38 Reassessment: No changes from previously documented assessment. Patient and/or family kl updated on plan of care and expected duration. Pain level reassessed. Patient is alert, oriented x 3, equal unlabored respirations, skin warm/dry/pink. Patient states feeling better. 23:45 Reassessment: No changes from previously documented assessment. Patient and/or family mb9 updated on plan of care and expected duration. Pain level reassessed. Patient is alert, oriented x 3, equal unlabored respirations, skin warm/dry/pink. Patient states feeling better. Patient states symptoms have improved. Vital Signs: 20:18 BP 112 / 74; Pulse 53; Resp 19; Temp 97.9(TE); Pulse Ox 100% ; Weight 93.89 kg; Height kd3 6 ft. (182.88 cm); 20:56 BP 111 / 59; Pulse 58; Resp 17; Pulse Ox 96% on R/A; kl 21:46 BP 110 / 61; Pulse 49; Resp 17; Pulse Ox 96% on R/A; kl 22:38 BP 102 / 65; Pulse 73; Resp 17; Pulse Ox 96% on R/A; kl 20:18 Body Mass Index 28.07 (93.89 kg, 182.88 cm) kd3 ED Course: 19:48 Patient arrived in ED. mr 20:19 Abbe Chilel MD is Attending Physician. bs3 20:23 Triage completed. kd3 20:23 Arm band placed on right wrist. kd3 20:54 Forensics Team Director paged at 20:54. mw2 21:00 EKG done, by ED staff, reviewed by Abbe Chilel MD. Inserted saline lock: 20 gauge in mb9 left forearm, using aseptic technique. Blood collected. 21:07 Basic Metabolic Panel Sent. mb9 21:07 CBC with Diff Sent. mb9 21:07 Troponin HS Sent. mb9 21:33 SARS RAPID Sent. kl 22:03 XRAY Chest (1 view) In Process Unspecified. EDMS 22:56 initiated a transfer with Disha from [facility]. mw2 23:[address] Chilel with Dr. Chapman from [facility]. mw2 23:46 administrative approval given by Disha Wolfe/patient has been accepted to [facility] mw2 to the ER/ Dr. Chapman accepted the patient in transfer/report to be called to [phone]. 11/28 00:11 Patient has correct armband on for positive identification. kl 00:11 No provider procedures requiring assistance completed. Patient transferred, IV remains kl in place. Administered Medications: No medications were administered Medication: 11/27 20:58 VIS not applicable for this client. kl Outcome: 11/28 00:10 Transferred by ground EMS to other acute care facility: [facility]. Transfer form kl completed. X-rays sent w/ patient. Condition: stable Discharge instructions given to patient, family, Instructed on the need for transfer, Demonstrated understanding of instructions, report called to Joan SCHMIDT 00:16 ER care complete, transfer ordered by . bs3 00:53 Patient left the ED. kl Signatures: Dispatcher [employer] EDMS Jessi Tejada RN RN kl NahidDisha Sophie Valdezhelio mw2 Eliane Leon RN RN kd3 Abbe Chilel MD MD bs3 Michael, Disha Rothman, RN RN mb9 Corrections: (The following items were deleted from the chart) 11/27 23:50 22:56 initiated a transfer with Howard from [facility] mw2 mw2
[2022-11-28 01:43] VITALS: TEMP 97.9
[2022-11-28 01:49] VITALS: O2SAT 96
[2022-11-28 01:52] VITALS: BP 102/65
--- NOTE | 2022-11-29 13:20 | EKG ---
Test Date: 2022-11-27 Test Time: 21:03:36 Fabric Lay Out Worker: SHASTA MEASUREMENT RESULTS: Intervals: Rate: 52 [place]: QRSD: 138 QT: 502 QTc: 466 [place]: P: KS: QRS: -75 T: 36 INTERPRETIVE STATEMENTS: Atrial fibrillation with slow ventricular response with a competing junctional pacemaker Left axis deviation Nonspecific intraventricular block Cannot rule out Anterior infarct, age undetermined Abnormal ECG No previous ECG available for comparison Electronically Signed On 11-29-22 13:16:44 LUBE ATTENDANT by Jorge Alberto Ramires
== END 2022-11-28 00:53 ==
LOC: ER 19:45
DX: R00.1 Bradycardia, unspecified (principal); I48.91 Unspecified atrial fibrillation; Z20.822 Contact with and (suspected) exposure to COVID-19
CPT/HCPCS: 36415; 71045; 80048; 84484; 85025; 87811; 93005; 99285

== ENCOUNTER 2024-08-28 08:33 | Emergency (ER) | payer OTHER ==
[2024-08-28] MEDS ORDERED: FAMOTIDINE 20 MG/2 ML VIAL IV ONE (08:53)
[2024-08-28] MEDS ORDERED: NA CHLORIDE 0.9% 1,000 ML ONE (08:53)
[2024-08-28] MEDS ORDERED: ONDANSETRON 4 MG/2 ML VIAL ONE (08:53)
[2024-08-28 09:07] LABS: Specific Gravity 1.018 (1.005-1.030); Sqamous Epithelial <5 /HPF (None Seen); Urine Bacteria None Seen /HPF (<20); Urine Bilirubin NEGATIVE (Negative); Urine Blood 3+ (OVER) (Negative); Urine Clarity Extremely Turbid (Clear); Urine Color Yellow (Yellow); Urine Crystals Unidentified Few /HPF (None Seen); Urine Culture Reflex Order REFLEXED; Urine Glucose NEGATIVE (Negative); Urine Ketones NEGATIVE (Negative); Urine Microscopic Reflex YN ORDER UMIC; Urine Mucus Slight /HPF (None Seen); Urine Nitrite NEGATIVE (Negative); Urine Protein 1+ (Negative); Urine RBC >50 /HPF (None Seen); Urine Urobilinogen Normal (Normal); Urine WBC >50 /HPF (<5); Urine WBC Clump Occasional /HPF (None Seen); Urine Yeast (Budding) Trace /HPF (None Seen)
[2024-08-28 09:40] LABS: Absolute Basophils 0.1 K/uL (0-0.5); Absolute Eosinophils 0.1 K/uL (0-0.5); Absolute Lymphocytes (CBC) 1.5 K/uL (0.7-4.9); Absolute Monocytes 0.7 K/uL (0.1-1.3); Absolute Neutrophil 3.6 K/uL (1.8-8.0); Basophils % 0.9 % (0-1.3); Eosinophils % 1.8 % (0-4.4); Hematocrit 30.6 % (39.6-49.0); Hemoglobin 10.5 g/dL (13.6-17.9); Lymphocytes % 24.7 % (15.3-44.8); MCH 32.1 pg (27.0-35.0); MCHC 34.4 g/dL (32.0-36.0); MCV 93.3 fL (80-100); MPV 7.8 fL (7.6-11.3); Monocytes % 12.5 % (3.3-12.3); Neutrophils % 60.1 % (41.7-73.7); Nucleated Red Blood Cells % 0.1 % (0-0); Platelets 165 thou/uL (152-406); RBC Red Blood Cell Count 3.28 M/uL (4.33-5.43); Red Cell Distribution Width 14.6 % (12.1-15.2)
--- NOTE | 2024-08-28 09:53 | RAD REPORT ---
EXAMINATION: ONE VIEW CHEST XR CLINICAL INDICATION: Male, 89 years old.,ABDOMINAL DISTENTION TECHNIQUE: Frontal chest projection is submitted. Examination is limited by patient positioning and t echnique. COMPARISON: 11/27/2022 FINDINGS: Stable central interstitial prominence with tortuosity of the aorta. Blunting of the right costophre sherrie angle which may reflect pleural thickening or trace effusion, or mild atelectasis. No other sizable effusion. No pneumothorax. The heart is upper limit of normal in size. Newly placed left ches t wall pacer/ICD. IMPRESSION: Blunting of the right costophrenic angle which may reflect trace effusion, pleural thickening, or mil d atelectasis. Other stable findings as above.
[2024-08-28 10:01] LABS: Albumin 3.1 g/dL (3.4-5.0); Albumin/Globulin Ratio 0.8 (1.1-1.8); Anion Gap 9.5 mEq/L (5.0-15.0); Bilirubin Total 0.6 mg/dL (0.2-1.0); Globulin 3.7 g/dL (2.3-3.5); Potassium 3.5 mEq/L (3.5-5.1); Protein, Total 6.8 g/dL (6.4-8.2)
[2024-08-28] MEDS ORDERED: Meropenem 1000 MG/VIAL IV ONE (10:05)
[2024-08-28] MEDS ORDERED: NA CHLORIDE 0.9% 100 ML ONE (10:05)
--- NOTE | 2024-08-28 10:33 | RAD REPORT ---
EXAMINATION: CT Stone Protocol CLINICAL INDICATION: Male, 89 years old. FLANK PAIN TECHNIQUE: CT abdomen and pelvis was performed, without IV contrast, as per department protocol. Axia l, sagittal and coronal reconstructions were obtained. One or more of the following dose reduction techniques were used: Automated exposure control, adjustment of the mA and kV according to the patien t size, and iterative reconstruction. Unless otherwise specified, incidental findings do not require dedicated imaging follow-up. COMPARISON: No prior exam. FINDINGS: The lack of intravenous contrast limits the sensitivity of this exam for evaluation of solid visceral organs, vascular structures, and retroperitoneum. LOWER CHEST: Moderate right and mild left layering pleural effusion LIVER: Normal in size and contour. No focal lesion. BILIARY SYSTEM: No suspicious abnormalities. SPLEEN: Normal size. No focal lesion. PANCREAS: No mass, ductal dilation, or mariola-pancreatic fluid. ADRENALS: Normal; no mass. KIDNEYS AND URETERS: Normal size and contour, with multiple left renal cortical cystic lesions larges t measuring 3.5 cm. Mild to moderate right hydroureteronephrosis. A 1.5 cm calculus at the right vesicoureteral junction may be because of the obstruction. Small calculi are seen within the distende d distal right ureter, largest measuring 5 mm. Bilateral nonobstructing renal calculi at the lower poles, largest on the right measuring 4 mm. URINARY BLADDER: Layering bladder calculi along the dependent wall largest measuring 6 mm. Asymmetric enlargement and lobulated appearance of the prostate gland, right of midline, projecting n ear the right vesicoureteral junction, measuring 4.4 x 4.6 x 6.2 cm. GASTROINTESTINAL TRACT: No evidence of bowel obstruction, significant free fluid, free air or abscess . APPENDIX: Normal appendix. LYMPH NODES: No lymphadenopathy. MUSCULOSKELETAL: No acute or suspicious osseous abnormality. ADDITIONAL FINDINGS: None. IMPRESSION: Mild to moderate right hydroureteronephrosis. 1.5 cm calculus at the right vesicoureteral junction ma y be the cause of the obstruction. Other smaller calculi within the distended distal right ureter up to 5 mm. Other nonobstructing bilateral renal and bladder calculi as above. Asymmetric masslike enlargement and lobulated appearance of the prostate gland, projecting near the r ight vesicoureteral junction, which could relate to asymmetric changes of benign prostatic hyperplasia, or a mass with extraprostatic extension. Urologic evaluation is recommended. Bilateral layering pleural effusions larger on the right.
--- NOTE | 2024-08-28 10:41 | EDPHYS ---
Physician Documentation [facility] Name: Scotty Mcgee Age: 89 yrs Sex: Male : 1935 Arrival Date: 08/28/2024 Time: 08:33 Bed 13 Private MD: HEATHER Physician Mello Helms HPI: 08/28 10:01 This 89 yrs old Male presents to ER via Ambulatory with complaints of matt Abdominal Pain. 10:01 The patient presents with abdominal pain in the right upper quadrant, right lower matt quadrant. Onset: The symptoms/episode began/occurred just prior to arrival, this morning. The patient complains of pain in the right mid back and right low back. The pain does not radiate. Onset: The symptoms/episode began/occurred 1 day(s) ago. Modifying factors: The symptoms are alleviated by nothing. the symptoms are aggravated by nothing. Associated signs and symptoms: The patient has no apparent associated signs or symptoms. Associated signs and symptoms: Pertinent positives: nausea. The symptoms are described as constant, crampy. 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 - Infectious Disease History:: Denies. - Social history:: Smoking status: Patient denies any tobacco usage or history of. - Family history:: not pertinent. ROS: 10:01 Constitutional: Negative for fever, chills, and weight loss, Eyes: Negative for injury, matt pain, redness, and discharge, ENT: Negative for injury, pain, and discharge, Neck: Negative for injury, pain, and swelling, Cardiovascular: Negative for chest pain, palpitations, and edema, Respiratory: Negative for shortness of breath, cough, wheezing, and pleuritic chest pain, MS/Extremity: Negative for injury and deformity, Skin: Negative for injury, rash, and discoloration, Neuro: Negative for headache, weakness, numbness, tingling, and seizure, 10:01 Abdomen/GI: Positive for abdominal pain, abdominal cramps, 10:01 Back: Positive for pain at rest, pain with movement, flank pain, on the right, Exam: 10:01 Constitutional: This is a well developed, well nourished patient who is awake, alert, matt and in no acute distress. Head/Face: Normocephalic, atraumatic. Eyes: Pupils equal round and reactive to light, extra-ocular motions intact. Lids and lashes normal. Conjunctiva and sclera are non-icteric and not injected. Cornea within normal limits. Periorbital areas with no swelling, redness, or edema. ENT: Nares patent. No nasal discharge, no septal abnormalities noted. Tympanic membranes are normal and external auditory canals are clear. Oropharynx with no redness, swelling, or masses, exudates, or evidence of obstruction, uvula midline. Mucous membranes moist. Neck: Trachea midline, no thyromegaly or masses palpated, and no cervical lymphadenopathy. Supple, full range of motion without nuchal rigidity, or vertebral point tenderness. No Meningismus. Chest/axilla: Normal chest wall appearance and motion. Nontender with no deformity. No lesions are appreciated. Cardiovascular: Regular rate and rhythm with a normal S1 and S2. No gallops, murmurs, or rubs. Normal PMI, no JVD. No pulse deficits. Respiratory: Lungs have equal breath sounds bilaterally, clear to auscultation and percussion. No rales, rhonchi or wheezes noted. No increased work of breathing, no retractions or nasal flaring. Skin: Warm, dry with normal turgor. Normal color with no rashes, no lesions, and no evidence of cellulitis. MS/ Extremity: Pulses equal, no cyanosis. Neurovascular intact. Full, normal range of motion. Neuro: Awake and alert, GCS 15, oriented to person, place, time, and situation. Cranial nerves II-XII grossly intact. Motor strength 5/5 in all extremities. Sensory grossly intact. Cerebellar exam normal. Normal gait. Psych: Awake, alert, with orientation to person, place and time. Behavior, mood, and affect are within normal limits. 10:01 Abdomen/GI: Inspection: abdomen appears normal, Bowel sounds: normal, Palpation: mild abdominal tenderness, in the anterior aspect of right lateral abdomen, posterior aspect of right lateral abdomen and right lower quadrant, Liver: no appreciated palpable abnormalities, Hernia: not appreciated, Vital Signs: 11:01 BP 138 / 86; Pulse 71; Resp 16; Pulse Ox 100% ; ko1 12:34 BP 147 / 85; Pulse 68; Resp 16; Pulse Ox 98% on R/A; ko1 13:00 BP 139 / 93; Pulse 70; Resp 16; Pulse Ox 100% ; ko1 MDM: 08:39 Medical Screening Exam initiated matt 10:08 Differential diagnosis: nephrolithiasis, pyelonephritis, UTI, Mesenteric ischemia or matt infarction, non-specific abd pain, Prostatitis, Pyelonephritis, Ureterolithiasis, urinary tract infection. Data reviewed: vital signs, nurses notes, lab test result(s), radiologic studies, CT scan. Consideration of Admission/Observation Escalation of care including admission/observation considered. I considered the following discharge prescriptions or medication management in the emergency department Medications were administered in the Emergency Department. See MAR. Test considered but Not performed: Ultrasound no renal usg. Care significantly affected by the following chronic conditions: a fib, memory problems, kidney stones. 08/28 08:41 Order name: CBC with Diff; Complete Time: 09:59 [facility] 08/28 08:41 Order name: CMP; Complete Time: 10:19 [facility] 08/28 08:41 Order name: Lipase; Complete Time: 10:19 [facility] 08/28 08:41 Order name: Urinalysis w/ reflexes; Complete Time: 09:59 [facility] 08/28 08:41 Order name: Troponin High Sensitivity; Complete Time: 10:19 [facility] 08/28 09:16 Order name: Urine Culture [facility] 08/28 08:41 Order name: Chest Single View XRAY; Complete Time: 09:59 [facility] 08/28 10:00 Order name: CT Stone Protocol; Complete Time: 10:36 [facility] 08/28 08:41 Order name: IV Saline Lock; Complete Time: 09:22 [facility] 08/28 08:41 Order name: Labs collected and sent; Complete Time: 09:23 [facility] 08/28 11:36 Order name: NPO; Complete Time: 12:16 [facility] Administered Medications: 09:29 Drug: Famotidine IVP 20 mg IVP once; dilute with 10 mL 0.9% NaCl; give over 2 minutes ko1 Route: IVP; Site: left antecubital; 09:44 Follow up: Response: No adverse reaction ko1 09:29 Not Given (Patient Refused): ondansetron 4 mg IVP once; over 2 minutes ko1 09:29 Drug: NS 0.9% IV 1000 ml IV at 1 bolus Per protocol; to be given as a bolus over 60 ko1 minutes Route: IV; Rate: 1 bolus; Site: left antecubital; 11:02 Follow up: Response: No adverse reaction; IV Status: Completed infusion; IV Intake: ko1 1000ml 10:10 Drug: Meropenem IV 1 grams IV at per protocol once; (mix in NS 100 mL) Route: IV; Rate: ko1 per protocol; Site: left antecubital; 11:01 Follow up: Response: No adverse reaction; IV Status: Completed infusion; IV Intake: ko1 100ml Disposition Summary: 08/28/24 10:41 Transfer Ordered Notes: Transfer Location: [facility] matt Reason: Higher level of care matt Condition: Stable matt Problem: new mtat Symptoms: have improved matt Accepting Physician: to angely madeline(08/28/24 13:39) ko1 Diagnosis - Hydronephrosis with renal and ureteral calculous obstruction - 1.5 cm UVJ matt - UTI/ Urinary tract infection, site not specified matt - Unspecified kidney failure - CHRONIC matt Forms: - Medication Reconciliation Form matt - SBAR form matt Signatures: Dispatcher [employer] EDMS Mello Helms MD MD cha Blanchard, Shelby, RN RN ss Celena Garcia RN RN ko1 Corrections: (The following items were deleted from the chart) 08:41 08:41 Abdomen Pelvis W Con+CT.RAD.BRZ ordered. EDMS EDMS 08:41 08:41 Chest Single View+RAD.RAD.BRZ ordered. EDMS EDMS 13:39 10:41 to [facility] [place] ko1
--- NOTE | 2024-08-28 10:41 | ER ---
Nurse's Notes [facility] Name: Scotty Mcgee Age: 89 yrs Sex: Male : 1935 Arrival Date: 08/28/2024 Time: 08:33 Bed 13 Private MD: Diagnosis: Hydronephrosis with renal and ureteral calculous obstruction-1.5 cm UVJ;UTI/ Urinary tract infection, site not specified;Unspecified kidney failure-CHRONIC Presentation: 08/28 08:48 Chief complaint: Patient states: Dx with a kidney stone in R ureter on 08/03 at [facility]. Pt is scheduled to have a chemical stress test September 06 to have him medically cleared for a procedure. Coronavirus screen: Client denies travel out of the [place] in the last 14 days. Ebola Screen: Patient denies exposure to infectious person. Patient denies travel to an Ebola-affected area in the 21 days before illness onset. Initial Sepsis Screen: Does the patient meet any 2 criteria? No. Patient's initial sepsis screen is negative. Does the patient have a suspected source of infection? No. Patient's initial sepsis screen is negative. Risk Assessment: Do you want to hurt yourself or someone else? Patient reports no desire to harm self or others. Onset of symptoms was August 03, 2024. 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 - Infectious Disease History:: Denies. - Social history:: Smoking status: Patient denies any tobacco usage or history of. - Family history:: not pertinent. Screenin:10 [facility] ED Fall Risk Assessment (Adult) History of falling in the last 3 months, ko1 including since admission No falls in past 3 months (0 pts) Confusion or Disorientation No (0 pts) Intoxicated or Sedated No (0 pts) Impaired Gait No (0 pts) Mobility Assist Device Used No (0 pt) Altered Elimination No (0 pt) Score/Fall Risk Level 0 - 2 = Low Risk Oriented to surroundings, Maintained a safe environment, Educated pt \T\ family on fall prevention, incl call for assistance when getting out of bed, Assessed \T\ reinforced patient's understanding of fall precautions, Provided non-skid footwear, Hourly rounding (assess needs \T\ fall precautionary measures) done. Abuse screen: Denies threats or abuse. Denies injuries from another. Nutritional screening: No deficits noted. Tuberculosis screening: No symptoms or risk factors identified. Assessment: 09:10 General: Appears in no apparent distress. Behavior is calm, cooperative, appropriate ko1 for age. Pain: Complains of pain in abdomen. Neuro: No deficits noted. Cardiovascular: No deficits noted. Respiratory: No deficits noted. GI: Bowel sounds present X 4 quads. Abd is soft X 4 quads. : Reports urinary frequency. EENT: No deficits noted. Derm: No deficits noted. Musculoskeletal: No deficits noted. Vital Signs: 11:01 BP 138 / 86; Pulse 71; Resp 16; Pulse Ox 100% ; ko1 12:34 BP 147 / 85; Pulse 68; Resp 16; Pulse Ox 98% on R/A; ko1 13:00 BP 139 / 93; Pulse 70; Resp 16; Pulse Ox 100% ; ko1 ED Course: 08:37 Patient arrived in ED. sj2 08:39 Mello Helms MD is Attending Physician. matt 08:46 Celena Garcia, ROXANA is Primary Nurse. ko1 08:51 Triage completed. ss 08:52 Arm band placed on right wrist. ss 09:10 Patient has correct armband on for positive identification. Bed in low position. Call ko1 light in reach. Side rails up X 1. Provided Education on: call light, meds. Pulse ox on. NIBP on. Door closed. Noise minimized. Lights dimmed. Warm blanket given. Pillow given. Assisted to bathroom. 09:10 Urine collected: clean catch specimen, cloudy. ko1 09:23 CBC with Diff Sent. ko1 09:23 CMP Sent. ko1 09:23 Lipase Sent. ko1 09:23 Troponin High Sensitivity Sent. ko1 09:23 Urine Culture Sent. ko1 09:29 Chest Single View XRAY In Process Unspecified. EDMS 10:14 CT Stone Protocol In Process Unspecified. EDMS 10:52 initiated transfer with Mary from the [facility]. eb 11:41 administrative approval given by Mary Moreno Rn/ patient has been accepted to [facility] ED/Dr. Manpreet Trinidad has accepted the patient in transfer/ report to be called to [phone]. 12:34 No provider procedures requiring assistance completed. Patient transferred, IV remains ko1 in place. Administered Medications: 09:29 Drug: Famotidine IVP 20 mg IVP once; dilute with 10 mL 0.9% NaCl; give over 2 minutes ko1 Route: IVP; Site: left antecubital; 09:44 Follow up: Response: No adverse reaction ko1 09:29 Not Given (Patient Refused): ondansetron 4 mg IVP once; over 2 minutes ko1 09:29 Drug: NS 0.9% IV 1000 ml IV at 1 bolus Per protocol; to be given as a bolus over 60 ko1 minutes Route: IV; Rate: 1 bolus; Site: left antecubital; 11:02 Follow up: Response: No adverse reaction; IV Status: Completed infusion; IV Intake: ko1 1000ml 10:10 Drug: Meropenem IV 1 grams IV at per protocol once; (mix in NS 100 mL) Route: IV; Rate: ko1 per protocol; Site: left antecubital; 11:01 Follow up: Response: No adverse reaction; IV Status: Completed infusion; IV Intake: ko1 100ml Medication: 09:10 VIS not applicable for this client. ko1 Intake: 11:01 IV: 100ml; Total: 100ml. ko1 11:02 IV: 1000ml; Total: 1100ml. ko1 Outcome: 10:41 ER care complete, transfer ordered by MD. gutierrez 13:00 Transferred by [facility]. to [facility], Transfer form ko1 completed. X-rays sent w/ patient. 13:00 Condition: stable 13:00 Instructed on the need for transfer, Demonstrated understanding of instructions, 13:39 Patient left the ED. ko1 Signatures: Dispatcher [employer] Mello Newman MD MD cha Blanchard, Shelby, RN RN Kortney Carver Kathy, RN RN ko1 Mackenzie Weaver 2
[2024-08-28 23:15] VITALS: BP 139/93; O2SAT 100
== END 2024-08-28 13:39 | disposition short-term general hospital (02) ==
LOC: ER 08:33
DX: N13.2 Hydronephrosis with renal and ureteral calculous obstruction (principal); N39.0 Urinary tract infection, site not specified; N18.9 Chronic kidney disease, unspecified; Z87.442 Personal history of urinary calculi
CPT/HCPCS: 96365; 96361; 87088; 85025; 81001; 87086; 36415; 84484; 83690; 80053; 76377; 74176; 71045; 96375; 99285; J2185; J7030; J2405